=== PATIENT | male | born 1940 | race Caucasian/White ===

== ENCOUNTER → 2016-05-25 | Outpatient (CLI) | payer MEDICARE, OTHER ==
[~2016-05-25] VITALS: Ht 175.3 cm; Wt 117.9 kg
[~2016-05-25] MED LIST: /ASCO250TA PO; /FENT50PA; /FENT75PA; ALFUZOSIN OR; ALIG4CAP PO; ALLO15TA PO; ALLO300T OR; AMBI10TA OR; AMILORIDE OR; AMITRIPTYLINE PO; ANTI25TA OR; ANTI25TA PO; ASPI32ECTA PO; ATIV1TAB2 OR; AVOD0.5C PO; BUMETANIDE OR; CALC1CAP31 PO; CALC1TAB30 PO; CALCCHW12 OR; COLC0.6T OR; DOCU10ELUD PO; ECOT325T5 OR; FINA5TAB2 PO; FLOM5CAP PO; GLUC1CAP10 PO; GLUCTAB6 OR; LEFL1TAB4 PO; LEVO150T OR; LEVO150T7 PO; LEVO175T2 PO; LIDOCAINE 2% INJ 100 MG/5 ML SDV (FOR ANES.) As Ordered ONE; LORA2TA PO; LORAPOW30 PO; MULT1TAB10 PO; MULTIVITAMIN PO; NS 1,000 ML IV SCH; OXYC10TA56 OR; OXYC1TAB23 PO; OXYCODONE PO; POTA20TA PO; POTA20TA2 OR; PREG50CA OR; PROPOFOL 200 MG/20 ML VIAL As Ordered ONE; PROS5TAB OR; ROCA0.25 OR; SERT-141 PO; SPIR25TA2 PO; SYNT150T PO; SYNTHROID PO; THERGRAN OR; TOPI25TA2 OR; TORS20TA2 PO; UROX10TA10 PO; VYTO10TA5 OR; ZOLO100T OR; ZOLPIDEM PO; [UNRECOGNIZED DRUG - OTHER]; [UNRECOGNIZED DRUG - OTHER] PO; [UNRECOGNIZED DRUG - OTHER] PO; [UNRECOGNIZED DRUG - OTHER] PO
--- NOTE | 2016-05-25 09:40 | ROOR ---
Patient Name: Maikel Vadlez Procedure Date: 05/25/2016 9:19 AM Date of : 1940 Age: 75 Room: [facility] Gender: Male Note Status: Finalized Procedure: Colonoscopy to Cecum Indications: Follow-up of diverticulitis Providers: Wilian Jackson MD Referring MD: RAIN RODRIGEZ MD Requesting Provider: Medicines: Monitored Anesthesia Care Complications: No immediate complications. Procedure: Pre-Anesthesia Assessment: - The heart rate, respiratory rate, oxygen saturations, blood pressure, adequacy of pulmonary ventilation, and response to care were monitored throughout the procedure. The Colonoscope was introduced through the anus and advanced to the cecum, identified by appendiceal orifice and ileocecal valve. The colonoscopy was performed without difficulty. The patient tolerated the procedure well. The quality of the bowel preparation was good. Findings: The perianal and digital rectal examinations were normal. Non-bleeding internal hemorrhoids were found during retroflexion. The hemorrhoids were small and Grade I (internal hemorrhoids that do not prolapse). Multiple small and large-mouthed diverticula were found in the recto-sigmoid colon, sigmoid colon and descending colon. The exam was otherwise without abnormality on direct and retroflexion views. Impression: - Non-bleeding internal hemorrhoids. - Diverticulosis in the recto-sigmoid colon, in the sigmoid colon and in the descending colon. - The examination was otherwise normal on direct and retroflexion views. - No specimens collected. - The exam was otherwise normal to the cecum. Recommendation: - Patient has a contact number available for emergencies. The signs and symptoms of potential delayed complications were discussed with the patient. Return to normal activities tomorrow. Written discharge instructions were provided to the patient. - High fiber diet. - Discharge patient to home. - Continue present medications. - Repeat colonoscopy for symptoms only.. - Return to referring physician. - The findings and recommendations were discussed with the patient's family. Wilian Jackson MD Wilian Jackson MD 05/25/2016 9:40:16 AM This report has been signed electronically. Number of Addenda: 0 Note Initiated On: 05/25/2016 9:19 AM Estimated Blood Loss: Estimated blood loss: none.
[2016-05-25 10:14] VITALS: BP 151/82
== END ==
LOC: M OPP 08:27
PROVIDERS: ATTEND Internal Medicine Gastroenterology
DX: Z12.11 Encounter for screening for malignant neoplasm of colon (principal); K57.32 Diverticulitis of large intestine without perforation or abscess without bleeding; K64.0 First degree hemorrhoids; I10 Essential (primary) hypertension; N40.0 Benign prostatic hyperplasia without lower urinary tract symptoms; I51.9 Heart disease, unspecified; N28.9 Disorder of kidney and ureter, unspecified; E07.9 Disorder of thyroid, unspecified; F32.9 Major depressive disorder, single episode, unspecified; E78.5 Hyperlipidemia, unspecified; G47.30 Sleep apnea, unspecified; F41.9 Anxiety disorder, unspecified; R42 Dizziness and giddiness; G89.29 Other chronic pain; R52 Pain, unspecified; Z87.891 Personal history of nicotine dependence; Z79.82 Long term (current) use of aspirin; Z79.899 Other long term (current) drug therapy

== ENCOUNTER → 2016-06-24 | Outpatient (REF) | payer MEDICARE, OTHER ==
[~2016-06-24] MED LIST changes: -LIDOCAINE 2% INJ 100 MG/5 ML SDV (FOR ANES.) As Ordered ONE; -NS 1,000 ML IV SCH; -PROPOFOL 200 MG/20 ML VIAL As Ordered ONE; -SERT-141 PO; +SERT50TA PO
== END ==
LOC: M SMT 12:42
PROVIDERS: ATTEND Urology
DX: N40.1 Benign prostatic hyperplasia with lower urinary tract symptoms (principal)
CPT/HCPCS: 36415; 51798; 81001; G0463

== ENCOUNTER 2016-09-07 13:44 | Emergency (ER) | payer MEDICARE, OTHER ==
[~2016-09-07] VITALS: Ht 175.3 cm; Wt 127.0 kg
[2016-09-07] MEDS ORDERED: AMBI5TAB PO (14:47)
[2016-09-07 14:53] LABS: BASO % 0.4 % (0.0-1.0); EOS # 0.2 K/mm3 (0.0-0.50); EOS % 1.9 % (0.0-3.0); LARGE UNSTAINED CELL # 0.1 K/mm3 (0.0-0.4); LARGE UNSTAINED CELL % 0.8 % (0.0-4.0); LYMPH # 1.1 K/mm3 (1.5-4.5); LYMPH % 9.3 % (24.0-44.0); MEAN CORPUSCULAR HEMOGLOBIN 32.4 pg (27.0-33.0); MEAN CORPUSCULAR HGB CONC 35.1 g/dl (32.0-36.5); MEAN CORPUSCULAR VOLUME 92.2 fl (80.0-96.0); MONO # 0.8 K/mm3 (0.0-0.8); MONO % 7.4 % (0.0-5.0); NEUTROPHILS # 8.9 K/mm3 (1.8-7.7); NEUTROPHILS % 80.1 % (36.0-66.0); PLATELET COUNT, AUTOMATED 205 k/mm3 (150-450); RED CELL DISTRIBUTION WIDTH 12.9 % (11.5-14.5); WHITE BLOOD COUNT 11.1 K/mm3 (4.0-10.0)
[2016-09-07 15:22] LABS: ALBUMIN 3.3 GM/DL (3.2-5.2); ALBUMIN/GLOBULIN RATIO 1.22 (1.00-1.93); ALKALINE PHOSPHATASE 56 U/L (45-117); ALT/SGPT 31 U/L (12-78); ANION GAP 7 MEQ/L (8-16); AST/SGOT 18 U/L (15-37); BILIRUBIN,DIRECT 0.2 MG/DL (0.0-0.2); BILIRUBIN,TOTAL 0.6 MG/DL (0.2-1.0); BLOOD UREA NITROGEN 16 MG/DL (7-18); CALCIUM LEVEL 8.3 MG/DL (8.8-10.2); CARBON DIOXIDE LEVEL 27 MEQ/L (21-32); CHLORIDE LEVEL 107 MEQ/L (98-107); GLOMERULAR FILTRATION RATE > 60.0 (>42); GLUCOSE, FASTING 116 MG/DL (83-110); POTASSIUM SERUM 3.7 MEQ/L (3.5-5.1); SODIUM LEVEL 141 MEQ/L (136-145)
[2016-09-07] MEDS ORDERED: ISOVUE-370 76% 100ML VIAL (Q9967) As Ordered ONE (16:29)
--- NOTE | 2016-09-07 16:55 | REP ---
Clinical: Acute chest pain. Technique: Axial contrast enhanced images from the thoracic inlet to the upper abdomen using 100 ml Isovue 370 intravenous contrast material with coronal and sagittal re-formations. Findings: Satisfactory enhancement of the pulmonary vasculature is achieved and no filling defects are identified to suggest pulmonary embolus. Lung mckinney demonstrate diffuse chronic interstitial changes and scattered scarring with bibasilar and lingular atelectasis. No pleural effusion/reaction or pneumothorax. Cardiomegaly is noted along with atherosclerotic changes to the thoracic aorta and coronary arteries. No pericardial effusion. No evidence for aortic aneurysm or dissection. No significant mediastinal, axillary, or hilar adenopathy. Surrounding musculoskeletal structures demonstrate age-related degenerative changes. Impression: No evidence for pulmonary embolus. Lingular and bilateral lower lobe atelectasis. Signed by Cristhian Pardo MD 09/07/2016 04:47 P
[2016-09-07] MEDS: NITROGLYCERIN 0.4 MG SUBL TABLET SL PRN ×2 (17:26→17:35)
[2016-09-07 17:35] VITALS: BP 145/75
[2016-09-07] MEDS ORDERED: ACETAMINOPHEN TAB 650MG DOSE (2X325MG) PO ONE (17:45)
[2016-09-07 23:30] VITALS: BP 139/80
--- NOTE | 2016-09-08 06:15 | ECGEPIP ---
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
--- NOTE | 2016-09-08 06:33 | ECGEPIP ---
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
== END 2016-09-07 23:32 | disposition home or self-care (01) ==
LOC: M ED 16:56
DX: R07.9 Chest pain, unspecified (principal); J98.11 Atelectasis; R06.02 Shortness of breath; I12.9 Hypertensive chronic kidney disease with stage 1 through stage 4 chronic kidney disease, or unspecified chronic kidney disease; N18.9 Chronic kidney disease, unspecified; M19.90 Unspecified osteoarthritis, unspecified site; M51.9 Unspecified thoracic, thoracolumbar and lumbosacral intervertebral disc disorder; Z87.891 Personal history of nicotine dependence; Z79.899 Other long term (current) drug therapy; Z79.82 Long term (current) use of aspirin
CPT/HCPCS: 36415; 71275; 80048; 80076; 82550; 82553; 83690; 84443; 84484; 85025; 93005; 93041; 94760; 99285; Q9967

== ENCOUNTER → 2016-10-08 | Outpatient (CLI) | payer MEDICARE, OTHER ==
[~2016-10-08] MED LIST changes: +AMBI5TAB PO
--- NOTE | 2016-10-16 00:12 | ECWPNPC ---
PATIENT NAME: ANG REESE : 1940 GENDER: MALE VISIT DATE: 10/08/2016 DISCHARGE DATE: 10/08/16 1018 VISIT LOCKED DATE TIME: PHYSICIAN: ELLYN VU RESOURCE: ELLYN VU REASON FOR APPOINTMENT 1. BACK PAIN HISTORY OF PRESENT ILLNESS NEW PATIENT CONSULT: WHEN DID YOUR PAIN FIRST START? . BRIEFLY DESCRIBE HOW YOUR PAIN STARTED? . HOW DOES YOUR PAIN CHANGE WITH TIME? . DOES YOUR PAIN AWAKEN YOU FROM SLEEP? . HOW MANY HOURS OF SLEEP DO YOU NORMALLY GET? . ANY DIAGNOSTIC TESTING? . FACILITY WHERE TESTS WERE DONE? ____. PAIN TREATMENT TREATMENT YES CANCER HAVE YOU EVER HAD ANY TYPE OF CANCER?NO NO. 76 YEAR OLD MALE PATIENT WITH HISTORY OF CHRONIC LOW BACK. PATIENT DESCRIBES THE PAIN SHARP, STABBING, AND SHOOTING WITH A PAIN SCORE OF 3-7/10. 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 SINCE THEN THE PATIENT HAS HAD INJECTIONS THAT DID AID IN PAIN RELIEF. HOWEVER, IN 2013 THE PATIENT HAD A BACK SURGERY THAT AIDED IN PAIN RELIEF SIGNIFICANTLY UNTIL RECENTLY WHEN THE PAIN STARTED TO COME BACK. PATIENT IS CURRENTLY USING PERCOCET NEEDED PROVIDED BY THE ORTHOPEDIC GROUP. MR. REESE STATES THAT ANY TYPE OF ACTIVITY INCREASES THE PAIN IN HIS LOWER BACK. PATIENT DENIES UNEXPLAINABLE WEIGHT LOSS, FEVER, CHILLS, NEW CHANGES ON HER URINARY OR BOWEL CONTROL. PAIN SCREENING: PATIENT HAS A COMPLAINT OF ACUTE OR CHRONIC PAIN :YES FALL RISK SCREENING: SCREENING :ONE FALL WITHOUT INJURY IN THE PAST YEAR MARR INVENTORY: QUESTIONNAIRE ASSESSEDTBD SCORE VALUE CALCULATED TBD CURRENT MEDICATIONS TAKING ALLOPURINOL 100 MG TABLET 1 TABLET ORALLY BID TAKING ASPIRIN 325 MG TABLET 1 TABLET ORALLY ONCE A DAY TAKING CALCITRIOL 0.25 MCG CAPSULE 1 CAPSULE ORALLY ONCE A DAY TAKING GLUCOSAMINE CHONDROITIN COMPLX 600-250 MG CAPSULE 1 TAB(S) ORALLY BID TAKING LEVOTHYROXINE SODIUM 150 MCG TABLET 1 TABLET ON AN EMPTY STOMACH IN THE MORNING ORALLY ONCE A DAY TAKING MULTIVITAMINS TABLET DIRECTED ORALLY TAKING POTASSIUM CHLORIDE 20 MEQ CAPSULE EXTENDED RELEASE 2 CAPSULE ORALLY BID TAKING ZOLPIDEM 10 MG TABLET 1 TAB(S) ORAL PRN TAKING TORSEMIDE 20 MG TABLET 1 TAB(S) ORALLY BID TAKING SERTRALINE HCL 100 MG TABLET 1 TABLET ORALLY ONCE A DAY TAKING SPIRONOLACTONE 25 MG TABLET 1 TABLET ORALLY BID TAKING LABETALOL HCL 100 MG TABLET 1 TAB ORALLY BID TAKING PERCOCET 7.5-325 MG TABLET 1 TABLET NEEDED ORALLY EVERY 6 HRS TAKING ALIGN 4 MG CAPSULE ORALLY TAKING FINASTERIDE 5 MG TABLET 1 TABLET ORALLY ONCE A DAY TAKING FLOMAX 0.4 MG CAPSULE 2 CAPSULES ORALLY ONCE A DAY TAKING CALCIUM 600+D3 600-400 MG-UNIT TABLET 1 TABLET WITH A MEAL ORALLY ONCE A DAY TAKING LEFLUNOMIDE 10 MG TABLET 1 TABLET ORALLY ONCE A DAY NOT-TAKING COLCHICINE 0.6 MG TABLET 1 TABLET ORALLY PRN - ONCE A DAY NOT-TAKING BACTRIM DS 800-160 MG TABLET 1 TABLET ORALLY TWICE A DAY NOT-TAKING AMITRIPTYLINE HCL 75 MG TABLET 1 TABLET AT BEDTIME ORALLY ONCE A DAY DISCONTINUED CALCIUM + D 600-200 MG-UNIT TABLET 1 TABLET WITH FOOD ORALLY ONCE A DAY DISCONTINUED LORAZEPAM 1 MG TABLET 1 TABLET ORALLY BID PRN DISCONTINUED MECLIZINE HCL 25 MG TABLET 1 TABLET NEEDED ORALLY ONCE A DAY DISCONTINUED FLUTAMIDE 125 MG CAPSULE ORALLY MEDICATION LIST REVIEWED AND RECONCILED WITH THE PATIENT PAST MEDICAL HISTORY BPH URINARY RETENTION GOUT HTN EDEMA DDD/DJD; SEVERE SPINAL STENOSIS HYPOTHYROIDISM DEPRESSION/ANXIETY HYPERCHOLESTEROLEMIA HYPOKALEMIA SLEEP APNEA VERTIGO INSOMNIA CHRONIC KIDNEY DISEASE OSTEOARTHRITIS VARICOSE VEINS OSTEOARTHRITIS ALLERGIES SURGICAL TAPE: REMOVES TOP LAYER OF SKIN: SIDE EFFECTS SURGICAL HISTORY ORIF LEFT LEG/ANKLE FRACTURE; PLATES/SCREWS IN PLACE 1992 BILATERAL - 2 TRIGGER FINGER RELEASE/CARPAL CHARO RELEASE/BONE REMOVAL THUMB (LEFT) 2004 TONSILLECTOMY APPENDECTOMY L3-L5 LAMINECTOMY 11/2012 COLONSCOPY 05/2016 FAMILY HISTORY FATHER: , CHF MOTHER: , HEART ATTACK, DIABETES SIBLINGS: ALIVE 3 BROTHER(S) - HEALTHY. 1 SON(S) , 4 DAUGHTER(S) - HEALTHY. 2 BROTHERS WITH BPH, NO OTHER KNOWN FAMILY HISTORY OF ANY UROLOGICALLY RELATED DISEASES/CANCERS. SOCIAL HISTORY GENERAL: TOBACCO USE ARE YOU A:NONSMOKER ALCOHOL SCREENING POINTS1 INTERPRETATIONNEGATIVE RECREATIONAL DRUG USE DRUG USE?NO CAFFEINE CAFFEINE USE?YES HOW OFTEN AND HOW MUCH? 2-3 CUPS OF TEA PER DAY AND OCCASIONAL COFFEE OCCUPATION: RETIRED. DIET: REGULAR. EXERCISE: NONE. MARITAL STATUS: . OTHERS AT HOME: SPOUSE, CHILD, CHILDREN. PETS: NONE. YAZIDI [id number] MANDAEN LANGUAGE LANGUAGES SPOKEN:FRENCH EDUCATION LEVEL OF EDUCATION:NOT FINISHED COLLEGE LEARNING BARRIERS / SPECIAL NEEDS BARRIERS TO LEARNING?NO HEARING IMPAIRED?NO VISION IMPAIRED?YES :CORRECTIVE LENSES COGNITIVELY IMPAIRED?NO READINESS TO LEARN?YES LEARNING PREFERENCES?NO EMOTIONAL BARRIERS?NO MEDICATION ABUSE NO PAIN CLINIC PFS, CLERGY, PUBLIC HEALTH REFERRALS CLERGY REFERRAL NEEDED?NO WAS THE PROVIDER NOTIFIED OF ANY PERTINENT INFO?NO PFS REFERRAL NEEDED?NO PUBLIC HEALTH REFERRAL NEEDED?NO PATIENT: ____. ADVANCE DIRECTIVES HEALTH CARE PROXY?NO WOULD YOU LIKE MORE INFORMATION?YES DO YOU HAVE A DNR?NO WOULD YOU LIKE MORE INFORMATION?NO LIVING WILL?NO WOULD YOU LIKE MORE INFORMATION?NO POWER OF TREAD CUTTER?NO TRAVEL OUTSIDE US: NO . HOSPITALIZATION/MAJOR DIAGNOSTIC PROCEDURE DIVERTICULITIS SURGERY RELATED DIVERTICULITIS 12/2015 REVIEW OF SYSTEMS REVIEWED BY: PROVIDER: ELLYN VU MD . CONSTITUTIONAL: ANY CHANGE IN YOUR MEDICAL CONDITION? NO . CHILLS NO . FEVER NO . INFECTION: DO YOU HAVE NEW INFECTIONS? NO . DO YOU HAVE HISTORY OF MRSA? NO . MUSCULOSKELETAL: ANY NEW PATTERNS OF PAIN OR NUMBNESS? NO . SYTEMIC LUPUS NO . GASTROENTEROLOGY: ANY NEW CHANGE IN BOWEL CONTROL? NO . BARRETTS ESOPHAGUS NO . CIRRHOSIS NO . HEPATITIS NO . LIVER FAILURE NO . ACID REFLUX NO . UNEXPLAINED WEIGHT LOSS NO . GENITOURINARY: ANY NEW CHANGE IN BLADDER CONTROL? NO . IS THERE A CHANCE YOU COULD BE ? NO . HEMATOLOGY/LYMPH: DO YOU TAKE ANY BLOOD THINNERS? (FOR EXAMPLE- COUMADIN, PLAVIX, AGGRENOX, PLATEL, PRADAXA, OR XARELTO) NO . WHEN WAS YOUR LAST DOSE? DATE: TIME: . LOW PLATELET COUNT NO . SICKLE CELL DISEASE NO . VON WILLIEBRANDS NO . FACTOR V LEIDEN NO . THALLASEMIA NO . ANEMIA NO . EASY BRUISING YES, ON ASPIRIN . NEUROLOGY: HAVE YOU FALLEN IN THE PAST 6 MONTHS? YES . ANY NEW EXTREMITY NUMBNESS OR WEAKNESS? NO . HEAD INJURY NO . DEMENTIA NO . CEREBRAL PALSY NO . MULTIPLE SCLEROSIS NO . DIZZINESS NO . HEADACHE NO . STROKES NO . VERTIGO YES, WHILE GETTING UP FROM A SITTING POSITION, WITH MOVEMENT OF HEAD . CARDIOLOGY: DO YOU HAVE A PACEMAKER OR DEFIBRILLATOR? NO . ANGINA NO . HEART ATTACK NO . HEART SURGERY NO . CONGESTIVE HEART FAILURE/FLUID OVERLOAD NO . CHEST PAIN NO . HIGH BLOOD PRESSURE ON MEDICATION(S) . IRREGULAR HEART BEAT NO . RESPIRATORY: HAVE YOU BEEN SICK IN THE PAST WEEK? NO . FEVER NO . FLU LIKE SYMPTOMS? NO . CPAP NO . BYPAP YES . ASTHMA NO . EMPHYSEMA NO . CHRONIC LUNG DISEASES NO . SHORTNESS OF BREATH ON EXERTION YES . DO YOU USE ANY TYPE OF TOBACCO (SMOKE, SMOKELESS, CHEW)? NO . COUGH NO . SNORING YES . INTEGUMENTARY: DO YOU HAVE ANY RASHES OR OPEN SORES? NO . ALLERGIC/IMMUNO: ARE YOU ALLERGIC TO SHELLFISH OR IV DYE? NO . ANY NEW ALLERGIES? NO . PSYCHIATRIC: DO YOU HAVE THOUGHTS OF HURTING YOURSELF OR SOMEONE ELSE? NO . ARE YOU ABUSED, NEGLECTED, OR IN AN UNSAFE ENVIRONMENT? NO . ENDOCRINOLOGY: ARE YOU DIABETIC? NO . THYROID DISORDER YES, HYPOTHYROID . OTHER: DO YOU NEED ANY PRESCRIPTIONS? NO . IF YES, PLEASE LIST: ____ . ANY NEW PROBLEMS WITH YOUR MEDICATIONS? NO . WHEN DID YOU LAST EAT? ____ . WHEN DID YOU LAST DRINK? ____ . WHAT DID YOU LAST DRINK? ____ . NAME OF PERSON DRIVING YOU HOME? ____ . DO YOU HAVE ANY OTHER QUESTIONS OR CONCERNS NO . VITAL SIGNS WT 286.6 LBS, HT 5'9", BMI 42.32 INDEX, BP 147/79 MM HG, HR 71 /MIN, RR 18 /MIN, TEMP 97.6 F, OXYGEN SAT % 94%, NA INITIALS SC 08:58, REVIEWED BY: FREDA. EXAMINATION : PATIENT IS ALERT O X 3 AND COOPERATIVE. TENDERNESS IN THE LOWER BACK AND PARASPINAL MUSLCE GROUP. RIGHT LEG IS WEAKER THEN THE LEFT ESPECIALLY AT EXTENSION. MRI DONE ON 08/31/16 SHOWS HYPERTROPHY, MULTIPLE BULGING DISCS, AND DEGENERATIVE CHANGES. 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 REESE PAIN MANAGEMENT CASE. AT THIS TIME THE PATIENT WILL CONTINUE TO GET THE MEDICATION FROM THE ORTHOPEDIC GROUP. WE DISCUSSED SEVERAL INJECTIONS THAT MAY AID THE PATIENT IN PAIN RELIEF. AT THIS TIME THE PATIENT STATES THAT HIS LEGS ARE BOTHERING HIM MORE THEN THE BACK. I WOULD LIKE TO MOVE FORWARD WITH A LUMBAR EPIDURAL AND BOOK AFTER APPROVAL. WE DISCUSSED THE RISKS, BENEFITS, AND ALTNERATIVES OF THE INJECTION AND THE PATIENT WOULD LIKE TO PROCEED. IN THE FUTURE THE PATIENT IS A GOOD CANDIDATE FOR LUMBAR FACET BLOCKS DUE TO THE BACK PAIN. INSTRUCTIONS WERE GIVEN, QUESTIONS WERE ANSWERED, PATIENT REPORTS UNDERSTANDING AND AGREES WITH THE PLAN. I, CAROLA HUYNH, DOCUMENTED THE ABOVE INFORMATION ACTING A SCRIBE FOR DR. VU. I HAVE REVIEWED THE ABOVE DOCUMENT, WRITTEN BY CAROLA CAMPBELL AND I VERIFY THAT IT IS ACCURATE. DEAR DR. BAJWA:THANK YOU FOR YOUR KIND REFERRAL OF MR. REESE. YOU WANT TO DISCUSS HER CASE WITH ME PLEASE CALL ME AT THE PAIN CENTER AT [phone]. SINCERELY,ELLYN VU, [facility]. PREVENTIVE MEDICINE LUMBAR EPIDURAL INSTRUCTIONS GIVEN AND REVIEWED. PROCEDURE CODES FA211 ESTABILISHED PATIENT [facility] FACILITY CHARGE G8427 DOC MEDS VERIFIED W/PT OR RE G8730 PAIN ASSESS POS TOOL F/U PLAN DOC DISPOSITION & COMMUNICATION FOLLOW UP LESSteve AFTER APPROVAL ELECTRONICALLY SIGNED BY ELLYN VU MD ON 10/15/2016 AT 10:50 AM EDT DISCLAIMER : THIS IS A VISIT SUMMARY EXTRACTED FROM THE [employer] CHART. IT IS NOT A COPY OF THE [employer] PROGRESS NOTE. MTDD
== END | disposition home or self-care (01) ==
LOC: M PAIN 08:40
PROVIDERS: ATTEND Anesthesiology
DX: G89.29 Other chronic pain (principal); M96.1 Postlaminectomy syndrome, not elsewhere classified; M47.816 Spondylosis without myelopathy or radiculopathy, lumbar region; M47.817 Spondylosis without myelopathy or radiculopathy, lumbosacral region; M51.16 Intervertebral disc disorders with radiculopathy, lumbar region; M51.17 Intervertebral disc disorders with radiculopathy, lumbosacral region; M10.9 Gout, unspecified; I12.9 Hypertensive chronic kidney disease with stage 1 through stage 4 chronic kidney disease, or unspecified chronic kidney disease; R60.0 Localized edema; E03.9 Hypothyroidism, unspecified; F41.9 Anxiety disorder, unspecified; F33.9 Major depressive disorder, recurrent, unspecified; E78.00 Pure hypercholesterolemia, unspecified; E87.6 Hypokalemia; G47.30 Sleep apnea, unspecified; N18.9 Chronic kidney disease, unspecified; M19.90 Unspecified osteoarthritis, unspecified site; Z79.899 Other long term (current) drug therapy; Z79.82 Long term (current) use of aspirin; L23.1 Allergic contact dermatitis due to adhesives

== ENCOUNTER → 2016-10-23 | Outpatient (CLI) | payer MEDICARE, OTHER ==
[~2016-10-23] MED LIST changes: +ASPI325T24 PO; -ASPI32ECTA PO; +ISOVUE-M 300 61% 15ML VIAL (Q9967) As Ordered ONE; +LIDOCAINE 1% SDV INJ 30 ML VIAL As Ordered ONE; +diazePAM 5 MG TAB As Ordered ONE; +methylPREDNISolone SUSP 40 MG/ML (DEPO-medrol) VIAL (J1030) As Ordered ONE; +oxyCODONE 5MG TAB As Ordered ONE
--- NOTE | 2016-10-23 15:06 | REP ---
PARTIAL LUMBAR SPINE SERIES: SINGLE VIEW HISTORY: Lumbar epidural steroid injection for pain. 37 seconds of fluoroscopy time is reported. FINDINGS: A single fluoroscopically-obtained last image hold spot view of the lumbar spine documents needle position associated with injection procedure. Signed by Hector Kaplan MD 10/23/2016 05:13 P
--- NOTE | 2016-11-01 23:51 | ECWPNPC ---
PATIENT NAME: ANG REESE : 1940 GENDER: MALE VISIT DATE: 10/23/2016 DISCHARGE DATE: 10/23/16 1252 VISIT LOCKED DATE TIME: PHYSICIAN: ELLYN VU RESOURCE: ELLYN VU REASON FOR APPOINTMENT 1. LESI HISTORY OF PRESENT ILLNESS HISTORY OF PRESENT ILLNESS: PAIN THE PATIENT DESCRIBES THE PAIN... FALL RISK SCREENING: SCREENING :NO FALLS IN THE PAST YEAR CURRENT MEDICATIONS TAKING ALLOPURINOL 100 MG TABLET 1 TABLET ORALLY BID, NOTES: 10/23/16799 TAKING ASPIRIN 325 MG TABLET 1 TABLET ORALLY ONCE A DAY, NOTES: 10/22/161999 TAKING CALCITRIOL 0.25 MCG CAPSULE 1 CAPSULE ORALLY ONCE A DAY, NOTES: 10/23/16799 TAKING GLUCOSAMINE CHONDROITIN COMPLX 600-250 MG CAPSULE 1 TAB(S) ORALLY BID, NOTES: 10/22/16799 TAKING LEVOTHYROXINE SODIUM 150 MCG TABLET 1 TABLET ON AN EMPTY STOMACH IN THE MORNING ORALLY ONCE A DAY, NOTES: 10/22/161999 TAKING MULTIVITAMINS TABLET DIRECTED ORALLY , NOTES: 10/23/16799 TAKING POTASSIUM CHLORIDE 20 MEQ CAPSULE EXTENDED RELEASE 2 CAPSULE ORALLY BID, NOTES: 10/23/16799 TAKING ZOLPIDEM 10 MG TABLET 1 TAB(S) ORAL PRN, NOTES: 10/22/161999 TAKING TORSEMIDE 20 MG TABLET 1 TAB(S) ORALLY BID, NOTES: 10/22/161699 TAKING SERTRALINE HCL 100 MG TABLET 1 TABLET ORALLY ONCE A DAY, NOTES: 10/23/16799 TAKING SPIRONOLACTONE 25 MG TABLET 1 TABLET ORALLY BID, NOTES: 10/22/16799 TAKING LABETALOL HCL 100 MG TABLET 1 TAB ORALLY BID, NOTES: 10/23/16799 TAKING PERCOCET 7.5-325 MG TABLET 1 TABLET NEEDED ORALLY EVERY 6 HRS, NOTES: 10/22/162199 TAKING ALIGN 4 MG CAPSULE ORALLY , NOTES: 10/23/16799 TAKING FINASTERIDE 5 MG TABLET 1 TABLET ORALLY ONCE A DAY, NOTES: 10/22/162199 TAKING FLOMAX 0.4 MG CAPSULE 2 CAPSULES ORALLY ONCE A DAY, NOTES: 10/22/161699 TAKING CALCIUM 600+D3 600-400 MG-UNIT TABLET 1 TABLET WITH A MEAL ORALLY ONCE A DAY, NOTES: 6/29/17 1700 TAKING LEFLUNOMIDE 10 MG TABLET 1 TABLET ORALLY ONCE A DAY, NOTES: 10/23/16 0800 NOT-TAKING COLCHICINE 0.6 MG TABLET 1 TABLET ORALLY PRN - ONCE A DAY NOT-TAKING BACTRIM DS 800-160 MG TABLET 1 TABLET ORALLY TWICE A DAY NOT-TAKING AMITRIPTYLINE HCL 75 MG TABLET 1 TABLET AT BEDTIME ORALLY ONCE A DAY MEDICATION LIST REVIEWED AND RECONCILED WITH THE PATIENT PAST MEDICAL HISTORY BPH URINARY RETENTION GOUT HTN EDEMA DDD/DJD; SEVERE SPINAL STENOSIS HYPOTHYROIDISM DEPRESSION/ANXIETY HYPERCHOLESTEROLEMIA HYPOKALEMIA SLEEP APNEA VERTIGO INSOMNIA CHRONIC KIDNEY DISEASE OSTEOARTHRITIS VARICOSE VEINS OSTEOARTHRITIS ALLERGIES SURGICAL TAPE: REMOVES TOP LAYER OF SKIN: SIDE EFFECTS REVIEW OF SYSTEMS REVIEWED BY: PROVIDER: . CONSTITUTIONAL: ANY CHANGE IN YOUR MEDICAL CONDITION? NO . CHILLS NO . FEVER NO . INFECTION: DO YOU HAVE NEW INFECTIONS? NO . DO YOU HAVE HISTORY OF MRSA? NO . MUSCULOSKELETAL: ANY NEW PATTERNS OF PAIN OR NUMBNESS? NO . GASTROENTEROLOGY: ANY NEW CHANGE IN BOWEL CONTROL? NO . GENITOURINARY: ANY NEW CHANGE IN BLADDER CONTROL? NO . IS THERE A CHANCE YOU COULD BE ? NO . HEMATOLOGY/LYMPH: DO YOU TAKE ANY BLOOD THINNERS? (FOR EXAMPLE- COUMADIN, PLAVIX, AGGRENOX, PLATEL, PRADAXA, OR XARELTO) NO . WHEN WAS YOUR LAST DOSE? DATE: TIME: . NEUROLOGY: HAVE YOU FALLEN IN THE PAST 6 MONTHS? NO . ANY NEW EXTREMITY NUMBNESS OR WEAKNESS? NO . CARDIOLOGY: DO YOU HAVE A PACEMAKER OR DEFIBRILLATOR? NO . RESPIRATORY: HAVE YOU BEEN SICK IN THE PAST WEEK? NO . FEVER NO . FLU LIKE SYMPTOMS? NO . COUGH NO . INTEGUMENTARY: DO YOU HAVE ANY RASHES OR OPEN SORES? NO . ALLERGIC/IMMUNO: ARE YOU ALLERGIC TO SHELLFISH OR IV DYE? NO . ANY NEW ALLERGIES? NO . PSYCHIATRIC: DO YOU HAVE THOUGHTS OF HURTING YOURSELF OR SOMEONE ELSE? NO . ARE YOU ABUSED, NEGLECTED, OR IN AN UNSAFE ENVIRONMENT? NO . ENDOCRINOLOGY: ARE YOU DIABETIC? NO . OTHER: DO YOU NEED ANY PRESCRIPTIONS? NO . IF YES, PLEASE LIST: ____ . ANY NEW PROBLEMS WITH YOUR MEDICATIONS? NO . WHEN DID YOU LAST EAT? ____10/22/16 1800 . WHEN DID YOU LAST DRINK? ____10/23/16 0800 . WHAT DID YOU LAST DRINK? ____WATER . NAME OF PERSON DRIVING YOU HOME? ____JILL . DO YOU HAVE ANY OTHER QUESTIONS OR CONCERNS NO . VITAL SIGNS WT 282.6 LBS, HT 5'9", BMI 41.73 INDEX, BP 148/90 MM HG, HR 65 /MIN, RR 16 /MIN, TEMP 97.4 F, OXYGEN SAT % 96%, SAFE IN ENV? (Y/N) YES, NA INITIALS TL 1036, REVIEWED BY: SPENCER. ASSESSMENTS INTERVERTEBRAL DISC DISORDERS WITH RADICULOPATHY, LUMBAR REGION - M51.16 (PRIMARY) PROCEDURES PRE PROCEDURE DIAGNOSIS LUMBAR DISC DISORDER WITH RADICULOPATHY POST PROCEDURE DIAGNOSIS LUMBAR DISC DISORDER WITH RADICULOPATHY PROCEDURE LUMBAR EPIDURAL STEROID INJECTION UNDER FLUOROSCOPIC GUIDANCE SURGEON DR. ELLYN VU CASKET INSPECTOR NONE ANESTHESIA LOCAL PRE PROCEDURE NOTE THE PATIENT HAS A HISTORY OF CHRONIC LOW BACK PAIN. I EVALUATE THE PATIENT AND REVIEWED THE CHART. I WENT OVER THE RISKS, ALTERNATIVES, AND BENEFITS ASSOCIATED WITH THIS PROCEDURE. THE PATIENT WOULD LIKE TO PROCEED AND GIVE CONSENT TO PERFORMED THE PROCEDURE. THE PATIENT DENIES UNEXPLAINABLE WEIGHT LOSS, FEVER, CHILLS, OR NEW CHANGES IN URINARY OR BOWEL CONTROL. DESCRIPTION OF PROCEDURE THE PATIENT WAS BROUGHT TO THE PROCEDURE ROOM AND PLACED IN THE PRONE POSITION. THE LUMBOSACRAL AREA WAS CLEANED WITH BETADINE SOLUTION AND DRAPED ASEPTICALLY. THE PROCEDURE WAS DONE UNDER STERILE CONDITIONS. I CHECKED LATERALITY AND THE LEVEL WHERE THE PROCEDURE WAS GOING TO BE PERFORMED WITH THE PATIENT AND THE SUPPORTING STAFF AT THE MOMENT OF THE TIME OUT IN THE PROCEDURE ROOM. UNDER FLUOROSCOPIC GUIDANCE, THE TARGET POINT WAS SELECTED AT THE INTERLAMINAR LEVEL OF L2-L3. LIDOCAINE WAS USED TO NUMB THE SKIN AND THE SUBCUTANEOUS TISSUE BELOW IT. EPIDURAL TUOHY NEEDLE, 17-GAUGE, WAS ADVANCED UNDER FLUOROSCOPIC GUIDANCE AND FOLLOWING PATIENT FEEDBACK UNTIL THE EPIDURAL SPACE WAS REACHED, 7 CM DEEP INTO THE SKIN BY THE LOSS OF RESISTANCE TECHNIQUE. ISOVUE M DYE 30%, 0.25 ML, WAS INJECTED SHOWING ADEQUATE SPREAD OF THE DYE. THEN, A SOLUTION OF 3 ML OF NORMAL SALINE WITH DEPO-MEDROL 60 MG WAS INJECTED SLOWLY FOLLOWING PATIENT FEEDBACK. THERE WAS NO EVIDENCE OF BLOOD, PARESTHESIA OR CEREBROSPINAL FLUID DURING THE PROCEDURE. THE PATIENT WAS SENT TO THE RECOVERY ROOM. THE PATIENT WAS MOVING THE EXTREMITIES AND DOING WELL. THERE WAS NO COMPLICATION DURING THE PROCEDURE. FLUOROSCOPY TIME WAS 33 SECONDS POST PROCEDURE NOTE THE PATIENT WILL BE SEEN IN A FOLLOW UP IN THE NEXT FEW WEEKS. INSTRUCTIONS WERE GIVEN, QUESTIONS WERE ANSWERED, AND THE PATIENT EXPRESSED UNDERSTANDING AND AGREES WITH THE PLAN. I, CAROLA HUYNH, DOCUMENTED THE ABOVE INFORMATION ACTING A SCRIBE FOR DR. VU. I, DR. VU, HAVE REVIEWED THE ABOVE DOCUMENT, SCRIBED BY CAROLA HUYNH, AND I VERIFY THAT IT IS ACCURATE DIAGNOSTIC IMAGING [facility] FLUORO GUIDE SPINE INJECTION (PAIN)[id number] PROCEDURE CODES 74136 LUMBAR/SACRAL W/ IMAGING 6045F RADXPS IN END [id number] PXD DISPOSITION & COMMUNICATION FOLLOW UP 3 WEEKS ELECTRONICALLY SIGNED BY ELLYN VU MD ON 11/01/2016 AT 07:28 PM EDT DISCLAIMER : THIS IS A VISIT SUMMARY EXTRACTED FROM THE [employer] CHART. IT IS NOT A COPY OF THE [employer] PROGRESS NOTE. MTDD
== END | disposition home or self-care (01) ==
LOC: M PAIN 10:20
PROVIDERS: ATTEND Anesthesiology
DX: G89.29 Other chronic pain (principal); M51.16 Intervertebral disc disorders with radiculopathy, lumbar region; N40.0 Benign prostatic hyperplasia without lower urinary tract symptoms; R32 Unspecified urinary incontinence; M10.9 Gout, unspecified; I12.9 Hypertensive chronic kidney disease with stage 1 through stage 4 chronic kidney disease, or unspecified chronic kidney disease; R60.0 Localized edema; E03.9 Hypothyroidism, unspecified; F33.9 Major depressive disorder, recurrent, unspecified; F41.9 Anxiety disorder, unspecified; E78.00 Pure hypercholesterolemia, unspecified; E87.6 Hypokalemia; G47.30 Sleep apnea, unspecified; N18.9 Chronic kidney disease, unspecified; M19.90 Unspecified osteoarthritis, unspecified site; Z79.899 Other long term (current) drug therapy; Z79.82 Long term (current) use of aspirin; L23.1 Allergic contact dermatitis due to adhesives
CPT/HCPCS: 62323; J1030; Q9967

== ENCOUNTER → 2016-11-12 | Outpatient (CLI) | payer MEDICARE, OTHER ==
[~2016-11-12] MED LIST changes: -ISOVUE-M 300 61% 15ML VIAL (Q9967) As Ordered ONE; -LIDOCAINE 1% SDV INJ 30 ML VIAL As Ordered ONE; -diazePAM 5 MG TAB As Ordered ONE; -methylPREDNISolone SUSP 40 MG/ML (DEPO-medrol) VIAL (J1030) As Ordered ONE; -oxyCODONE 5MG TAB As Ordered ONE
--- NOTE | 2016-11-26 01:26 | ECWPNPC ---
PATIENT NAME: ANG REESE : 1940 GENDER: MALE VISIT DATE: 11/12/2016 DISCHARGE DATE: 11/12/16 1503 VISIT LOCKED DATE TIME: PHYSICIAN: ELLYN VU RESOURCE: ELLYN VU REASON FOR APPOINTMENT 1. LOW BACK PAIN HISTORY OF PRESENT ILLNESS HISTORY OF PRESENT ILLNESS: PAIN THE PATIENT DESCRIBES THE PAIN... 76 YEAR OLD MALE PATIENT WITH HISTORY OF CHRONIC LOW BACK. PATIENT DESCRIBES THE PAIN SHARP, STABBING, AND SHOOTING WITH A PAIN SCORE OF 3/5/10. MR REESE STATES HE FIRST HURT HIS BACK IN 1981 WHILE BENDING OVER TO COMMERCIAL INSULATOR A BOLT OFF THE GROUND AND THREW HIS BACK OUT. PATIENT RECEIVED A LUMBAR EPIDURAL ON 10/23/16 AND STATES THAT HE HAS HAD RELIEF FROM THE INJECTION BUT THE PAIN IS STILL PRESENT. PATIENT IS CURRENTLY USING PERCOCET NEEDED PROVIDED BY [facility]. MR. REESE STATES THAT ANY TYPE OF ACTIVITY INCREASES THE PAIN IN HIS LOWER BACK. PATIENT DENIES UNEXPLAINABLE WEIGHT LOSS, FEVER, CHILLS, NEW CHANGES ON HER URINARY OR BOWEL CONTROL. FALL RISK SCREENING: SCREENING :NO FALLS IN THE PAST YEAR CURRENT MEDICATIONS TAKING ALLOPURINOL 100 MG TABLET 1 TABLET ORALLY BID TAKING ASPIRIN 325 MG TABLET 1 TABLET ORALLY ONCE A DAY TAKING CALCITRIOL 0.25 MCG CAPSULE 1 CAPSULE ORALLY ONCE A DAY TAKING GLUCOSAMINE CHONDROITIN COMPLX 600-250 MG CAPSULE 1 TAB(S) ORALLY BID TAKING LEVOTHYROXINE SODIUM 150 MCG TABLET 1 TABLET ON AN EMPTY STOMACH IN THE MORNING ORALLY ONCE A DAY TAKING MULTIVITAMINS TABLET DIRECTED ORALLY TAKING POTASSIUM CHLORIDE 20 MEQ CAPSULE EXTENDED RELEASE 2 CAPSULE ORALLY BID TAKING ZOLPIDEM 10 MG TABLET 1 TAB(S) ORAL PRN TAKING TORSEMIDE 20 MG TABLET 1 TAB(S) ORALLY BID TAKING SERTRALINE HCL 100 MG TABLET 1 TABLET ORALLY ONCE A DAY TAKING SPIRONOLACTONE 25 MG TABLET 1 TABLET ORALLY BID TAKING LABETALOL HCL 100 MG TABLET 1 TAB ORALLY BID TAKING PERCOCET 7.5-325 MG TABLET 1 TABLET NEEDED ORALLY EVERY 6 HRS TAKING ALIGN 4 MG CAPSULE ORALLY TAKING FINASTERIDE 5 MG TABLET 1 TABLET ORALLY ONCE A DAY TAKING FLOMAX 0.4 MG CAPSULE 2 CAPSULES ORALLY ONCE A DAY TAKING CALCIUM 600+D3 600-400 MG-UNIT TABLET 1 TABLET WITH A MEAL ORALLY ONCE A DAY TAKING LEFLUNOMIDE 10 MG TABLET 1 TABLET ORALLY ONCE A DAY NOT-TAKING COLCHICINE 0.6 MG TABLET 1 TABLET ORALLY PRN - ONCE A DAY NOT-TAKING BACTRIM DS 800-160 MG TABLET 1 TABLET ORALLY TWICE A DAY NOT-TAKING AMITRIPTYLINE HCL 75 MG TABLET 1 TABLET AT BEDTIME ORALLY ONCE A DAY PAST MEDICAL HISTORY BPH URINARY RETENTION GOUT HTN EDEMA DDD/DJD; SEVERE SPINAL STENOSIS HYPOTHYROIDISM DEPRESSION/ANXIETY HYPERCHOLESTEROLEMIA HYPOKALEMIA SLEEP APNEA VERTIGO INSOMNIA CHRONIC KIDNEY DISEASE OSTEOARTHRITIS VARICOSE VEINS OSTEOARTHRITIS ALLERGIES SURGICAL TAPE: REMOVES TOP LAYER OF SKIN: SIDE EFFECTS REVIEW OF SYSTEMS REVIEWED BY: PROVIDER: ELLYN VU MD . CONSTITUTIONAL: ANY CHANGE IN YOUR MEDICAL CONDITION? NO . CHILLS NO . FEVER NO . INFECTION: DO YOU HAVE NEW INFECTIONS? NO . DO YOU HAVE HISTORY OF MRSA? NO . MUSCULOSKELETAL: ANY NEW PATTERNS OF PAIN OR NUMBNESS? NO . GASTROENTEROLOGY: ANY NEW CHANGE IN BOWEL CONTROL? NO . GENITOURINARY: ANY NEW CHANGE IN BLADDER CONTROL? NO . IS THERE A CHANCE YOU COULD BE ? NO . HEMATOLOGY/LYMPH: DO YOU TAKE ANY BLOOD THINNERS? (FOR EXAMPLE- COUMADIN, PLAVIX, AGGRENOX, PLATEL, PRADAXA, OR XARELTO) NO . WHEN WAS YOUR LAST DOSE? DATE: TIME: . NEUROLOGY: HAVE YOU FALLEN IN THE PAST 6 MONTHS? YES . ANY NEW EXTREMITY NUMBNESS OR WEAKNESS? NO . CARDIOLOGY: DO YOU HAVE A PACEMAKER OR DEFIBRILLATOR? NO . RESPIRATORY: HAVE YOU BEEN SICK IN THE PAST WEEK? NO . FEVER NO . FLU LIKE SYMPTOMS? NO . COUGH NO . INTEGUMENTARY: DO YOU HAVE ANY RASHES OR OPEN SORES? NO . ALLERGIC/IMMUNO: ARE YOU ALLERGIC TO SHELLFISH OR IV DYE? NO . ANY NEW ALLERGIES? NO . PSYCHIATRIC: DO YOU HAVE THOUGHTS OF HURTING YOURSELF OR SOMEONE ELSE? NO . ARE YOU ABUSED, NEGLECTED, OR IN AN UNSAFE ENVIRONMENT? NO . ENDOCRINOLOGY: ARE YOU DIABETIC? NO . OTHER: DO YOU NEED ANY PRESCRIPTIONS? NO . IF YES, PLEASE LIST: ____ . ANY NEW PROBLEMS WITH YOUR MEDICATIONS? NO . WHEN DID YOU LAST EAT? ____ . WHEN DID YOU LAST DRINK? ____ . WHAT DID YOU LAST DRINK? ____ . NAME OF PERSON DRIVING YOU HOME? ____ . DO YOU HAVE ANY OTHER QUESTIONS OR CONCERNS NO . VITAL SIGNS WT 285.2 LBS, HT 5'9", BMI 42.11 INDEX, BP 137/81 MM HG, HR 69 /MIN, RR 16 /MIN, TEMP 97.6 F, OXYGEN SAT % 94%, NA INITIALS SC 14:01. EXAMINATION : PATIENT IS ALERT O X 3 AND COOPERATIVE. TENDERNESS IN THE LOWER BACK AND PARASPINAL MUSCLE GROUP. RIGHT LEG IS WEAKER THEN THE LEFT ESPECIALLY AT EXTENSION. MRI DONE ON 08/31/16 SHOWS HYPERTROPHY, MULTIPLE BULGING DISCS, AND DEGENERATIVE CHANGES. 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 REESE PAIN MANAGEMENT CASE. AT THIS TIME THE PATIENT WILL CONTINUE TO GET THE MEDICATION FROM THE [facility]. WE DISCUSSED SEVERAL INJECTIONS THAT MAY AID THE PATIENT IN PAIN RELIEF. PATIENT RECEIVED A LUMBAR EPIDURAL BUT REPORTS STILL HAVING A LOT OF PAIN IN THE LOWER BACK AREA. AT THIS TIME THE PATIENT STATES HE STILL HAS THE AXIAL PAIN IN HIS LOWER BACK. I WOULD LIKE TO MOVE FORWARD WITH A LUMBAR FACET BLOCK. WE DISCUSSED THE RISKS, BENENFITS, AND ALTNERATIVES OF THE INJECTION AND THE PATIENT WOULD LIKE TO PROCEED. INSTRUCTIONS WERE GIVEN, QUESTIONS WERE ANSWERED, PATIENT REPORTS UNDERSTANDING AND AGREES WITH THE PLAN. I, CAROLA HUYNH, DOCUMENTED THE ABOVE INFORMATION ACTING A SCRIBE FOR DR. VU. I HAVE REVIEWED THE ABOVE DOCUMENT, WRITTEN BY CAROLA CAMPBELL AND I VERIFY THAT IT IS ACCURATE. OTHERS NOTES: FACET JOINT INJECTION MATERIAL WAS PRINTED. PREVENTIVE MEDICINE DISCUSSED PREPROCEDURE CARE AND FACET JOINT INFORMATION / PT EXPRESSED UNDERSTANDING. PROCEDURE CODES FA211 ESTABILISHED PATIENT [facility] CHARGE G8427 DOC MEDS VERIFIED W/PT OR RE G8730 PAIN ASSESS POS TOOL F/U PLAN DOC DISPOSITION & COMMUNICATION FOLLOW UP LFBT AFTER APPROVAL ELECTRONICALLY SIGNED BY ELLYN VU MD ON 11/23/2016 AT 11:32 AM EDT DISCLAIMER : THIS IS A VISIT SUMMARY EXTRACTED FROM THE [employer] CHART. IT IS NOT A COPY OF THE [employer] PROGRESS NOTE. HECTOR
== END | disposition home or self-care (01) ==
LOC: M PAIN 13:40
PROVIDERS: ATTEND Anesthesiology
DX: G89.29 Other chronic pain (principal); M96.1 Postlaminectomy syndrome, not elsewhere classified; M47.816 Spondylosis without myelopathy or radiculopathy, lumbar region; M47.817 Spondylosis without myelopathy or radiculopathy, lumbosacral region; M51.16 Intervertebral disc disorders with radiculopathy, lumbar region; M51.17 Intervertebral disc disorders with radiculopathy, lumbosacral region; N40.0 Benign prostatic hyperplasia without lower urinary tract symptoms; R32 Unspecified urinary incontinence; M10.9 Gout, unspecified; I12.9 Hypertensive chronic kidney disease with stage 1 through stage 4 chronic kidney disease, or unspecified chronic kidney disease; R60.0 Localized edema; E03.9 Hypothyroidism, unspecified; F33.9 Major depressive disorder, recurrent, unspecified; F41.9 Anxiety disorder, unspecified; E78.00 Pure hypercholesterolemia, unspecified; E87.6 Hypokalemia; G47.30 Sleep apnea, unspecified; N18.9 Chronic kidney disease, unspecified; M19.90 Unspecified osteoarthritis, unspecified site; Z79.899 Other long term (current) drug therapy; Z79.82 Long term (current) use of aspirin; L23.1 Allergic contact dermatitis due to adhesives

== ENCOUNTER → 2016-11-25 | Outpatient (CLI) | payer MEDICARE, OTHER ==
[~2016-11-25] MED LIST changes: +BUPIVACAINE HCL 0.25% 30 ML VIAL As Ordered ONE; +ISOVUE-M 300 61% 15ML VIAL (Q9967) As Ordered ONE; +LIDOCAINE 1% SDV INJ 30 ML VIAL As Ordered ONE; +TRIAMCINOLONE ACETONIDE SUSP 40 MG/ML VIAL (J3301) As Ordered ONE; +diazePAM 5 MG TAB As Ordered ONE; +oxyCODONE 5MG TAB As Ordered ONE
--- NOTE | 2016-11-25 17:07 | REP ---
FACET BLOCK: The images were reviewed with Dr. Mcnair. The patient has a history of spinal stenosis and low back pain radiating down both legs. The portable C-ARM was provided in the OR for Dr. Holcomb for fluoroscopic guidance. 4 intraoperative fluoroscopic spot films were obtained using last image hold technology for needle placement verification for bilateral lumbar facet injection. The films are on the PACs system and are available for review. 39 seconds of fluoroscopic time was utilized for this procedure. Reviewed by MYA Sorenson 11/26/2016 05:44 PEdited and Signed by Nate Mcnair MD 11/26/2016 06:49 P
--- NOTE | 2016-12-08 00:13 | ECWPNPC ---
PATIENT NAME: ANG REESE : 1940 GENDER: MALE VISIT DATE: 11/25/2016 DISCHARGE DATE: 11/25/16 1337 VISIT LOCKED DATE TIME: PHYSICIAN: ELLYN VU RESOURCE: ELLYN VU REASON FOR APPOINTMENT 1. RIGHT LFBT HISTORY OF PRESENT ILLNESS HISTORY OF PRESENT ILLNESS: PAIN THE PATIENT DESCRIBES THE PAIN... FALL RISK SCREENING: SCREENING :NO FALLS IN THE PAST YEAR CURRENT MEDICATIONS TAKING ALLOPURINOL 100 MG TABLET 1 TABLET ORALLY BID, NOTES: 0830 TAKING ASPIRIN 325 MG TABLET 1 TABLET ORALLY ONCE A DAY, NOTES: 11/24/16@2300 TAKING CALCITRIOL 0.25 MCG CAPSULE 1 CAPSULE ORALLY ONCE A DAY, NOTES: 0830 TAKING GLUCOSAMINE CHONDROITIN COMPLX 600-250 MG CAPSULE 1 TAB(S) ORALLY BID, NOTES: 11/24/16@2300 TAKING LEVOTHYROXINE SODIUM 150 MCG TABLET 1 TABLET ON AN EMPTY STOMACH IN THE MORNING ORALLY ONCE A DAY, NOTES: 11/24/16@2300 TAKING MULTIVITAMINS TABLET DIRECTED ORALLY , NOTES: 0830 TAKING POTASSIUM CHLORIDE 20 MEQ CAPSULE EXTENDED RELEASE 2 CAPSULE ORALLY BID, NOTES: 30 TAKING ZOLPIDEM 10 MG TABLET 1 TAB(S) ORAL PRN, NOTES: 11/24/16@2300 TAKING TORSEMIDE 20 MG TABLET 1 TAB(S) ORALLY BID, NOTES: TAKING SERTRALINE HCL 100 MG TABLET 1 TABLET ORALLY ONCE A DAY, NOTES: 0830 TAKING SPIRONOLACTONE 25 MG TABLET 1 TABLET ORALLY BID, NOTES: 11/24/16@1800 TAKING LABETALOL HCL 100 MG TABLET 1 TAB ORALLY BID, NOTES: 0830 TAKING PERCOCET 7.5-325 MG TABLET 1 TABLET NEEDED ORALLY EVERY 6 HRS, NOTES: 11/24/16@2300 TAKING ALIGN 4 MG CAPSULE ORALLY , NOTES: 0830 TAKING FINASTERIDE 5 MG TABLET 1 TABLET ORALLY ONCE A DAY, NOTES: TAKING FLOMAX 0.4 MG CAPSULE 2 CAPSULES ORALLY ONCE A DAY, NOTES: 11/24/16@1800 TAKING CALCIUM 600+D3 600-400 MG-UNIT TABLET 1 TABLET WITH A MEAL ORALLY ONCE A DAY, NOTES: 11/24/161800 TAKING LEFLUNOMIDE 10 MG TABLET 1 TABLET ORALLY ONCE A DAY, NOTES: 0830 NOT-TAKING COLCHICINE 0.6 MG TABLET 1 TABLET ORALLY PRN - ONCE A DAY NOT-TAKING BACTRIM DS 800-160 MG TABLET 1 TABLET ORALLY TWICE A DAY NOT-TAKING AMITRIPTYLINE HCL 75 MG TABLET 1 TABLET AT BEDTIME ORALLY ONCE A DAY MEDICATION LIST REVIEWED AND RECONCILED WITH THE PATIENT PAST MEDICAL HISTORY BPH URINARY RETENTION GOUT HTN EDEMA DDD/DJD; SEVERE SPINAL STENOSIS HYPOTHYROIDISM DEPRESSION/ANXIETY HYPERCHOLESTEROLEMIA HYPOKALEMIA SLEEP APNEA VERTIGO INSOMNIA CHRONIC KIDNEY DISEASE OSTEOARTHRITIS VARICOSE VEINS OSTEOARTHRITIS ALLERGIES SURGICAL TAPE: REMOVES TOP LAYER OF SKIN: SIDE EFFECTS REVIEW OF SYSTEMS REVIEWED BY: PROVIDER: . CONSTITUTIONAL: ANY CHANGE IN YOUR MEDICAL CONDITION? NO . CHILLS NO . FEVER NO . INFECTION: DO YOU HAVE NEW INFECTIONS? NO . DO YOU HAVE HISTORY OF MRSA? NO . MUSCULOSKELETAL: ANY NEW PATTERNS OF PAIN OR NUMBNESS? NO . GASTROENTEROLOGY: ANY NEW CHANGE IN BOWEL CONTROL? NO . GENITOURINARY: ANY NEW CHANGE IN BLADDER CONTROL? NO . IS THERE A CHANCE YOU COULD BE ? NO . HEMATOLOGY/LYMPH: DO YOU TAKE ANY BLOOD THINNERS? (FOR EXAMPLE- COUMADIN, PLAVIX, AGGRENOX, PLATEL, PRADAXA, OR XARELTO) NO . WHEN WAS YOUR LAST DOSE? DATE: TIME: . NEUROLOGY: HAVE YOU FALLEN IN THE PAST 6 MONTHS? YES . ANY NEW EXTREMITY NUMBNESS OR WEAKNESS? NO . CARDIOLOGY: DO YOU HAVE A PACEMAKER OR DEFIBRILLATOR? NO . RESPIRATORY: HAVE YOU BEEN SICK IN THE PAST WEEK? NO . FEVER NO . FLU LIKE SYMPTOMS? NO . COUGH NO . INTEGUMENTARY: DO YOU HAVE ANY RASHES OR OPEN SORES? NO . ALLERGIC/IMMUNO: ARE YOU ALLERGIC TO SHELLFISH OR IV DYE? NO . ANY NEW ALLERGIES? NO . PSYCHIATRIC: DO YOU HAVE THOUGHTS OF HURTING YOURSELF OR SOMEONE ELSE? NO . ARE YOU ABUSED, NEGLECTED, OR IN AN UNSAFE ENVIRONMENT? NO . ENDOCRINOLOGY: ARE YOU DIABETIC? NO . OTHER: DO YOU NEED ANY PRESCRIPTIONS? NO . IF YES, PLEASE LIST: ____ . ANY NEW PROBLEMS WITH YOUR MEDICATIONS? NO . WHEN DID YOU LAST EAT? ____11/24/16 . WHEN DID YOU LAST DRINK? ____0830 . WHAT DID YOU LAST DRINK? ____WATER . NAME OF PERSON DRIVING YOU HOME? ____JILL . DO YOU HAVE ANY OTHER QUESTIONS OR CONCERNS NO . VITAL SIGNS WT 279 LBS, HT 5'9", BMI 41.20 INDEX, BP 128/71 MM HG, HR 62 /MIN, RR 16 /MIN, TEMP 97.8 F, OXYGEN SAT % 97%, NA INITIALS AW 1115, REVIEWED BY: VD. ASSESSMENTS SPONDYLOSIS WITHOUT MYELOPATHY OR RADICULOPATHY, LUMBAR REGION - M47.816 (PRIMARY) SPONDYLOSIS WITHOUT MYELOPATHY OR RADICULOPATHY, LUMBOSACRAL REGION - M47.817 PROCEDURES PN LUMBAR FACET BLOCK THERAPEUTIC PRE PROCEDURE DIAGNOSIS LUMBAR SPONDYLOSIS, LUMBOSACRAL SPONDYLOSIS POST PROCEDURE DIAGNOSIS LUMBAR SPONDYLOSIS, LUMBOSACRAL SPONDYLOSIS PROCEDURE BILATERAL L4-L5 AND BILATERAL L5-S1 LUMBAR FACET THERAPEUTIC BLOCK SURGEON DR. ELLYN VU SUPERVISOR PRINTING SHOP NONE ANESTHESIA LOCAL PRE PROCEDURE NOTE THE PATIENT HAS A HISTORY OF CHRONIC LOW BACK PAIN. I EVALUATE THE PATIENT AND REVIEWED THE CHART. I WENT OVER THE RISKS, ALTERNATIVES, AND BENEFITS ASSOCIATED WITH THIS PROCEDURE. THE PATIENT WOULD LIKE TO PROCEED AND GIVE CONSENT TO PERFORMED THE PROCEDURE. THE PATIENT DENIES UNEXPLAINABLE WEIGHT LOSS, FEVER, CHILLS, OR NEW CHANGES IN URINARY OR BOWEL CONTROL DESCRIPTION OF PROCEDURE THE PATIENT WAS BROUGHT TO THE PROCEDURE ROOM AND PLACED IN THE PRONE POSITION. THE LUMBOSACRAL AREA WAS CLEANED WITH CHLORAPREP SOLUTION AND DRAPED ASEPTICALLY. THE PROCEDURE WAS DONE UNDER STERILE CONDITIONS. I CHECKED LATERALITY AND THE LEVEL WHERE THE PROCEDURE WAS GOING TO BE PERFORMED WITH THE PATIENT AND THE SUPPORTING STAFF AT THE MOMENT OF THE TIME OUT IN THE PROCEDURE ROOM. UNDER FLUOROSCOPIC GUIDANCE, THE TARGET POINT WAS SELECTED AT THE RIGHT AND LEFT L4-L5 AND RIGHT AND LEFT L5-S1 FACET JOINT. TARGET POINT WAS SELECTED AFTER LATERAL ROTATION AND TILT OF THE MAGNIFIER OF THE C-ARM. LIDOCAINE 0.5% WAS USED TO NUMB THE SKIN AND THE SUBCUTANEOUS TISSUE BELOW IT. SPINAL NEEDLES, 22-GAUGE, WERE ADVANCED UNDER FLUOROSCOPIC GUIDANCE AND FOLLOWING PATIENT FEEDBACK UNTIL THE TARGETS WERE TOUCHED. THE POSITION OF THE NEEDLES WAS VERIFIED WITH AP AND LATERAL VIEWS. AFTER PROPER POSITION OF THE NEEDLES WAS ACHIEVED, ISOVUE-M DYE 30% 0.1 ML WAS INJECTED SHOWING ADEQUATE SPREAD OF THE DYE. THEN A SOLUTION OF 1.9 ML OF BUPIVACAINE 0.125% OF KENALOG 10 MG WAS INJECTED AT EACH SITE. THERE WAS NO EVIDENCE OF BLOOD, PARESTHESIA OR CEREBROSPINAL FLUID DURING THE PROCEDURE. THE PATIENT WAS SENT TO THE RECOVERY ROOM. THE PATIENT WAS MOVING THE EXTREMITIES AND DOING WELL. THERE WAS NO COMPLICATION DURING THE PROCEDURE. FLUOROSCOPY TIME WAS 39 SECONDS POST PROCEDURE NOTE THE PATIENT WILL BE SEEN IN A FOLLOW UP IN THE NEXT FEW WEEKS. INSTRUCTIONS WERE GIVEN, QUESTIONS WERE ANSWERED, AND THE PATIENT EXPRESSED UNDERSTANDING AND AGREES WITH THE PLAN. I, CAROLA HUYNH, DOCUMENTED THE ABOVE INFORMATION ACTING A SCRIBE FOR DR. VU. I HAVE REVIEWED THE ABOVE DOCUMENT, WRITTEN BY CAROLA CAMPBELL AND I VERIFY THAT IT IS ACCURATE DIAGNOSTIC IMAGING [facility] FACET BLOCK (PAIN)[id number] PROCEDURE CODES 03925 INJ PARAVERT F JNT L/S 1 LEV 90638 INJ PARAVERT F JNT L/S 2 LEV 6045F RADXPS IN END [id number] PXD DISPOSITION & COMMUNICATION FOLLOW UP 3 WEEKS ELECTRONICALLY SIGNED BY ELLYN VU MD ON 12/07/2016 AT 07:54 PM EDT DISCLAIMER : THIS IS A VISIT SUMMARY EXTRACTED FROM THE [employer] CHART. IT IS NOT A COPY OF THE [employer] PROGRESS NOTE. MTDD
== END ==
LOC: M PAIN 11:00
PROVIDERS: ATTEND Anesthesiology
DX: G89.29 Other chronic pain (principal); M47.816 Spondylosis without myelopathy or radiculopathy, lumbar region; M47.817 Spondylosis without myelopathy or radiculopathy, lumbosacral region; I12.9 Hypertensive chronic kidney disease with stage 1 through stage 4 chronic kidney disease, or unspecified chronic kidney disease; N18.9 Chronic kidney disease, unspecified; E03.9 Hypothyroidism, unspecified; F32.9 Major depressive disorder, single episode, unspecified; F41.9 Anxiety disorder, unspecified; E78.00 Pure hypercholesterolemia, unspecified; G47.30 Sleep apnea, unspecified; M19.90 Unspecified osteoarthritis, unspecified site; L23.1 Allergic contact dermatitis due to adhesives; Z79.82 Long term (current) use of aspirin; Z79.899 Other long term (current) drug therapy
CPT/HCPCS: 64493; 64494; J3301; Q9967

== ENCOUNTER → 2016-12-31 | Outpatient (REF) | payer MEDICARE, OTHER ==
[~2016-12-31] MED LIST changes: -BUPIVACAINE HCL 0.25% 30 ML VIAL As Ordered ONE; -ISOVUE-M 300 61% 15ML VIAL (Q9967) As Ordered ONE; -LIDOCAINE 1% SDV INJ 30 ML VIAL As Ordered ONE; -TRIAMCINOLONE ACETONIDE SUSP 40 MG/ML VIAL (J3301) As Ordered ONE; -diazePAM 5 MG TAB As Ordered ONE; -oxyCODONE 5MG TAB As Ordered ONE
== END ==
LOC: M SMT 17:44
PROVIDERS: ATTEND Urology
DX: N40.1 Benign prostatic hyperplasia with lower urinary tract symptoms (principal)
CPT/HCPCS: 51798; 81001; 87086; G0463

== ENCOUNTER → 2017-01-04 | Outpatient (CLI) | payer MEDICARE, OTHER ==
--- NOTE | 2017-01-20 01:33 | ECWPNPC ---
PATIENT NAME: ANG REESE : 1940 GENDER: MALE VISIT DATE: 01/04/2017 DISCHARGE DATE: 01/04/17 1439 VISIT LOCKED DATE TIME: PHYSICIAN: CINTHIA BUSH RESOURCE: CINTHIA BUSH REASON FOR APPOINTMENT 1. POST FACET HISTORY OF PRESENT ILLNESS HISTORY OF PRESENT ILLNESS: PAIN THE PATIENT DESCRIBES THE PAIN... FALL RISK SCREENING: SCREENING :NO FALLS IN THE PAST YEAR TODAY'S VISIT: NOTES: RETURNS TODAY WITH REPORT OF INCREASED RIGHT HIP PAIN. THIS HAS GOTTEN WORSE . SITTING 1-2, WALKING PAIN ESCALATES TO 5-6/10 BILATERALLY. . IS ALSO GETTING SCIATIC TWINGES. MUSCLES "SEIZE" . DENIES NUMBNESS AND TINGLING. CAN SLEEP. NO ISSUES WITH BOWELS OR BLADDER. . USES CANE FOR BALANCE. HAS BEEN TAKING PERCOCET FOR ABOUT A YEAR.. CURRENT MEDICATIONS TAKING ALLOPURINOL 100 MG TABLET 1 TABLET ORALLY BID, NOTES: 0830 TAKING ASPIRIN 325 MG TABLET 1 TABLET ORALLY ONCE A DAY, NOTES: 11/24/16@2300 TAKING CALCITRIOL 0.25 MCG CAPSULE 1 CAPSULE ORALLY ONCE A DAY, NOTES: 0830 TAKING GLUCOSAMINE CHONDROITIN COMPLX 600-250 MG CAPSULE 1 TAB(S) ORALLY BID, NOTES: 11/24/16@2300 TAKING LEVOTHYROXINE SODIUM 150 MCG TABLET 1 TABLET ON AN EMPTY STOMACH IN THE MORNING ORALLY ONCE A DAY, NOTES: 11/24/16@2300 TAKING MULTIVITAMINS TABLET DIRECTED ORALLY , NOTES: 0830 TAKING POTASSIUM CHLORIDE 20 MEQ CAPSULE EXTENDED RELEASE 2 CAPSULE ORALLY BID, NOTES: 0830 TAKING ZOLPIDEM 10 MG TABLET 1 TAB(S) ORAL PRN, NOTES: 11/24/16@2300 TAKING TORSEMIDE 20 MG TABLET 1 TAB(S) ORALLY BID, NOTES: 0 TAKING SERTRALINE HCL 100 MG TABLET 1 TABLET ORALLY ONCE A DAY, NOTES: 0830 TAKING SPIRONOLACTONE 25 MG TABLET 1 TABLET ORALLY BID, NOTES: 11/24/16@1800 TAKING LABETALOL HCL 100 MG TABLET 1 TAB ORALLY BID, NOTES: 0830 TAKING PERCOCET 7.5-325 MG TABLET 1 TABLET NEEDED ORALLY EVERY 6 HRSMDD 6 PER DAY, NOTES: 11/24/16@2300 TAKING ALIGN 4 MG CAPSULE ORALLY , NOTES: 0830 TAKING CALCIUM 600+D3 600-400 MG-UNIT TABLET 1 TABLET WITH A MEAL ORALLY ONCE A DAY, NOTES: 11/24/16@1800 TAKING LEFLUNOMIDE 10 MG TABLET 1 TABLET ORALLY ONCE A DAY, NOTES: 0830 TAKING FLOMAX 0.4 MG CAPSULE 2 CAPSULES ORALLY ONCE A DAY, NOTES: 11/24/16@1800 TAKING FINASTERIDE 5 MG TABLET 1 TABLET ORALLY ONCE A DAY, NOTES: 00 NOT-TAKING FLOMAX 0.4 MG CAPSULE 1 CAPSULE ORALLY ONCE A DAY NOT-TAKING COLCHICINE 0.6 MG TABLET 1 TABLET ORALLY PRN - ONCE A DAY NOT-TAKING BACTRIM DS 800-160 MG TABLET 1 TABLET ORALLY TWICE A DAY NOT-TAKING AMITRIPTYLINE HCL 75 MG TABLET 1 TABLET AT BEDTIME ORALLY ONCE A DAY MEDICATION LIST REVIEWED AND RECONCILED WITH THE PATIENT PAST MEDICAL HISTORY BPH URINARY RETENTION GOUT HTN EDEMA DDD/DJD; SEVERE SPINAL STENOSIS HYPOTHYROIDISM DEPRESSION/ANXIETY HYPERCHOLESTEROLEMIA HYPOKALEMIA SLEEP APNEA VERTIGO INSOMNIA CHRONIC KIDNEY DISEASE OSTEOARTHRITIS VARICOSE VEINS OSTEOARTHRITIS ALLERGIES SURGICAL TAPE: REMOVES TOP LAYER OF SKIN: SIDE EFFECTS REVIEW OF SYSTEMS REVIEWED BY: PROVIDER: CINTHIA CABRERA . CONSTITUTIONAL: ANY CHANGE IN YOUR MEDICAL CONDITION? NO . CHILLS NO . FEVER NO . INFECTION: DO YOU HAVE NEW INFECTIONS? NO . DO YOU HAVE HISTORY OF MRSA? NO . MUSCULOSKELETAL: ANY NEW PATTERNS OF PAIN OR NUMBNESS? NO . GASTROENTEROLOGY: ANY NEW CHANGE IN BOWEL CONTROL? NO . GENITOURINARY: ANY NEW CHANGE IN BLADDER CONTROL? NO . IS THERE A CHANCE YOU COULD BE ? NO . HEMATOLOGY/LYMPH: DO YOU TAKE ANY BLOOD THINNERS? (FOR EXAMPLE- COUMADIN, PLAVIX, AGGRENOX, PLATEL, PRADAXA, OR XARELTO) NO . WHEN WAS YOUR LAST DOSE? DATE: TIME: . NEUROLOGY: HAVE YOU FALLEN IN THE PAST 6 MONTHS? NO . ANY NEW EXTREMITY NUMBNESS OR WEAKNESS? NO . CARDIOLOGY: DO YOU HAVE A PACEMAKER OR DEFIBRILLATOR? NO . RESPIRATORY: HAVE YOU BEEN SICK IN THE PAST WEEK? NO . FEVER NO . FLU LIKE SYMPTOMS? NO . COUGH NO . INTEGUMENTARY: DO YOU HAVE ANY RASHES OR OPEN SORES? NO . ALLERGIC/IMMUNO: ARE YOU ALLERGIC TO SHELLFISH OR IV DYE? NO . ANY NEW ALLERGIES? NO . PSYCHIATRIC: DO YOU HAVE THOUGHTS OF HURTING YOURSELF OR SOMEONE ELSE? NO . ARE YOU ABUSED, NEGLECTED, OR IN AN UNSAFE ENVIRONMENT? NO . ENDOCRINOLOGY: ARE YOU DIABETIC? NO . OTHER: DO YOU NEED ANY PRESCRIPTIONS? NO . IF YES, PLEASE LIST: ____ . ANY NEW PROBLEMS WITH YOUR MEDICATIONS? NO . WHEN DID YOU LAST EAT? ____ . WHEN DID YOU LAST DRINK? ____ . WHAT DID YOU LAST DRINK? ____ . NAME OF PERSON DRIVING YOU HOME? ____ . DO YOU HAVE ANY OTHER QUESTIONS OR CONCERNS NO . VITAL SIGNS WT 293 LBS, HT 5'9", BMI 43.26 INDEX, BP 138/82 MM HG, HR 82 /MIN, RR 18 /MIN, TEMP 97.2 F, OXYGEN SAT % 93%, NA INITIALS SC 13:05. EXAMINATION GENERAL EXAMINATION: GENERAL APPEARANCE:OBESE. PSYCHALERT , ORIENTED X 3 , APPROPRIATE MOOD AND AFFECT , IRRITABLE AT FIRST DUE TO WAIT FOR VISIT. LUNGS:CLEAR TO AUSCULTATION BILATERALLY. HEART:HEART RATE REGULAR, NO CAROTID BRUITS. MUSCULOSKELETAL:MUSCLE STRENGTH TESTING 5/5 BILATERAL LOWER EXTREMITIES, BUT DOES HAVE SOME QUADRICEPS WEAKNESS. POINT TENDERNESS OVER RIGHT TROCANTER AND ILIOTIBIAL BAND. TENDER OVER LUMBOSACRAL AXIS. POSTURE STOOPED. CANE USED FOR BALANCE. ASSESSMENTS SPONDYLOSIS WITHOUT MYELOPATHY OR RADICULOPATHY, LUMBAR REGION - M47.816 (PRIMARY) SPONDYLOSIS WITHOUT MYELOPATHY OR RADICULOPATHY, LUMBOSACRAL REGION - M47.817 TREATMENT SPONDYLOSIS WITHOUT MYELOPATHY OR RADICULOPATHY, LUMBAR REGION START BACLOFEN TABLET, 10 MG, 1/2 TABLET WITH FOOD OR MILK, ORALLY, BID, 30 DAY(S), 30, REFILLS 1 TRANSFORAMINAL LUMB TAYLORDIETERCINTHIA M 01/04/2017 2:19:55 PM > RIGHT CINTHIA BUSH Bhaskar 01/04/2017 2:19:55 PM > RIGHT DIETER BUSHMAURO Muro 01/04/2017 2:20:46 PM > L4 AND L5 NOTES: WHAT IS LUMBAR EPIDURAL INJECTION? MATERIAL WAS PRINTED, REVIEWED AND GIVEN TO PT; BACLOFEN INFORMATION PRINTED REVIEWED AND GIVEN TO PT. EM, FALLS CARE PLAN: 1. RECOMMEND REMOVING ALL THROW RUGS. 2. RECOMMEND NIGHT LIGHTS 3. RECOMMEND WEARING RUBBER SOLED SHOES AND TO NOT GO BAREFOOT. 4.. ADVISED TO CHANGE POSITION SLOWLY FROM SUPINE TO STANDING TO AVOID DIZZINESS. 5. ADVISED TO USE ASSISTIVE DEVICE SUCH CANE OR WALKER 6. USE LIFELINE SERVICES OR KEEP PORTABLE PHONE READILY AVAILABLE, #128 - SCREENING BMI AND F/U PLAN IN : BMI ABOVE NORMAL TODAY. DISCUSSED WITH PATIENT NUTRITIONAL FOOD CHOICES TO ASSIST WITH WEIGHT LOSS. RECCOMMENDED REDUCING SALT, SUGAR, SODA INTAKE. RECOMMEND INCREASE ACTIVITY TO INCLUDE WALKING ON A REGULAR BASIS. PROCEDURE CODES FA211 ESTABILISHED PATIENT [facility] CHARGE G8783 BP SCR PRFRM RCMDD DEFIND SCR INTVL G8730 PAIN ASSESS POS TOOL F/U PLAN DOC 3016F PT SCRND UNHLTHY [place] USE 1123F ACP DISCUSS/DSCN MKR DOCD 1036F TOBACCO NON-USER 0518F FALL PLAN OF CARE DOCD G8427 DOC MEDS VERIFIED W/PT OR RE G8417 BMI >=30 CALCUATE W/FOLLOWUP 3288F FALL RISK ASSESSMENT DOCD DISPOSITION & COMMUNICATION FOLLOW UP REASON: CHECK AUTH FOR TRANSFORAMINAL RIGHT L4 AND L5 EPIDURAL ELECTRONICALLY SIGNED BY LETY GODOY ON 01/19/2017 AT 07:03 PM EDT DISCLAIMER : THIS IS A VISIT SUMMARY EXTRACTED FROM THE [employer] CHART. IT IS NOT A COPY OF THE [employer] PROGRESS NOTE. MTDD
== END ==
LOC: M PAIN 13:00
PROVIDERS: ATTEND Nurse Practitioner Family
DX: M47.816 Spondylosis without myelopathy or radiculopathy, lumbar region (principal); M47.817 Spondylosis without myelopathy or radiculopathy, lumbosacral region; N40.1 Benign prostatic hyperplasia with lower urinary tract symptoms; I12.9 Hypertensive chronic kidney disease with stage 1 through stage 4 chronic kidney disease, or unspecified chronic kidney disease; E03.9 Hypothyroidism, unspecified; N18.9 Chronic kidney disease, unspecified; Z79.82 Long term (current) use of aspirin; Z79.891 Long term (current) use of opiate analgesic; Z79.899 Other long term (current) drug therapy; Z91.09 Other allergy status, other than to drugs and biological substances

== ENCOUNTER → 2017-01-14 | Outpatient (CLI) | payer MEDICARE, OTHER ==
[~2017-01-14] MED LIST changes: +BUPIVACAINE HCL 0.25% 30 ML VIAL As Ordered ONE; +ISOVUE-M 300 61% 15ML VIAL (Q9967) As Ordered ONE; +LIDOCAINE 1% SDV INJ 30 ML VIAL As Ordered ONE; +MIDAZOLAM INJ 2 MG/2 ML VIAL (J2250) As Ordered ONE; +dexameTHASONE 10 MG/1 ML VIAL PRES.FREE (J1100) As Ordered ONE; +fentaNYL 100 MCG/2 ML INJECTION (J3010) As Ordered ONE
--- NOTE | 2017-01-14 15:57 | REP ---
Partial lumbar spine series: 77 views . History: Injection procedure for pain. 25 seconds of fluoroscopy time is reported. Findings: A sequence of 77 fluoroscopically obtained last image hold procedural spot radiographs of the lumbar spine document needle position and contrast injection associated with injection procedure. Signed by Hector Kaplan MD 01/14/2017 03:49 P
--- NOTE | 2017-01-15 00:04 | ECWPNPC ---
PATIENT NAME: ANG REESE : 1940 GENDER: MALE VISIT DATE: 01/14/2017 DISCHARGE DATE: 01/14/17 1559 VISIT LOCKED DATE TIME: PHYSICIAN: ELLYN VU RESOURCE: ELLYN VU REASON FOR APPOINTMENT 1. TRANSFORAMINAL HISTORY OF PRESENT ILLNESS HISTORY OF PRESENT ILLNESS: PAIN THE PATIENT DESCRIBES THE PAIN... FALL RISK SCREENING: SCREENING :NO FALLS IN THE PAST YEAR CURRENT MEDICATIONS TAKING ALLOPURINOL 100 MG TABLET 1 TABLET ORALLY BID, NOTES: 01-14-17799 TAKING ASPIRIN 325 MG TABLET 1 TABLET ORALLY ONCE A DAY, NOTES: 01-13-172099 TAKING CALCITRIOL 0.25 MCG CAPSULE 1 CAPSULE ORALLY ONCE A DAY, NOTES: 01-14-17799 TAKING GLUCOSAMINE CHONDROITIN COMPLX 600-250 MG CAPSULE 1 TAB(S) ORALLY BID, NOTES: 01-13-172099 TAKING LEVOTHYROXINE SODIUM 150 MCG TABLET 1 TABLET ON AN EMPTY STOMACH IN THE MORNING ORALLY ONCE A DAY, NOTES: 01-13-172099 TAKING MULTIVITAMINS TABLET DIRECTED ORALLY , NOTES: 01-14-17899 TAKING POTASSIUM CHLORIDE 20 MEQ CAPSULE EXTENDED RELEASE 2 CAPSULE ORALLY BID, NOTES: 01-14-17799 TAKING ZOLPIDEM 10 MG TABLET 1 TAB(S) ORAL PRN, NOTES: 01-13-172099 TAKING TORSEMIDE 20 MG TABLET 1 TAB(S) ORALLY BID, NOTES: 01-13-172099 TAKING SERTRALINE HCL 100 MG TABLET 1 TABLET ORALLY ONCE A DAY, NOTES: 01-14-17899 TAKING SPIRONOLACTONE 25 MG TABLET 1 TABLET ORALLY BID, NOTES: 01-14-17799 TAKING LABETALOL HCL 100 MG TABLET 1 TAB ORALLY BID, NOTES: 829`7 TAKING PERCOCET 7.5-325 MG TABLET 1 TABLET NEEDED ORALLY EVERY 6 HRSMDD 6 PER DAY, NOTES: 01-13-17 98=006 TAKING ALIGN 4 MG CAPSULE ORALLY , NOTES: 82901-14-17 TAKING CALCIUM 600+D3 600-400 MG-UNIT TABLET 1 TABLET WITH A MEAL ORALLY ONCE A DAY, NOTES: 11/24/16@1800 TAKING LEFLUNOMIDE 10 MG TABLET 1 TABLET ORALLY ONCE A DAY, NOTES: 01-14-17 0800 TAKING FLOMAX 0.4 MG CAPSULE 2 CAPSULES ORALLY ONCE A DAY, NOTES: 01-14-17 2100 TAKING FINASTERIDE 5 MG TABLET 1 TABLET ORALLY ONCE A DAY, NOTES: 01-13-17 2100 TAKING BACLOFEN 10 MG TABLET 1/2 TABLET WITH FOOD OR MILK ORALLY BID, NOTES: 01-14-17 0800 NOT-TAKING FLOMAX 0.4 MG CAPSULE 1 CAPSULE ORALLY ONCE A DAY NOT-TAKING COLCHICINE 0.6 MG TABLET 1 TABLET ORALLY PRN - ONCE A DAY NOT-TAKING BACTRIM DS 800-160 MG TABLET 1 TABLET ORALLY TWICE A DAY NOT-TAKING AMITRIPTYLINE HCL 75 MG TABLET 1 TABLET AT BEDTIME ORALLY ONCE A DAY MEDICATION LIST REVIEWED AND RECONCILED WITH THE PATIENT PAST MEDICAL HISTORY BPH URINARY RETENTION GOUT HTN EDEMA DDD/DJD; SEVERE SPINAL STENOSIS HYPOTHYROIDISM DEPRESSION/ANXIETY HYPERCHOLESTEROLEMIA HYPOKALEMIA SLEEP APNEA VERTIGO INSOMNIA CHRONIC KIDNEY DISEASE OSTEOARTHRITIS VARICOSE VEINS OSTEOARTHRITIS ALLERGIES SURGICAL TAPE: REMOVES TOP LAYER OF SKIN: SIDE EFFECTS REVIEW OF SYSTEMS REVIEWED BY: PROVIDER: . CONSTITUTIONAL: ANY CHANGE IN YOUR MEDICAL CONDITION? NO . CHILLS NO . FEVER NO . INFECTION: DO YOU HAVE NEW INFECTIONS? NO . DO YOU HAVE HISTORY OF MRSA? NO . MUSCULOSKELETAL: ANY NEW PATTERNS OF PAIN OR NUMBNESS? NO . GASTROENTEROLOGY: ANY NEW CHANGE IN BOWEL CONTROL? NO . GENITOURINARY: ANY NEW CHANGE IN BLADDER CONTROL? NO . IS THERE A CHANCE YOU COULD BE ? NO . HEMATOLOGY/LYMPH: DO YOU TAKE ANY BLOOD THINNERS? (FOR EXAMPLE- COUMADIN, PLAVIX, AGGRENOX, PLATEL, PRADAXA, OR XARELTO) NO . WHEN WAS YOUR LAST DOSE? DATE: TIME: . NEUROLOGY: HAVE YOU FALLEN IN THE PAST 6 MONTHS? NO . ANY NEW EXTREMITY NUMBNESS OR WEAKNESS? NO . CARDIOLOGY: DO YOU HAVE A PACEMAKER OR DEFIBRILLATOR? NO . RESPIRATORY: HAVE YOU BEEN SICK IN THE PAST WEEK? NO . FEVER NO . FLU LIKE SYMPTOMS? NO . COUGH NO . INTEGUMENTARY: DO YOU HAVE ANY RASHES OR OPEN SORES? NO . ALLERGIC/IMMUNO: ARE YOU ALLERGIC TO SHELLFISH OR IV DYE? NO . ANY NEW ALLERGIES? NO . PSYCHIATRIC: DO YOU HAVE THOUGHTS OF HURTING YOURSELF OR SOMEONE ELSE? NO . ARE YOU ABUSED, NEGLECTED, OR IN AN UNSAFE ENVIRONMENT? NO . ENDOCRINOLOGY: ARE YOU DIABETIC? NO . OTHER: DO YOU NEED ANY PRESCRIPTIONS? NO . IF YES, PLEASE LIST: ____ . ANY NEW PROBLEMS WITH YOUR MEDICATIONS? NO . WHEN DID YOU LAST EAT? YESTERDAY . WHEN DID YOU LAST DRINK? 1100 . WHAT DID YOU LAST DRINK? WATER . NAME OF PERSON DRIVING YOU HOME? THERESA . DO YOU HAVE ANY OTHER QUESTIONS OR CONCERNS NO . VITAL SIGNS WT 290 LBS, HT 5'9", BMI 42.82 INDEX, BP 133/76 MM HG, HR 71 /MIN, RR 18 /MIN, TEMP 97.8 F, OXYGEN SAT % 92%, NA INITIALS SC 13:30, REVIEWED BY: LS. ASSESSMENTS POSTLAMINECTOMY SYNDROME, NOT ELSEWHERE CLASSIFIED - M96.1 (PRIMARY) INTERVERTEBRAL DISC DISORDER WITH RADICULOPATHY OF LUMBAR REGION - M51.16 PROCEDURES PN LUMBAR TRANSFORAMINAL BLOCKS PRE PROCEDURE DIAGNOSIS LUMBAR POST LAMINECTOMY PAIN SYNDROME POST PROCEDURE DIAGNOSIS LUMBAR POST LAMINECTOMY PAIN SYNDROME PROCEDURE RIGHT L3 AND RIGHT L4 TRANSFORAMINAL EPIDURAL STEROID INJECTION UNDER FLUOROSCOPIC GUIDANCE SURGEON DR ELLYN VU STONE SETTER NONE ANESTHESIA LOCAL PRE PROCEDURE NOTE PATIENT WITH HISTORY OF CHRONIC LOW BACK PAIN. I EVALUATE THE PATIENT AND REVIEWED THE CHART. I WENT OVER THE RISKS, ALTERNATIVES, AND BENEFITS ASSOCIATED WITH THIS PROCEDURE. PATIENT WOULD LIKE TO MOVE FORWARD WITH IV SEDATION DUE TO DISCOMFORT, PAIN AND ANXIETY ASSOCIATED WITH THE PROCEDURE. THE PATIENT WOULD LIKE TO PROCEED AND GIVE CONSENT TO PERFORMED THE PROCEDURE. THE PATIENT DENIES UNEXPLAINABLE WEIGHT LOSS, FEVER, CHILLS, OR CHANGES IN URINARY OR BOWEL CONTROL DESCRIPTION OF PROCEDURE THE PATIENT WAS BROUGHT TO THE PROCEDURE ROOM AND PLACED IN THE PRONE POSITION. THE LUMBOSACRAL AREA WAS CLEANED WITH BETADINE SOLUTION AND DRAPED ASEPTICALLY. THE PROCEDURE WAS DONE UNDER STERILE CONDITIONS. I CHECKED LATERALITY AND THE LEVEL WHERE THE PROCEDURE WAS GOING TO BE PERFORMED WITH THE PATIENT AND THE SUPPORTING STAFF AT THE MOMENT OF THE TIME OUT IN THE PROCEDURE ROOM. UNDER FLUOROSCOPIC GUIDANCE, TARGETS WERE SELECTED AT THE RIGHT TRANSFORAMINAL OPENING OF L3 AND THE RIGHT TRANSFORAMINAL OPENING OF L4. TARGET POINT WAS SELECTED AFTER LATERAL ROTATION AND TILT OF THE MAGNIFIER OF THE C-ARM. LIDOCAINE 0.5% WAS USED TO NUMB THE SKIN AND THE SUBCUTANEOUS TISSUE BELOW IT. AN EPIMED INTRODUCER 18-GAUGE WAS ADVANCED UNTIL WE WENT CLOSE TO THE SELECTED TRANSFORAMINAL OPENINGS. AFTER PROPER POSITION OF THE NEEDLES WAS ACHIEVED, A 22-GAUGE EPIMED NEEDLE WAS PLACED INSIDE OF THE INTRODUCER AND ADVANCED TO THE TRANSFORAMINAL OPENING OF THE SELECTED SITES. WHEN PROPER POSITION OF THE NEEDLE WAS ACHIEVED, ISOVUE M DYE 30%, 0.25 ML, WAS INJECTED SHOWING ADEQUATE SPREAD OF THE DYE. THIS WAS DONE UNDER DIGITAL SUBTRACTION AND ANGIOGRAPHY. THERE WAS NO VASCULAR UPDATE. THEN, A SOLUTION OF 2 ML OF BUPIVACAINE 0.25% AND DEXAMETHASONE 10 MG WAS INJECTED AT EACH SITE. PATIENT RECEIVED VERSED 1 MG AND FENTANYL 100 MCG IV DIVIDED DOSES THERE WAS NO EVIDENCE OF BLOOD, PARESTHESIA OR CEREBROSPINAL FLUID DURING THE PROCEDURE. THE PATIENT WAS SENT TO THE RECOVERY ROOM. THE PATIENT WAS MOVING THE EXTREMITIES AND DOING WELL. THERE WAS NO COMPLICATION DURING THE PROCEDURE. FLUOROSCOPY TIME WAS 25 SECONDS. FACE TO FACE TIME WAS 11 MINUTES POST PROCEDURE NOTE THE PROCEDURE DONE WAS DISCUSSED WITH THE PATIENT. THE PATIENT WILL BE SEEN IN A FOLLOW UP IN THE NEXT FEW WEEKS. INSTRUCTIONS WERE GIVEN, QUESTIONS WERE ANSWERED, AND THE PATIENT EXPRESSED UNDERSTANDING AND AGREES WITH THE PLAN. I, CAROLA HUYNH, DOCUMENTED THE ABOVE INFORMATION ACTING A SCRIBE FOR DR. VU. I HAVE REVIEWED THE ABOVE DOCUMENT, WRITTEN BY CAROLA HUYNH SCRIBSarah Beth AND I VERIFY THAT IT IS ACCURATE DIAGNOSTIC IMAGING [facility] FLUORO GUIDE SPINE INJECTION (PAIN)[id number] PROCEDURE CODES 91945 INJ FORAMEN EPIDURAL L/S 17004 INJ FORAMEN EPIDURAL ADD-ON 6045F RADXPS IN END [id number] PXD 02415 MOD SED SAME PHYS/QHP 5/>YRS DISPOSITION & COMMUNICATION FOLLOW UP 3 WEEKS ELECTRONICALLY SIGNED BY ELLYN VU MD ON 01/14/2017 AT 05:14 PM EDT DISCLAIMER : THIS IS A VISIT SUMMARY EXTRACTED FROM THE [employer] CHART. IT IS NOT A COPY OF THE [employer] PROGRESS NOTE. MTDD
== END ==
LOC: M PAIN 13:00
PROVIDERS: ATTEND Anesthesiology
DX: G89.29 Other chronic pain (principal); M96.1 Postlaminectomy syndrome, not elsewhere classified; M51.16 Intervertebral disc disorders with radiculopathy, lumbar region; M54.5 Low back pain; N40.1 Benign prostatic hyperplasia with lower urinary tract symptoms; Z79.82 Long term (current) use of aspirin; Z79.891 Long term (current) use of opiate analgesic; Z79.899 Other long term (current) drug therapy; Z91.09 Other allergy status, other than to drugs and biological substances
CPT/HCPCS: 64483; 64484; 99152; J1100; J2250; J3010; Q9967

== ENCOUNTER → 2017-02-16 | Outpatient (REF) | payer MEDICARE, OTHER ==
[~2017-02-16] MED LIST changes: -BUPIVACAINE HCL 0.25% 30 ML VIAL As Ordered ONE; -ISOVUE-M 300 61% 15ML VIAL (Q9967) As Ordered ONE; -LIDOCAINE 1% SDV INJ 30 ML VIAL As Ordered ONE; -MIDAZOLAM INJ 2 MG/2 ML VIAL (J2250) As Ordered ONE; -dexameTHASONE 10 MG/1 ML VIAL PRES.FREE (J1100) As Ordered ONE; -fentaNYL 100 MCG/2 ML INJECTION (J3010) As Ordered ONE
[2017-02-16 14:42] LABS: FREE T4 0.9 NG/DL (0.76-1.46)
== END ==
LOC: M LAB REF 13:33
PROVIDERS: ATTEND Internal Medicine Nephrology
DX: E03.9 Hypothyroidism, unspecified (principal)

== ENCOUNTER → 2017-04-16 | Outpatient (CLI) | payer MEDICARE, OTHER | LOC: M PAIN 15:45 | DX: G89.29 Other chronic pain (principal); M47.816 Spondylosis without myelopathy or radiculopathy, lumbar region; M47.817 Spondylosis without myelopathy or radiculopathy, lumbosacral region; M51.16 Intervertebral disc disorders with radiculopathy, lumbar region; M51.17 Intervertebral disc disorders with radiculopathy, lumbosacral region; M10.9 Gout, unspecified; I12.9 Hypertensive chronic kidney disease with stage 1 through stage 4 chronic kidney disease, or unspecified chronic kidney disease; N18.9 Chronic kidney disease, unspecified; E03.9 Hypothyroidism, unspecified; F32.9 Major depressive disorder, single episode, unspecified; F41.9 Anxiety disorder, unspecified; E78.00 Pure hypercholesterolemia, unspecified; E87.6 Hypokalemia; G47.00 Insomnia, unspecified; H81.49 Vertigo of central origin, unspecified ear; M19.90 Unspecified osteoarthritis, unspecified site; L23.1 Allergic contact dermatitis due to adhesives; Z79.82 Long term (current) use of aspirin; Z79.899 Other long term (current) drug therapy | CPT/HCPCS: G0463 ==

== ENCOUNTER → 2017-05-11 | Outpatient (CLI) | payer MEDICARE, OTHER ==
[~2017-05-11] MED LIST changes: -/ASCO250TA PO; -/FENT50PA; -/FENT75PA; -ALFUZOSIN OR; -ALIG4CAP PO; -ALLO15TA PO; -ALLO300T OR; -AMBI10TA OR; -AMBI5TAB PO; -AMILORIDE OR; -AMITRIPTYLINE PO; -ANTI25TA OR; -ANTI25TA PO; -ASPI325T24 PO; -ATIV1TAB2 OR; -AVOD0.5C PO; -BUMETANIDE OR; +BUPIVACAINE HCL 0.25% 30 ML VIAL As Ordered; -CALC1CAP31 PO; -CALC1TAB30 PO; -CALCCHW12 OR; -COLC0.6T OR; -DOCU10ELUD PO; -ECOT325T5 OR; -FINA5TAB2 PO; -FLOM5CAP PO; -GLUC1CAP10 PO; -GLUCTAB6 OR; +ISOVUE-M 300 61% 15ML VIAL (Q9967) As Ordered; -LEFL1TAB4 PO; -LEVO150T OR; -LEVO150T7 PO; -LEVO175T2 PO; +LIDOCAINE 1% SDV INJ 30 ML VIAL As Ordered; -LORA2TA PO; -LORAPOW30 PO; -MULT1TAB10 PO; -MULTIVITAMIN PO; -OXYC10TA56 OR; -OXYC1TAB23 PO; -OXYCODONE PO; -POTA20TA PO; -POTA20TA2 OR; -PREG50CA OR; -PROS5TAB OR; -ROCA0.25 OR; -SERT50TA PO; -SPIR25TA2 PO; -SYNT150T PO; -SYNTHROID PO; -THERGRAN OR; -TOPI25TA2 OR; -TORS20TA2 PO; +TRIAMCINOLONE ACETONIDE SUSP 40 MG/ML VIAL (J3301) As Ordered; -UROX10TA10 PO; -VYTO10TA5 OR; -ZOLO100T OR; -ZOLPIDEM PO; -[UNRECOGNIZED DRUG - OTHER]; -[UNRECOGNIZED DRUG - OTHER] PO; -[UNRECOGNIZED DRUG - OTHER] PO; -[UNRECOGNIZED DRUG - OTHER] PO; +diazePAM 5 MG TAB As Ordered; +oxyCODONE 5MG TAB As Ordered
== END ==
LOC: M PAIN 10:30
DX: G89.29 Other chronic pain (principal); M46.1 Sacroiliitis, not elsewhere classified; M53.88 Other specified dorsopathies, sacral and sacrococcygeal region; M10.9 Gout, unspecified; I12.9 Hypertensive chronic kidney disease with stage 1 through stage 4 chronic kidney disease, or unspecified chronic kidney disease; N18.9 Chronic kidney disease, unspecified; E03.9 Hypothyroidism, unspecified; F32.9 Major depressive disorder, single episode, unspecified; F41.9 Anxiety disorder, unspecified; E78.00 Pure hypercholesterolemia, unspecified; E87.6 Hypokalemia; G47.30 Sleep apnea, unspecified; H81.49 Vertigo of central origin, unspecified ear; M19.90 Unspecified osteoarthritis, unspecified site; Z91.048 Other nonmedicinal substance allergy status; Z79.82 Long term (current) use of aspirin; Z79.899 Other long term (current) drug therapy
CPT/HCPCS: J3301

== ENCOUNTER → 2017-06-11 | Outpatient (REF) | payer MEDICARE, OTHER ==
[2017-06-11 14:07] LABS: APPEARANCE, URINE CLEAR (CLEAR); BACTERIA, URINE AUTO NEGATIVE (NEGATIVE); BILIRUBIN, URINE AUTO NEGATIVE (NEGATIVE); BLOOD, URINE BLOOD NEGATIVE (NEGATIVE); COLOR, URINE YELLOW (YELLOW); GLUCOSE, URINE (UA) AUTO NEGATIVE (NEGATIVE); KETONE, URINE AUTO NEGATIVE (NEGATIVE); LEUKOCYTE ESTERASE, URINE AUTO NEGATIVE (NEGATIVE); MUCUS, URINE SMALL (NEGATIVE); NITRITE, URINE AUTO NEGATIVE (NEGATIVE); PROTEIN, URINE AUTO NEGATIVE (NEGATIVE); RBC, URINE AUTO 0 /HPF (0-3); SQUAMOUS EPITHELIAL CELL UR AU 0 /HPF (0-6); UROBILINOGEN, URINE AUTO 0.2 mg/dL (0.0-2.0); WBC, URINE AUTO 0 /HPF (0-3)
== END ==
LOC: M SMT 13:33
DX: N50.819 Testicular pain, unspecified (principal)
CPT/HCPCS: 81001

== ENCOUNTER → 2017-06-16 | Outpatient (CLI) | payer MEDICARE, OTHER | LOC: M SMT 13:46 | DX: N50.3 Cyst of epididymis (principal) | CPT/HCPCS: 76870 ==

== ENCOUNTER → 2017-06-16 | Outpatient (CLI) | payer MEDICARE, OTHER | LOC: M PAIN 10:00 | DX: M46.1 Sacroiliitis, not elsewhere classified (principal); N40.0 Benign prostatic hyperplasia without lower urinary tract symptoms; I10 Essential (primary) hypertension; E03.9 Hypothyroidism, unspecified; E78.00 Pure hypercholesterolemia, unspecified; Z79.82 Long term (current) use of aspirin; Z79.891 Long term (current) use of opiate analgesic; Z79.899 Other long term (current) drug therapy; Z91.048 Other nonmedicinal substance allergy status | CPT/HCPCS: G0463 ==

== ENCOUNTER → 2017-06-30 | Outpatient (CLI) | payer MEDICARE, OTHER | LOC: M PAIN 14:45 | DX: M46.1 Sacroiliitis, not elsewhere classified (principal); I10 Essential (primary) hypertension; E03.9 Hypothyroidism, unspecified; N40.0 Benign prostatic hyperplasia without lower urinary tract symptoms; E78.00 Pure hypercholesterolemia, unspecified; Z79.82 Long term (current) use of aspirin; Z79.899 Other long term (current) drug therapy; Z79.891 Long term (current) use of opiate analgesic; Z91.048 Other nonmedicinal substance allergy status | CPT/HCPCS: G0463 ==

== ENCOUNTER → 2017-07-01 | Outpatient (CLI) | payer MEDICARE, OTHER ==
[2017-07-01 14:01] LABS: APPEARANCE, URINE CLEAR (CLEAR); BACTERIA, URINE AUTO NEGATIVE (NEGATIVE); BILIRUBIN, URINE AUTO NEGATIVE (NEGATIVE); BLOOD, URINE BLOOD NEGATIVE (NEGATIVE); COLOR, URINE YELLOW (YELLOW); GLUCOSE, URINE (UA) AUTO NEGATIVE (NEGATIVE); KETONE, URINE AUTO NEGATIVE (NEGATIVE); LEUKOCYTE ESTERASE, URINE AUTO NEGATIVE (NEGATIVE); NITRITE, URINE AUTO NEGATIVE (NEGATIVE); PROTEIN, URINE AUTO NEGATIVE (NEGATIVE); RBC, URINE AUTO 0 /HPF (0-3); SPECIFIC GRAVITY URINE AUTO 1.014 (1.002-1.035); SQUAMOUS EPITHELIAL CELL UR AU 0 /HPF (0-6); UROBILINOGEN, URINE AUTO 0.2 mg/dL (0.0-2.0); WBC, URINE AUTO 0 /HPF (0-3)
[2017-07-01 14:08] LABS: HEMATOCRIT 41.6 % (42.0-52.0); HEMOGLOBIN 14.2 g/dl (14.0-18.0); MEAN CORPUSCULAR HEMOGLOBIN 31.1 pg (27.0-33.0); MEAN CORPUSCULAR HGB CONC 34.1 g/dl (32.0-36.5); PLATELET COUNT, AUTOMATED 244 10^3/uL (150-450); RED BLOOD COUNT 4.57 10^6/uL (4.30-6.10); RED CELL DISTRIBUTION WIDTH 12.6 % (11.5-14.5); WHITE BLOOD COUNT 9.3 10^3/uL (4.0-10.0)
[2017-07-01 14:41] LABS: ANION GAP 10 MEQ/L (8-16); BLOOD UREA NITROGEN 30 MG/DL (7-18); CALCIUM LEVEL 8.8 MG/DL (8.8-10.2); CARBON DIOXIDE LEVEL 27 MEQ/L (21-32); CHLORIDE LEVEL 105 MEQ/L (98-107); CREATININE FOR GFR 1.75 MG/DL (0.70-1.30); GLOMERULAR FILTRATION RATE 40.5 (>42); GLUCOSE, FASTING 129 MG/DL (70-100); POTASSIUM SERUM 3.8 MEQ/L (3.5-5.1); SODIUM LEVEL 142 MEQ/L (136-145)
[2017-07-02 14:11] LABS: PSA TOTAL 0.1 ng/mL (0.0-4.0)
== END ==
LOC: M SMT 11:11
DX: R31.0 Gross hematuria (principal)
CPT/HCPCS: 80048

== ENCOUNTER → 2017-07-05 | Outpatient (CLI) | payer MEDICARE, OTHER ==
[~2017-07-05] MED LIST changes: -oxyCODONE 5MG TAB As Ordered
== END ==
LOC: M PAIN 08:45
DX: G89.29 Other chronic pain (principal); M46.1 Sacroiliitis, not elsewhere classified; N40.0 Benign prostatic hyperplasia without lower urinary tract symptoms; I10 Essential (primary) hypertension; E03.9 Hypothyroidism, unspecified; E78.00 Pure hypercholesterolemia, unspecified; Z79.82 Long term (current) use of aspirin; Z79.899 Other long term (current) drug therapy; Z79.891 Long term (current) use of opiate analgesic; Z91.048 Other nonmedicinal substance allergy status
CPT/HCPCS: J3301

== ENCOUNTER → 2017-07-13 | Outpatient (CLI) | payer MEDICARE, OTHER | LOC: M RAD 10:32 | DX: R31.0 Gross hematuria (principal) | CPT/HCPCS: 74176 ==

== ENCOUNTER → 2017-07-19 | Outpatient (CLI) | payer MEDICARE, OTHER | LOC: M PAIN 11:15 | DX: M46.1 Sacroiliitis, not elsewhere classified (principal); M25.551 Pain in right hip; I12.9 Hypertensive chronic kidney disease with stage 1 through stage 4 chronic kidney disease, or unspecified chronic kidney disease; N18.9 Chronic kidney disease, unspecified; E03.9 Hypothyroidism, unspecified; F32.9 Major depressive disorder, single episode, unspecified; F41.9 Anxiety disorder, unspecified; E78.00 Pure hypercholesterolemia, unspecified; E87.6 Hypokalemia; G47.30 Sleep apnea, unspecified; G47.00 Insomnia, unspecified; M19.90 Unspecified osteoarthritis, unspecified site; Z79.82 Long term (current) use of aspirin; Z79.899 Other long term (current) drug therapy; Z91.09 Other allergy status, other than to drugs and biological substances; Z87.39 Personal history of other diseases of the musculoskeletal system and connective tissue; Z86.69 Personal history of other diseases of the nervous system and sense organs | CPT/HCPCS: G0463 ==

== ENCOUNTER → 2017-08-02 | Outpatient (REF) | payer MEDICARE, OTHER | LOC: M SMT 12:59 | DX: R31.0 Gross hematuria (principal) | CPT/HCPCS: 88108 ==

== ENCOUNTER → 2017-09-21 | Outpatient (CLI) | payer MEDICARE, OTHER | LOC: M PAIN 11:45 | DX: M46.1 Sacroiliitis, not elsewhere classified (principal); N40.1 Benign prostatic hyperplasia with lower urinary tract symptoms; R33.9 Retention of urine, unspecified; M10.9 Gout, unspecified; I10 Essential (primary) hypertension; R60.0 Localized edema; E03.9 Hypothyroidism, unspecified; F32.9 Major depressive disorder, single episode, unspecified; F41.9 Anxiety disorder, unspecified; E78.00 Pure hypercholesterolemia, unspecified; E87.6 Hypokalemia; G47.30 Sleep apnea, unspecified; R42 Dizziness and giddiness; I83.90 Asymptomatic varicose veins of unspecified lower extremity; G47.00 Insomnia, unspecified; M19.90 Unspecified osteoarthritis, unspecified site; Z79.82 Long term (current) use of aspirin; Z79.899 Other long term (current) drug therapy; Z91.048 Other nonmedicinal substance allergy status | CPT/HCPCS: G0463 ==

== ENCOUNTER → 2017-09-29 | Outpatient (CLI) | payer MEDICARE, OTHER ==
[~2017-09-29] MED LIST changes: -diazePAM 5 MG TAB As Ordered
== END ==
LOC: M PAIN 09:45
DX: G89.29 Other chronic pain (principal); M46.1 Sacroiliitis, not elsewhere classified; M53.88 Other specified dorsopathies, sacral and sacrococcygeal region; I12.9 Hypertensive chronic kidney disease with stage 1 through stage 4 chronic kidney disease, or unspecified chronic kidney disease; N18.9 Chronic kidney disease, unspecified; E03.9 Hypothyroidism, unspecified; F32.9 Major depressive disorder, single episode, unspecified; F41.9 Anxiety disorder, unspecified; E78.00 Pure hypercholesterolemia, unspecified; G47.30 Sleep apnea, unspecified; G47.00 Insomnia, unspecified; M19.90 Unspecified osteoarthritis, unspecified site; Z79.82 Long term (current) use of aspirin; Z79.899 Other long term (current) drug therapy; Z91.09 Other allergy status, other than to drugs and biological substances; Z86.69 Personal history of other diseases of the nervous system and sense organs; Z87.39 Personal history of other diseases of the musculoskeletal system and connective tissue
CPT/HCPCS: J3301

== ENCOUNTER → 2017-10-14 | Outpatient (CLI) | payer MEDICARE, OTHER | LOC: M PAIN 11:30 | DX: M43.17 Spondylolisthesis, lumbosacral region (principal); E03.9 Hypothyroidism, unspecified; I12.9 Hypertensive chronic kidney disease with stage 1 through stage 4 chronic kidney disease, or unspecified chronic kidney disease; N18.9 Chronic kidney disease, unspecified; M19.90 Unspecified osteoarthritis, unspecified site; F32.9 Major depressive disorder, single episode, unspecified; F41.9 Anxiety disorder, unspecified; E78.00 Pure hypercholesterolemia, unspecified; G47.30 Sleep apnea, unspecified; G47.00 Insomnia, unspecified; Z79.82 Long term (current) use of aspirin; Z79.899 Other long term (current) drug therapy; Z91.09 Other allergy status, other than to drugs and biological substances; Z87.39 Personal history of other diseases of the musculoskeletal system and connective tissue; Z86.69 Personal history of other diseases of the nervous system and sense organs | CPT/HCPCS: G0463 ==

== ENCOUNTER → 2017-11-01 | Outpatient (REF) | payer MEDICARE, OTHER ==
[2017-11-01 13:25] LABS: APPEARANCE, URINE CLEAR (CLEAR); BACTERIA, URINE AUTO NEGATIVE (NEGATIVE); BILIRUBIN, URINE AUTO NEGATIVE (NEGATIVE); BLOOD, URINE BLOOD NEGATIVE (NEGATIVE); COLOR, URINE YELLOW (YELLOW); GLUCOSE, URINE (UA) AUTO NEGATIVE (NEGATIVE); KETONE, URINE AUTO NEGATIVE (NEGATIVE); LEUKOCYTE ESTERASE, URINE AUTO NEGATIVE (NEGATIVE); NITRITE, URINE AUTO NEGATIVE (NEGATIVE); PROTEIN, URINE AUTO NEGATIVE (NEGATIVE); RBC, URINE AUTO 0 /HPF (0-3); SPECIFIC GRAVITY URINE AUTO 1.013 (1.002-1.035); SQUAMOUS EPITHELIAL CELL UR AU 0 /HPF (0-6); UROBILINOGEN, URINE AUTO 0.2 mg/dL (0.0-2.0); WBC, URINE AUTO 0 /HPF (0-3)
== END ==
LOC: M SMT 13:08
DX: N40.1 Benign prostatic hyperplasia with lower urinary tract symptoms (principal)
CPT/HCPCS: 81001

== ENCOUNTER → 2017-11-02 | Outpatient (CLI) | payer MEDICARE, OTHER ==
[~2017-11-02] MED LIST changes: -TRIAMCINOLONE ACETONIDE SUSP 40 MG/ML VIAL (J3301) As Ordered
== END ==
LOC: M PAIN 08:30
DX: G89.29 Other chronic pain (principal); M47.816 Spondylosis without myelopathy or radiculopathy, lumbar region; M47.817 Spondylosis without myelopathy or radiculopathy, lumbosacral region; E03.9 Hypothyroidism, unspecified; F32.9 Major depressive disorder, single episode, unspecified; F41.9 Anxiety disorder, unspecified; E78.00 Pure hypercholesterolemia, unspecified; G47.30 Sleep apnea, unspecified; G47.00 Insomnia, unspecified; N18.9 Chronic kidney disease, unspecified; M19.90 Unspecified osteoarthritis, unspecified site; Z79.82 Long term (current) use of aspirin; Z79.899 Other long term (current) drug therapy; Z91.09 Other allergy status, other than to drugs and biological substances; Z86.79 Personal history of other diseases of the circulatory system; Z86.69 Personal history of other diseases of the nervous system and sense organs; Z87.39 Personal history of other diseases of the musculoskeletal system and connective tissue
CPT/HCPCS: Q9967

== ENCOUNTER → 2017-11-05 | Outpatient (CLI) | payer MEDICARE, OTHER | LOC: M RAD 12:56 | DX: N40.1 Benign prostatic hyperplasia with lower urinary tract symptoms (principal) | CPT/HCPCS: 76857 ==

== ENCOUNTER → 2017-11-12 | Outpatient (CLI) | payer MEDICARE, OTHER | LOC: M PAIN 09:45 | DX: M43.17 Spondylolisthesis, lumbosacral region (principal); I12.9 Hypertensive chronic kidney disease with stage 1 through stage 4 chronic kidney disease, or unspecified chronic kidney disease; E03.9 Hypothyroidism, unspecified; F32.9 Major depressive disorder, single episode, unspecified; F41.9 Anxiety disorder, unspecified; E78.00 Pure hypercholesterolemia, unspecified; N18.9 Chronic kidney disease, unspecified; G47.30 Sleep apnea, unspecified; G47.00 Insomnia, unspecified; M19.90 Unspecified osteoarthritis, unspecified site; Z79.82 Long term (current) use of aspirin; Z79.899 Other long term (current) drug therapy; Z91.09 Other allergy status, other than to drugs and biological substances; Z86.69 Personal history of other diseases of the nervous system and sense organs; Z86.39 Personal history of other endocrine, nutritional and metabolic disease; Z87.39 Personal history of other diseases of the musculoskeletal system and connective tissue | CPT/HCPCS: G0463 ==

== ENCOUNTER → 2017-11-29 | Outpatient (CLI) | payer MEDICARE, OTHER | LOC: M PAIN 11:15 | DX: M47.817 Spondylosis without myelopathy or radiculopathy, lumbosacral region (principal); N40.1 Benign prostatic hyperplasia with lower urinary tract symptoms; R33.9 Retention of urine, unspecified; M10.9 Gout, unspecified; I12.9 Hypertensive chronic kidney disease with stage 1 through stage 4 chronic kidney disease, or unspecified chronic kidney disease; R60.0 Localized edema; M48.00 Spinal stenosis, site unspecified; E03.9 Hypothyroidism, unspecified; F41.9 Anxiety disorder, unspecified; F32.9 Major depressive disorder, single episode, unspecified; E78.00 Pure hypercholesterolemia, unspecified; E87.6 Hypokalemia; G47.30 Sleep apnea, unspecified; R42 Dizziness and giddiness; N18.9 Chronic kidney disease, unspecified; M19.90 Unspecified osteoarthritis, unspecified site; I83.90 Asymptomatic varicose veins of unspecified lower extremity; Z79.82 Long term (current) use of aspirin; Z79.899 Other long term (current) drug therapy; Z91.048 Other nonmedicinal substance allergy status | CPT/HCPCS: Q9967 ==

== ENCOUNTER → 2018-01-17 | Outpatient (CLI) | payer MEDICARE, OTHER | LOC: M LRY 15:33 | DX: M17.12 Unilateral primary osteoarthritis, left knee (principal); R60.0 Localized edema; M25.562 Pain in left knee | CPT/HCPCS: 73564; G0463 ==

== ENCOUNTER → 2018-01-18 | Outpatient (CLI) | payer MEDICARE, OTHER ==
[~2018-01-18] MED LIST changes: -ISOVUE-M 300 61% 15ML VIAL (Q9967) As Ordered; +TRIAMCINOLONE ACETONIDE SUSP 40 MG/ML VIAL (J3301) As Ordered
== END ==
LOC: M PAIN 13:00
DX: M47.817 Spondylosis without myelopathy or radiculopathy, lumbosacral region (principal); N40.1 Benign prostatic hyperplasia with lower urinary tract symptoms; R33.9 Retention of urine, unspecified; M10.9 Gout, unspecified; I12.9 Hypertensive chronic kidney disease with stage 1 through stage 4 chronic kidney disease, or unspecified chronic kidney disease; E03.9 Hypothyroidism, unspecified; F32.9 Major depressive disorder, single episode, unspecified; F41.9 Anxiety disorder, unspecified; E78.00 Pure hypercholesterolemia, unspecified; E87.6 Hypokalemia; G47.00 Insomnia, unspecified; N18.9 Chronic kidney disease, unspecified; R42 Dizziness and giddiness; I83.90 Asymptomatic varicose veins of unspecified lower extremity; Z79.82 Long term (current) use of aspirin; Z79.891 Long term (current) use of opiate analgesic; Z79.899 Other long term (current) drug therapy; Z91.048 Other nonmedicinal substance allergy status
CPT/HCPCS: J3301

== ENCOUNTER → 2018-02-01 | Outpatient (CLI) | payer MEDICARE, OTHER | LOC: M PAIN 13:15 | DX: M43.17 Spondylolisthesis, lumbosacral region (principal); I10 Essential (primary) hypertension; N40.1 Benign prostatic hyperplasia with lower urinary tract symptoms; E78.00 Pure hypercholesterolemia, unspecified; E03.9 Hypothyroidism, unspecified; Z79.82 Long term (current) use of aspirin; Z79.899 Other long term (current) drug therapy; Z79.891 Long term (current) use of opiate analgesic; Z91.048 Other nonmedicinal substance allergy status | CPT/HCPCS: G0463 ==

== ENCOUNTER → 2018-02-10 | Outpatient (CLI) | payer MEDICARE, OTHER ==
[~2018-02-10] MED LIST changes: +ISOVUE-M 300 61% 15ML VIAL (Q9967) As Ordered; -TRIAMCINOLONE ACETONIDE SUSP 40 MG/ML VIAL (J3301) As Ordered
== END ==
LOC: M PAIN 11:30
DX: G89.29 Other chronic pain (principal); M47.816 Spondylosis without myelopathy or radiculopathy, lumbar region; M47.817 Spondylosis without myelopathy or radiculopathy, lumbosacral region; I12.9 Hypertensive chronic kidney disease with stage 1 through stage 4 chronic kidney disease, or unspecified chronic kidney disease; N18.9 Chronic kidney disease, unspecified; E03.9 Hypothyroidism, unspecified; F32.9 Major depressive disorder, single episode, unspecified; F41.9 Anxiety disorder, unspecified; E78.00 Pure hypercholesterolemia, unspecified; E78.6 Lipoprotein deficiency; G47.30 Sleep apnea, unspecified; G47.00 Insomnia, unspecified; M17.12 Unilateral primary osteoarthritis, left knee; E66.01 Morbid (severe) obesity due to excess calories; Z68.42 Body mass index [BMI] 45.0-49.9, adult; Z79.82 Long term (current) use of aspirin; Z79.899 Other long term (current) drug therapy; Z91.09 Other allergy status, other than to drugs and biological substances; Z86.69 Personal history of other diseases of the nervous system and sense organs; Z87.39 Personal history of other diseases of the musculoskeletal system and connective tissue
CPT/HCPCS: Q9967

== ENCOUNTER → 2018-02-22 | Outpatient (CLI) | payer MEDICARE, OTHER | LOC: M PAIN 14:00 | DX: M43.17 Spondylolisthesis, lumbosacral region (principal); I12.9 Hypertensive chronic kidney disease with stage 1 through stage 4 chronic kidney disease, or unspecified chronic kidney disease; E03.9 Hypothyroidism, unspecified; F32.9 Major depressive disorder, single episode, unspecified; F41.9 Anxiety disorder, unspecified; E78.00 Pure hypercholesterolemia, unspecified; G47.30 Sleep apnea, unspecified; N18.9 Chronic kidney disease, unspecified; M17.12 Unilateral primary osteoarthritis, left knee; Z91.09 Other allergy status, other than to drugs and biological substances; E66.01 Morbid (severe) obesity due to excess calories; Z68.42 Body mass index [BMI] 45.0-49.9, adult; Z79.82 Long term (current) use of aspirin; Z79.899 Other long term (current) drug therapy; Z86.69 Personal history of other diseases of the nervous system and sense organs; Z87.39 Personal history of other diseases of the musculoskeletal system and connective tissue | CPT/HCPCS: G0463 ==

== ENCOUNTER → 2018-03-10 | Outpatient (CLI) | payer MEDICARE, OTHER ==
[~2018-03-10] MED LIST changes: -ISOVUE-M 300 61% 15ML VIAL (Q9967) As Ordered; +TRIAMCINOLONE ACETONIDE SUSP 40 MG/ML VIAL (J3301) As Ordered
== END ==
LOC: M PAIN 13:00
DX: G89.29 Other chronic pain (principal); M47.816 Spondylosis without myelopathy or radiculopathy, lumbar region; I12.9 Hypertensive chronic kidney disease with stage 1 through stage 4 chronic kidney disease, or unspecified chronic kidney disease; N18.9 Chronic kidney disease, unspecified; E03.9 Hypothyroidism, unspecified; F32.9 Major depressive disorder, single episode, unspecified; F41.9 Anxiety disorder, unspecified; E78.5 Hyperlipidemia, unspecified; G47.30 Sleep apnea, unspecified; M17.12 Unilateral primary osteoarthritis, left knee; G47.00 Insomnia, unspecified; E66.01 Morbid (severe) obesity due to excess calories; Z68.41 Body mass index [BMI] 40.0-44.9, adult; Z79.82 Long term (current) use of aspirin; Z79.891 Long term (current) use of opiate analgesic; Z79.899 Other long term (current) drug therapy; Z91.09 Other allergy status, other than to drugs and biological substances; Z86.69 Personal history of other diseases of the nervous system and sense organs; Z87.39 Personal history of other diseases of the musculoskeletal system and connective tissue
CPT/HCPCS: J3301

== ENCOUNTER → 2018-04-05 | Outpatient (CLI) | payer MEDICARE, OTHER ==
[~2018-04-05] MED LIST changes: +/ASCO250TA PO; +/FENT50PA; +/FENT75PA; +ALFUZOSIN OR; +ALIG4CAP PO; +ALLO15TA PO; +ALLO300T OR; +AMBI10TA OR; +AMBI5TAB PO; +AMILORIDE OR; +AMITRIPTYLINE PO; +ANTI25TA OR; +ANTI25TA PO; +ASPI325T25 PO; +ATIV1TAB2 OR; +AVOD0.5C PO; +BUMETANIDE OR; -BUPIVACAINE HCL 0.25% 30 ML VIAL As Ordered; +CALC1CAP31 PO; +CALC1TAB30 PO; +CALCCHW12 OR; +COLC0.6T OR; +DOCU10ELUD PO; +ECOT325T5 OR; +FINA5TAB2 PO; +FLOM0.4C39 PO; +GLUC1CAP10 PO; +GLUCTAB6 OR; +KLOR20TA42 PO; +LEFL1TAB4 PO; +LEVO150T OR; +LEVO150T7 PO; +LEVO175T2 PO; -LIDOCAINE 1% SDV INJ 30 ML VIAL As Ordered; +LORA2TA PO; +LORAPOW30 PO; +MULT1TAB10 PO; +MULTIVITAMIN PO; +OXYC10TA56 OR; +OXYC1TAB23 PO; +OXYCODONE PO; +POTA20TA2 OR; +PREG50CA OR; +PROS5TAB OR; +ROCA0.25 OR; +SERT50TA PO; +SPIR-10 PO; +SYNT150T PO; +SYNTHROID PO; +THERGRAN OR; +TOPI25TA2 OR; +TORS20TA2 PO; -TRIAMCINOLONE ACETONIDE SUSP 40 MG/ML VIAL (J3301) As Ordered; +UROX10TA10 PO; +VYTO10TA5 OR; +ZOLO100T OR; +ZOLPIDEM PO; +[UNRECOGNIZED DRUG - OTHER]; +[UNRECOGNIZED DRUG - OTHER] PO; +[UNRECOGNIZED DRUG - OTHER] PO; +[UNRECOGNIZED DRUG - OTHER] PO
--- NOTE | 2018-04-28 01:11 | ECWPNPC ---
PATIENT NAME: ANG MCDERMOTT : 1940 GENDER: MALE VISIT DATE: 04/05/2018 DISCHARGE DATE: 04/05/18 1128 VISIT LOCKED DATE TIME: PHYSICIAN: SHARON LOWRY RESOURCE: SHARON LOWRY REASON FOR APPOINTMENT 1. POST PROC HISTORY OF PRESENT ILLNESS DEPRESSION SCREENING: PHQ-2 IN LAST TWO WEEKS HAVE YOU BEEN BOTHERED BY LITTLE INTEREST OR PLEASURE IN DOING THINGSNO FEELING DOWN, DEPRESSED, OR HOPELESSNO HISTORY OF PRESENT ILLNESS: HERE FOR POST PROCEDURE F/U.HAD LEFT L4/5-L5/S1 RF ON 03-10-18.REPORTING SIGNIFICANT REDUCTION IN PAIN THAT CONTINUES TODAY.RATING PAIN VAS 2/10.REPORTING RIGHT LEG PARATHESIAS. PAIN THE PATIENT DESCRIBES THE PAIN... FALL RISK SCREENING: SCREENING :NO FALLS IN THE PAST YEAR CURRENT MEDICATIONS TAKING ALLOPURINOL 100 MG TABLET 1 TABLET ORALLY BID TAKING ASPIRIN 325 MG TABLET 1 TABLET ORALLY ONCE A DAY TAKING CALCITRIOL 0.25 MCG CAPSULE 1 CAPSULE ORALLY ONCE A DAY TAKING LEFLUNOMIDE 10 MG TABLET 1 TABLET ORALLY ONCE A DAY TAKING GLUCOSAMINE CHONDROITIN COMPLX 600-250 MG CAPSULE 1 TAB(S) ORALLY BID TAKING LEVOTHYROXINE SODIUM 150 MCG TABLET 1 TABLET ON AN EMPTY STOMACH IN THE MORNING ORALLY ONCE A DAY TAKING MULTIVITAMINS TABLET DIRECTED ORALLY DAILY TAKING POTASSIUM CHLORIDE 20 MEQ TABLET EXTENDED RELEASE 2 TABLETS WITH FOOD ORALLY TWICE A DAY TAKING ZOLPIDEM 10 MG TABLET 1 TAB(S) ORAL AT BEDTIME NEEDED TAKING TORSEMIDE 20 MG TABLET 1 TAB(S) ORALLY 2 IN THE MORNING/ 1 TAB IN AFTERNOON TAKING SERTRALINE HCL 100 MG TABLET 1 TABLET ORALLY ONCE A DAY TAKING SPIRONOLACTONE 25 MG TABLET 1 TABLET ORALLY BID TAKING LABETALOL HCL 100 MG TABLET 1 TAB ORALLY BID TAKING CALCIUM 600+D3 600-400 MG-UNIT TABLET 1 TABLET WITH A MEAL ORALLY ONCE A DAY TAKING ALIGN 4 MG CAPSULE ORALLY DAILY TAKING FLOMAX 0.4 MG CAPSULE 2 CAPSULES ORALLY ONCE A DAY TAKING FINASTERIDE 5 MG TABLET 1 TABLET ORALLY ONCE A DAY TAKING VOLTAREN 1 % GEL APPLY TO LEFT KNEE TRANSDERMAL BID TAKING TYLENOL 325 MG TABLET 2 TABLET NEEDED ORALLY EVERY 6 HRS TAKING TRAMADOL HCL 50 MG TABLET 1-2 TAB ORALLY Q4-6H PRN PAIN MDD6 TAKING SOMA 350 MG TABLET 1 TABLET NEEDED ORALLY BEFORE BEDTIME NOT-TAKING TYLENOL EXTRA STRENGTH 500 MG TABLET 1 TABLET NEEDED ORALLY EVERY 6 HRS PRN, NOTES: NEW DOSE MEDICATION LIST REVIEWED AND RECONCILED WITH THE PATIENT PAST MEDICAL HISTORY BPH URINARY RETENTION GOUT HTN EDEMA DDD/DJD; SEVERE SPINAL STENOSIS HYPOTHYROIDISM DEPRESSION/ANXIETY HYPERCHOLESTEROLEMIA HYPOKALEMIA SLEEP APNEA VERTIGO INSOMNIA CHRONIC KIDNEY DISEASE OSTEOARTHRITIS VARICOSE VEINS OSTEOARTHRITIS BROKEN LITTLE FINGER ON LEFT HAND ARTHRITIS LEFT KNEE ALLERGIES SURGICAL TAPE: REMOVES TOP LAYER OF SKIN: SIDE EFFECTS SURGICAL HISTORY ORIF LEFT LEG/ANKLE FRACTURE; PLATES/SCREWS IN PLACE 1992 BILATERAL - 2 TRIGGER FINGER RELEASE/CARPAL CHARO RELEASE/BONE REMOVAL THUMB (LEFT) 2004 TONSILLECTOMY APPENDECTOMY L3-L5 LAMINECTOMY 11/2012 COLONSCOPY 05/2016 CYSTOSCOPY 08/02/2017 SOCIAL HISTORY GENERAL: TOBACCO USE ARE YOU A:NONSMOKER ALCOHOL SCREENING DID YOU HAVE A DRINK CONTAINING ALCOHOL IN THE PAST YEAR?YES HOW OFTEN DID YOU HAVE A DRINK CONTAINING ALCOHOL IN THE PAST YEAR?MONTHLY OR LESS (1 POINT) HOW MANY DRINKS DID YOU HAVE ON A TYPICAL DAY WHEN YOU WERE DRINKING IN THE PAST YEAR?1 OR 2 (0 POINTS) HOW OFTEN DID YOU HAVE SIX OR MORE DRINKS ON ONE OCCASION IN THE PAST YEAR?NEVER (0 POINTS) POINTS1 INTERPRETATIONNEGATIVE RECREATIONAL DRUG USE DRUG USE?NO CAFFEINE CAFFEINE USE?YES HOW OFTEN AND HOW MUCH? 2-3 CUPS OF TEA PER DAY AND OCCASIONAL COFFEE SY[employer] [id number] TENRIISM LANGUAGE LANGUAGES SPOKEN:SPANISH EDUCATION LEVEL OF EDUCATION:NOT FINISHED COLLEGE LEARNING BARRIERS / SPECIAL NEEDS BARRIERS TO LEARNING?NO HEARING IMPAIRED?NO VISION IMPAIRED?YES :CORRECTIVE LENSES COGNITIVELY IMPAIRED?NO READINESS TO LEARN?YES LEARNING PREFERENCES?NO LEARNING CAPABILITIES PRESENT?YES EMOTIONAL BARRIERS?NO SPECIAL DEVICES?YES :CANE WHIZZER HAND NEEDED?NO DOMESTIC VIOLENCE DO YOU FEEL SAFE IN YOUR ENVIRONMENT?YES OCCUPATION: RETIRED. DIET: REGULAR. EXERCISE: NONE. MARITAL STATUS: . OTHERS AT HOME: SPOUSE, CHILD, CHILDREN. PAIN CLINIC PFS, CLERGY, PUBLIC HEALTH REFERRALS PFS REFERRAL NEEDED?NO CLERGY REFERRAL NEEDED?NO PUBLIC HEALTH REFERRAL NEEDED?NO WAS THE PROVIDER NOTIFIED OF ANY PERTINENT INFO? N/A HAS THE PATIENT BEEN EDUCATED REGARDING HIS/HER PLAN OF CARE?YES HAS THE PATIENT BEEN EDUCATED REGARDING PAIN, THE RISK FOR PAIN, THE IMPORTANCE OF EFFECTIVE PAIN MANAGEMENT, AND THE PAIN ASSESSMENT PROCESS?YES ADVANCE DIRECTIVE ADVANCE DIRECTIVE DISCUSSED WITH PATIENT:YES HCP - CHARLENE REESE () REVIEWED WITH PATIENT 02/01/18 1328 JS02/10/18 1225 REVIEWED WITH PT. LAURA WITH PATIENT 03/10/18 1354 JS. HOSPITALIZATION/MAJOR DIAGNOSTIC PROCEDURE DIVERTICULITIS SURGERY RELATED DIVERTICULITIS 12/2015 REVIEW OF SYSTEMS REVIEWED BY: PROVIDER: SHARON CABRERA . CONSTITUTIONAL: ANY CHANGE IN YOUR MEDICAL CONDITION? NO . CHILLS NO . FEVER NO . INFECTION: DO YOU HAVE NEW INFECTIONS? NO . DO YOU HAVE HISTORY OF MRSA? NO . MUSCULOSKELETAL: ANY NEW PATTERNS OF PAIN OR NUMBNESS? NO . GASTROENTEROLOGY: ANY NEW CHANGE IN BOWEL CONTROL? NO . GENITOURINARY: ANY NEW CHANGE IN BLADDER CONTROL? NO . IS THERE A CHANCE YOU COULD BE ? NO . HEMATOLOGY/LYMPH: DO YOU TAKE ANY BLOOD THINNERS? (FOR EXAMPLE- COUMADIN, PLAVIX, AGGRENOX, PLATEL, PRADAXA, OR XARELTO) NO . WHEN WAS YOUR LAST DOSE? DATE: TIME: . NEUROLOGY: HAVE YOU FALLEN IN THE PAST 6 MONTHS? NO . ANY NEW EXTREMITY NUMBNESS OR WEAKNESS? NO . CARDIOLOGY: DO YOU HAVE A PACEMAKER OR DEFIBRILLATOR? NO . RESPIRATORY: HAVE YOU BEEN SICK IN THE PAST WEEK? NO . FEVER NO . FLU LIKE SYMPTOMS? NO . COUGH NO . INTEGUMENTARY: DO YOU HAVE ANY RASHES OR OPEN SORES? NO . ALLERGIC/IMMUNO: ARE YOU ALLERGIC TO SHELLFISH OR IV DYE? NO . ANY NEW ALLERGIES? NO . PSYCHIATRIC: DO YOU HAVE THOUGHTS OF HURTING YOURSELF OR SOMEONE ELSE? NO . ARE YOU ABUSED, NEGLECTED, OR IN AN UNSAFE ENVIRONMENT? NO . ENDOCRINOLOGY: ARE YOU DIABETIC? NO . OTHER: DO YOU NEED ANY PRESCRIPTIONS? YES, SOMA . IF YES, PLEASE LIST: ____ . ANY NEW PROBLEMS WITH YOUR MEDICATIONS? NO . WHEN DID YOU LAST EAT? ____ . WHEN DID YOU LAST DRINK? ____ . WHAT DID YOU LAST DRINK? ____ . NAME OF PERSON DRIVING YOU HOME? ____ . DO YOU HAVE ANY OTHER QUESTIONS OR CONCERNS NO . VITAL SIGNS WT 312.4 LBS, HT 5'9", BMI 46.13 INDEX, BP 157/83 MM HG, HR 92 /MIN, RR 18 /MIN, TEMP 97.9 F, OXYGEN SAT % 93%, NA INITIALS AW 1051, REVIEWED BY: EM. EXAMINATION GENERAL EXAMINATION: GENERAL APPEARANCE:AWAKE,ALERT ,PLEAASANT . PSYCHAFFECT NORMAL . LUNGS:LUNG CARLSON ARE CLEAR TO AUSCULTATION BILATERALLY. GOOD MOVEMENT OF AIR . HEART:S1, S2 IN A REGULAR RATE AND RHYTHM. NO SIGNIFICANT MURMURS, RUBS OR GALLOPS NOTED . 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 EM. PROCEDURE CODES FA211 ESTABILISHED PATIENT [facility] CHARGE DISPOSITION & COMMUNICATION FOLLOW UP 2 MONTHS ELECTRONICALLY SIGNED BY RICK VARELA ON 04/27/2018 AT 03:48 PM EST DISCLAIMER : THIS IS A VISIT SUMMARY EXTRACTED FROM THE [employer] CHART. IT IS NOT A COPY OF THE [employer] PROGRESS NOTE. HECTOR
== END ==
LOC: M PAIN 10:45
PROVIDERS: ATTEND Nurse Practitioner Family
DX: M43.17 Spondylolisthesis, lumbosacral region (principal); N40.1 Benign prostatic hyperplasia with lower urinary tract symptoms; R33.9 Retention of urine, unspecified; M10.9 Gout, unspecified; I12.9 Hypertensive chronic kidney disease with stage 1 through stage 4 chronic kidney disease, or unspecified chronic kidney disease; E03.9 Hypothyroidism, unspecified; F32.9 Major depressive disorder, single episode, unspecified; F41.9 Anxiety disorder, unspecified; E78.00 Pure hypercholesterolemia, unspecified; E87.6 Hypokalemia; G47.30 Sleep apnea, unspecified; R42 Dizziness and giddiness; G47.00 Insomnia, unspecified; N18.9 Chronic kidney disease, unspecified; M17.12 Unilateral primary osteoarthritis, left knee; Z79.82 Long term (current) use of aspirin; Z79.899 Other long term (current) drug therapy; Z91.048 Other nonmedicinal substance allergy status

== ENCOUNTER → 2018-06-14 | Outpatient (CLI) | payer MEDICARE, OTHER ==
--- NOTE | 2018-06-25 23:13 | ECWPNPC ---
PATIENT NAME: ANG MCDERMOTT : 1940 GENDER: MALE VISIT DATE: 06/14/2018 DISCHARGE DATE: 06/14/18 1202 VISIT LOCKED DATE TIME: PHYSICIAN: SHARON LOWRY RESOURCE: SHARON LOWRY REASON FOR APPOINTMENT 1. BACK HISTORY OF PRESENT ILLNESS HISTORY OF PRESENT ILLNESS: HERE FOR F/U OF CHRONIC LOW BACK PAIN.CONTINUES TO DO WELL POST RF IN FEBRUARY.USING TRAMADOL PRN FOR SEVERE PAIN EPISODES THAT CONTINUES TODAY.RATING PAIN VAS 2/10.TAKING SOMA AT NIGHT AND THIS IS HELPING WITH SLEEP .FINDING GABAPENTIN IS HELPING WITH RIGHT LEG NERVE SYMPTOMS. PAIN THE PATIENT DESCRIBES THE PAIN... FALL RISK SCREENING: SCREENING : NO FALLS IN THE PAST YEAR. CURRENT MEDICATIONS TAKING ALLOPURINOL 100 MG TABLET 1 TABLET ORALLY BID TAKING ASPIRIN 325 MG TABLET 1 TABLET ORALLY ONCE A DAY TAKING CALCITRIOL 0.25 MCG CAPSULE 1 CAPSULE ORALLY ONCE A DAY TAKING LEFLUNOMIDE 10 MG TABLET 1 TABLET ORALLY ONCE A DAY TAKING GLUCOSAMINE CHONDROITIN COMPLX 600-250 MG CAPSULE 1 TAB(S) ORALLY BID TAKING LEVOTHYROXINE SODIUM 150 MCG TABLET 1 TABLET ON AN EMPTY STOMACH IN THE MORNING ORALLY ONCE A DAY TAKING MULTIVITAMINS TABLET DIRECTED ORALLY DAILY TAKING POTASSIUM CHLORIDE 20 MEQ TABLET EXTENDED RELEASE 2 TABLETS WITH FOOD ORALLY TWICE A DAY TAKING ZOLPIDEM 10 MG TABLET 1 TAB(S) ORAL AT BEDTIME NEEDED TAKING TORSEMIDE 20 MG TABLET 1 TAB(S) ORALLY 2 IN THE MORNING/ 1 TAB IN AFTERNOON TAKING SERTRALINE HCL 100 MG TABLET 1 TABLET ORALLY ONCE A DAY TAKING SPIRONOLACTONE 25 MG TABLET 1 TABLET ORALLY BID TAKING LABETALOL HCL 100 MG TABLET 1 TAB ORALLY BID TAKING CALCIUM 600+D3 600-400 MG-UNIT TABLET 1 TABLET WITH A MEAL ORALLY ONCE A DAY TAKING ALIGN 4 MG CAPSULE ORALLY DAILY TAKING FLOMAX 0.4 MG CAPSULE 2 CAPSULES ORALLY ONCE A DAY TAKING FINASTERIDE 5 MG TABLET 1 TABLET ORALLY ONCE A DAY TAKING TYLENOL 325 MG TABLET 2 TABLET NEEDED ORALLY EVERY 6 HRS TAKING TRAMADOL HCL 50 MG TABLET 1-2 TAB ORALLY Q4-6H PRN PAIN MDD6 TAKING GABAPENTIN 100 MG CAPSULE 1 CAPSULE ORALLY BID TAKING SOMA 350 MG TABLET 1 TABLET NEEDED ORALLY Q12H BID NOT-TAKING VOLTAREN 1 % GEL APPLY TO LEFT KNEE TRANSDERMAL BID NOT-TAKING TYLENOL EXTRA STRENGTH 500 MG TABLET 1 TABLET NEEDED ORALLY EVERY 6 HRS PRN, NOTES: NEW DOSE MEDICATION LIST REVIEWED AND RECONCILED WITH THE PATIENT PAST MEDICAL HISTORY BPH URINARY RETENTION GOUT HTN EDEMA DDD/DJD; SEVERE SPINAL STENOSIS HYPOTHYROIDISM DEPRESSION/ANXIETY HYPERCHOLESTEROLEMIA HYPOKALEMIA SLEEP APNEA VERTIGO INSOMNIA CHRONIC KIDNEY DISEASE OSTEOARTHRITIS VARICOSE VEINS OSTEOARTHRITIS BROKEN LITTLE FINGER ON LEFT HAND ARTHRITIS LEFT KNEE ALLERGIES SURGICAL TAPE: REMOVES TOP LAYER OF SKIN: SIDE EFFECTS SURGICAL HISTORY ORIF LEFT LEG/ANKLE FRACTURE; PLATES/SCREWS IN PLACE 1992 BILATERAL - 2 TRIGGER FINGER RELEASE/CARPAL CHARO RELEASE/BONE REMOVAL THUMB (LEFT) 2004 TONSILLECTOMY APPENDECTOMY L3-L5 LAMINECTOMY 11/2012 COLONSCOPY 05/2016 CYSTOSCOPY 08/02/2017 FAMILY HISTORY FATHER: , CHF MOTHER: , HEART ATTACK, DIABETES SIBLINGS: ALIVE 1 SON(S) , 4 DAUGHTER(S) . 1 DAUGHTER-BREAST CA1 DAUGHTER-POLY CYSTIC BREAST. SOCIAL HISTORY GENERAL: TOBACCO USE ARE YOU A:NONSMOKER ALCOHOL SCREENING DID YOU HAVE A DRINK CONTAINING ALCOHOL IN THE PAST YEAR?YES HOW OFTEN DID YOU HAVE A DRINK CONTAINING ALCOHOL IN THE PAST YEAR?MONTHLY OR LESS (1 POINT) HOW MANY DRINKS DID YOU HAVE ON A TYPICAL DAY WHEN YOU WERE DRINKING IN THE PAST YEAR?1 OR 2 (0 POINTS) HOW OFTEN DID YOU HAVE SIX OR MORE DRINKS ON ONE OCCASION IN THE PAST YEAR?NEVER (0 POINTS) POINTS1 INTERPRETATIONNEGATIVE RECREATIONAL DRUG USE DRUG USE?NO CAFFEINE CAFFEINE USE?YES HOW OFTEN AND HOW MUCH? 2-3 CUPS OF TEA PER DAY AND OCCASIONAL COFFEE AMISH [id number] ZOROASTRIANISM LANGUAGE LANGUAGES SPOKEN:[place] EDUCATION LEVEL OF EDUCATION:NOT FINISHED COLLEGE LEARNING BARRIERS / SPECIAL NEEDS BARRIERS TO LEARNING?NO HEARING IMPAIRED?NO VISION IMPAIRED?YES :CORRECTIVE LENSES COGNITIVELY IMPAIRED?NO READINESS TO LEARN?YES LEARNING PREFERENCES?NO LEARNING CAPABILITIES PRESENT?YES EMOTIONAL BARRIERS?NO SPECIAL DEVICES?YES :CANE GREENS PICKER NEEDED?NO DOMESTIC VIOLENCE DO YOU FEEL SAFE IN YOUR ENVIRONMENT?YES OCCUPATION: RETIRED. DIET: REGULAR. EXERCISE: NONE. MARITAL STATUS: . OTHERS AT HOME: SPOUSE, CHILD, CHILDREN. PAIN CLINIC PFS, CLERGY, PUBLIC HEALTH REFERRALS PFS REFERRAL NEEDED?NO CLERGY REFERRAL NEEDED?NO PUBLIC HEALTH REFERRAL NEEDED?NO WAS THE PROVIDER NOTIFIED OF ANY PERTINENT INFO? N/A HAS THE PATIENT BEEN EDUCATED REGARDING HIS/HER PLAN OF CARE?YES HAS THE PATIENT BEEN EDUCATED REGARDING PAIN, THE RISK FOR PAIN, THE IMPORTANCE OF EFFECTIVE PAIN MANAGEMENT, AND THE PAIN ASSESSMENT PROCESS?YES REVIEWED WITH PATIENT 02/01/18 1328 02/10/18 1225 REVIEWED WITH PT. LAURA WITH PATIENT 03/10/18 1354 06/14/18 REVIEWED WITH PT. EVELINE. HOSPITALIZATION/MAJOR DIAGNOSTIC PROCEDURE DIVERTICULITIS X2 SURGERY RELATED DIVERTICULITIS 12/2015 REVIEW OF SYSTEMS REVIEWED BY: PROVIDER: SHARON CABRERA . CONSTITUTIONAL: ANY CHANGE IN YOUR MEDICAL CONDITION? NO . CHILLS NO . FEVER NO . INFECTION: DO YOU HAVE NEW INFECTIONS? NO . DO YOU HAVE HISTORY OF MRSA? NO . MUSCULOSKELETAL: ANY NEW PATTERNS OF PAIN OR NUMBNESS? NO . GASTROENTEROLOGY: ANY NEW CHANGE IN BOWEL CONTROL? NO . GENITOURINARY: ANY NEW CHANGE IN BLADDER CONTROL? NO . IS THERE A CHANCE YOU COULD BE ? NO . HEMATOLOGY/LYMPH: DO YOU TAKE ANY BLOOD THINNERS? (FOR EXAMPLE- COUMADIN, PLAVIX, AGGRENOX, PLATEL, PRADAXA, OR XARELTO) NO . WHEN WAS YOUR LAST DOSE? DATE: TIME: . NEUROLOGY: HAVE YOU FALLEN IN THE PAST 12 MONTHS? YES, LAST SUMMER . ANY NEW EXTREMITY NUMBNESS OR WEAKNESS? NO . CARDIOLOGY: DO YOU HAVE A PACEMAKER OR DEFIBRILLATOR? NO . RESPIRATORY: HAVE YOU BEEN SICK IN THE PAST WEEK? NO . FEVER NO . FLU LIKE SYMPTOMS? NO . COUGH NO . INTEGUMENTARY: DO YOU HAVE ANY RASHES OR OPEN SORES? NO . ALLERGIC/IMMUNO: ARE YOU ALLERGIC TO IV DYE? NO . ANY NEW ALLERGIES? NO . PSYCHIATRIC: DO YOU HAVE THOUGHTS OF HURTING YOURSELF OR SOMEONE ELSE? NO . ARE YOU ABUSED, NEGLECTED, OR IN AN UNSAFE ENVIRONMENT? NO . ENDOCRINOLOGY: ARE YOU DIABETIC? NO . OTHER: DO YOU NEED ANY PRESCRIPTIONS? YES . IF YES, PLEASE LIST: CARSOPRODOL, GABAPENTIN . ANY NEW PROBLEMS WITH YOUR MEDICATIONS? NO . WHEN DID YOU LAST EAT? ____ . WHEN DID YOU LAST DRINK? ____ . WHAT DID YOU LAST DRINK? ____ . NAME OF PERSON DRIVING YOU HOME? ____ . DO YOU HAVE ANY OTHER QUESTIONS OR CONCERNS NO . VITAL SIGNS WT 316.5 LBS, HT 5'9", BMI 46.73 INDEX, BP 125/65 MM HG, HR 73 /MIN, RR 18 /MIN, TEMP 98 F, OXYGEN SAT % 93, SAFE IN ENV? (Y/N) Y, REVIEWED BY: AD. EXAMINATION GENERAL EXAMINATION: GENERAL APPEARANCE:AWAKE,ALERT ,PLEAASANT . PSYCHAFFECT NORMAL . LUNGS:LUNG CARLSON ARE CLEAR TO AUSCULTATION BILATERALLY. GOOD MOVEMENT OF AIR . HEART:S1, S2 IN A REGULAR RATE AND RHYTHM. NO SIGNIFICANT MURMURS, RUBS OR GALLOPS NOTED . 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 , RISKS AND BENEFITS OF NARCOTIC/OPIOD MEDICATIONS WERE REVIEWED WITH PATIENT - THIS INCLUDES BUT IS NOT LIMITED TO RISK OF DEPENDANCE/DEVELOPMENT OF ADDICTION, MOOD DISTURBANCE AND DEPRESSION, OSTEOPOROSIS, HORMONAL AND LABIDAL CHANGES, RESPIRATORY DEPRESSION AND . PATIENT IS ADVISED NOT TO DRIVE OR DRINK ALCOHOL WHILE ON THESE MEDICATIONS, [facility] NARCOTIC AGREEMENT WAS REVIEWED AND SIGNED TODAY BY THE PATIENT. SEE ATTACHED DOCUMENT FOR FULL DETAILS; SPECIFIC ISSUES WERE REVIEWED: 1) KEEP PAIN MEDS IN THEIR ORIGINAL BOTTLES AND ANY WEEKLY PLANNERS ARE TO BE BROUGHT TO THE PAIN CENTER AT EVERY VISIT. 2) THE PATIENT IS NOT TO INCREASE DOSING OR TIMING OF THEIR PAIN MEDICATION WITHOUT SPECIFIC DIRECTION OF THEIR PAIN CENTERPROVIDER (NOT ER OR OTHER PROVIDERS). 3) ALL PAIN MEDS ARE TO BE KEPT SECURED, IN A LOCKED BOX. 4) NO PAIN MEDS ARE TO BE SHARED WITH ANY OTHER PERSON FOR ANY REASON. 5) NO PAIN MEDS MAY BE TAKEN FROM ANY FRIENDS OR RELATIVES FOR ANY REASON 6) NO MEDS OR SUBSTANCES WHICH ARE NOT LEGAL ARE TO BE USED- NO MARIJUANA, NO COCAINE, AMPHETAMINES, HEROIN, OR OTHERS ARE EVER TO BE USED. 7)URINE TESTING IS DONE TO ACCOUNT FOR MEDS AND SUBSTANCES BEING TAKEN AND WILL BE DONE RANDOMLY. PROCEDURE CODES FA211 ESTABILISHED PATIENT [facility] CHARGE DISPOSITION & COMMUNICATION FOLLOW UP 3 MONTHS ELECTRONICALLY SIGNED BY RICK VARELA ON 06/25/2018 AT 09:31 AM EST DISCLAIMER : THIS IS A VISIT SUMMARY EXTRACTED FROM THE [employer] CHART. IT IS NOT A COPY OF THE [employer] PROGRESS NOTE. HECTOR
== END ==
LOC: M PAIN 10:45
PROVIDERS: ATTEND Nurse Practitioner Family
DX: M43.17 Spondylolisthesis, lumbosacral region (principal); N40.1 Benign prostatic hyperplasia with lower urinary tract symptoms; R33.9 Retention of urine, unspecified; M10.9 Gout, unspecified; I12.9 Hypertensive chronic kidney disease with stage 1 through stage 4 chronic kidney disease, or unspecified chronic kidney disease; E03.9 Hypothyroidism, unspecified; F32.9 Major depressive disorder, single episode, unspecified; F41.9 Anxiety disorder, unspecified; E78.00 Pure hypercholesterolemia, unspecified; E87.6 Hypokalemia; G47.30 Sleep apnea, unspecified; R42 Dizziness and giddiness; G47.00 Insomnia, unspecified; N18.9 Chronic kidney disease, unspecified; I83.90 Asymptomatic varicose veins of unspecified lower extremity; M17.12 Unilateral primary osteoarthritis, left knee; Z79.82 Long term (current) use of aspirin; Z79.891 Long term (current) use of opiate analgesic; Z79.899 Other long term (current) drug therapy; Z91.048 Other nonmedicinal substance allergy status

== ENCOUNTER → 2018-09-16 | Outpatient (CLI) | payer MEDICARE, OTHER ==
[~2018-09-16] MED LIST changes: -/FENT50PA; -/FENT75PA; -ALLO15TA PO; +ALLO300T2 PO; +ASPI-255 PO; -ASPI325T25 PO; -DOCU10ELUD PO; +DOCU5LIQ PO; +FENT1DIS15; +FENT1DIS16; +SERT-141 PO; -SERT50TA PO
--- NOTE | 2018-09-16 15:51 | REP ---
MRI CERVICAL SPINE WITHOUT CONTRAST: HISTORY: Neck pain. A disc bulge with associated osteophyte formation is present at the C3-4 level. There is moderate effacement of the thecal sac without spinal cord compression. Bilateral uncinate process and right facet hypertrophy are present. These findings produce moderate and mild narrowing of the right and left C3 neural foramina respectively. A disc bulge with associated osteophyte formation is present at the C4-5 level. There is moderate effacement of the thecal sac without spinal cord compression. Bilateral uncinate process and left facet hypertrophy are present. These findings produce moderate narrowing of the C4 neural foramina. A disc bulge with associated osteophyte formation is present at the C5-6 level. There is moderate effacement of the thecal sac without spinal cord compression. Bilateral uncinate process hypertrophy is present. This produces mild and moderate narrowing of the right and left C5 neural foramina respectively. A disc bulge with associated osteophyte formation is present at the C6-7 level. There is moderate effacement of the thecal sac without spinal cord compression. Bilateral uncinate process hypertrophy is present. This produces moderate and mild narrowing of the right and left C6 neural foramina respectively. A disc bulge is present at the C7-T1 level. There is minimal effacement of the thecal sac without spinal cord compression. The C7 neural foramina are patent. There is no other disc bulge or herniation. The remaining neural foramina are patent. The spinal cord is normal in signal intensity. The C4-5 through C7-T1 intervertebral discs are decreased in height consistent with disc degeneration. Normal signal intensity is present in the cervical vertebral bodies. IMPRESSION: There is cervical spondylosis at the C3-4 through C7-T1 levels without spinal cord compression. Electronically Signed by Maikel Luciano MD 09/16/2018 03:55 P
== END ==
LOC: M PLARAD 14:10
PROVIDERS: ATTEND Physician Assistant
DX: M43.12 Spondylolisthesis, cervical region (principal); M50.21 Other cervical disc displacement, high cervical region; M50.221 Other cervical disc displacement at C4-C5 level; M50.222 Other cervical disc displacement at C5-C6 level; M50.223 Other cervical disc displacement at C6-C7 level; M50.23 Other cervical disc displacement, cervicothoracic region; M47.812 Spondylosis without myelopathy or radiculopathy, cervical region

== ENCOUNTER → 2018-09-20 | Outpatient (CLI) | payer MEDICARE, OTHER | LOC: M PAIN 10:15 | PROVIDERS: ATTEND Nurse Practitioner Family | DX: M43.17 Spondylolisthesis, lumbosacral region (principal); G89.29 Other chronic pain; I10 Essential (primary) hypertension; E03.9 Hypothyroidism, unspecified; Z86.59 Personal history of other mental and behavioral disorders; E78.00 Pure hypercholesterolemia, unspecified; G47.30 Sleep apnea, unspecified; Z86.69 Personal history of other diseases of the nervous system and sense organs; M19.90 Unspecified osteoarthritis, unspecified site; Z91.09 Other allergy status, other than to drugs and biological substances; E66.01 Morbid (severe) obesity due to excess calories; Z68.42 Body mass index [BMI] 45.0-49.9, adult; Z79.82 Long term (current) use of aspirin; Z79.899 Other long term (current) drug therapy ==

== ENCOUNTER → 2018-11-03 | Outpatient (CLI) | payer MEDICARE, OTHER ==
[~2018-11-03] MED LIST changes: +BUPIVACAINE HCL 0.25% 30 ML VIAL As Ordered ONE; +ISOVUE-M 200 41% 20ML VIAL (Q9966) As Ordered ONE; +LIDOCAINE 1% SDV INJ 30 ML VIAL As Ordered ONE; +TRIAMCINOLONE ACETONIDE SUSP 40 MG/ML VIAL (J3301) As Ordered ONE
--- NOTE | 2018-11-03 10:53 | REP ---
Partial lumbar spine series: Two views . History: Injection procedure for pain. 32 seconds of fluoroscopy time is reported. Findings: A sequence of two fluoroscopically obtained last image hold procedural spot radiographs of the lumbar spine document needle position and contrast injection associated with injection procedure. Electronically Signed by Hector Kaplan MD 11/03/2018 10:44 A
--- NOTE | 2018-11-10 00:28 | ECWPNPC ---
PATIENT NAME: ANG MCDERMOTT : 1940 GENDER: MALE VISIT DATE: 11/03/2018 DISCHARGE DATE: 11/03/18 1100 VISIT LOCKED DATE TIME: PHYSICIAN: ELLYN VU MD RESOURCE: ELLYN VU MD REASON FOR APPOINTMENT 1. BILAT. L4/5-L5/S1 THERAPEUTIC LUMBAR BLOCK HISTORY OF PRESENT ILLNESS HISTORY OF PRESENT ILLNESS: PAIN THE PATIENT DESCRIBES THE PAIN... FALL RISK SCREENING: SCREENING :NO FALLS REPORTED IN THE LAST YEAR CURRENT MEDICATIONS TAKING ALLOPURINOL 300 MG TABLET 1 TABLET ORALLY ONCE DAILY, NOTES: 11/03/18799 TAKING ASPIRIN 325 MG TABLET 1 TABLET ORALLY ONCE A DAY, NOTES: 11/02/182299 TAKING CALCITRIOL 0.25 MCG CAPSULE 1 CAPSULE ORALLY ONCE A DAY, NOTES: 11/03/18799 TAKING GLUCOSAMINE CHONDROITIN COMPLX 600-250 MG CAPSULE 1 TAB(S) ORALLY BID, NOTES: 11/02/182299 TAKING LEVOTHYROXINE SODIUM 150 MCG TABLET 1 TABLET ON AN EMPTY STOMACH IN THE MORNING ORALLY ONCE A DAY, NOTES: 11/02/182299 TAKING MULTIVITAMINS TABLET DIRECTED ORALLY DAILY, NOTES: 11/03/18799 TAKING POTASSIUM CHLORIDE 20 MEQ TABLET EXTENDED RELEASE 2 TABLETS WITH FOOD ORALLY TWICE A DAY, NOTES: 11/03/18799 TAKING ZOLPIDEM 10 MG TABLET 1 TAB(S) ORAL AT BEDTIME NEEDED, NOTES: 11/02/182299 TAKING TORSEMIDE 20 MG TABLET 1 TAB(S) ORALLY 2 IN THE MORNING/ 1 TAB IN AFTERNOON, NOTES: 11/02/181699 TAKING SERTRALINE HCL 100 MG TABLET 1 TABLET ORALLY ONCE A DAY, NOTES: 11/03/18799 TAKING SPIRONOLACTONE 25 MG TABLET 1 TABLET ORALLY BID, NOTES: 11/03/18799 TAKING LABETALOL HCL 100 MG TABLET 1 TAB ORALLY BID, NOTES: 11/03/18799 TAKING CALCIUM 600+D3 600-400 MG-UNIT TABLET 1 TABLET WITH A MEAL ORALLY ONCE A DAY, NOTES: 11/02/181699 TAKING ALIGN 4 MG CAPSULE ORALLY DAILY, NOTES: 11/03/18799 TAKING GABAPENTIN 100 MG CAPSULE 1 CAPSULE ORALLY BID, NOTES: 11/03/18799 TAKING SOMA 350 MG TABLET 1 TABLET NEEDED ORALLY Q12H BID MDD2, NOTES: 11/03/18 0800 TAKING FINASTERIDE 5 MG TABLET 1 TABLET ORALLY ONCE A DAY, NOTES: 11/02/18 2300 TAKING FLOMAX 0.4 MG CAPSULE 2 CAPSULES ORALLY ONCE A DAY, NOTES: 11/02/18 1700 TAKING TYLENOL ARTHRITIS PAIN 650 MG TABLET EXTENDED RELEASE 1 TAB ORALLY EVERY 8 HRS, NOTES: 11/02/18 2300 TAKING OXYBUTYNIN CHLORIDE ER 10 MG TABLET EXTENDED RELEASE 24 HOUR 1 TABLET ORALLY ONCE A DAY, NOTES: 11/03/18 0800 TAKING NUCYNTA 75 MG TABLET 1 TABLET ORALLY FOR PAIN EVERY 6 HRS NEEDED MDD4, NOTES: 11/02/18 2300 NOT-TAKING LEFLUNOMIDE 10 MG TABLET 1 TABLET ORALLY ONCE A DAY NOT-TAKING TRAMADOL HCL 50 MG TABLET 1-2 TAB ORALLY Q4-6H PRN PAIN MDD6 NOT-TAKING VOLTAREN 1 % GEL APPLY TO LEFT KNEE TRANSDERMAL BID NOT-TAKING TYLENOL EXTRA STRENGTH 500 MG TABLET 1 TABLET NEEDED ORALLY EVERY 6 HRS PRN, NOTES: NEW DOSE MEDICATION LIST REVIEWED AND RECONCILED WITH THE PATIENT PAST MEDICAL HISTORY BPH URINARY RETENTION GOUT HTN EDEMA DDD/DJD; SEVERE SPINAL STENOSIS HYPOTHYROIDISM DEPRESSION/ANXIETY HYPERCHOLESTEROLEMIA HYPOKALEMIA SLEEP APNEA VERTIGO INSOMNIA CHRONIC KIDNEY DISEASE OSTEOARTHRITIS VARICOSE VEINS OSTEOARTHRITIS BROKEN LITTLE FINGER ON LEFT HAND ARTHRITIS LEFT KNEE ALLERGIES SURGICAL TAPE: REMOVES TOP LAYER OF SKIN - SIDE EFFECTS SURGICAL HISTORY ORIF LEFT LEG/ANKLE FRACTURE; PLATES/SCREWS IN PLACE 1992 BILATERAL - 2 TRIGGER FINGER RELEASE/CARPAL CHARO RELEASE/BONE REMOVAL THUMB (LEFT) 2004 TONSILLECTOMY APPENDECTOMY L3-L5 LAMINECTOMY 11/2012 COLONSCOPY 05/2016 CYSTOSCOPY 08/02/2017 RADIO FREQUENCY NERVE CUT IN BACK FEB 2018 FAMILY HISTORY FATHER: , CHF MOTHER: , HEART ATTACK, DIABETES SIBLINGS: ALIVE DAUGHTER(S): DIAGNOSED WITH CANCER 1 SON(S) , 4 DAUGHTER(S) . 1 DAUGHTER-BREAST CA1 DAUGHTER-POLY CYSTIC BREAST. SOCIAL HISTORY GENERAL: TOBACCO USE ARE YOU A:NONSMOKER OTHERS AT HOME: SPOUSE, CHILD, CHILDREN. EDUCATION LEVEL OF EDUCATION:NOT FINISHED COLLEGE DIET: REGULAR. LANGUAGE LANGUAGES SPOKEN:KITTITIAN DOMESTIC VIOLENCE DO YOU FEEL SAFE IN YOUR ENVIRONMENT?YES RECREATIONAL DRUG USE DRUG USE?NO EXERCISE: NONE. LEARNING BARRIERS / SPECIAL NEEDS BARRIERS TO LEARNING?NO HEARING IMPAIRED?NO VISION IMPAIRED?YES :CORRECTIVE LENSES COGNITIVELY IMPAIRED?NO READINESS TO LEARN?YES LEARNING PREFERENCES?NO LEARNING CAPABILITIES PRESENT?YES EMOTIONAL BARRIERS?NO SPECIAL DEVICES?YES :CANE WAX BALL MOLDER NEEDED?NO PAIN CLINIC PFS, CLERGY, PUBLIC HEALTH REFERRALS PFS REFERRAL NEEDED?NO CLERGY REFERRAL NEEDED?NO PUBLIC HEALTH REFERRAL NEEDED?NO WAS THE PROVIDER NOTIFIED OF ANY PERTINENT INFO? N/A HAS THE PATIENT BEEN EDUCATED REGARDING HIS/HER PLAN OF CARE?YES HAS THE PATIENT BEEN EDUCATED REGARDING PAIN, THE RISK FOR PAIN, THE IMPORTANCE OF EFFECTIVE PAIN MANAGEMENT, AND THE PAIN ASSESSMENT PROCESS?YES LATEX QUESTIONNAIRE LATEX ALLERGY : HAVE YOU EVER DEVELOPED ANY TYPE OF REACTION AFTER HANDLING LATEX PRODUCTS SUCH RUBBER GLOVES, CONDOMS, DIAPHRAGMS, BALLOONS, SOCKS, OR UNDERWEAR?NO PT DOES HAVE ALLERGY TO SURGICAL TAPE LATEX ALLERGY : HAVE YOU EVER DEVELOPED ANY TYPE OF REACTION DURING OR AFTER DENTAL APPOINTMENT, VAGINAL/RECTAL EXAMINATION, SURGICAL PROCEDURE, OR ANY OTHER EXPOSURE?NO LATEX RISK : HAVE YOU EVER HAD ANY DIFFICULTY BREATHING OR HIVES AFTER EATING OR HANDLING ANY FRUITS, OR VEGETABLES; SUCH KIWI, BANANAS, STONE FRUITS, OR CHESTNUTSNO LATEX RISK : DO YOU HAVE A PREVIOUS PERSONAL HISTORY OF MORE THAN NINE SURGERIES, SPINA BIFIDA, OR REPEATED CATHERTIZATIONS? NO LATEX RISK : ARE YOU FREQUENTLY EXPOSED TO LATEX PRODUCTS IN YOUR OCCUPATION?NO DATE ASKED : 09/20/2018 CAFFEINE CAFFEINE USE?YES HOW OFTEN AND HOW MUCH? 2-3 CUPS OF TEA PER DAY AND OCCASIONAL COFFEE ADVANCE DIRECTIVE ADVANCE DIRECTIVE DISCUSSED WITH PATIENT:YES HCP - CHARLENE REESE () [facility] [id number] RASTAFARIAN MARITAL STATUS: . ALCOHOL SCREENING DID YOU HAVE A DRINK CONTAINING ALCOHOL IN THE PAST YEAR?YES HOW OFTEN DID YOU HAVE A DRINK CONTAINING ALCOHOL IN THE PAST YEAR?MONTHLY OR LESS (1 POINT) HOW MANY DRINKS DID YOU HAVE ON A TYPICAL DAY WHEN YOU WERE DRINKING IN THE PAST YEAR?1 OR 2 (0 POINTS) HOW OFTEN DID YOU HAVE SIX OR MORE DRINKS ON ONE OCCASION IN THE PAST YEAR?NEVER (0 POINTS) POINTS1 INTERPRETATIONNEGATIVE OCCUPATION: RETIRED. REVIEWED WITH PATIENT 02/01/18 1328 JS02/10/18 1225 REVIEWED WITH PT. ADREVIEWED WITH PATIENT 03/10/18 1354 JS06/14/18 REVIEWED WITH PT. 09/20/18 REVIEWED WITH PT 1039 BV11/03/18 REVIEWED WITH PT LAS. HOSPITALIZATION/MAJOR DIAGNOSTIC PROCEDURE DIVERTICULITIS X2 SURGERY RELATED DIVERTICULITIS 12/2015 REVIEW OF SYSTEMS REVIEWED BY: PROVIDER: . CONSTITUTIONAL: ANY CHANGE IN YOUR MEDICAL CONDITION? NO . CHILLS NO . FEVER NO . INFECTION: DO YOU HAVE NEW INFECTIONS? NO . DO YOU HAVE HISTORY OF MRSA? NO . MUSCULOSKELETAL: ANY NEW PATTERNS OF PAIN OR NUMBNESS? NO . GASTROENTEROLOGY: ANY NEW CHANGE IN BOWEL CONTROL? NO . GENITOURINARY: ANY NEW CHANGE IN BLADDER CONTROL? NO . IS THERE A CHANCE YOU COULD BE ? NO . HEMATOLOGY/LYMPH: DO YOU TAKE ANY BLOOD THINNERS? (FOR EXAMPLE- COUMADIN, PLAVIX, AGGRENOX, PLATEL, PRADAXA, OR XARELTO) NO . WHEN WAS YOUR LAST DOSE? DATE: TIME: . NEUROLOGY: HAVE YOU FALLEN IN THE PAST 12 MONTHS? NO . ANY NEW EXTREMITY NUMBNESS OR WEAKNESS? NO . CARDIOLOGY: DO YOU HAVE A PACEMAKER OR DEFIBRILLATOR? NO . RESPIRATORY: HAVE YOU BEEN SICK IN THE PAST WEEK? NO . FEVER NO . FLU LIKE SYMPTOMS? NO . COUGH NO . INTEGUMENTARY: DO YOU HAVE ANY RASHES OR OPEN SORES? NO . ALLERGIC/IMMUNO: ARE YOU ALLERGIC TO IV DYE? NO . ANY NEW ALLERGIES? NO . PSYCHIATRIC: DO YOU HAVE THOUGHTS OF HURTING YOURSELF OR SOMEONE ELSE? NO . ARE YOU ABUSED, NEGLECTED, OR IN AN UNSAFE ENVIRONMENT? NO . ENDOCRINOLOGY: ARE YOU DIABETIC? NO . OTHER: DO YOU NEED ANY PRESCRIPTIONS? NO . IF YES, PLEASE LIST: ____ . ANY NEW PROBLEMS WITH YOUR MEDICATIONS? NO . WHEN DID YOU LAST EAT? ____11/02/18 2300 . WHEN DID YOU LAST DRINK? ____11/03/18 0800 . WHAT DID YOU LAST DRINK? ____WATER WITH MEDICATIONS . NAME OF PERSON DRIVING YOU HOME? ____ . DO YOU HAVE ANY OTHER QUESTIONS OR CONCERNS NO . VITAL SIGNS WT 305.8 LBS, HT 5'9", BMI 45.15 INDEX, BP 119/67 MM HG, HR 71 /MIN, RR 18 /MIN, TEMP 97.0 F, OXYGEN SAT % 96%, SAFE IN ENV? (Y/N) YES, NA INITIALS AW 0909, REVIEWED BY: SPENCER. ASSESSMENTS SPONDYLOSIS OF LUMBAR REGION WITHOUT MYELOPATHY OR RADICULOPATHY - M47.816 (PRIMARY) SPONDYLOSIS OF LUMBOSACRAL REGION WITHOUT MYELOPATHY OR RADICULOPATHY - M47.817 PROCEDURES PN LUMBAR FACET BLOCK THERAPEUTIC PRE PROCEDURE DIAGNOSIS LUMBAR SPONDYLOSIS, LUMBOSACRAL SPONDYLOSIS POST PROCEDURE DIAGNOSIS LUMBAR SPONDYLOSIS, LUMBOSACRAL SPONDYLOSIS PROCEDURE BILATERAL L4-L5 AND BILATERAL L5-S1 LUMBAR FACET THERAPEUTIC BLOCK SURGEON DR. 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 I EVALUATE THE PATIENT AND REVIEWED THE CHART. I WENT OVER THE RISKS, ALTERNATIVES, AND BENEFITS ASSOCIATED WITH THIS PROCEDURE. THE PATIENT WOULD LIKE TO PROCEED AND GIVE CONSENT TO PERFORMED THE PROCEDURE. THE PATIENT DENIES UNEXPLAINABLE WEIGHT LOSS, FEVER, CHILLS, OR NEW CHANGES IN URINARY OR BOWEL CONTROL DESCRIPTION OF PROCEDURE THE PATIENT WAS BROUGHT TO THE PROCEDURE ROOM AND PLACED IN THE PRONE POSITION. THE LUMBOSACRAL AREA WAS CLEANED WITH CHLORAPREP SOLUTION AND DRAPED ASEPTICALLY. THE PROCEDURE WAS DONE UNDER STERILE CONDITIONS. I CHECKED LATERALITY AND THE LEVEL WHERE THE PROCEDURE WAS GOING TO BE PERFORMED WITH THE PATIENT AND THE SUPPORTING STAFF AT THE MOMENT OF THE TIME OUT IN THE PROCEDURE ROOM. UNDER FLUOROSCOPIC GUIDANCE, THE TARGET POINT WAS SELECTED AT THE RIGHT AND LEFT L4-L5 AND RIGHT AND LEFT L5-S1 FACET JOINT. TARGET POINT WAS SELECTED AFTER LATERAL ROTATION AND TILT OF THE MAGNIFIER OF THE C-ARM. LIDOCAINE 0.5% WAS USED TO NUMB THE SKIN AND THE SUBCUTANEOUS TISSUE BELOW IT. SPINAL NEEDLES, 22-GAUGE, WERE ADVANCED UNDER FLUOROSCOPIC GUIDANCE AND FOLLOWING PATIENT FEEDBACK UNTIL THE TARGETS WERE TOUCHED. THE POSITION OF THE NEEDLES WAS VERIFIED WITH AP AND LATERAL VIEWS. AFTER PROPER POSITION OF THE NEEDLES WAS ACHIEVED, ISOVUE-M DYE WAS INJECTED SHOWING ADEQUATE SPREAD OF THE DYE. THEN A SOLUTION OF 1.9 ML OF BUPIVACAINE 0.125% OF KENALOG 10 MG WAS INJECTED AT EACH SITE. THERE WAS NO EVIDENCE OF BLOOD, PARESTHESIA OR CEREBROSPINAL FLUID DURING THE PROCEDURE. THE PATIENT WAS SENT TO THE RECOVERY ROOM. THE PATIENT WAS MOVING THE EXTREMITIES AND DOING WELL. THERE WAS NO COMPLICATION DURING THE PROCEDURE. FLUOROSCOPY TIME WAS 32 SECONDS POST PROCEDURE NOTE THE PATIENT WILL BE SEEN IN A FOLLOW UP IN THE NEXT FEW WEEKS. INSTRUCTIONS WERE GIVEN, QUESTIONS WERE ANSWERED, AND THE PATIENT EXPRESSED UNDERSTANDING AND AGREES WITH THE PLAN. I, QI BEEBE, DOCUMENTED THE ABOVE INFORMATION ACTING A SCRIBE FOR DR. VU. I HAVE REVIEWED THE ABOVE DOCUMENT, WRITTEN BY QI CAMPBELL AND I VERIFY THAT IT IS ACCURATE. DIAGNOSTIC IMAGING [facility] FACET BLOCK (PAIN)[id number] PROCEDURE CODES 6045F RADXPS IN END [id number] PXD 11113 INJ PARAVERT F JNT L/S 1 LEV, MODIFIERS: 50 60584 INJ PARAVERT F JNT L/S 2 LEV, MODIFIERS: 50 DISPOSITION & COMMUNICATION FOLLOW UP 3 WEEKS ELECTRONICALLY SIGNED BY ELLYN VU MD, MD ON 11/09/2018 AT 10:12 AM EDT DISCLAIMER : THIS IS A VISIT SUMMARY EXTRACTED FROM THE [employer] CHART. IT IS NOT A COPY OF THE [employer] PROGRESS NOTE. MTDD
== END ==
LOC: M PAIN 09:00
PROVIDERS: ATTEND Anesthesiology
DX: M47.816 Spondylosis without myelopathy or radiculopathy, lumbar region (principal); M47.817 Spondylosis without myelopathy or radiculopathy, lumbosacral region; N40.1 Benign prostatic hyperplasia with lower urinary tract symptoms; R33.9 Retention of urine, unspecified; M10.9 Gout, unspecified; I12.9 Hypertensive chronic kidney disease with stage 1 through stage 4 chronic kidney disease, or unspecified chronic kidney disease; E03.9 Hypothyroidism, unspecified; F41.9 Anxiety disorder, unspecified; F32.9 Major depressive disorder, single episode, unspecified; E78.00 Pure hypercholesterolemia, unspecified; E87.6 Hypokalemia; G47.30 Sleep apnea, unspecified; R42 Dizziness and giddiness; G47.00 Insomnia, unspecified; N18.9 Chronic kidney disease, unspecified; M17.12 Unilateral primary osteoarthritis, left knee; Z79.82 Long term (current) use of aspirin; Z79.899 Other long term (current) drug therapy; Z91.048 Other nonmedicinal substance allergy status
CPT/HCPCS: 64493; 64494; J3301; Q9966

== ENCOUNTER → 2018-11-24 | Outpatient (CLI) | payer MEDICARE, OTHER ==
[~2018-11-24] MED LIST changes: -BUPIVACAINE HCL 0.25% 30 ML VIAL As Ordered ONE; -ISOVUE-M 200 41% 20ML VIAL (Q9966) As Ordered ONE; -LIDOCAINE 1% SDV INJ 30 ML VIAL As Ordered ONE; -TRIAMCINOLONE ACETONIDE SUSP 40 MG/ML VIAL (J3301) As Ordered ONE
--- NOTE | 2018-11-25 00:28 | ECWPNPC ---
PATIENT NAME: NAG MCDERMOTT : 1940 GENDER: MALE VISIT DATE: 11/24/2018 DISCHARGE DATE: 11/24/18 1051 VISIT LOCKED DATE TIME: PHYSICIAN: SHARON LOWRY RESOURCE: SHARON LOWRY REASON FOR APPOINTMENT 1. POST PROC HISTORY OF PRESENT ILLNESS HISTORY OF PRESENT ILLNESS: HERE FOR POST PROCEDURE F/U .HAD BILAT.LUMBAR THERAPEUTIC BLOCK ON 11/03/18.RATING PAIN VAS 2/10.PAIN ESCALATES UP TO 8/10 WITH WALKING OR PROLONGED STANDING.REPORTING ONLY NEED TO TAKE 1 NUCYNTA SINCE INJECTION. PAIN THE PATIENT DESCRIBES THE PAIN... FALL RISK SCREENING: SCREENING :NO FALLS REPORTED IN THE LAST YEAR CURRENT MEDICATIONS TAKING ALLOPURINOL 300 MG TABLET 1 TABLET ORALLY ONCE DAILY TAKING ASPIRIN 325 MG TABLET 1 TABLET ORALLY ONCE A DAY TAKING CALCITRIOL 0.25 MCG CAPSULE 1 CAPSULE ORALLY ONCE A DAY TAKING GLUCOSAMINE CHONDROITIN COMPLX 600-250 MG CAPSULE 1 TAB(S) ORALLY BID TAKING LEVOTHYROXINE SODIUM 150 MCG TABLET 1 TABLET ON AN EMPTY STOMACH IN THE MORNING ORALLY ONCE A DAY TAKING MULTIVITAMINS TABLET DIRECTED ORALLY DAILY TAKING POTASSIUM CHLORIDE 20 MEQ TABLET EXTENDED RELEASE 2 TABLETS WITH FOOD ORALLY TWICE A DAY TAKING ZOLPIDEM 10 MG TABLET 1 TAB(S) ORAL AT BEDTIME NEEDED TAKING TORSEMIDE 20 MG TABLET 1 TAB(S) ORALLY 2 IN THE MORNING/ 1 TAB IN AFTERNOON TAKING SERTRALINE HCL 100 MG TABLET 1 TABLET ORALLY ONCE A DAY TAKING SPIRONOLACTONE 25 MG TABLET 1 TABLET ORALLY BID TAKING LABETALOL HCL 100 MG TABLET 1 TAB ORALLY BID TAKING CALCIUM 600+D3 600-400 MG-UNIT TABLET 1 TABLET WITH A MEAL ORALLY ONCE A DAY TAKING ALIGN 4 MG CAPSULE ORALLY DAILY TAKING GABAPENTIN 100 MG CAPSULE 1 CAPSULE ORALLY BID TAKING SOMA 350 MG TABLET 1 TABLET NEEDED ORALLY Q12H BID MDD2 TAKING FINASTERIDE 5 MG TABLET 1 TABLET ORALLY ONCE A DAY TAKING FLOMAX 0.4 MG CAPSULE 2 CAPSULES ORALLY ONCE A DAY TAKING TYLENOL ARTHRITIS PAIN 650 MG TABLET EXTENDED RELEASE 1 TAB ORALLY EVERY 8 HRS TAKING OXYBUTYNIN CHLORIDE ER 10 MG TABLET EXTENDED RELEASE 24 HOUR 1 TABLET ORALLY ONCE A DAY TAKING NUCYNTA 75 MG TABLET 1 TABLET ORALLY FOR PAIN EVERY 6 HRS NEEDED MDD4 TAKING OTEZLA 30 MG TABLET 1 TABLET ORALLY DAILY NOT-TAKING LEFLUNOMIDE 10 MG TABLET 1 TABLET ORALLY ONCE A DAY NOT-TAKING TRAMADOL HCL 50 MG TABLET 1-2 TAB ORALLY Q4-6H PRN PAIN MDD6 NOT-TAKING VOLTAREN 1 % GEL APPLY TO LEFT KNEE TRANSDERMAL BID NOT-TAKING TYLENOL EXTRA STRENGTH 500 MG TABLET 1 TABLET NEEDED ORALLY EVERY 6 HRS PRN, NOTES: NEW DOSE MEDICATION LIST REVIEWED AND RECONCILED WITH THE PATIENT PAST MEDICAL HISTORY BPH URINARY RETENTION GOUT HTN EDEMA DDD/DJD; SEVERE SPINAL STENOSIS HYPOTHYROIDISM DEPRESSION/ANXIETY HYPERCHOLESTEROLEMIA HYPOKALEMIA SLEEP APNEA VERTIGO INSOMNIA CHRONIC KIDNEY DISEASE OSTEOARTHRITIS VARICOSE VEINS OSTEOARTHRITIS BROKEN LITTLE FINGER ON LEFT HAND ARTHRITIS LEFT KNEE ALLERGIES SURGICAL TAPE: REMOVES TOP LAYER OF SKIN - SIDE EFFECTS SURGICAL HISTORY ORIF LEFT LEG/ANKLE FRACTURE; PLATES/SCREWS IN PLACE 1992 BILATERAL - 2 TRIGGER FINGER RELEASE/CARPAL CHARO RELEASE/BONE REMOVAL THUMB (LEFT) 2004 TONSILLECTOMY APPENDECTOMY L3-L5 LAMINECTOMY 11/2012 COLONSCOPY 05/2016 CYSTOSCOPY 08/02/2017 RADIO FREQUENCY NERVE CUT IN BACK FEB 2018 FAMILY HISTORY FATHER: , CHF MOTHER: , HEART ATTACK, DIABETES SIBLINGS: ALIVE DAUGHTER(S): DIAGNOSED WITH CANCER 1 SON(S) , 4 DAUGHTER(S) . 1 DAUGHTER-BREAST CA1 DAUGHTER-POLY CYSTIC BREAST. SOCIAL HISTORY GENERAL: TOBACCO USE ARE YOU A:NONSMOKER OTHERS AT HOME: SPOUSE, CHILD, CHILDREN. EDUCATION LEVEL OF EDUCATION:NOT FINISHED COLLEGE DIET: REGULAR. LANGUAGE LANGUAGES SPOKEN:PERSIAN DOMESTIC VIOLENCE DO YOU FEEL SAFE IN YOUR ENVIRONMENT?YES RECREATIONAL DRUG USE DRUG USE?NO EXERCISE: NONE. 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 N/A HAS THE PATIENT BEEN EDUCATED REGARDING HIS/HER PLAN OF CARE?YES HAS THE PATIENT BEEN EDUCATED REGARDING PAIN, THE RISK FOR PAIN, THE IMPORTANCE OF EFFECTIVE PAIN MANAGEMENT, AND THE PAIN ASSESSMENT PROCESS?YES LATEX QUESTIONNAIRE LATEX ALLERGY : HAVE YOU EVER DEVELOPED ANY TYPE OF REACTION AFTER HANDLING LATEX PRODUCTS SUCH RUBBER GLOVES, CONDOMS, DIAPHRAGMS, BALLOONS, SOCKS, OR UNDERWEAR?NO PT DOES HAVE ALLERGY TO SURGICAL TAPE LATEX ALLERGY : HAVE YOU EVER DEVELOPED ANY TYPE OF REACTION DURING OR AFTER DENTAL APPOINTMENT, VAGINAL/RECTAL EXAMINATION, SURGICAL PROCEDURE, OR ANY OTHER EXPOSURE?NO LATEX RISK : HAVE YOU EVER HAD ANY DIFFICULTY BREATHING OR HIVES AFTER EATING OR HANDLING ANY FRUITS, OR VEGETABLES; SUCH KIWI, BANANAS, STONE FRUITS, OR CHESTNUTSNO LATEX RISK : DO YOU HAVE A PREVIOUS PERSONAL HISTORY OF MORE THAN NINE SURGERIES, SPINA BIFIDA, OR REPEATED CATHERIZATIONS? NO LATEX RISK : ARE YOU FREQUENTLY EXPOSED TO LATEX PRODUCTS IN YOUR OCCUPATION?NO DATE ASKED : 09/20/2018 CAFFEINE CAFFEINE USE?YES HOW OFTEN AND HOW MUCH? 2-3 CUPS OF TEA PER DAY AND OCCASIONAL COFFEE ADVANCE DIRECTIVE ADVANCE DIRECTIVE DISCUSSED WITH PATIENT:YES HCP - CHARLENE REESE () DRUZE [id number] LATTER-DAY MARITAL STATUS: . ALCOHOL SCREENING DID YOU HAVE A DRINK CONTAINING ALCOHOL IN THE PAST YEAR?YES HOW OFTEN DID YOU HAVE A DRINK CONTAINING ALCOHOL IN THE PAST YEAR?MONTHLY OR LESS (1 POINT) HOW MANY DRINKS DID YOU HAVE ON A TYPICAL DAY WHEN YOU WERE DRINKING IN THE PAST YEAR?1 OR 2 (0 POINTS) HOW OFTEN DID YOU HAVE SIX OR MORE DRINKS ON ONE OCCASION IN THE PAST YEAR?NEVER (0 POINTS) POINTS1 INTERPRETATIONNEGATIVE OCCUPATION: RETIRED. REVIEWED WITH PATIENT 02/01/18 1328 02/10/18 1225 REVIEWED WITH PT. ADREVIEWED WITH PATIENT 03/10/18 1354 06/14/18 REVIEWED WITH PT. 09/20/18 REVIEWED WITH PT 1039 BVREVIEWED WITH PATIENT 11/24/18 1028 11/03/18 REVIEWED WITH PT LAS. HOSPITALIZATION/MAJOR DIAGNOSTIC PROCEDURE DIVERTICULITIS X2 SURGERY RELATED DIVERTICULITIS 12/2015 REVIEW OF SYSTEMS REVIEWED BY: PROVIDER: SHARON CABRERA . CONSTITUTIONAL: ANY CHANGE IN YOUR MEDICAL CONDITION? NO . CHILLS NO . FEVER NO . INFECTION: DO YOU HAVE NEW INFECTIONS? NO . DO YOU HAVE HISTORY OF MRSA? NO . MUSCULOSKELETAL: ANY NEW PATTERNS OF PAIN OR NUMBNESS? NO . GASTROENTEROLOGY: ANY NEW CHANGE IN BOWEL CONTROL? NO . GENITOURINARY: ANY NEW CHANGE IN BLADDER CONTROL? NO . IS THERE A CHANCE YOU COULD BE ? NO . HEMATOLOGY/LYMPH: DO YOU TAKE ANY BLOOD THINNERS? (FOR EXAMPLE- COUMADIN, PLAVIX, AGGRENOX, PLATEL, PRADAXA, OR XARELTO) NO . WHEN WAS YOUR LAST DOSE? DATE: TIME: . NEUROLOGY: HAVE YOU FALLEN IN THE PAST 12 MONTHS? YES, STATES FALL LAST WEEK, TRIPPED. BRUISED RIGHT UPPER LEG, BACK HURTS A LITTLE MORE SINCE. ALSO STATES HE HAS FELT QUITE DIZZY SINCE FALLING. STATES HE HAS NOT SEEN HIS PCP SINCE AND DID NOT GO TO THE ER . ANY NEW EXTREMITY NUMBNESS OR WEAKNESS? NO . CARDIOLOGY: DO YOU HAVE A PACEMAKER OR DEFIBRILLATOR? NO . RESPIRATORY: HAVE YOU BEEN SICK IN THE PAST WEEK? NO . FEVER NO . FLU LIKE SYMPTOMS? NO . COUGH NO . INTEGUMENTARY: DO YOU HAVE ANY RASHES OR OPEN SORES? NO . ALLERGIC/IMMUNO: ARE YOU ALLERGIC TO IV DYE? NO . ANY NEW ALLERGIES? NO . PSYCHIATRIC: DO YOU HAVE THOUGHTS OF HURTING YOURSELF OR SOMEONE ELSE? NO . ARE YOU ABUSED, NEGLECTED, OR IN AN UNSAFE ENVIRONMENT? NO . ENDOCRINOLOGY: ARE YOU DIABETIC? NO . OTHER: DO YOU NEED ANY PRESCRIPTIONS? NO . IF YES, PLEASE LIST: ____ . ANY NEW PROBLEMS WITH YOUR MEDICATIONS? NO . WHEN DID YOU LAST EAT? ____ . WHEN DID YOU LAST DRINK? ____ . WHAT DID YOU LAST DRINK? ____ . NAME OF PERSON DRIVING YOU HOME? ____ . DO YOU HAVE ANY OTHER QUESTIONS OR CONCERNS NO . VITAL SIGNS WT 306.4 LBS, HT 5'9", BMI 45.24 INDEX, BP 116/62 MM HG, HR 74 /MIN, RR 18 /MIN, TEMP 96.7 F, OXYGEN SAT % 93%, SAFE IN ENV? (Y/N) YES, NA INITIALS SC 10:24, REVIEWED BY: JAREK. EXAMINATION GENERAL EXAMINATION: GENERALAWAKE,ALERT ,PLEAASANT . PSYCHAFFECT NORMAL . LUNGS:LUNG CARLSON ARE CLEAR TO AUSCULTATION BILATERALLY. GOOD MOVEMENT OF AIR . HEART:S1, S2 IN A REGULAR RATE AND RHYTHM. NO SIGNIFICANT MURMURS, RUBS OR GALLOPS NOTED . 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 BRINGS IN MEDICATIONS WHICH IS APPROPRIATE FOR WHAT WAS DISPENSED. RECENT URINE TOXICOLOGY REVIEWED. NO UNAUTHORIZED MEDICATIONS. NO ILLICIT SUBSTANCES AND PRESCRIBED MEDICATIONS WERE PRESENT. , RISKS AND BENEFITS OF NARCOTIC/OPIOD MEDICATIONS WERE REVIEWED WITH PATIENT - THIS INCLUDES BUT IS NOT LIMITED TO RISK OF DEPENDANCE/DEVELOPMENT OF ADDICTION, MOOD DISTURBANCE AND DEPRESSION, OSTEOPOROSIS, HORMONAL AND LABIDAL CHANGES, RESPIRATORY DEPRESSION AND . PATIENT IS ADVISED NOT TO DRIVE OR DRINK ALCOHOL WHILE ON THESE MEDICATIONS. PROCEDURE CODES FA211 ESTABILISHED PATIENT [facility] CHARGE DISPOSITION & COMMUNICATION FOLLOW UP 10 WKS ELECTRONICALLY SIGNED BY RICK VARELA ON 11/24/2018 AT 10:58 AM EDT DISCLAIMER : THIS IS A VISIT SUMMARY EXTRACTED FROM THE [employer] CHART. IT IS NOT A COPY OF THE [employer] PROGRESS NOTE. HECTOR
== END ==
LOC: M PAIN 10:15
PROVIDERS: ATTEND Nurse Practitioner Family
DX: M43.17 Spondylolisthesis, lumbosacral region (principal); N40.1 Benign prostatic hyperplasia with lower urinary tract symptoms; R33.9 Retention of urine, unspecified; M10.9 Gout, unspecified; I12.9 Hypertensive chronic kidney disease with stage 1 through stage 4 chronic kidney disease, or unspecified chronic kidney disease; E03.9 Hypothyroidism, unspecified; F32.9 Major depressive disorder, single episode, unspecified; F41.9 Anxiety disorder, unspecified; E78.00 Pure hypercholesterolemia, unspecified; E87.6 Hypokalemia; G47.30 Sleep apnea, unspecified; R42 Dizziness and giddiness; G47.00 Insomnia, unspecified; N18.9 Chronic kidney disease, unspecified; I83.90 Asymptomatic varicose veins of unspecified lower extremity; M17.12 Unilateral primary osteoarthritis, left knee; Z87.81 Personal history of (healed) traumatic fracture; Z90.49 Acquired absence of other specified parts of digestive tract; Z79.899 Other long term (current) drug therapy; Z91.048 Other nonmedicinal substance allergy status

== ENCOUNTER → 2018-12-28 | Outpatient (CLI) | payer MEDICARE, OTHER ==
--- NOTE | 2019-01-16 23:57 | ECWPNPC ---
PATIENT NAME: ANG MCDERMOTT : 1940 GENDER: MALE VISIT DATE: 12/28/2018 DISCHARGE DATE: 12/28/18 1412 VISIT LOCKED DATE TIME: PHYSICIAN: SHARON LOWRY RESOURCE: SHARON LOWRY REASON FOR APPOINTMENT 1. 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 PAIN THE PATIENT DESCRIBES THE PAIN... FALL RISK SCREENING: SCREENING :NO FALLS REPORTED IN THE LAST YEAR CURRENT MEDICATIONS TAKING ALLOPURINOL 300 MG TABLET 1 TABLET ORALLY ONCE DAILY TAKING ASPIRIN 325 MG TABLET 1 TABLET ORALLY ONCE A DAY TAKING CALCITRIOL 0.25 MCG CAPSULE 1 CAPSULE ORALLY ONCE A DAY TAKING GLUCOSAMINE CHONDROITIN COMPLX 600-250 MG CAPSULE 1 TAB(S) ORALLY BID TAKING LEVOTHYROXINE SODIUM 150 MCG TABLET 1 TABLET ON AN EMPTY STOMACH IN THE MORNING ORALLY ONCE A DAY TAKING MULTIVITAMINS TABLET DIRECTED ORALLY DAILY TAKING POTASSIUM CHLORIDE 20 MEQ TABLET EXTENDED RELEASE 2 TABLETS WITH FOOD ORALLY TWICE A DAY TAKING ZOLPIDEM 10 MG TABLET 1 TAB(S) ORAL AT BEDTIME NEEDED TAKING TORSEMIDE 20 MG TABLET 1 TAB(S) ORALLY 2 IN THE MORNING/ 1 TAB IN AFTERNOON TAKING SERTRALINE HCL 100 MG TABLET 1 TABLET ORALLY ONCE A DAY TAKING SPIRONOLACTONE 25 MG TABLET 1 TABLET ORALLY BID TAKING LABETALOL HCL 100 MG TABLET 1 TAB ORALLY BID TAKING CALCIUM 600+D3 600-400 MG-UNIT TABLET 1 TABLET WITH A MEAL ORALLY ONCE A DAY TAKING ALIGN 4 MG CAPSULE ORALLY DAILY TAKING FINASTERIDE 5 MG TABLET 1 TABLET ORALLY ONCE A DAY TAKING FLOMAX 0.4 MG CAPSULE 2 CAPSULES ORALLY ONCE A DAY TAKING TYLENOL ARTHRITIS PAIN 650 MG TABLET EXTENDED RELEASE 1 TAB ORALLY EVERY 8 HRS TAKING OXYBUTYNIN CHLORIDE ER 10 MG TABLET EXTENDED RELEASE 24 HOUR 1 TABLET ORALLY ONCE A DAY TAKING OTEZLA 30 MG TABLET 1 TABLET ORALLY DAILY TAKING NUCYNTA 75 MG TABLET 1 TABLET ORALLY FOR PAIN EVERY 6 HRS NEEDED MDD4 TAKING SOMA 350 MG TABLET 1 TABLET NEEDED ORALLY Q12H BID MDD2 TAKING GABAPENTIN 100 MG CAPSULE 1 CAPSULE ORALLY BID NOT-TAKING LEFLUNOMIDE 10 MG TABLET 1 TABLET ORALLY ONCE A DAY NOT-TAKING TRAMADOL HCL 50 MG TABLET 1-2 TAB ORALLY Q4-6H PRN PAIN MDD6 NOT-TAKING VOLTAREN 1 % GEL APPLY TO LEFT KNEE TRANSDERMAL BID NOT-TAKING TYLENOL EXTRA STRENGTH 500 MG TABLET 1 TABLET NEEDED ORALLY EVERY 6 HRS PRN, NOTES: NEW DOSE DISCONTINUED AMOXICILLIN 500 MG CAPSULE 1 CAPSULE ORALLY TWICE A DAY MEDICATION LIST REVIEWED AND RECONCILED WITH THE PATIENT PAST MEDICAL HISTORY BPH URINARY RETENTION GOUT HTN EDEMA DDD/DJD; SEVERE SPINAL STENOSIS HYPOTHYROIDISM DEPRESSION/ANXIETY HYPERCHOLESTEROLEMIA HYPOKALEMIA SLEEP APNEA VERTIGO INSOMNIA CHRONIC KIDNEY DISEASE OSTEOARTHRITIS VARICOSE VEINS OSTEOARTHRITIS BROKEN LITTLE FINGER ON LEFT HAND ARTHRITIS LEFT KNEE TOOTH ISSUES ALLERGIES SURGICAL TAPE: REMOVES TOP LAYER OF SKIN - SIDE EFFECTS SURGICAL HISTORY ORIF LEFT LEG/ANKLE FRACTURE; PLATES/SCREWS IN PLACE 1992 BILATERAL - 2 TRIGGER FINGER RELEASE/CARPAL CHARO RELEASE/BONE REMOVAL THUMB (LEFT) 2004 TONSILLECTOMY APPENDECTOMY L3-L5 LAMINECTOMY 11/2012 COLONSCOPY 05/2016 CYSTOSCOPY 08/02/2017 RADIO FREQUENCY NERVE CUT IN BACK FEB 2018 FAMILY HISTORY FATHER: , CHF MOTHER: , HEART ATTACK, DIABETES SIBLINGS: ALIVE DAUGHTER(S): DIAGNOSED WITH OTHER MALIGNANT NEOPLASM OF UNSPECIFIED SITE 1 SON(S) , 4 DAUGHTER(S) . 1 DAUGHTER-BREAST CA1 DAUGHTER-POLY CYSTIC BREAST. SOCIAL HISTORY GENERAL: TOBACCO USE ARE YOU A:NONSMOKER OTHERS AT HOME: SPOUSE, CHILD, CHILDREN. EDUCATION LEVEL OF EDUCATION:NOT FINISHED COLLEGE DIET: REGULAR. LANGUAGE LANGUAGES SPOKEN:DIVEHI DOMESTIC VIOLENCE DO YOU FEEL SAFE IN YOUR ENVIRONMENT?YES RECREATIONAL DRUG USE DRUG USE?NO EXERCISE: NONE. LEARNING BARRIERS / SPECIAL NEEDS BARRIERS TO LEARNING?NO HEARING IMPAIRED?NO VISION IMPAIRED?YES COGNITIVELY IMPAIRED?NO :CORRECTIVE LENSES READINESS TO LEARN?YES LEARNING PREFERENCES?NO LEARNING CAPABILITIES PRESENT?YES EMOTIONAL BARRIERS?NO SPECIAL DEVICES?YES :CANE MOLD STAMPER NEEDED?NO PAIN CLINIC PFS, CLERGY, PUBLIC HEALTH REFERRALS PFS REFERRAL NEEDED?NO CLERGY REFERRAL NEEDED?NO PUBLIC HEALTH REFERRAL NEEDED?NO WAS THE PROVIDER NOTIFIED OF ANY PERTINENT INFO? N/A HAS THE PATIENT BEEN EDUCATED REGARDING HIS/HER PLAN OF CARE?YES HAS THE PATIENT BEEN EDUCATED REGARDING PAIN, THE RISK FOR PAIN, THE IMPORTANCE OF EFFECTIVE PAIN MANAGEMENT, AND THE PAIN ASSESSMENT PROCESS?YES LATEX QUESTIONNAIRE LATEX ALLERGY : HAVE YOU EVER DEVELOPED ANY TYPE OF REACTION AFTER HANDLING LATEX PRODUCTS SUCH RUBBER GLOVES, CONDOMS, DIAPHRAGMS, BALLOONS, SOCKS, OR UNDERWEAR?NO PT DOES HAVE ALLERGY TO SURGICAL TAPE LATEX ALLERGY : HAVE YOU EVER DEVELOPED ANY TYPE OF REACTION DURING OR AFTER DENTAL APPOINTMENT, VAGINAL/RECTAL EXAMINATION, SURGICAL PROCEDURE, OR ANY OTHER EXPOSURE?NO DATE ASKED : 09/20/2018 LATEX RISK : HAVE YOU EVER HAD ANY DIFFICULTY BREATHING OR HIVES AFTER EATING OR HANDLING ANY FRUITS, OR VEGETABLES; SUCH KIWI, BANANAS, STONE FRUITS, OR CHESTNUTSNO LATEX RISK : DO YOU HAVE A PREVIOUS PERSONAL HISTORY OF MORE THAN NINE SURGERIES, SPINA BIFIDA, OR REPEATED CATHERIZATIONS? NO LATEX RISK : ARE YOU FREQUENTLY EXPOSED TO LATEX PRODUCTS IN YOUR OCCUPATION?NO CAFFEINE CAFFEINE USE?YES HOW OFTEN AND HOW MUCH? 2-3 CUPS OF TEA PER DAY AND OCCASIONAL COFFEE ADVANCE DIRECTIVE ADVANCE DIRECTIVE DISCUSSED WITH PATIENT:YES HCP - CHARLENE REESE () GNOSTICIST [id number] SABIANIST MARITAL STATUS: . ALCOHOL SCREENING DID YOU HAVE A DRINK CONTAINING ALCOHOL IN THE PAST YEAR?YES HOW OFTEN DID YOU HAVE SIX OR MORE DRINKS ON ONE OCCASION IN THE PAST YEAR?NEVER (0 POINTS) HOW MANY DRINKS DID YOU HAVE ON A TYPICAL DAY WHEN YOU WERE DRINKING IN THE PAST YEAR?1 OR 2 (0 POINTS) HOW OFTEN DID YOU HAVE A DRINK CONTAINING ALCOHOL IN THE PAST YEAR?MONTHLY OR LESS (1 POINT) POINTS1 INTERPRETATIONNEGATIVE OCCUPATION: RETIRED. REVIEWED WITH PATIENT 02/01/18 1328 JS02/10/18 1225 REVIEWED WITH PT. ADREVIEWED WITH PATIENT 03/10/18 1354 JS06/14/18 REVIEWED WITH PT. 09/20/18 REVIEWED WITH PT 1039 BVREVIEWED WITH PATIENT 11/24/18 1028 JSREVIEWED WITH PT 12/28/18 1315 BV11/03/18 REVIEWED WITH PT LAS. HOSPITALIZATION/MAJOR DIAGNOSTIC PROCEDURE DIVERTICULITIS X2 SURGERY RELATED DIVERTICULITIS 12/2015 REVIEW OF SYSTEMS REVIEWED BY: PROVIDER: SHARON CABRERA . CONSTITUTIONAL: ANY CHANGE IN YOUR MEDICAL CONDITION? NO . CHILLS NO . FEVER NO . INFECTION: DO YOU HAVE NEW INFECTIONS? NO . DO YOU HAVE HISTORY OF MRSA? NO . MUSCULOSKELETAL: ANY NEW PATTERNS OF PAIN OR NUMBNESS? YES, PT HAS HAD INCREASING INTENSITY OF PAIN OVER THE PAST 1-2 MONTHS . GASTROENTEROLOGY: ANY NEW CHANGE IN BOWEL CONTROL? NO . GENITOURINARY: ANY NEW CHANGE IN BLADDER CONTROL? NO . IS THERE A CHANCE YOU COULD BE ? NO . HEMATOLOGY/LYMPH: DO YOU TAKE ANY BLOOD THINNERS? (FOR EXAMPLE- COUMADIN, PLAVIX, AGGRENOX, PLATEL, PRADAXA, OR XARELTO) NO . WHEN WAS YOUR LAST DOSE? DATE: TIME: . NEUROLOGY: HAVE YOU FALLEN IN THE PAST 12 MONTHS? YES, PT HAS HAD A FEW NEAR FALLS IN THE PAST FEW MONTHS DUE TO WEAKNESS IN LEGS. DENIES ANY INJURIES OR ED VISIT. . ANY NEW EXTREMITY NUMBNESS OR WEAKNESS? NO . CARDIOLOGY: DO YOU HAVE A PACEMAKER OR DEFIBRILLATOR? NO . RESPIRATORY: HAVE YOU BEEN SICK IN THE PAST WEEK? NO . FEVER NO . FLU LIKE SYMPTOMS? NO . COUGH NO . INTEGUMENTARY: DO YOU HAVE ANY RASHES OR OPEN SORES? NO . ALLERGIC/IMMUNO: ARE YOU ALLERGIC TO IV DYE? NO . ANY NEW ALLERGIES? NO . PSYCHIATRIC: DO YOU HAVE THOUGHTS OF HURTING YOURSELF OR SOMEONE ELSE? NO . ARE YOU ABUSED, NEGLECTED, OR IN AN UNSAFE ENVIRONMENT? NO . ENDOCRINOLOGY: ARE YOU DIABETIC? NO . OTHER: DO YOU NEED ANY PRESCRIPTIONS? NO . IF YES, PLEASE LIST: ____ . ANY NEW PROBLEMS WITH YOUR MEDICATIONS? NO . WHEN DID YOU LAST EAT? ____ . WHEN DID YOU LAST DRINK? ____ . WHAT DID YOU LAST DRINK? ____ . NAME OF PERSON DRIVING YOU HOME? ____ . DO YOU HAVE ANY OTHER QUESTIONS OR CONCERNS NO . VITAL SIGNS WT 306.6 LBS, HT 5'9", BMI 45.27 INDEX, BP 118/60 MM HG, HR 74 /MIN, RR 18 /MIN, TEMP 97.8 F, OXYGEN SAT % 95%, SAFE IN ENV? (Y/N) YES, REVIEWED BY: BV. EXAMINATION GENERAL EXAMINATION: GENERALAWAKE,ALERT ,PLEAASANT . PSYCHAFFECT NORMAL . LUNGS:LUNG CARLSON ARE CLEAR TO AUSCULTATION BILATERALLY. GOOD MOVEMENT OF AIR . HEART:S1, S2 IN A REGULAR RATE AND RHYTHM. NO SIGNIFICANT MURMURS, RUBS OR GALLOPS NOTED . 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 BRINGS IN MEDICATIONS WHICH IS APPROPRIATE FOR WHAT WAS DISPENSED. RECENT URINE TOXICOLOGY REVIEWED. NO UNAUTHORIZED MEDICATIONS. NO ILLICIT SUBSTANCES AND PRESCRIBED MEDICATIONS WERE PRESENT. , RISKS AND BENEFITS OF NARCOTIC/OPIOD MEDICATIONS WERE REVIEWED WITH PATIENT - THIS INCLUDES BUT IS NOT LIMITED TO RISK OF DEPENDANCE/DEVELOPMENT OF ADDICTION, MOOD DISTURBANCE AND DEPRESSION, OSTEOPOROSIS, HORMONAL AND LABIDAL CHANGES, RESPIRATORY DEPRESSION AND . PATIENT IS ADVISED NOT TO DRIVE OR DRINK ALCOHOL WHILE ON THESE MEDICATIONS. PROCEDURE CODES FA211 ESTABILISHED PATIENT [facility] CHARGE DISPOSITION & COMMUNICATION FOLLOW UP 6 WEEKS (REASON: MED MGMNT) ELECTRONICALLY SIGNED BY RICK VARELA ON 01/16/2019 AT 01:20 PM EDT DISCLAIMER : THIS IS A VISIT SUMMARY EXTRACTED FROM THE [employer] CHART. IT IS NOT A COPY OF THE [employer] PROGRESS NOTE. HECTOR
== END ==
LOC: M PAIN 13:00
PROVIDERS: ATTEND Nurse Practitioner Family
DX: M48.062 Spinal stenosis, lumbar region with neurogenic claudication (principal); M43.17 Spondylolisthesis, lumbosacral region; G89.29 Other chronic pain; I10 Essential (primary) hypertension; E03.9 Hypothyroidism, unspecified; Z86.59 Personal history of other mental and behavioral disorders; E78.00 Pure hypercholesterolemia, unspecified; G47.30 Sleep apnea, unspecified; G47.00 Insomnia, unspecified; M19.90 Unspecified osteoarthritis, unspecified site; Z91.09 Other allergy status, other than to drugs and biological substances; E66.01 Morbid (severe) obesity due to excess calories; Z68.42 Body mass index [BMI] 45.0-49.9, adult; Z79.82 Long term (current) use of aspirin; Z79.899 Other long term (current) drug therapy

== ENCOUNTER → 2019-02-03 | Outpatient (CLI) | payer MEDICARE, OTHER ==
--- NOTE | 2019-02-21 02:04 | ECWPNPC ---
PATIENT NAME: ANG MCDERMOTT : 1940 GENDER: MALE VISIT DATE: 02/03/2019 DISCHARGE DATE: 02/03/19 1232 VISIT LOCKED DATE TIME: PHYSICIAN: SHARON LOWRY RESOURCE: SHARON LOWRY REASON FOR APPOINTMENT 1. NBP-NECK HISTORY OF PRESENT ILLNESS HISTORY OF PRESENT ILLNESS: BEING SEEN TODAY PER REFERRAL OF JOELLE WHALEY ,[facility] FOR EVALUATION OF CHRONIC NECK PAIN.THIS BEGAN 2 YEARS AGO WITHOUT PRECIPITATING EVENT.CHIEF AREA OF PAIN IS LEFT NECK.DESCRIBES PAIN SHARP AND STABBING.HEADACHES HAVE GOTTEN WORSE PAST 6 MONTHS AND ASSOCIATED WITH NECK PAIN.ATTENDED PT THIS PAST SUMMER WITH SOME IMPROVEMENT DAY OF PT BUT NO LONG LASTING IMPROVEMENT.HAD OCCIPITAL NERVE BLOCKS BY DR FRANCO A FEW MONTHS AGO WITHOUT IMPROVEMENT.RATING PAIN VAS 2-8/10. PAIN THE PATIENT DESCRIBES THE PAIN... FALL RISK SCREENING: SCREENING :NO FALLS REPORTED IN THE LAST YEAR CURRENT MEDICATIONS TAKING ALLOPURINOL 300 MG TABLET 1 TABLET ORALLY ONCE DAILY TAKING ASPIRIN 325 MG TABLET 1 TABLET ORALLY ONCE A DAY TAKING CALCITRIOL 0.25 MCG CAPSULE 1 CAPSULE ORALLY ONCE A DAY TAKING GLUCOSAMINE CHONDROITIN COMPLX 600-250 MG CAPSULE 1 TAB(S) ORALLY BID TAKING LEVOTHYROXINE SODIUM 150 MCG TABLET 1 TABLET ON AN EMPTY STOMACH IN THE MORNING ORALLY ONCE A DAY TAKING MULTIVITAMINS TABLET DIRECTED ORALLY DAILY TAKING POTASSIUM CHLORIDE 20 MEQ TABLET EXTENDED RELEASE 2 TABLETS WITH FOOD ORALLY TWICE A DAY TAKING ZOLPIDEM 10 MG TABLET 1 TAB(S) ORAL AT BEDTIME NEEDED TAKING TORSEMIDE 20 MG TABLET 1 TAB(S) ORALLY 2 IN THE MORNING/ 1 TAB IN AFTERNOON TAKING SERTRALINE HCL 100 MG TABLET 1 TABLET ORALLY ONCE A DAY TAKING SPIRONOLACTONE 25 MG TABLET 1 TABLET ORALLY BID TAKING LABETALOL HCL 100 MG TABLET 1 TAB IN AM, HALF TAB IN AFTERNOON ORALLY BID TAKING CALCIUM 600+D3 600-400 MG-UNIT TABLET 1 TABLET WITH A MEAL ORALLY ONCE A DAY TAKING ALIGN 4 MG CAPSULE ORALLY DAILY TAKING FLOMAX 0.4 MG CAPSULE 2 CAPSULES ORALLY ONCE A DAY TAKING TYLENOL ARTHRITIS PAIN 650 MG TABLET EXTENDED RELEASE 1 TAB ORALLY EVERY 8 HRS TAKING NUCYNTA 75 MG TABLET 1 TABLET ORALLY FOR PAIN EVERY 6 HRS NEEDED MDD4 TAKING SOMA 350 MG TABLET 1 TABLET NEEDED ORALLY Q12H BID MDD2 TAKING GABAPENTIN 100 MG CAPSULE 1 CAPSULE ORALLY BID TAKING OXYBUTYNIN CHLORIDE ER 10 MG TABLET EXTENDED RELEASE 24 HOUR 1 TABLET ORALLY ONCE A DAY TAKING FINASTERIDE 5 MG TABLET 1 TABLET ORALLY ONCE A DAY TAKING NUCYNTA ER 150 MG TABLET EXTENDED RELEASE 12 HOUR 1 TABLET ORALLY EVERY 12 HRS BID MDD2 NOT-TAKING OTEZLA 30 MG TABLET 1 TABLET ORALLY DAILY NOT-TAKING LEFLUNOMIDE 10 MG TABLET 1 TABLET ORALLY ONCE A DAY NOT-TAKING TRAMADOL HCL 50 MG TABLET 1-2 TAB ORALLY Q4-6H PRN PAIN MDD6 NOT-TAKING VOLTAREN 1 % GEL APPLY TO LEFT KNEE TRANSDERMAL BID NOT-TAKING TYLENOL EXTRA STRENGTH 500 MG TABLET 1 TABLET NEEDED ORALLY EVERY 6 HRS PRN, NOTES: NEW DOSE MEDICATION LIST REVIEWED AND RECONCILED WITH THE PATIENT PAST MEDICAL HISTORY BPH URINARY RETENTION GOUT HTN EDEMA DDD/DJD; SEVERE SPINAL STENOSIS HYPOTHYROIDISM DEPRESSION/ANXIETY HYPERCHOLESTEROLEMIA HYPOKALEMIA SLEEP APNEA VERTIGO INSOMNIA CHRONIC KIDNEY DISEASE OSTEOARTHRITIS VARICOSE VEINS OSTEOARTHRITIS BROKEN LITTLE FINGER ON LEFT HAND ARTHRITIS LEFT KNEE TOOTH ISSUES ALLERGIES SURGICAL TAPE: REMOVES TOP LAYER OF SKIN - SIDE EFFECTS SURGICAL HISTORY ORIF LEFT LEG/ANKLE FRACTURE; PLATES/SCREWS IN PLACE 1992 BILATERAL - 2 TRIGGER FINGER RELEASE/CARPAL CHARO RELEASE/BONE REMOVAL THUMB (LEFT) 2004 TONSILLECTOMY APPENDECTOMY L3-L5 LAMINECTOMY 11/2012 COLONSCOPY 05/2016 CYSTOSCOPY 08/02/2017 RADIO FREQUENCY NERVE CUT IN BACK FEB 2018 FAMILY HISTORY FATHER: , CHF MOTHER: , HEART ATTACK, DIABETES SIBLINGS: ALIVE DAUGHTER(S): DIAGNOSED WITH OTHER MALIGNANT NEOPLASM OF UNSPECIFIED SITE 1 SON(S) , 4 DAUGHTER(S) . 1 DAUGHTER-BREAST CA1 DAUGHTER-POLY CYSTIC BREAST. SOCIAL HISTORY GENERAL: TOBACCO USE ARE YOU A:NONSMOKER OTHERS AT HOME: SPOUSE, CHILD, CHILDREN. EDUCATION LEVEL OF EDUCATION:NOT FINISHED COLLEGE DIET: REGULAR. LANGUAGE LANGUAGES SPOKEN:POLISH DOMESTIC VIOLENCE DO YOU FEEL SAFE IN YOUR ENVIRONMENT?YES RECREATIONAL DRUG USE DRUG USE?NO EXERCISE: NONE. LEARNING BARRIERS / SPECIAL NEEDS BARRIERS TO LEARNING?NO HEARING IMPAIRED?NO VISION IMPAIRED?YES COGNITIVELY IMPAIRED?NO :CORRECTIVE LENSES READINESS TO LEARN?YES LEARNING PREFERENCES?NO LEARNING CAPABILITIES PRESENT?YES EMOTIONAL BARRIERS?NO SPECIAL DEVICES?YES :CANE TOOLS AND PARTS ATTENDANT NEEDED?NO PAIN CLINIC PFS, CLERGY, PUBLIC HEALTH REFERRALS PFS REFERRAL NEEDED?NO CLERGY REFERRAL NEEDED?NO PUBLIC HEALTH REFERRAL NEEDED?NO WAS THE PROVIDER NOTIFIED OF ANY PERTINENT INFO? N/A HAS THE PATIENT BEEN EDUCATED REGARDING HIS/HER PLAN OF CARE?YES HAS THE PATIENT BEEN EDUCATED REGARDING PAIN, THE RISK FOR PAIN, THE IMPORTANCE OF EFFECTIVE PAIN MANAGEMENT, AND THE PAIN ASSESSMENT PROCESS?YES LATEX QUESTIONNAIRE LATEX ALLERGY : HAVE YOU EVER DEVELOPED ANY TYPE OF REACTION AFTER HANDLING LATEX PRODUCTS SUCH RUBBER GLOVES, CONDOMS, DIAPHRAGMS, BALLOONS, SOCKS, OR UNDERWEAR?NO PT DOES HAVE ALLERGY TO SURGICAL TAPE LATEX ALLERGY : HAVE YOU EVER DEVELOPED ANY TYPE OF REACTION DURING OR AFTER DENTAL APPOINTMENT, VAGINAL/RECTAL EXAMINATION, SURGICAL PROCEDURE, OR ANY OTHER EXPOSURE?NO DATE ASKED : 09/20/2018 LATEX RISK : HAVE YOU EVER HAD ANY DIFFICULTY BREATHING OR HIVES AFTER EATING OR HANDLING ANY FRUITS, OR VEGETABLES; SUCH KIWI, BANANAS, STONE FRUITS, OR CHESTNUTSNO LATEX RISK : DO YOU HAVE A PREVIOUS PERSONAL HISTORY OF MORE THAN NINE SURGERIES, SPINA BIFIDA, OR REPEATED CATHERIZATIONS? NO LATEX RISK : ARE YOU FREQUENTLY EXPOSED TO LATEX PRODUCTS IN YOUR OCCUPATION?NO CAFFEINE CAFFEINE USE?YES HOW OFTEN AND HOW MUCH? 2-3 CUPS OF TEA PER DAY AND OCCASIONAL COFFEE ADVANCE DIRECTIVE ADVANCE DIRECTIVE DISCUSSED WITH PATIENT:YES HCP - CHARLENE REESE () [id number] [facility] STATUS: . ALCOHOL SCREENING DID YOU HAVE A DRINK CONTAINING ALCOHOL IN THE PAST YEAR?YES HOW OFTEN DID YOU HAVE SIX OR MORE DRINKS ON ONE OCCASION IN THE PAST YEAR?NEVER (0 POINTS) HOW MANY DRINKS DID YOU HAVE ON A TYPICAL DAY WHEN YOU WERE DRINKING IN THE PAST YEAR?1 OR 2 (0 POINTS) HOW OFTEN DID YOU HAVE A DRINK CONTAINING ALCOHOL IN THE PAST YEAR?MONTHLY OR LESS (1 POINT) POINTS1 INTERPRETATIONNEGATIVE OCCUPATION: RETIRED. REVIEWED WITH PATIENT 02/01/18 1328 JS02/10/18 1225 REVIEWED WITH PT. ADREVIEWED WITH PATIENT 03/10/18 1354 JS06/14/18 REVIEWED WITH PT. 09/20/18 REVIEWED WITH PT 1039 BVREVIEWED WITH PATIENT 02/03/2019 LASREVIEWED WITH PATIENT 11/24/18 1028 JSREVIEWED WITH PT 12/28/18 1315 BV11/03/18 REVIEWED WITH PT LAS. HOSPITALIZATION/MAJOR DIAGNOSTIC PROCEDURE DIVERTICULITIS X2 SURGERY RELATED DIVERTICULITIS 12/2015 REVIEW OF SYSTEMS REVIEWED BY: PROVIDER: SHARON LOWRY PHARMACY MESSENGER . CONSTITUTIONAL: ANY CHANGE IN YOUR MEDICAL CONDITION? NO . CHILLS NO . FEVER NO . INFECTION: DO YOU HAVE NEW INFECTIONS? NO . DO YOU HAVE HISTORY OF MRSA? NO . MUSCULOSKELETAL: ANY NEW PATTERNS OF PAIN OR NUMBNESS? NO . GASTROENTEROLOGY: ANY NEW CHANGE IN BOWEL CONTROL? NO . GENITOURINARY: ANY NEW CHANGE IN BLADDER CONTROL? NO . IS THERE A CHANCE YOU COULD BE ? NO . HEMATOLOGY/LYMPH: DO YOU TAKE ANY BLOOD THINNERS? (FOR EXAMPLE- COUMADIN, PLAVIX, AGGRENOX, PLATEL, PRADAXA, OR XARELTO) NO . WHEN WAS YOUR LAST DOSE? DATE: TIME: . NEUROLOGY: HAVE YOU FALLEN IN THE PAST 12 MONTHS? NO . ANY NEW EXTREMITY NUMBNESS OR WEAKNESS? NO . CARDIOLOGY: DO YOU HAVE A PACEMAKER OR DEFIBRILLATOR? NO . RESPIRATORY: HAVE YOU BEEN SICK IN THE PAST WEEK? NO . FEVER NO . FLU LIKE SYMPTOMS? NO . COUGH NO . INTEGUMENTARY: DO YOU HAVE ANY RASHES OR OPEN SORES? NO . ALLERGIC/IMMUNO: ARE YOU ALLERGIC TO IV DYE? NO . ANY NEW ALLERGIES? NO . PSYCHIATRIC: DO YOU HAVE THOUGHTS OF HURTING YOURSELF OR SOMEONE ELSE? NO . ARE YOU ABUSED, NEGLECTED, OR IN AN UNSAFE ENVIRONMENT? NO . ENDOCRINOLOGY: ARE YOU DIABETIC? NO . OTHER: DO YOU NEED ANY PRESCRIPTIONS? NO . IF YES, PLEASE LIST: ____ . ANY NEW PROBLEMS WITH YOUR MEDICATIONS? NO . WHEN DID YOU LAST EAT? ____ . WHEN DID YOU LAST DRINK? ____ . WHAT DID YOU LAST DRINK? ____ . NAME OF PERSON DRIVING YOU HOME? ____ . DO YOU HAVE ANY OTHER QUESTIONS OR CONCERNS NO . VITAL SIGNS WT 308.2 LBS, HT 5'9", BMI 45.51 INDEX, BP 126/66 MM HG, HR 71 /MIN, RR 18 /MIN, TEMP 96.6 F, OXYGEN SAT % 94%, SAFE IN ENV? (Y/N) YES, NA INITIALS AW 1140, REVIEWED BY: SPENCER. EXAMINATION GENERAL EXAMINATION: GENERAL AWAKE,ALERT ,PLEAASANT . PSYCH AFFECT NORMAL . LUNGS: LUNG CARLSON ARE CLEAR TO AUSCULTATION BILATERALLY. GOOD MOVEMENT OF AIR . HEART: S1, S2 IN A REGULAR RATE AND RHYTHM. NO SIGNIFICANT MURMURS, RUBS OR GALLOPS NOTED . CERVICAL TRIGGER POINTS: CERVICAL AND TRAPEZIUS BILAT..PAIN IS AGGREVATED WITH ROJM NECK. DIAGNOSTIC TESTS REVIEWED MRI C SPINE-2019. ASSESSMENTS CERVICAL SPONDYLOSIS - M47.812 (PRIMARY) TREATMENT CERVICAL SPONDYLOSIS NOTES: TPI BILAT NECK/TRAPEZIUS. PREVENTIVE MEDICINE PAIN CLINIC TEACHING: PROCEDURE TEACHING PROCEDURE REVIEWED, PRE PROCEDURE INSTRUCTIONS REVIEWED, PATIENT VERBALIZES UNDERSTANDING. 02/03/2019 LAS. PROCEDURE CODES FA211 ESTABILISHED PATIENT [facility] FACILITY CHARGE DISPOSITION & COMMUNICATION FOLLOW UP POST (REASON: TPI BILAT NECK/TRAPEZIUS) ELECTRONICALLY SIGNED BY RICK VARELA ON 02/20/2019 AT 04:00 PM EDT DISCLAIMER : THIS IS A VISIT SUMMARY EXTRACTED FROM THE [employer] CHART. IT IS NOT A COPY OF THE [employer] PROGRESS NOTE. HECTOR
== END ==
LOC: M PAIN 11:15
PROVIDERS: ATTEND Nurse Practitioner Family
DX: M47.812 Spondylosis without myelopathy or radiculopathy, cervical region (principal); G89.29 Other chronic pain; I10 Essential (primary) hypertension; E03.9 Hypothyroidism, unspecified; Z86.59 Personal history of other mental and behavioral disorders; E78.00 Pure hypercholesterolemia, unspecified; G47.30 Sleep apnea, unspecified; G47.00 Insomnia, unspecified; Z91.09 Other allergy status, other than to drugs and biological substances; E66.01 Morbid (severe) obesity due to excess calories; Z68.42 Body mass index [BMI] 45.0-49.9, adult; Z79.82 Long term (current) use of aspirin; Z79.891 Long term (current) use of opiate analgesic; Z79.899 Other long term (current) drug therapy

== ENCOUNTER → 2019-02-13 | Outpatient (CLI) | payer MEDICARE, OTHER ==
--- NOTE | 2019-02-23 02:48 | ECWPNPC ---
PATIENT NAME: ANG MCDERMOTT : 1940 GENDER: MALE VISIT DATE: 02/13/2019 DISCHARGE DATE: 02/13/19 1537 VISIT LOCKED DATE TIME: PHYSICIAN: SHARON LOWRY RESOURCE: SHARON LOWRY REASON FOR APPOINTMENT 1. BACK HISTORY OF PRESENT ILLNESS HISTORY OF PRESENT ILLNESS: HERE FOR F/U OF CHRONIC RIGHT LOW BACK PAIN.DOING BETTER WITH NUCYNTA ER.HAVING A SIGNIFICANT INCREASE IN RIGHT LUMBAR PARASPINAL REGION PAIN OVER THE PAST 5 DAYS .DENIES PRECIPITATING EVENT.PAIN IN THIS REGION IS AGGREVATED WITH WALKING.RATING PAIN VAS 2-8/10 VAS. PAIN THE PATIENT DESCRIBES THE PAIN... THE PATIENT DESCRIBES THE PAIN... FALL RISK SCREENING: SCREENING :NO FALLS REPORTED IN THE LAST YEAR CURRENT MEDICATIONS TAKING ALLOPURINOL 300 MG TABLET 1 TABLET ORALLY ONCE DAILY TAKING ASPIRIN 325 MG TABLET 1 TABLET ORALLY ONCE A DAY TAKING CALCITRIOL 0.25 MCG CAPSULE 1 CAPSULE ORALLY ONCE A DAY TAKING GLUCOSAMINE CHONDROITIN COMPLX 600-250 MG CAPSULE 1 TAB(S) ORALLY BID TAKING LEVOTHYROXINE SODIUM 150 MCG TABLET 1 TABLET ON AN EMPTY STOMACH IN THE MORNING ORALLY ONCE A DAY TAKING MULTIVITAMINS TABLET DIRECTED ORALLY DAILY TAKING POTASSIUM CHLORIDE 20 MEQ TABLET EXTENDED RELEASE 2 TABLETS WITH FOOD ORALLY TWICE A DAY TAKING ZOLPIDEM 10 MG TABLET 1 TAB(S) ORAL AT BEDTIME NEEDED TAKING TORSEMIDE 20 MG TABLET 1 TAB(S) ORALLY 2 IN THE MORNING/ 1 TAB IN AFTERNOON TAKING SERTRALINE HCL 100 MG TABLET 1 TABLET ORALLY ONCE A DAY TAKING SPIRONOLACTONE 25 MG TABLET 1 TABLET ORALLY BID TAKING LABETALOL HCL 100 MG TABLET 1 TAB IN AM, HALF TAB IN AFTERNOON ORALLY BID TAKING CALCIUM 600+D3 600-400 MG-UNIT TABLET 1 TABLET WITH A MEAL ORALLY ONCE A DAY TAKING ALIGN 4 MG CAPSULE ORALLY DAILY TAKING TYLENOL ARTHRITIS PAIN 650 MG TABLET EXTENDED RELEASE 2 TABS ORALLY EVERY 8 HRS TAKING NUCYNTA 75 MG TABLET 1 TABLET ORALLY FOR PAIN EVERY 6 HOURS NEEDED MDD 2 TAKING SOMA 350 MG TABLET 1 TABLET NEEDED ORALLY Q12H BID MDD2 TAKING GABAPENTIN 100 MG CAPSULE 1 CAPSULE ORALLY BID TAKING OXYBUTYNIN CHLORIDE ER 10 MG TABLET EXTENDED RELEASE 24 HOUR 1 TABLET ORALLY ONCE A DAY TAKING FINASTERIDE 5 MG TABLET 1 TABLET ORALLY ONCE A DAY TAKING NUCYNTA ER 150 MG TABLET EXTENDED RELEASE 12 HOUR 1 TABLET ORALLY EVERY 12 HRS BID MDD2 TAKING FLOMAX 0.4 MG CAPSULE 2 CAPSULES ORALLY ONCE A DAY NOT-TAKING OTEZLA 30 MG TABLET 1 TABLET ORALLY DAILY NOT-TAKING LEFLUNOMIDE 10 MG TABLET 1 TABLET ORALLY ONCE A DAY NOT-TAKING TRAMADOL HCL 50 MG TABLET 1-2 TAB ORALLY Q4-6H PRN PAIN MDD6 NOT-TAKING VOLTAREN 1 % GEL APPLY TO LEFT KNEE TRANSDERMAL BID NOT-TAKING TYLENOL EXTRA STRENGTH 500 MG TABLET 1 TABLET NEEDED ORALLY EVERY 6 HRS PRN, NOTES: NEW DOSE MEDICATION LIST REVIEWED AND RECONCILED WITH THE PATIENT PAST MEDICAL HISTORY BPH URINARY RETENTION GOUT HTN EDEMA DDD/DJD; SEVERE SPINAL STENOSIS HYPOTHYROIDISM DEPRESSION/ANXIETY HYPERCHOLESTEROLEMIA HYPOKALEMIA SLEEP APNEA VERTIGO INSOMNIA CHRONIC KIDNEY DISEASE OSTEOARTHRITIS VARICOSE VEINS OSTEOARTHRITIS BROKEN LITTLE FINGER ON LEFT HAND ARTHRITIS LEFT KNEE TOOTH ISSUES ALLERGIES SURGICAL TAPE: REMOVES TOP LAYER OF SKIN - SIDE EFFECTS SURGICAL HISTORY ORIF LEFT LEG/ANKLE FRACTURE; PLATES/SCREWS IN PLACE 1992 BILATERAL - 2 TRIGGER FINGER RELEASE/CARPAL CHARO RELEASE/BONE REMOVAL THUMB (LEFT) 2004 TONSILLECTOMY APPENDECTOMY L3-L5 LAMINECTOMY 11/2012 COLONSCOPY 05/2016 CYSTOSCOPY 08/02/2017 RADIO FREQUENCY NERVE CUT IN BACK FEB 2018 FAMILY HISTORY FATHER: , CHF MOTHER: , HEART ATTACK, DIABETES SIBLINGS: ALIVE DAUGHTER(S): DIAGNOSED WITH OTHER MALIGNANT NEOPLASM OF UNSPECIFIED SITE 1 SON(S) , 4 DAUGHTER(S) . 1 DAUGHTER-BREAST CA1 DAUGHTER-POLY CYSTIC BREAST. SOCIAL HISTORY GENERAL: TOBACCO USE ARE YOU A:NONSMOKER OTHERS AT HOME: SPOUSE, CHILD, CHILDREN. EDUCATION LEVEL OF EDUCATION:NOT FINISHED COLLEGE DIET: REGULAR. LANGUAGE LANGUAGES SPOKEN:MARSHALLESE DOMESTIC VIOLENCE DO YOU FEEL SAFE IN YOUR ENVIRONMENT?YES RECREATIONAL DRUG USE DRUG USE?NO EXERCISE: NONE. LEARNING BARRIERS / SPECIAL NEEDS BARRIERS TO LEARNING?NO HEARING IMPAIRED?NO VISION IMPAIRED?YES COGNITIVELY IMPAIRED?NO :CORRECTIVE LENSES READINESS TO LEARN?YES LEARNING PREFERENCES?NO LEARNING CAPABILITIES PRESENT?YES EMOTIONAL BARRIERS?NO SPECIAL DEVICES?YES :CANE PRIMARY CARE NURSE NEEDED?NO PAIN CLINIC PFS, CLERGY, PUBLIC HEALTH REFERRALS PFS REFERRAL NEEDED?NO CLERGY REFERRAL NEEDED?NO PUBLIC HEALTH REFERRAL NEEDED?NO WAS THE PROVIDER NOTIFIED OF ANY PERTINENT INFO? N/A HAS THE PATIENT BEEN EDUCATED REGARDING HIS/HER PLAN OF CARE?YES HAS THE PATIENT BEEN EDUCATED REGARDING PAIN, THE RISK FOR PAIN, THE IMPORTANCE OF EFFECTIVE PAIN MANAGEMENT, AND THE PAIN ASSESSMENT PROCESS?YES LATEX QUESTIONNAIRE LATEX ALLERGY : HAVE YOU EVER DEVELOPED ANY TYPE OF REACTION AFTER HANDLING LATEX PRODUCTS SUCH RUBBER GLOVES, CONDOMS, DIAPHRAGMS, BALLOONS, SOCKS, OR UNDERWEAR?NO PT DOES HAVE ALLERGY TO SURGICAL TAPE LATEX ALLERGY : HAVE YOU EVER DEVELOPED ANY TYPE OF REACTION DURING OR AFTER DENTAL APPOINTMENT, VAGINAL/RECTAL EXAMINATION, SURGICAL PROCEDURE, OR ANY OTHER EXPOSURE?NO DATE ASKED : 09/20/2018 LATEX RISK : HAVE YOU EVER HAD ANY DIFFICULTY BREATHING OR HIVES AFTER EATING OR HANDLING ANY FRUITS, OR VEGETABLES; SUCH KIWI, BANANAS, STONE FRUITS, OR CHESTNUTSNO LATEX RISK : DO YOU HAVE A PREVIOUS PERSONAL HISTORY OF MORE THAN NINE SURGERIES, SPINA BIFIDA, OR REPEATED CATHERIZATIONS? NO LATEX RISK : ARE YOU FREQUENTLY EXPOSED TO LATEX PRODUCTS IN YOUR OCCUPATION?NO CAFFEINE CAFFEINE USE?YES HOW OFTEN AND HOW MUCH? 2-3 CUPS OF TEA PER DAY AND OCCASIONAL COFFEE ADVANCE DIRECTIVE ADVANCE DIRECTIVE DISCUSSED WITH PATIENT:YES HCP - CHARLENE ZHOUHARMONY () RESTORATIONIST [id number] RELIGION MARITAL STATUS: . ALCOHOL SCREENING DID YOU HAVE A DRINK CONTAINING ALCOHOL IN THE PAST YEAR?YES HOW OFTEN DID YOU HAVE SIX OR MORE DRINKS ON ONE OCCASION IN THE PAST YEAR?NEVER (0 POINTS) HOW MANY DRINKS DID YOU HAVE ON A TYPICAL DAY WHEN YOU WERE DRINKING IN THE PAST YEAR?1 OR 2 (0 POINTS) HOW OFTEN DID YOU HAVE A DRINK CONTAINING ALCOHOL IN THE PAST YEAR?MONTHLY OR LESS (1 POINT) POINTS1 INTERPRETATIONNEGATIVE OCCUPATION: RETIRED. REVIEWED WITH PATIENT 02/01/18 1328 JS02/10/18 1225 REVIEWED WITH PT. ADREVIEWED WITH PATIENT 03/10/18 1354 JS06/14/18 REVIEWED WITH PT. 09/20/18 REVIEWED WITH PT 1039 BVREVIEWED WITH PATIENT 02/03/2019 LASREVIEWED WITH PATIENT 11/24/18 1028 JSREVIEWED WITH PT 12/28/18 1315 BV11/03/18 REVIEWED WITH PT LASREVIEWED WITH PATIENT 02/13/19 1433 NLJ. HOSPITALIZATION/MAJOR DIAGNOSTIC PROCEDURE DIVERTICULITIS X2 SURGERY RELATED DIVERTICULITIS 12/2015 REVIEW OF SYSTEMS REVIEWED BY: PROVIDER: SHARON CABRERA . CONSTITUTIONAL: ANY CHANGE IN YOUR MEDICAL CONDITION? NO . CHILLS NO . FEVER NO . INFECTION: DO YOU HAVE NEW INFECTIONS? NO . DO YOU HAVE HISTORY OF MRSA? YES . MUSCULOSKELETAL: ANY NEW PATTERNS OF PAIN OR NUMBNESS? YES- STATES LOW BACK PAIN HAS INCREASED, STATES THAT STANDING, WALKING AND STANDING UP AND SITTING REALLY INCREASES THE PAIN . GASTROENTEROLOGY: ANY NEW CHANGE IN BOWEL CONTROL? NO . GENITOURINARY: ANY NEW CHANGE IN BLADDER CONTROL? NO . IS THERE A CHANCE YOU COULD BE ? NO . HEMATOLOGY/LYMPH: DO YOU TAKE ANY BLOOD THINNERS? (FOR EXAMPLE- COUMADIN, PLAVIX, AGGRENOX, PLATEL, PRADAXA, OR XARELTO) NO . WHEN WAS YOUR LAST DOSE? DATE: TIME: . NEUROLOGY: HAVE YOU FALLEN IN THE PAST 12 MONTHS? , NO- NO FALLLS SINCE LAST VISIT . ANY NEW EXTREMITY NUMBNESS OR WEAKNESS? NO . CARDIOLOGY: DO YOU HAVE A PACEMAKER OR DEFIBRILLATOR? NO . RESPIRATORY: HAVE YOU BEEN SICK IN THE PAST WEEK? NO . FEVER NO . FLU LIKE SYMPTOMS? NO . COUGH NO . INTEGUMENTARY: DO YOU HAVE ANY RASHES OR OPEN SORES? NO . ALLERGIC/IMMUNO: ARE YOU ALLERGIC TO IV DYE? NO . ANY NEW ALLERGIES? NO . PSYCHIATRIC: DO YOU HAVE THOUGHTS OF HURTING YOURSELF OR SOMEONE ELSE? NO . ARE YOU ABUSED, NEGLECTED, OR IN AN UNSAFE ENVIRONMENT? NO . ENDOCRINOLOGY: ARE YOU DIABETIC? NO . OTHER: DO YOU NEED ANY PRESCRIPTIONS? NO . IF YES, PLEASE LIST: ____ . ANY NEW PROBLEMS WITH YOUR MEDICATIONS? NO . WHEN DID YOU LAST EAT? ____ . WHEN DID YOU LAST DRINK? ____ . WHAT DID YOU LAST DRINK? ____ . NAME OF PERSON DRIVING YOU HOME? ____ . DO YOU HAVE ANY OTHER QUESTIONS OR CONCERNS YES- WOULD LIKE TO SCHEDULE A PROCEDURE FOR HIS BACK PAIN . VITAL SIGNS WT 310 LBS, HT 5'9", BMI 45.77 INDEX, BP 128/73 MM HG, HR 71 /MIN, RR 18 /MIN, TEMP 96.8 F, OXYGEN SAT % 95%, SAFE IN ENV? (Y/N) YES, NA INITIALS CO 14:33, REVIEWED BY: ADAN. EXAMINATION GENERAL EXAMINATION: GENERAL AWAKE,ALERT ,PLEAASANT . PSYCH AFFECT NORMAL . LUNGS: LUNG CARLSON ARE CLEAR TO AUSCULTATION BILATERALLY. GOOD MOVEMENT OF AIR . HEART: S1, S2 IN A REGULAR RATE AND RHYTHM. NO SIGNIFICANT MURMURS, RUBS OR GALLOPS NOTED . MUSCULOSKELETAL: MUSCLE STRENGTH TESTING 4/5 BILATERAL LOWER EXTREMITIES. LUMBAR SACRAL SPINE TRIGGER POINTS:, ELICITED WITH PALPATION OVER RIGHT LUMBAR PARAVERTEBRAL MUSCLES AND ROM IN THIS AREA AGGREVATES PAIN.. ASSESSMENTS MYALGIA, OTHER SITE - M79.18 (PRIMARY) TREATMENT MYALGIA, OTHER SITE CONTINUE NUCYNTA TABLET, 75 MG, 1 TABLET, ORALLY FOR PAIN, EVERY 6 HOURS NEEDED MDD 2 CONTINUE SOMA TABLET, 350 MG, 1 TABLET NEEDED, ORALLY, Q12H BID MDD2 CONTINUE NUCYNTA ER TABLET EXTENDED RELEASE 12 HOUR, 150 MG, 1 TABLET, ORALLY, EVERY 12 HRS BID MDD2 NOTES: TPI RIGHT LUMBAR PARAVERTEBRAL, ISTOP REGISTRY REVIEWED AND DEMONSTRATES COMPLLIANCE. (REF # ) BRINGS IN MEDICATIONS WHICH IS APPROPRIATE FOR WHAT WAS DISPENSED. RECENT URINE TOXICOLOGY REVIEWED. NO UNAUTHORIZED MEDICATIONS. NO ILLICIT SUBSTANCES AND PRESCRIBED MEDICATIONS WERE PRESENT. URINE TOX TODAY, RISKS OF NARCOTIC/OPIOD MEDICATIONS INCLUDES BUT IS NOT LIMITED TO RISK OF DEPENDANCE/DEVELOPMENT OF ADDICTION, MOOD DISTURBANCE AND DEPRESSION, OSTEOPOROSIS, HORMONAL AND LABIDAL CHANGES, RESPIRATORY DEPRESSION AND . PATIENT IS ADVISED NOT TO DRIVE OR DRINK ALCOHOL WHILE ON THESE MEDICATIONS. OTHERS NOTES: TRIGGER POINT INJECTION MATERIAL WAS PRINTED AND REVIEWED WITH PATIENT AND 02/13/19 1538 [facility]. PROCEDURE CODES FA211 ESTABILISHED PATIENT THE [facility] F[facility]ILITY CHARGE DISPOSITION & COMMUNICATION FOLLOW UP POST (REASON: TPI RIGHT LUMBAR PARAVERTEBRAL) ELECTRONICALLY SIGNED BY RICK VARELA ON 02/22/2019 AT 03:30 PM EDT DISCLAIMER : THIS IS A VISIT SUMMARY EXTRACTED FROM THE [employer] CHART. IT IS NOT A COPY OF THE [employer] PROGRESS NOTE. MTDD
== END ==
LOC: M PAIN 14:30
PROVIDERS: ATTEND Nurse Practitioner Family
DX: M79.18 Myalgia, other site (principal); I10 Essential (primary) hypertension; E03.9 Hypothyroidism, unspecified; Z86.59 Personal history of other mental and behavioral disorders; E78.00 Pure hypercholesterolemia, unspecified; G47.30 Sleep apnea, unspecified; G47.00 Insomnia, unspecified; Z91.09 Other allergy status, other than to drugs and biological substances; E66.01 Morbid (severe) obesity due to excess calories; Z68.42 Body mass index [BMI] 45.0-49.9, adult; Z79.82 Long term (current) use of aspirin; Z79.891 Long term (current) use of opiate analgesic; Z79.899 Other long term (current) drug therapy

== ENCOUNTER → 2019-02-27 | Outpatient (CLI) | payer MEDICARE, OTHER ==
[~2019-02-27] MED LIST changes: +BUPIVACAINE HCL 0.25% 10 ML VIAL As Ordered ONE; +BUPIVACAINE HCL 0.25% 30 ML VIAL As Ordered ONE; +TRIAMCINOLONE ACETONIDE SUSP 40 MG/ML VIAL (J3301) As Ordered ONE
--- NOTE | 2019-03-14 04:28 | ECWPNPC ---
PATIENT NAME: ANG MCDERMOTT : 1940 GENDER: MALE VISIT DATE: 02/27/2019 DISCHARGE DATE: 02/27/19 1416 VISIT LOCKED DATE TIME: PHYSICIAN: ELLYN VU MD RESOURCE: ELLYN VU MD REASON FOR APPOINTMENT 1. TPI RIGHT LUMBAR PARAVERTEBRAL HISTORY OF PRESENT ILLNESS HISTORY OF PRESENT ILLNESS: PAIN THE PATIENT DESCRIBES THE PAIN... FALL RISK SCREENING: SCREENING :NO FALLS REPORTED IN THE LAST YEAR CURRENT MEDICATIONS TAKING ALLOPURINOL 300 MG TABLET 1 TABLET ORALLY ONCE DAILY, NOTES: 02/27/19929 TAKING ASPIRIN 325 MG TABLET 1 TABLET ORALLY ONCE A DAY, NOTES: 02/26/19 TAKING CALCITRIOL 0.25 MCG CAPSULE 1 CAPSULE ORALLY ONCE A DAY, NOTES: 02/27/19929 TAKING GLUCOSAMINE CHONDROITIN COMPLX 600-250 MG CAPSULE 1 TAB(S) ORALLY BID, NOTES: 02/26/19 TAKING LEVOTHYROXINE SODIUM 150 MCG TABLET 1 TABLET ON AN EMPTY STOMACH IN THE MORNING ORALLY ONCE A DAY, NOTES: 02/27/19929 TAKING MULTIVITAMINS TABLET DIRECTED ORALLY DAILY, NOTES: 02/27/19929 TAKING POTASSIUM CHLORIDE 20 MEQ TABLET EXTENDED RELEASE 2 TABLETS WITH FOOD ORALLY TWICE A DAY, NOTES: 02/27/19929 TAKING ZOLPIDEM 10 MG TABLET 1 TAB(S) ORAL AT BEDTIME NEEDED, NOTES: 02/26/19 TAKING TORSEMIDE 20 MG TABLET 1 TAB(S) ORALLY 2 IN THE MORNING/ 1 TAB IN AFTERNOON, NOTES: 02/27/19929 TAKING SERTRALINE HCL 100 MG TABLET 1 TABLET ORALLY ONCE A DAY, NOTES: 02/27/19929 TAKING SPIRONOLACTONE 25 MG TABLET 1 TABLET ORALLY BID, NOTES: 02/27/19929 TAKING LABETALOL HCL 100 MG TABLET 1 TAB IN AM, HALF TAB IN AFTERNOON ORALLY BID, NOTES: 02/27/19929 TAKING CALCIUM 600+D3 600-400 MG-UNIT TABLET 1 TABLET WITH A MEAL ORALLY ONCE A DAY, NOTES: 02/26/19 TAKING ALIGN 4 MG CAPSULE ORALLY DAILY, NOTES: 02/27/19929 TAKING TYLENOL ARTHRITIS PAIN 650 MG TABLET EXTENDED RELEASE 2 TABS ORALLY EVERY 8 HRS, NOTES: NONE IN 3-4 DAYS TAKING GABAPENTIN 100 MG CAPSULE 1 CAPSULE ORALLY BID, NOTES: 02/27/19929 TAKING OXYBUTYNIN CHLORIDE ER 10 MG TABLET EXTENDED RELEASE 24 HOUR 1 TABLET ORALLY ONCE A DAY, NOTES: 02/27/19929 TAKING FINASTERIDE 5 MG TABLET 1 TABLET ORALLY ONCE A DAY, NOTES: 02/26/19 TAKING FLOMAX 0.4 MG CAPSULE 2 CAPSULES ORALLY ONCE A DAY, NOTES: 02/26/19 TAKING SOMA 350 MG TABLET 1 TABLET NEEDED ORALLY Q12H BID MDD2, NOTES: 02/27/19929 TAKING NUCYNTA 75 MG TABLET 1 TABLET ORALLY FOR PAIN EVERY 6 HOURS NEEDED MDD 2, NOTES: 02/27/19929 TAKING NUCYNTA ER 150 MG TABLET EXTENDED RELEASE 12 HOUR 1 TABLET ORALLY EVERY 12 HRS BID MDD2, NOTES: 02/26/19 NOT-TAKING OTEZLA 30 MG TABLET 1 TABLET ORALLY DAILY NOT-TAKING LEFLUNOMIDE 10 MG TABLET 1 TABLET ORALLY ONCE A DAY NOT-TAKING TRAMADOL HCL 50 MG TABLET 1-2 TAB ORALLY Q4-6H PRN PAIN MDD6 NOT-TAKING VOLTAREN 1 % GEL APPLY TO LEFT KNEE TRANSDERMAL BID NOT-TAKING TYLENOL EXTRA STRENGTH 500 MG TABLET 1 TABLET NEEDED ORALLY EVERY 6 HRS PRN, NOTES: NEW DOSE MEDICATION LIST REVIEWED AND RECONCILED WITH THE PATIENT PAST MEDICAL HISTORY BPH URINARY RETENTION GOUT HTN EDEMA DDD/DJD; SEVERE SPINAL STENOSIS HYPOTHYROIDISM DEPRESSION/ANXIETY HYPERCHOLESTEROLEMIA HYPOKALEMIA SLEEP APNEA VERTIGO INSOMNIA CHRONIC KIDNEY DISEASE OSTEOARTHRITIS VARICOSE VEINS OSTEOARTHRITIS BROKEN LITTLE FINGER ON LEFT HAND ARTHRITIS LEFT KNEE TOOTH ISSUES ALLERGIES SURGICAL TAPE: REMOVES TOP LAYER OF SKIN - SIDE EFFECTS SURGICAL HISTORY ORIF LEFT LEG/ANKLE FRACTURE; PLATES/SCREWS IN PLACE 1992 BILATERAL - 2 TRIGGER FINGER RELEASE/CARPAL CHARO RELEASE/BONE REMOVAL THUMB (LEFT) 2004 TONSILLECTOMY APPENDECTOMY L3-L5 LAMINECTOMY 11/2012 COLONSCOPY 05/2016 CYSTOSCOPY 08/02/2017 RADIO FREQUENCY NERVE CUT IN BACK FEB 2018 FAMILY HISTORY FATHER: , CHF MOTHER: , HEART ATTACK, DIABETES SIBLINGS: ALIVE DAUGHTER(S): DIAGNOSED WITH OTHER MALIGNANT NEOPLASM OF UNSPECIFIED SITE 1 SON(S) , 4 DAUGHTER(S) . 1 DAUGHTER-BREAST CA1 DAUGHTER-POLY CYSTIC BREAST. SOCIAL HISTORY GENERAL: TOBACCO USE ARE YOU A:NONSMOKER OTHERS AT HOME: SPOUSE, CHILD, CHILDREN. EDUCATION LEVEL OF EDUCATION:NOT FINISHED COLLEGE DIET: REGULAR. LANGUAGE LANGUAGES SPOKEN:OCCITAN DOMESTIC VIOLENCE DO YOU FEEL SAFE IN YOUR ENVIRONMENT?YES RECREATIONAL DRUG USE DRUG USE?NO EXERCISE: NONE. LEARNING BARRIERS / SPECIAL NEEDS BARRIERS TO LEARNING?NO HEARING IMPAIRED?NO VISION IMPAIRED?YES COGNITIVELY IMPAIRED?NO :CORRECTIVE LENSES READINESS TO LEARN?YES LEARNING PREFERENCES?NO LEARNING CAPABILITIES PRESENT?YES EMOTIONAL BARRIERS?NO SPECIAL DEVICES?YES :CANE RELIGIOUS EDUCATION TEACHER NEEDED?NO PAIN CLINIC PFS, CLERGY, PUBLIC HEALTH REFERRALS PFS REFERRAL NEEDED?NO CLERGY REFERRAL NEEDED?NO PUBLIC HEALTH REFERRAL NEEDED?NO WAS THE PROVIDER NOTIFIED OF ANY PERTINENT INFO? N/A HAS THE PATIENT BEEN EDUCATED REGARDING HIS/HER PLAN OF CARE?YES HAS THE PATIENT BEEN EDUCATED REGARDING PAIN, THE RISK FOR PAIN, THE IMPORTANCE OF EFFECTIVE PAIN MANAGEMENT, AND THE PAIN ASSESSMENT PROCESS?YES LATEX QUESTIONNAIRE LATEX ALLERGY : HAVE YOU EVER DEVELOPED ANY TYPE OF REACTION AFTER HANDLING LATEX PRODUCTS SUCH RUBBER GLOVES, CONDOMS, DIAPHRAGMS, BALLOONS, SOCKS, OR UNDERWEAR?NO PT DOES HAVE ALLERGY TO SURGICAL TAPE LATEX ALLERGY : HAVE YOU EVER DEVELOPED ANY TYPE OF REACTION DURING OR AFTER DENTAL APPOINTMENT, VAGINAL/RECTAL EXAMINATION, SURGICAL PROCEDURE, OR ANY OTHER EXPOSURE?NO DATE ASKED : 09/20/2018 LATEX RISK : HAVE YOU EVER HAD ANY DIFFICULTY BREATHING OR HIVES AFTER EATING OR HANDLING ANY FRUITS, OR VEGETABLES; SUCH KIWI, BANANAS, STONE FRUITS, OR CHESTNUTSNO LATEX RISK : DO YOU HAVE A PREVIOUS PERSONAL HISTORY OF MORE THAN NINE SURGERIES, SPINA BIFIDA, OR REPEATED CATHERIZATIONS? NO LATEX RISK : ARE YOU FREQUENTLY EXPOSED TO LATEX PRODUCTS IN YOUR OCCUPATION?NO CAFFEINE CAFFEINE USE?YES HOW OFTEN AND HOW MUCH? 2-3 CUPS OF TEA PER DAY AND OCCASIONAL COFFEE ADVANCE DIRECTIVE ADVANCE DIRECTIVE DISCUSSED WITH PATIENT:YES HCP - CHARLENE REESE () ANABAPTISM [id number] MANDAEN MARITAL STATUS: . ALCOHOL SCREENING DID YOU HAVE A DRINK CONTAINING ALCOHOL IN THE PAST YEAR?YES HOW OFTEN DID YOU HAVE SIX OR MORE DRINKS ON ONE OCCASION IN THE PAST YEAR?NEVER (0 POINTS) HOW MANY DRINKS DID YOU HAVE ON A TYPICAL DAY WHEN YOU WERE DRINKING IN THE PAST YEAR?1 OR 2 (0 POINTS) HOW OFTEN DID YOU HAVE A DRINK CONTAINING ALCOHOL IN THE PAST YEAR?MONTHLY OR LESS (1 POINT) POINTS1 INTERPRETATIONNEGATIVE OCCUPATION: RETIRED. REVIEWED WITH PATIENT 02/01/18 1328 JS02/10/18 1225 REVIEWED WITH PT. ADREVIEWED WITH PATIENT 03/10/18 1354 JS06/14/18 REVIEWED WITH PT. 09/20/18 REVIEWED WITH PT 1039 BVREVIEWED WITH PATIENT 02/03/2019 LASREVIEWED WITH PATIENT 11/24/18 1028 JSREVIEWED WITH PT 12/28/18 1315 BV11/03/18 REVIEWED WITH PT LASREVIEWED WITH PATIENT 02/13/19 1433 NLJREVIEWED WITH PATIENT 02/27/19 1315 BV. HOSPITALIZATION/MAJOR DIAGNOSTIC PROCEDURE DIVERTICULITIS X2 SURGERY RELATED DIVERTICULITIS 12/2015 REVIEW OF SYSTEMS REVIEWED BY: PROVIDER: . CONSTITUTIONAL: ANY CHANGE IN YOUR MEDICAL CONDITION? NO . CHILLS NO . FEVER NO . INFECTION: DO YOU HAVE NEW INFECTIONS? NO . DO YOU HAVE HISTORY OF MRSA? NO . MUSCULOSKELETAL: ANY NEW PATTERNS OF PAIN OR NUMBNESS? NO . GASTROENTEROLOGY: ANY NEW CHANGE IN BOWEL CONTROL? NO . GENITOURINARY: ANY NEW CHANGE IN BLADDER CONTROL? NO . IS THERE A CHANCE YOU COULD BE ? NO . HEMATOLOGY/LYMPH: DO YOU TAKE ANY BLOOD THINNERS? (FOR EXAMPLE- COUMADIN, PLAVIX, AGGRENOX, PLATEL, PRADAXA, OR XARELTO) NO . WHEN WAS YOUR LAST DOSE? DATE: TIME: . NEUROLOGY: HAVE YOU FALLEN IN THE PAST 12 MONTHS? YES . ANY NEW EXTREMITY NUMBNESS OR WEAKNESS? NO . CARDIOLOGY: DO YOU HAVE A PACEMAKER OR DEFIBRILLATOR? NO . RESPIRATORY: HAVE YOU BEEN SICK IN THE PAST WEEK? NO . FEVER NO . FLU LIKE SYMPTOMS? NO . COUGH NO . INTEGUMENTARY: DO YOU HAVE ANY RASHES OR OPEN SORES? NO . ALLERGIC/IMMUNO: ARE YOU ALLERGIC TO IV DYE? NO . ANY NEW ALLERGIES? NO . PSYCHIATRIC: DO YOU HAVE THOUGHTS OF HURTING YOURSELF OR SOMEONE ELSE? NO . ARE YOU ABUSED, NEGLECTED, OR IN AN UNSAFE ENVIRONMENT? NO . ENDOCRINOLOGY: ARE YOU DIABETIC? NO . OTHER: DO YOU NEED ANY PRESCRIPTIONS? NO . IF YES, PLEASE LIST: ____ . ANY NEW PROBLEMS WITH YOUR MEDICATIONS? NO . WHEN DID YOU LAST EAT? YES 02/26/19 1930 . WHEN DID YOU LAST DRINK? 02/27/19 0830 . WHAT DID YOU LAST DRINK? WATER . NAME OF PERSON DRIVING YOU HOME? THERESA . DO YOU HAVE ANY OTHER QUESTIONS OR CONCERNS NO . VITAL SIGNS WT 303.0 LBS, HT 5'9", BMI 44.74 INDEX, BP 111/64 MM HG, HR 75 /MIN, RR 18 /MIN, TEMP 97.2 F, OXYGEN SAT % 93%, NA INITIALS AW 1317, REVIEWED BY: BV. ASSESSMENTS MYALGIA, OTHER SITE - M79.18 (PRIMARY) PROCEDURES PN TRIGGER POINT INJECTION WITH STEROIDS PRE PROCEDURE DIAGNOSIS 1. MYALGIA 2. PAIN AT RIGHT LUMBAR AREA. POST PROCEDURE DIAGNOSIS 1. MYALGIA 2. PAIN AT RIGHT LUMBAR AREA. PROCEDURE TRIGGER POINT INJECTION AT RIGHT LUMBAR AREA. SURGEON DR. ELLYN VU OPTION TRADER NONE ANESTHESIA LOCAL PRE PROCEDURE NOTE THE PATIENT HAS A HISTORY OF CHRONIC PAIN AT THE RIGHT LUMBAR AREA. I EVALUATED THE PATIENT AND REVIEWED THE CHART. THERE IS EVIDENCE OF BANDS OF TISSUE WITH RESTRICTION OF MOVEMENT AND PRESENCE OF TRIGGER POINT AT THE AFFECTED AREA. I WENT OVER THE RISKS, ALTERNATIVES, AND BENEFITS ASSOCIATED WITH THIS PROCEDURE. THE PATIENT WOULD LIKE TO PROCEED AND GIVES CONSENT TO PERFORM THE PROCEDURE. THE PATIENT DENIES UNEXPLAINABLE WEIGHT LOSS, FEVER, CHILLS, OR NEW CHANGES IN URINARY OR BOWEL CONTROL DESCRIPTION OF PROCEDURE THE PATIENT WAS BROUGHT TO THE PROCEDURE ROOM AND PLACED IN THE SITTING POSITION. THE AREA WAS CLEANED WITH ALCOHOL. THE PROCEDURE WAS DONE USING ASEPTIC STERILE TECHNIQUE. I CHECKED LATERALITY AND THE LEVEL WHERE THE PROCEDURE WAS GOING TO BE PERFORMED WITH THE PATIENT AND THE SUPPORTING STAFF AT THE MOMENT OF THE TIME OUT IN THE PROCEDURE ROOM. USING A 25-GAUGE NEEDLE, TRIGGER POINTS WERE INJECTED AT THE RIGHT LUMBAR AREA WITH A TOTAL OF 40 ML OF BUPIVACAINE 0.25% AND KENALOG 40 MG. THERE WAS NO EVIDENCE OF BLOOD, PARESTHESIA OR CEREBROSPINAL FLUID DURING THE PROCEDURE. THE PATIENT WAS SENT TO THE RECOVERY ROOM. THE PATIENT WAS MOVING THE EXTREMITIES AND DOING WELL. THERE WAS NO COMPLICATION DURING THE PROCEDURE POST PROCEDURE NOTE THE PATIENT WILL BE SEEN IN A FOLLOW UP IN THE NEXT FEW WEEKS. INSTRUCTIONS WERE GIVEN, QUESTIONS WERE ANSWERED, AND THE PATIENT EXPRESSED UNDERSTANDING AND AGREES WITH THE PLAN. I, KALEN AGUILAR, DOCUMENTED THE ABOVE INFORMATION ACTING A SCRIBE FOR DR. VU. I HAVE REVIEWED THE ABOVE DOCUMENT, WRITTEN BY KALEN CAMPBELL AND I VERIFY THAT IT IS ACCURATE. PROCEDURE CODES 92479 INJ TRIGGER POINT / MUSC DISPOSITION & COMMUNICATION FOLLOW UP 3 WEEKS ELECTRONICALLY SIGNED BY ELLYN VU MD, MD ON 03/13/2019 AT 05:31 PM EST DISCLAIMER : THIS IS A VISIT SUMMARY EXTRACTED FROM THE [employer] CHART. IT IS NOT A COPY OF THE [employer] PROGRESS NOTE. HECTOR
== END ==
LOC: M PAIN 13:00
PROVIDERS: ATTEND Anesthesiology
DX: M79.18 Myalgia, other site (principal); I10 Essential (primary) hypertension; E03.9 Hypothyroidism, unspecified; Z86.59 Personal history of other mental and behavioral disorders; E78.00 Pure hypercholesterolemia, unspecified; G47.30 Sleep apnea, unspecified; G47.00 Insomnia, unspecified; Z91.09 Other allergy status, other than to drugs and biological substances; E66.01 Morbid (severe) obesity due to excess calories; Z68.41 Body mass index [BMI] 40.0-44.9, adult; Z79.82 Long term (current) use of aspirin; Z79.891 Long term (current) use of opiate analgesic; Z79.899 Other long term (current) drug therapy
CPT/HCPCS: 20552; J3301

== ENCOUNTER → 2019-03-17 | Outpatient (CLI) | payer MEDICARE, OTHER ==
--- NOTE | 2019-04-05 04:01 | ECWPNPC ---
PATIENT NAME: ANG MCDERMOTT : 1940 GENDER: MALE VISIT DATE: 03/17/2019 DISCHARGE DATE: 03/17/19952 VISIT LOCKED DATE TIME: PHYSICIAN: ELLYN VU MD RESOURCE: ELLYN VU MD REASON FOR APPOINTMENT 1. TPI BILAT NECK HISTORY OF PRESENT ILLNESS HISTORY OF PRESENT ILLNESS: PAIN THE PATIENT DESCRIBES THE PAIN... FALL RISK SCREENING: SCREENING :NO FALLS REPORTED IN THE LAST YEAR CURRENT MEDICATIONS TAKING ALLOPURINOL 300 MG TABLET 1 TABLET ORALLY ONCE DAILY, NOTES: 03/16/19999 TAKING ASPIRIN 325 MG TABLET 1 TABLET ORALLY ONCE A DAY, NOTES: 03/16/192229 TAKING CALCITRIOL 0.25 MCG CAPSULE 1 CAPSULE ORALLY ONCE A DAY, NOTES: 03/16/19999 TAKING GLUCOSAMINE CHONDROITIN COMPLX 600-250 MG CAPSULE 1 TAB(S) ORALLY BID, NOTES: 03/16/192329 TAKING LEVOTHYROXINE SODIUM 150 MCG TABLET 1 TABLET ON AN EMPTY STOMACH IN THE MORNING ORALLY ONCE A DAY, NOTES: 03/16/19999 TAKING MULTIVITAMINS TABLET DIRECTED ORALLY DAILY, NOTES: 03/16/19999 TAKING POTASSIUM CHLORIDE 20 MEQ TABLET EXTENDED RELEASE 2 TABLETS WITH FOOD ORALLY TWICE A DAY, NOTES: 03/16/192329 TAKING ZOLPIDEM 10 MG TABLET 1 TAB(S) ORAL AT BEDTIME NEEDED, NOTES: 03/16/192329 TAKING TORSEMIDE 20 MG TABLET 1 TAB(S) ORALLY 2 IN THE MORNING/ 1 TAB IN AFTERNOON, NOTES: 03/16/191729 TAKING SERTRALINE HCL 100 MG TABLET 1 TABLET ORALLY ONCE A DAY, NOTES: 03/16/19999 TAKING SPIRONOLACTONE 25 MG TABLET 1 TABLET ORALLY BID, NOTES: 03/16/192129 TAKING LABETALOL HCL 100 MG TABLET 1 TAB IN AM, HALF TAB IN AFTERNOON ORALLY BID, NOTES: 03/16/192329 TAKING CALCIUM 600+D3 600-400 MG-UNIT TABLET 1 TABLET WITH A MEAL ORALLY ONCE A DAY, NOTES: 03/16/191729 TAKING ALIGN 4 MG CAPSULE ORALLY DAILY, NOTES: 03/16/19 1000 TAKING TYLENOL ARTHRITIS PAIN 650 MG TABLET EXTENDED RELEASE 2 TABS ORALLY EVERY 8 HRS, NOTES: 03/16/191729 TAKING GABAPENTIN 100 MG CAPSULE 1 CAPSULE ORALLY BID, NOTES: 11/21/19 2330 TAKING OXYBUTYNIN CHLORIDE ER 10 MG TABLET EXTENDED RELEASE 24 HOUR 1 TABLET ORALLY ONCE A DAY, NOTES: 03/16/19 1000 TAKING FINASTERIDE 5 MG TABLET 1 TABLET ORALLY ONCE A DAY, NOTES: 03/16/19 233 TAKING FLOMAX 0.4 MG CAPSULE 2 CAPSULES ORALLY ONCE A DAY, NOTES: 03/16/19 1730 TAKING SOMA 350 MG TABLET 1 TABLET NEEDED ORALLY Q12H BID MDD2, NOTES: 03/16/19 2330 TAKING NUCYNTA 75 MG TABLET 1 TABLET ORALLY FOR PAIN EVERY 6 HOURS NEEDED MDD 2, NOTES: 03/16/19 1200 TAKING NUCYNTA ER 150 MG TABLET EXTENDED RELEASE 12 HOUR 1 TABLET ORALLY EVERY 12 HRS BID MDD2, NOTES: NONE IN SEVERAL DAYS NOT-TAKING OTEZLA 30 MG TABLET 1 TABLET ORALLY DAILY NOT-TAKING LEFLUNOMIDE 10 MG TABLET 1 TABLET ORALLY ONCE A DAY NOT-TAKING TRAMADOL HCL 50 MG TABLET 1-2 TAB ORALLY Q4-6H PRN PAIN MDD6 NOT-TAKING VOLTAREN 1 % GEL APPLY TO LEFT KNEE TRANSDERMAL BID NOT-TAKING TYLENOL EXTRA STRENGTH 500 MG TABLET 1 TABLET NEEDED ORALLY EVERY 6 HRS PRN, NOTES: NEW DOSE MEDICATION LIST REVIEWED AND RECONCILED WITH THE PATIENT PAST MEDICAL HISTORY BPH URINARY RETENTION GOUT HTN EDEMA DDD/DJD; SEVERE SPINAL STENOSIS HYPOTHYROIDISM DEPRESSION/ANXIETY HYPERCHOLESTEROLEMIA HYPOKALEMIA SLEEP APNEA VERTIGO INSOMNIA CHRONIC KIDNEY DISEASE OSTEOARTHRITIS VARICOSE VEINS OSTEOARTHRITIS BROKEN LITTLE FINGER ON LEFT HAND ARTHRITIS LEFT KNEE TOOTH ISSUES ALLERGIES SURGICAL TAPE: REMOVES TOP LAYER OF SKIN - SIDE EFFECTS SURGICAL HISTORY ORIF LEFT LEG/ANKLE FRACTURE; PLATES/SCREWS IN PLACE 1992 BILATERAL - 2 TRIGGER FINGER RELEASE/CARPAL CHARO RELEASE/BONE REMOVAL THUMB (LEFT) 2004 TONSILLECTOMY APPENDECTOMY L3-L5 LAMINECTOMY 11/2012 COLONSCOPY 05/2016 CYSTOSCOPY 08/02/2017 RADIO FREQUENCY NERVE CUT IN BACK FEB 2018 FAMILY HISTORY FATHER: , CHF MOTHER: , HEART ATTACK, DIABETES SIBLINGS: ALIVE DAUGHTER(S): DIAGNOSED WITH OTHER MALIGNANT NEOPLASM OF UNSPECIFIED SITE 1 SON(S) , 4 DAUGHTER(S) . 1 DAUGHTER-BREAST CA1 DAUGHTER-POLY CYSTIC BREAST. SOCIAL HISTORY GENERAL: TOBACCO USE ARE YOU A:NONSMOKER OTHERS AT HOME: SPOUSE, CHILD, CHILDREN. EDUCATION LEVEL OF EDUCATION:NOT FINISHED COLLEGE DIET: REGULAR. LANGUAGE LANGUAGES SPOKEN:FAROESE DOMESTIC VIOLENCE DO YOU FEEL SAFE IN YOUR ENVIRONMENT?YES RECREATIONAL DRUG USE DRUG USE?NO EXERCISE: NONE. 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 N/A HAS THE PATIENT BEEN EDUCATED REGARDING HIS/HER PLAN OF CARE?YES HAS THE PATIENT BEEN EDUCATED REGARDING PAIN, THE RISK FOR PAIN, THE IMPORTANCE OF EFFECTIVE PAIN MANAGEMENT, AND THE PAIN ASSESSMENT PROCESS?YES LATEX QUESTIONNAIRE LATEX ALLERGY : HAVE YOU EVER DEVELOPED ANY TYPE OF REACTION AFTER HANDLING LATEX PRODUCTS SUCH RUBBER GLOVES, CONDOMS, DIAPHRAGMS, BALLOONS, SOCKS, OR UNDERWEAR?NO PT DOES HAVE ALLERGY TO SURGICAL TAPE LATEX ALLERGY : HAVE YOU EVER DEVELOPED ANY TYPE OF REACTION DURING OR AFTER DENTAL APPOINTMENT, VAGINAL/RECTAL EXAMINATION, SURGICAL PROCEDURE, OR ANY OTHER EXPOSURE?NO DATE ASKED : 09/20/2018 LATEX RISK : HAVE YOU EVER HAD ANY DIFFICULTY BREATHING OR HIVES AFTER EATING OR HANDLING ANY FRUITS, OR VEGETABLES; SUCH KIWI, BANANAS, STONE FRUITS, OR CHESTNUTSNO LATEX RISK : DO YOU HAVE A PREVIOUS PERSONAL HISTORY OF MORE THAN NINE SURGERIES, SPINA BIFIDA, OR REPEATED CATHERIZATIONS? NO LATEX RISK : ARE YOU FREQUENTLY EXPOSED TO LATEX PRODUCTS IN YOUR OCCUPATION?NO CAFFEINE CAFFEINE USE?YES HOW OFTEN AND HOW MUCH? 2-3 CUPS OF TEA PER DAY AND OCCASIONAL COFFEE ADVANCE DIRECTIVE ADVANCE DIRECTIVE DISCUSSED WITH PATIENT:YES HCP - CHARLENE REESE () ANGL[place] [id number] VOODOO MARITAL STATUS: . ALCOHOL SCREENING DID YOU HAVE A DRINK CONTAINING ALCOHOL IN THE PAST YEAR?YES HOW OFTEN DID YOU HAVE SIX OR MORE DRINKS ON ONE OCCASION IN THE PAST YEAR?NEVER (0 POINTS) HOW MANY DRINKS DID YOU HAVE ON A TYPICAL DAY WHEN YOU WERE DRINKING IN THE PAST YEAR?1 OR 2 (0 POINTS) HOW OFTEN DID YOU HAVE A DRINK CONTAINING ALCOHOL IN THE PAST YEAR?MONTHLY OR LESS (1 POINT) POINTS1 INTERPRETATIONNEGATIVE OCCUPATION: RETIRED. REVIEWED WITH PATIENT 02/01/18 1328 JS02/10/18 1225 REVIEWED WITH PT. ADREVIEWED WITH PATIENT 03/10/18 1354 JS06/14/18 REVIEWED WITH PT. 09/20/18 REVIEWED WITH PT 1039 BVREVIEWED WITH PATIENT 02/03/2019 LASREVIEWED WITH PATIENT 11/24/18 1028 JSREVIEWED WITH PT 12/28/18 1315 BV11/03/18 REVIEWED WITH PT LASREVIEWED WITH PATIENT 02/13/19 1433 NLJREVIEWED WITH PATIENT 02/27/19 1315 BVREVIEWED WITH PATIENT 03/17/19 0855 NLJ. HOSPITALIZATION/MAJOR DIAGNOSTIC PROCEDURE DIVERTICULITIS X2 SURGERY RELATED DIVERTICULITIS 12/2015 REVIEW OF SYSTEMS REVIEWED BY: PROVIDER: . CONSTITUTIONAL: ANY CHANGE IN YOUR MEDICAL CONDITION? NO . CHILLS NO . FEVER NO . INFECTION: DO YOU HAVE NEW INFECTIONS? NO . DO YOU HAVE HISTORY OF MRSA? NO . MUSCULOSKELETAL: ANY NEW PATTERNS OF PAIN OR NUMBNESS? NO . GASTROENTEROLOGY: ANY NEW CHANGE IN BOWEL CONTROL? NO . GENITOURINARY: ANY NEW CHANGE IN BLADDER CONTROL? NO . IS THERE A CHANCE YOU COULD BE ? NO . HEMATOLOGY/LYMPH: DO YOU TAKE ANY BLOOD THINNERS? (FOR EXAMPLE- COUMADIN, PLAVIX, AGGRENOX, PLATEL, PRADAXA, OR XARELTO) NO . WHEN WAS YOUR LAST DOSE? DATE: TIME: . NEUROLOGY: HAVE YOU FALLEN IN THE PAST 12 MONTHS? NO . ANY NEW EXTREMITY NUMBNESS OR WEAKNESS? NO . CARDIOLOGY: DO YOU HAVE A PACEMAKER OR DEFIBRILLATOR? NO . RESPIRATORY: HAVE YOU BEEN SICK IN THE PAST WEEK? NO . FEVER NO . FLU LIKE SYMPTOMS? NO . COUGH NO . INTEGUMENTARY: DO YOU HAVE ANY RASHES OR OPEN SORES? NO . ALLERGIC/IMMUNO: ARE YOU ALLERGIC TO IV DYE? NO . ANY NEW ALLERGIES? NO . PSYCHIATRIC: DO YOU HAVE THOUGHTS OF HURTING YOURSELF OR SOMEONE ELSE? NO . ARE YOU ABUSED, NEGLECTED, OR IN AN UNSAFE ENVIRONMENT? NO . ENDOCRINOLOGY: ARE YOU DIABETIC? NO . OTHER: DO YOU NEED ANY PRESCRIPTIONS? NO . IF YES, PLEASE LIST: ____ . ANY NEW PROBLEMS WITH YOUR MEDICATIONS? NO . WHEN DID YOU LAST EAT? 03/16/190 . WHEN DID YOU LAST DRINK? 03/16/192329 . WHAT DID YOU LAST DRINK? WATER . NAME OF PERSON DRIVING YOU HOME? JILLIANE- . DO YOU HAVE ANY OTHER QUESTIONS OR CONCERNS NO . VITAL SIGNS WT 301.6 LBS, HT 5'9", BMI 44.53 INDEX, BP 130/61 MM HG, HR 80 /MIN, RR 18 /MIN, TEMP 97.8 F, OXYGEN SAT % 94%, SAFE IN ENV? (Y/N) YES, REVIEWED BY: NLJ. ASSESSMENTS MYALGIA, OTHER SITE - M79.18 (PRIMARY) PROCEDURES PN TRIGGER POINT INJECTION NO STEROIDS DATE OF PROCEDURE : PRE PROCEDURE DIAGNOSIS 1. MYALGIA 2. PAIN AT BILATERAL NECK AREA. POST PROCEDURE DIAGNOSIS 1. MYALGIA 2. PAIN AT BILATERAL NECK AREA. PROCEDURE TRIGGER POINT INJECTION AT RIGHT AND LEFT NECK AREA. SURGEON DR. ELLYN VU STATISTICIAN APPLIED NONE ANESTHESIA LOCAL PRE PROCEDURE NOTE 78 YEAR-OLD PATIENT WITH HISTORY OF CHRONIC PAIN AT BILATERAL NECK AREA. I EVALUATED THE PATIENT AND REVIEWED THE CHART. THERE IS EVIDENCE OF BANDS OF TISSUE WITH RESTRICTION OF MOVEMENT AND PRESENCE OF TRIGGER POINT AT THE AFFECTED AREA. I WENT OVER THE RISKS, ALTERNATIVES, AND BENEFITS ASSOCIATED WITH THIS PROCEDURE. THE PATIENT WOULD LIKE TO PROCEED AND GAVE CONSENT TO PERFORM THE PROCEDURE. THE PATIENT DENIES UNEXPLAINABLE WEIGHT LOSS, FEVER, CHILLS, OR NEW CHANGES IN URINARY OR BOWEL CONTROL. DESCRIPTION OF PROCEDURE THE PATIENT WAS BROUGHT TO THE PROCEDURE ROOM AND PLACED IN THE SITTING POSITION. THE AREA WAS CLEANED WITH ALCOHOL. THE PROCEDURE WAS DONE USING ASEPTIC STERILE TECHNIQUES. I CHECKED LATERALITY AND THE LEVEL WHERE THE PROCEDURE WAS GOING TO BE PERFORMED WITH THE PATIENT AND THE SUPPORTING STAFF AT THE MOMENT OF THE TIME OUT IN THE PROCEDURE ROOM. USING A 25-GAUGE NEEDLE, TRIGGER POINTS WERE INJECTED AT THE RIGHT AND LEFT NECK AREA WITH A TOTAL OF 40 ML OF BUPIVACAINE 0.25%. AGREED WITH THE PATIENT THE PROCEDURE WAS DONE WITHOUT STEROIDS. THERE WAS NO EVIDENCE OF BLOOD, PARESTHESIA OR CEREBROSPINAL FLUID DURING THE PROCEDURE. THE PATIENT WAS SENT TO THE RECOVERY ROOM. THE PATIENT WAS MOVING THE EXTREMITIES AND DOING WELL. THERE WAS NO COMPLICATION DURING THE PROCEDURE. POST PROCEDURE NOTE THE PATIENT WILL BE SEEN IN A FOLLOW UP IN THE NEXT FEW WEEKS. I AM LOOKING FOR LONG LASTING PAIN RELIEF WITH THIS INJECTION FOR THE PATIENT. INSTRUCTIONS WERE GIVEN, QUESTIONS WERE ANSWERED, AND THE PATIENT EXPRESSED UNDERSTANDING AND AGREED WITH THE PLAN. I, KALEN AGUILAR, DOCUMENTED THE ABOVE INFORMATION ACTING A SCRIBE FOR DR. VU. I HAVE REVIEWED THE ABOVE DOCUMENT, WRITTEN BY KALEN CAMPBELL AND I VERIFY THAT IT IS ACCURATE. PROCEDURE CODES 47877 INJ TRIGGER POINT / MUSCL DISPOSITION & COMMUNICATION FOLLOW UP 3 WEEKS ELECTRONICALLY SIGNED BY ELLYN VU MD, MD ON 04/04/2019 AT 04:52 PM EST DISCLAIMER : THIS IS A VISIT SUMMARY EXTRACTED FROM THE [employer] CHART. IT IS NOT A COPY OF THE [employer] PROGRESS NOTE. LANIED
== END ==
LOC: M PAIN 08:45
PROVIDERS: ATTEND Anesthesiology
DX: M79.18 Myalgia, other site (principal); I10 Essential (primary) hypertension; E03.9 Hypothyroidism, unspecified; Z86.59 Personal history of other mental and behavioral disorders; E78.00 Pure hypercholesterolemia, unspecified; G47.30 Sleep apnea, unspecified; G47.00 Insomnia, unspecified; Z91.09 Other allergy status, other than to drugs and biological substances; E66.01 Morbid (severe) obesity due to excess calories; Z68.41 Body mass index [BMI] 40.0-44.9, adult; Z79.82 Long term (current) use of aspirin; Z79.891 Long term (current) use of opiate analgesic; Z79.899 Other long term (current) drug therapy
CPT/HCPCS: 20552; J3301

== ENCOUNTER → 2019-05-29 | Outpatient (CLI) | payer MEDICARE, OTHER ==
[~2019-05-29] MED LIST changes: -BUPIVACAINE HCL 0.25% 10 ML VIAL As Ordered ONE; -BUPIVACAINE HCL 0.25% 30 ML VIAL As Ordered ONE; -TRIAMCINOLONE ACETONIDE SUSP 40 MG/ML VIAL (J3301) As Ordered ONE
--- NOTE | 2019-06-02 04:13 | ECWPNPC ---
PATIENT NAME: ANG MCDERMOTT : 1940 GENDER: MALE VISIT DATE: 05/29/2019 DISCHARGE DATE: 05/29/19 1439 VISIT LOCKED DATE TIME: PHYSICIAN: SHARON LOWRY RESOURCE: SHARON LOWRY REASON FOR APPOINTMENT 1. 2 MONTHS HISTORY OF PRESENT ILLNESS HISTORY OF PRESENT ILLNESS: HERE FOR FOLLOW-UP OF CHRONIC LOW BACK AND NECK PAIN. RATING PAIN LEVEL A 2-8/10 VAS. WORST AREA OF PAIN IS LOW BACK. PAIN IS AGGRAVATED BY PROLONGED STANDING. DESCRIBES PAIN ACHING AND SHARP. REVIEWED MRI AND DISCUSSED TREATMENT OPTIONS. OVER THE PAST 2 WEEKS. PATIENT HAS HAD TO USE MORE OF HIS PAIN MEDICATION THAT HE USUALLY DOES DUE TO PERSISTENT PAIN. PAIN THE PATIENT DESCRIBES THE PAIN... FALL RISK SCREENING: SCREENING :NO FALLS REPORTED IN THE LAST YEAR CURRENT MEDICATIONS TAKING ALLOPURINOL 300 MG TABLET 1 TABLET ORALLY ONCE DAILY TAKING ASPIRIN 325 MG TABLET 1 TABLET ORALLY ONCE A DAY TAKING CALCITRIOL 0.25 MCG CAPSULE 1 CAPSULE ORALLY ONCE A DAY TAKING GLUCOSAMINE CHONDROITIN COMPLX 600-250 MG CAPSULE 1 TAB(S) ORALLY BID, NOTES: 750-600 MG TAKING LEVOTHYROXINE SODIUM 50 MCG TABLET 1 TABLET ON AN EMPTY STOMACH IN THE MORNING ORALLY ONCE A DAY TAKING MULTIVITAMINS TABLET DIRECTED ORALLY DAILY TAKING POTASSIUM CHLORIDE 20 MEQ TABLET EXTENDED RELEASE 2 TABLETS WITH FOOD ORALLY TWICE A DAY TAKING ZOLPIDEM 10 MG TABLET 1 TAB(S) ORAL AT BEDTIME NEEDED TAKING TORSEMIDE 20 MG TABLET 1 TAB(S) ORALLY 2 IN THE MORNING/ 1 TAB IN AFTERNOON TAKING SERTRALINE HCL 100 MG TABLET 1 TABLET ORALLY ONCE A DAY TAKING SPIRONOLACTONE 25 MG TABLET 1 TABLET ORALLY BID TAKING LABETALOL HCL 100 MG TABLET 1 TAB IN AM, HALF TAB IN AFTERNOON ORALLY BID TAKING CALCIUM 600+D3 600-400 MG-UNIT TABLET 1 TABLET WITH A MEAL ORALLY ONCE A DAY TAKING ALIGN 4 MG CAPSULE ORALLY DAILY TAKING TYLENOL ARTHRITIS PAIN 650 MG TABLET EXTENDED RELEASE 2 TABS ORALLY EVERY 8 HRS TAKING GABAPENTIN 100 MG CAPSULE 1 CAPSULE ORALLY BID TAKING OXYBUTYNIN CHLORIDE ER 10 MG TABLET EXTENDED RELEASE 24 HOUR 1 TABLET ORALLY ONCE A DAY TAKING FINASTERIDE 5 MG TABLET 1 TABLET ORALLY ONCE A DAY TAKING SOMA 350 MG TABLET 1 TABLET NEEDED ORALLY Q12H BID MDD2 TAKING NUCYNTA 75 MG TABLET 1 TABLET ORALLY FOR PAIN EVERY 6 HOURS NEEDED MDD 2 TAKING FLOMAX 0.4 MG CAPSULE 2 CAPSULES ORALLY ONCE A DAY TAKING NUCYNTA ER 150 MG TABLET EXTENDED RELEASE 12 HOUR 1 TABLET ORALLY EVERY 12 HRS BID MDD2 NOT-TAKING OTEZLA 30 MG TABLET 1 TABLET ORALLY DAILY NOT-TAKING LEFLUNOMIDE 10 MG TABLET 1 TABLET ORALLY ONCE A DAY NOT-TAKING TRAMADOL HCL 50 MG TABLET 1-2 TAB ORALLY Q4-6H PRN PAIN MDD6 NOT-TAKING VOLTAREN 1 % GEL APPLY TO LEFT KNEE TRANSDERMAL BID NOT-TAKING TYLENOL EXTRA STRENGTH 500 MG TABLET 1 TABLET NEEDED ORALLY EVERY 6 HRS PRN, NOTES: NEW DOSE MEDICATION LIST REVIEWED AND RECONCILED WITH THE PATIENT PAST MEDICAL HISTORY BPH URINARY RETENTION GOUT HTN EDEMA DDD/DJD; SEVERE SPINAL STENOSIS HYPOTHYROIDISM DEPRESSION/ANXIETY HYPERCHOLESTEROLEMIA HYPOKALEMIA SLEEP APNEA VERTIGO INSOMNIA CHRONIC KIDNEY DISEASE OSTEOARTHRITIS VARICOSE VEINS OSTEOARTHRITIS BROKEN LITTLE FINGER ON LEFT HAND ARTHRITIS LEFT KNEE TOOTH ISSUES ALLERGIES SURGICAL TAPE: REMOVES TOP LAYER OF SKIN - SIDE EFFECTS SURGICAL HISTORY ORIF LEFT LEG/ANKLE FRACTURE; PLATES/SCREWS IN PLACE 1992 BILATERAL - 2 TRIGGER FINGER RELEASE/CARPAL CHARO RELEASE/BONE REMOVAL THUMB (LEFT) 2004 TONSILLECTOMY APPENDECTOMY L3-L5 LAMINECTOMY 11/2012 COLONSCOPY 05/2016 CYSTOSCOPY 08/02/2017 RADIO FREQUENCY NERVE CUT IN BACK FEB 2018 RIGHT TRAPEZIECTOMY 06/29/2019 FAMILY HISTORY FATHER: , CHF MOTHER: , HEART ATTACK, DIABETES SIBLINGS: ALIVE DAUGHTER(S): DIAGNOSED WITH OTHER MALIGNANT NEOPLASM OF UNSPECIFIED SITE 1 SON(S) , 4 DAUGHTER(S) . 1 DAUGHTER-BREAST CA1 DAUGHTER-POLY CYSTIC BREAST. SOCIAL HISTORY GENERAL: TOBACCO USE ARE YOU A:NONSMOKER OTHERS AT HOME: SPOUSE, CHILD, CHILDREN. EDUCATION LEVEL OF EDUCATION:NOT FINISHED COLLEGE DIET: REGULAR. LANGUAGE LANGUAGES SPOKEN:CYMRO DOMESTIC VIOLENCE DO YOU FEEL SAFE IN YOUR ENVIRONMENT?YES RECREATIONAL DRUG USE DRUG USE?NO EXERCISE: NONE. 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 N/A HAS THE PATIENT BEEN EDUCATED REGARDING HIS/HER PLAN OF CARE?YES HAS THE PATIENT BEEN EDUCATED REGARDING PAIN, THE RISK FOR PAIN, THE IMPORTANCE OF EFFECTIVE PAIN MANAGEMENT, AND THE PAIN ASSESSMENT PROCESS?YES LATEX QUESTIONNAIRE LATEX ALLERGY : HAVE YOU EVER DEVELOPED ANY TYPE OF REACTION AFTER HANDLING LATEX PRODUCTS SUCH RUBBER GLOVES, CONDOMS, DIAPHRAGMS, BALLOONS, SOCKS, OR UNDERWEAR?NO PT DOES HAVE ALLERGY TO SURGICAL TAPE LATEX ALLERGY : HAVE YOU EVER DEVELOPED ANY TYPE OF REACTION DURING OR AFTER DENTAL APPOINTMENT, VAGINAL/RECTAL EXAMINATION, SURGICAL PROCEDURE, OR ANY OTHER EXPOSURE?NO LATEX RISK : HAVE YOU EVER HAD ANY DIFFICULTY BREATHING OR HIVES AFTER EATING OR HANDLING ANY FRUITS, OR VEGETABLES; SUCH KIWI, BANANAS, STONE FRUITS, OR CHESTNUTSNO LATEX RISK : DO YOU HAVE A PREVIOUS PERSONAL HISTORY OF MORE THAN NINE SURGERIES, SPINA BIFIDA, OR REPEATED CATHERIZATIONS? NO LATEX RISK : ARE YOU FREQUENTLY EXPOSED TO LATEX PRODUCTS IN YOUR OCCUPATION?NO DATE ASKED : 09/20/2018 CAFFEINE CAFFEINE USE?YES HOW OFTEN AND HOW MUCH? 2-3 CUPS OF TEA PER DAY AND OCCASIONAL COFFEE ADVANCE DIRECTIVE ADVANCE DIRECTIVE DISCUSSED WITH PATIENT:YES HCP - CHARLENE ZHOUHARMONY () JUDAISM [id number] ORTHODOX MARITAL STATUS: . ALCOHOL SCREENING DID YOU HAVE A DRINK CONTAINING ALCOHOL IN THE PAST YEAR?YES HOW OFTEN DID YOU HAVE SIX OR MORE DRINKS ON ONE OCCASION IN THE PAST YEAR?NEVER (0 POINTS) HOW MANY DRINKS DID YOU HAVE ON A TYPICAL DAY WHEN YOU WERE DRINKING IN THE PAST YEAR?1 OR 2 (0 POINTS) HOW OFTEN DID YOU HAVE A DRINK CONTAINING ALCOHOL IN THE PAST YEAR?MONTHLY OR LESS (1 POINT) POINTS1 INTERPRETATIONNEGATIVE OCCUPATION: RETIRED. REVIEWED WITH PATIENT 02/01/18 1328 JS02/10/18 1225 REVIEWED WITH PT. ADREVIEWED WITH PATIENT 03/10/18 1354 JS06/14/18 REVIEWED WITH PT. 09/20/18 REVIEWED WITH PT 1039 BVREVIEWED WITH PATIENT 02/03/2019 LASREVIEWED WITH PATIENT 11/24/18 1028 JSREVIEWED WITH PT 12/28/18 1315 BV11/03/18 REVIEWED WITH PT LASREVIEWED WITH PATIENT 02/13/19 1433 NLJREVIEWED WITH PATIENT 02/27/19 1315 BVREVIEWED WITH PATIENT 03/17/19 0855 NLJREVIEWED WITH PATIENT 03/27/19 1329 NLJREVIEWED WITH PATIENT 05/29/2019 1353 JS. HOSPITALIZATION/MAJOR DIAGNOSTIC PROCEDURE DIVERTICULITIS X2 SURGERY RELATED DIVERTICULITIS 12/2015 REVIEW OF SYSTEMS REVIEWED BY: PROVIDER: SHARON CABRERA . CONSTITUTIONAL: ANY CHANGE IN YOUR MEDICAL CONDITION? YES, OSTEOARTHRITIS IN RIGHT WRIST - SCHEDULED FOR ATRAPEZIECTOMY AT THE BEGINNING OF JUNE . CHILLS NO . FEVER NO . INFECTION: DO YOU HAVE NEW INFECTIONS? NO . DO YOU HAVE HISTORY OF MRSA? NO . MUSCULOSKELETAL: ANY NEW PATTERNS OF PAIN OR NUMBNESS? NO . GASTROENTEROLOGY: ANY NEW CHANGE IN BOWEL CONTROL? NO . GENITOURINARY: ANY NEW CHANGE IN BLADDER CONTROL? NO . IS THERE A CHANCE YOU COULD BE ? NO . HEMATOLOGY/LYMPH: DO YOU TAKE ANY BLOOD THINNERS? (FOR EXAMPLE- COUMADIN, PLAVIX, AGGRENOX, PLATEL, PRADAXA, OR XARELTO) NO . WHEN WAS YOUR LAST DOSE? DATE: TIME: . NEUROLOGY: HAVE YOU FALLEN IN THE PAST 12 MONTHS? YES, STATES FALL DUE TO DIZZINESS, NO INJURIES, NO ED VISIT . ANY NEW EXTREMITY NUMBNESS OR WEAKNESS? YES, STATES RIGHT ARM/HAND WEAKNESS . CARDIOLOGY: DO YOU HAVE A PACEMAKER OR DEFIBRILLATOR? NO . RESPIRATORY: HAVE YOU BEEN SICK IN THE PAST WEEK? NO . FEVER NO . FLU LIKE SYMPTOMS? NO . COUGH NO . INTEGUMENTARY: DO YOU HAVE ANY RASHES OR OPEN SORES? NO . ALLERGIC/IMMUNO: ARE YOU ALLERGIC TO IV DYE? NO . ANY NEW ALLERGIES? NO . PSYCHIATRIC: DO YOU HAVE THOUGHTS OF HURTING YOURSELF OR SOMEONE ELSE? NO . ARE YOU ABUSED, NEGLECTED, OR IN AN UNSAFE ENVIRONMENT? NO . ENDOCRINOLOGY: ARE YOU DIABETIC? NO . OTHER: DO YOU NEED ANY PRESCRIPTIONS? YES . IF YES, PLEASE LIST: ____CARISOPRODOL - PAPER SCRIPT . ANY NEW PROBLEMS WITH YOUR MEDICATIONS? NO . WHEN DID YOU LAST EAT? ____ . WHEN DID YOU LAST DRINK? ____ . WHAT DID YOU LAST DRINK? ____ . NAME OF PERSON DRIVING YOU HOME? ____ . DO YOU HAVE ANY OTHER QUESTIONS OR CONCERNS NO . VITAL SIGNS WT 309.2 LBS, HT 5'9", BMI 45.66 INDEX, BP 126/65 MM HG, HR 72 /MIN, RR 18 /MIN, TEMP 97.7 F, OXYGEN SAT % 94%, SAFE IN ENV? (Y/N) YES, REVIEWED BY: JAREK. EXAMINATION GENERAL EXAMINATION: GENERALNO ACUTE DISTRESS, WELL NOURISHED AND HYDRATED. PSYCHAPPROPRIATE MOOD AND AFFECT . LUNGS: LUNG SOUNDS ARE CLEAR . HEART: HEART RATE REGULAR . MUSCULOSKELETAL:*, MUSCLE STRENGTH TESTING 5/5 BILATERAL LOWER EXTREMITIES., ,PALPATION: POSITIVE FOR PAIN OVER L/S SPINE. POSITIVE FOR PAIN OVER L/S PARSPINALS.SPECIFIC POINT TENDERNESS OVER BILAT L4/5-L5/S1 LUMBR FACETS WITH FACET LOADING . DIAGNOSTIC TESTS REVIEWED 08/31/2016-MRI L/S SPINE. DIAGNOSTIC:MRI L/S SPINE . ASSESSMENTS SPONDYLOSIS OF LUMBOSACRAL REGION WITHOUT MYELOPATHY OR RADICULOPATHY - M47.817 (PRIMARY) TREATMENT SPONDYLOSIS OF LUMBOSACRAL REGION WITHOUT MYELOPATHY OR RADICULOPATHY CONTINUE SOMA TABLET, 350 MG, 1 TABLET NEEDED, ORALLY, Q12H BID MDD2 CONTINUE NUCYNTA TABLET, 75 MG, 1 TABLET, ORALLY FOR PAIN, EVERY 6 HOURS NEEDED MDD 2 CONTINUE NUCYNTA ER TABLET EXTENDED RELEASE 12 HOUR, 150 MG, 1 TABLET, ORALLY, EVERY 12 HRS BID MDD2 NOTES: BILAT L4/5-L5/S1 LFBDX, ISTOP REGISTRY REVIEWED AND DEMONSTRATES COMPLLIANCE. BRINGS IN MEDICATIONS WHICH IS APPROPRIATE FOR WHAT WAS DISPENSED. RECENT URINE TOXICOLOGY REVIEWED. NO UNAUTHORIZED MEDICATIONS. NO ILLICIT SUBSTANCES AND PRESCRIBED MEDICATIONS WERE PRESENT. PREVENTIVE MEDICINE PAIN CLINIC TEACHING: PROCEDURE TEACHING REVIEWED INFORMATION ON DIAGNOSTIC LUMBAR FACET BLOCK PROCEDURE WITH PATIENT. ALSO REVIEWED PRE-PROCEDURE INSTRUCTIONS. PATIENT VERBALIZED AN UNDERSTANDING. ANTHONY ZAYAS 05/29/2019 2:50:10 PM > . PROCEDURE CODES FA211 ESTABILISHED PATIENT [facility] FACILITY CHARGE DISPOSITION & COMMUNICATION FOLLOW UP POST (REASON: BILAT L4/5-L5/S1 LFBDX) ELECTRONICALLY SIGNED BY RICK VARELA ON 06/01/2019 AT 01:28 PM EST DISCLAIMER : THIS IS A VISIT SUMMARY EXTRACTED FROM THE [employer] CHART. IT IS NOT A COPY OF THE [employer] PROGRESS NOTE. HECTOR
== END ==
LOC: M PAIN 13:30
PROVIDERS: ATTEND Nurse Practitioner Family
DX: M47.817 Spondylosis without myelopathy or radiculopathy, lumbosacral region (principal); G89.29 Other chronic pain; I10 Essential (primary) hypertension; E03.9 Hypothyroidism, unspecified; Z86.59 Personal history of other mental and behavioral disorders; E78.00 Pure hypercholesterolemia, unspecified; G47.30 Sleep apnea, unspecified; G47.00 Insomnia, unspecified; Z91.09 Other allergy status, other than to drugs and biological substances; E66.01 Morbid (severe) obesity due to excess calories; Z68.42 Body mass index [BMI] 45.0-49.9, adult; Z79.82 Long term (current) use of aspirin; Z79.891 Long term (current) use of opiate analgesic; Z79.899 Other long term (current) drug therapy

== ENCOUNTER → 2019-06-27 | Outpatient (REF) | payer MEDICARE, OTHER ==
[2019-06-27 18:33] LABS: FREE T4 1.04 NG/DL (0.76-1.46); THYROID STIMULATING HORMONE 6.96 uIU/ML (0.358-3.740)
== END ==
LOC: M LAB REF 17:05
PROVIDERS: ATTEND Internal Medicine Nephrology
DX: E03.9 Hypothyroidism, unspecified (principal)

== ENCOUNTER → 2019-07-12 | Outpatient (CLI) | payer MEDICARE, OTHER ==
[~2019-07-12] MED LIST changes: +ALLO10TA PO; +BUPIVACAINE HCL 0.25% 30 ML VIAL As Ordered ONE; +ISOVUE-M 300 61% 15ML VIAL (Q9967) As Ordered ONE; +LIDOCAINE 1% SDV INJ 30 ML VIAL As Ordered ONE; +MULTCAP PO
--- NOTE | 2019-07-12 12:21 | REP ---
Partial lumbar spine series: Two views . History: Injection procedure for pain. 35 seconds of fluoroscopy time is reported. Findings: A sequence of two fluoroscopically obtained last image hold procedural spot radiographs of the lumbar spine document needle position and contrast injection associated with injection procedure. Electronically Signed by Hector Kaplan MD 07/12/2019 12:12 P
--- NOTE | 2019-07-21 03:56 | ECWPNPC ---
PATIENT NAME: ANG MCDERMOTT : 1940 GENDER: MALE VISIT DATE: 07/12/2019 DISCHARGE DATE: 07/12/19 1229 VISIT LOCKED DATE TIME: PHYSICIAN: ELLYN VU MD RESOURCE: ELLYN VU MD REASON FOR APPOINTMENT 1. RT LDFB #2 HISTORY OF PRESENT ILLNESS HISTORY OF PRESENT ILLNESS: PAIN THE PATIENT DESCRIBES THE PAIN... FALL RISK SCREENING: SCREENING :NO FALLS REPORTED IN THE LAST YEAR CURRENT MEDICATIONS TAKING ALLOPURINOL 300 MG TABLET 1 TABLET ORALLY ONCE DAILY, NOTES: 07/11/19 TAKING ASPIRIN 325 MG TABLET 1 TABLET ORALLY ONCE A DAY, NOTES: LAST WEEK TAKING CALCITRIOL 0.25 MCG CAPSULE 1 CAPSULE ORALLY ONCE A DAY, NOTES: 07/11/19 TAKING GLUCOSAMINE CHONDROITIN COMPLX 600-250 MG CAPSULE 1 TAB(S) ORALLY BID, NOTES: 07/11/19 TAKING LEVOTHYROXINE SODIUM 50 MCG TABLET 1 TABLET ON AN EMPTY STOMACH IN THE MORNING ORALLY ONCE A DAY, NOTES: 07/11/19 TAKING MULTIVITAMINS TABLET DIRECTED ORALLY DAILY, NOTES: 07/11/19 TAKING POTASSIUM CHLORIDE 20 MEQ TABLET EXTENDED RELEASE 2 TABLETS WITH FOOD ORALLY TWICE A DAY, NOTES: 07/11/19 TAKING ZOLPIDEM 10 MG TABLET 1 TAB(S) ORAL AT BEDTIME NEEDED, NOTES: 07/11/19 TAKING TORSEMIDE 20 MG TABLET 1 TAB(S) ORALLY 2 IN THE MORNING/ 1 TAB IN AFTERNOON, NOTES: 07/11/19 TAKING SERTRALINE HCL 100 MG TABLET 1 TABLET ORALLY ONCE A DAY, NOTES: 07/11/19 TAKING SPIRONOLACTONE 25 MG TABLET 1 TABLET ORALLY BID, NOTES: 07/11/19 TAKING LABETALOL HCL 100 MG TABLET 1 TAB IN AM, HALF TAB IN AFTERNOON ORALLY BID, NOTES: 07/11/19 TAKING CALCIUM 600+D3 600-400 MG-UNIT TABLET 1 TABLET WITH A MEAL ORALLY ONCE A DAY, NOTES: 07/11/19 TAKING ALIGN 4 MG CAPSULE ORALLY DAILY, NOTES: 07/11/19 TAKING TYLENOL ARTHRITIS PAIN 650 MG TABLET EXTENDED RELEASE 2 TABS ORALLY EVERY 8 HRS, NOTES: 07/11/19 TAKING GABAPENTIN 100 MG CAPSULE 1 CAPSULE ORALLY BID, NOTES: 07/11/19 TAKING OXYBUTYNIN CHLORIDE ER 10 MG TABLET EXTENDED RELEASE 24 HOUR 1 TABLET ORALLY ONCE A DAY, NOTES: 07/11/19 TAKING FINASTERIDE 5 MG TABLET 1 TABLET ORALLY ONCE A DAY, NOTES: 07/11/19 TAKING FLOMAX 0.4 MG CAPSULE 2 CAPSULES ORALLY ONCE A DAY, NOTES: 07/11/19 TAKING NUCYNTA 75 MG TABLET 1 TABLET ORALLY FOR PAIN EVERY 6 HOURS NEEDED MDD 2, NOTES: 07/11/19 TAKING NUCYNTA ER 150 MG TABLET EXTENDED RELEASE 12 HOUR 1 TABLET ORALLY EVERY 12 HRS BID MDD2, NOTES: 07/11/19 TAKING SOMA 350 MG TABLET 1 TABLET NEEDED ORALLY Q12H BID MDD2, NOTES: 07/11/19 TAKING SULFASALAZINE 500 MG TABLET DELAYED RELEASE 1 TABLET ORALLY ONCE A DAY, NOTES: LAST WEEK NOT-TAKING OTEZLA 30 MG TABLET 1 TABLET ORALLY DAILY NOT-TAKING LEFLUNOMIDE 10 MG TABLET 1 TABLET ORALLY ONCE A DAY NOT-TAKING TRAMADOL HCL 50 MG TABLET 1-2 TAB ORALLY Q4-6H PRN PAIN MDD6 NOT-TAKING VOLTAREN 1 % GEL APPLY TO LEFT KNEE TRANSDERMAL BID NOT-TAKING TYLENOL EXTRA STRENGTH 500 MG TABLET 1 TABLET NEEDED ORALLY EVERY 6 HRS PRN, NOTES: NEW DOSE MEDICATION LIST REVIEWED AND RECONCILED WITH THE PATIENT PAST MEDICAL HISTORY BPH URINARY RETENTION GOUT HTN EDEMA DDD/DJD; SEVERE SPINAL STENOSIS HYPOTHYROIDISM DEPRESSION/ANXIETY HYPERCHOLESTEROLEMIA HYPOKALEMIA SLEEP APNEA VERTIGO INSOMNIA CHRONIC KIDNEY DISEASE OSTEOARTHRITIS VARICOSE VEINS OSTEOARTHRITIS BROKEN LITTLE FINGER ON LEFT HAND ARTHRITIS LEFT KNEE TOOTH ISSUES ALLERGIES SURGICAL TAPE: REMOVES TOP LAYER OF SKIN - SIDE EFFECTS SURGICAL HISTORY ORIF LEFT LEG/ANKLE FRACTURE; PLATES/SCREWS IN PLACE 1992 BILATERAL - 2 TRIGGER FINGER RELEASE/CARPAL CHARO RELEASE/BONE REMOVAL THUMB (LEFT) 2004 TONSILLECTOMY APPENDECTOMY L3-L5 LAMINECTOMY 11/2012 COLONSCOPY 05/2016 CYSTOSCOPY 08/02/2017 RADIO FREQUENCY NERVE CUT IN BACK FEB 2018 RIGHT TRAPEZIECTOMY 06/29/2019 FAMILY HISTORY FATHER: , CHF MOTHER: , HEART ATTACK, DIABETES SIBLINGS: ALIVE DAUGHTER(S): DIAGNOSED WITH OTHER MALIGNANT NEOPLASM OF UNSPECIFIED SITE 1 SON(S) , 4 DAUGHTER(S) . 1 DAUGHTER-BREAST CA1 DAUGHTER-POLY CYSTIC BREAST. SOCIAL HISTORY GENERAL: TOBACCO USE ARE YOU A:NONSMOKER OTHERS AT HOME: SPOUSE, CHILD, CHILDREN. EDUCATION LEVEL OF EDUCATION:NOT FINISHED COLLEGE DIET: REGULAR. LANGUAGE LANGUAGES SPOKEN:SYRIAC DOMESTIC VIOLENCE DO YOU FEEL SAFE IN YOUR ENVIRONMENT?YES RECREATIONAL DRUG USE DRUG USE?NO EXERCISE: NONE. 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 N/A HAS THE PATIENT BEEN EDUCATED REGARDING HIS/HER PLAN OF CARE?YES HAS THE PATIENT BEEN EDUCATED REGARDING PAIN, THE RISK FOR PAIN, THE IMPORTANCE OF EFFECTIVE PAIN MANAGEMENT, AND THE PAIN ASSESSMENT PROCESS?YES LATEX QUESTIONNAIRE LATEX ALLERGY : HAVE YOU EVER DEVELOPED ANY TYPE OF REACTION AFTER HANDLING LATEX PRODUCTS SUCH RUBBER GLOVES, CONDOMS, DIAPHRAGMS, BALLOONS, SOCKS, OR UNDERWEAR?NO PT DOES HAVE ALLERGY TO SURGICAL TAPE LATEX ALLERGY : HAVE YOU EVER DEVELOPED ANY TYPE OF REACTION DURING OR AFTER DENTAL APPOINTMENT, VAGINAL/RECTAL EXAMINATION, SURGICAL PROCEDURE, OR ANY OTHER EXPOSURE?NO DATE ASKED : 09/20/2018 LATEX RISK : HAVE YOU EVER HAD ANY DIFFICULTY BREATHING OR HIVES AFTER EATING OR HANDLING ANY FRUITS, OR VEGETABLES; SUCH KIWI, BANANAS, STONE FRUITS, OR CHESTNUTSNO LATEX RISK : DO YOU HAVE A PREVIOUS PERSONAL HISTORY OF MORE THAN NINE SURGERIES, SPINA BIFIDA, OR REPEATED CATHERIZATIONS? NO LATEX RISK : ARE YOU FREQUENTLY EXPOSED TO LATEX PRODUCTS IN YOUR OCCUPATION?NO CAFFEINE CAFFEINE USE?YES HOW OFTEN AND HOW MUCH? 2-3 CUPS OF TEA PER DAY AND OCCASIONAL COFFEE ADVANCE DIRECTIVE ADVANCE DIRECTIVE DISCUSSED WITH PATIENT:YES HCP - CHARLENE REESE () QUAKER [id number] PENTECOSTALISM MARITAL STATUS: . ALCOHOL SCREENING DID YOU HAVE A DRINK CONTAINING ALCOHOL IN THE PAST YEAR?YES HOW OFTEN DID YOU HAVE SIX OR MORE DRINKS ON ONE OCCASION IN THE PAST YEAR?NEVER (0 POINTS) HOW MANY DRINKS DID YOU HAVE ON A TYPICAL DAY WHEN YOU WERE DRINKING IN THE PAST YEAR?1 OR 2 (0 POINTS) HOW OFTEN DID YOU HAVE A DRINK CONTAINING ALCOHOL IN THE PAST YEAR?MONTHLY OR LESS (1 POINT) POINTS1 INTERPRETATIONNEGATIVE OCCUPATION: RETIRED. REVIEWED WITH PATIENT 02/01/18 1328 JS02/10/18 1225 REVIEWED WITH PT. ADREVIEWED WITH PATIENT 11/15/18 1354 JS06/14/18 REVIEWED WITH PT. 09/20/18 REVIEWED WITH PT 1039 BVREVIEWED WITH PATIENT 02/03/2019 LASREVIEWED WITH PATIENT 11/24/18 1028 JSREVIEWED WITH PT 12/28/18 1315 BV11/03/18 REVIEWED WITH PT LASREVIEWED WITH PATIENT 02/13/19 1433 NLJREVIEWED WITH PATIENT 02/27/19 1315 BVREVIEWED WITH PATIENT 03/17/19 0855 NLJREVIEWED WITH PATIENT 03/27/19 1329 NLJREVIEWED WITH PATIENT 05/29/2019 1353 JS. HOSPITALIZATION/MAJOR DIAGNOSTIC PROCEDURE DIVERTICULITIS X2 SURGERY RELATED DIVERTICULITIS 12/2015 REVIEW OF SYSTEMS REVIEWED BY: PROVIDER: . CONSTITUTIONAL: ANY CHANGE IN YOUR MEDICAL CONDITION? NO . CHILLS NO . FEVER NO . INFECTION: DO YOU HAVE NEW INFECTIONS? NO . DO YOU HAVE HISTORY OF MRSA? NO . MUSCULOSKELETAL: ANY NEW PATTERNS OF PAIN OR NUMBNESS? NO . GASTROENTEROLOGY: ANY NEW CHANGE IN BOWEL CONTROL? NO . GENITOURINARY: ANY NEW CHANGE IN BLADDER CONTROL? NO . IS THERE A CHANCE YOU COULD BE ? NO . HEMATOLOGY/LYMPH: DO YOU TAKE ANY BLOOD THINNERS? (FOR EXAMPLE- COUMADIN, PLAVIX, AGGRENOX, PLATEL, PRADAXA, OR XARELTO) NO . WHEN WAS YOUR LAST DOSE? DATE: TIME: . NEUROLOGY: HAVE YOU FALLEN IN THE PAST 12 MONTHS? NO . ANY NEW EXTREMITY NUMBNESS OR WEAKNESS? NO . CARDIOLOGY: DO YOU HAVE A PACEMAKER OR DEFIBRILLATOR? NO . RESPIRATORY: HAVE YOU BEEN SICK IN THE PAST WEEK? NO . FEVER NO . FLU LIKE SYMPTOMS? NO . COUGH NO . INTEGUMENTARY: DO YOU HAVE ANY RASHES OR OPEN SORES? NO . ALLERGIC/IMMUNO: ARE YOU ALLERGIC TO IV DYE? NO . ANY NEW ALLERGIES? NO . PSYCHIATRIC: DO YOU HAVE THOUGHTS OF HURTING YOURSELF OR SOMEONE ELSE? NO . ARE YOU ABUSED, NEGLECTED, OR IN AN UNSAFE ENVIRONMENT? NO . ENDOCRINOLOGY: ARE YOU DIABETIC? NO . OTHER: DO YOU NEED ANY PRESCRIPTIONS? NO . IF YES, PLEASE LIST: ____ . ANY NEW PROBLEMS WITH YOUR MEDICATIONS? NO . WHEN DID YOU LAST EAT? 07/11/19 1900 . WHEN DID YOU LAST DRINK? 07/11/19 2300 . WHAT DID YOU LAST DRINK? WATER . NAME OF PERSON DRIVING YOU HOME? THERESA . DO YOU HAVE ANY OTHER QUESTIONS OR CONCERNS NO . VITAL SIGNS WT 308 LBS, HT 5'9", BMI 45.48 INDEX, BP 145/73 MM HG, HR 87 /MIN, RR 20 /MIN, TEMP 97.8 F, OXYGEN SAT % 95%, SAFE IN ENV? (Y/N) Y, NA INITIALS MS 1057, REVIEWED BY: EM. ASSESSMENTS SPONDYLOSIS OF LUMBOSACRAL REGION WITHOUT MYELOPATHY OR RADICULOPATHY - M47.817 (PRIMARY) TREATMENT SPONDYLOSIS OF LUMBOSACRAL REGION WITHOUT MYELOPATHY OR RADICULOPATHY SMC FACET BLOCK (PAIN)[id number] PROCEDURES PN LUMBAR FACET BLOCK DIAGNOSTIC PRE PROCEDURE DIAGNOSIS LUMBOSACRAL SPONDYLOSIS POST PROCEDURE DIAGNOSIS LUMBOSACRAL SPONDYLOSIS PROCEDURE RIGHT L5-S1 FACET BLOCK DIAGNOSTIC NUMBER [address] ELLYN VU RN FLOAT NONE ANESTHESIA LOCAL PRE PROCEDURE NOTE THE PATIENT WITH HISTORY OF CHRONIC LOW BACK PAIN. I EVALUATED THE PATIENT AND REVIEWED THE CHART. I WENT OVER THE RISKS, ALTERNATIVES, AND BENEFITS ASSOCIATED WITH THIS PROCEDURE. THE PATIENT WOULD LIKE TO PROCEED AND GAVE CONSENT TO PERFORM THE PROCEDURE. AGREED WITH THE PATIENT WE ARE DOING THIS PROCEDURE TO DETERMINE IF THE PATIENT IS A CANDIDATE FOR A RADIOFREQUENCY ABLATION OF THE FACETS JOINTS. THE PATIENT DENIES UNEXPLAINABLE WEIGHT LOSS, FEVER, CHILLS, OR NEW CHANGES IN URINARY OR BOWEL CONTROL DESCRIPTION OF PROCEDURE THE PATIENT WAS BROUGHT TO THE PROCEDURE ROOM AND PLACED IN THE PRONE POSITION. THE LUMBOSACRAL AREA WAS CLEANED WITH CHLORAPREP SOLUTION AND DRAPED ASEPTICALLY. THE PROCEDURE WAS DONE UNDER STERILE CONDITIONS. I CHECKED LATERALITY AND THE LEVEL WHERE THE PROCEDURE WAS GOING TO BE PERFORMED WITH THE PATIENT AND THE SUPPORTING STAFF AT THE MOMENT OF THE TIME OUT IN THE PROCEDURE ROOM. UNDER FLUOROSCOPIC GUIDANCE, TARGETS WERE SELECTED AT THE INTERSECTION OF THE RIGHT TRANSVERSE PROCESS OF L4, L5 AND ALA OF S1 WITH ITS RESPECTIVE SUPERIOR ARTICULAR PROCESS. LIDOCAINE WAS USED TO NUMB THE SKIN AND THE SUBCUTANEOUS TISSUE BELOW IT. SPINAL NEEDLE, 22-GAUGE WAS ADVANCED UNDER FLUOROSCOPIC GUIDANCE AND FOLLOWING PATIENT FEEDBACK UNTIL THE TARGETS WERE REACHED. POSITION OF THE NEEDLES WAS VERIFIED WITH AP AND LATERAL VIEWS. AFTER PROPER POSITION OF THE NEEDLES WAS ACHIEVED, ISOVUE-M DYE 30% 0.1 ML WAS INJECTED AT EACH SITE SHOWING ADEQUATE SPREAD OF THE DYE. THEN A SOLUTION OF 0.4 ML OF BUPIVACAINE 0.25% WAS INJECTED AT EACH SITE. THERE WAS NO EVIDENCE OF BLOOD, PARESTHESIA OR CEREBROSPINAL FLUID DURING THE PROCEDURE. THE PATIENT WAS SENT TO THE RECOVERY ROOM. THE PATIENT WAS MOVING THE EXTREMITIES AND DOING WELL. THERE WAS NO COMPLICATION DURING THE PROCEDURE. FLUOROSCOPY TIME WAS 35 SECONDS POST PROCEDURE NOTE THE PATIENT WILL DOCUMENT HIS PAIN LEVEL AND RESPONSE TO THIS PROCEDURE EVERY 30 MINUTES. THE PATIENT WILL BE SEEN IN A FOLLOW UP IN THE NEXT FEW WEEKS. FURTHER DETERMINATION FOR HIS CASE WILL BE DONE AT THE NEXT VISIT. INSTRUCTIONS WERE GIVEN, QUESTIONS WERE ANSWERED, AND THE PATIENT EXPRESSED UNDERSTANDING AND AGREED WITH THE PLAN. I, KALEN AGUILAR, DOCUMENTED THE ABOVE INFORMATION ACTING A SCRIBE FOR DR. VU. I HAVE REVIEWED THE ABOVE DOCUMENT, WRITTEN BY KALEN AGUILAR SCRIBSarah Beth AND I VERIFY THAT IT IS ACCURATE. PROCEDURE CODES [id number] INJ PARAVERT F JNT L/S 1 LEV, MODIFIERS: RT 6045F RADXPS IN END [id number] PXD DISPOSITION & COMMUNICATION FOLLOW UP 3 WEEKS ELECTRONICALLY SIGNED BY ELLYN VU MD, MD ON 07/20/2019 AT 12:39 PM EDT DISCLAIMER : THIS IS A VISIT SUMMARY EXTRACTED FROM THE [employer] CHART. IT IS NOT A COPY OF THE [employer] PROGRESS NOTE. MTDD
== END ==
LOC: M PAIN 10:45
PROVIDERS: ATTEND Anesthesiology
DX: M47.817 Spondylosis without myelopathy or radiculopathy, lumbosacral region (principal)
CPT/HCPCS: 64493; Q9967

== ENCOUNTER → 2019-07-26 | Outpatient (CLI) | payer MEDICARE, OTHER ==
[~2019-07-26] MED LIST changes: -BUPIVACAINE HCL 0.25% 30 ML VIAL As Ordered ONE; -ISOVUE-M 300 61% 15ML VIAL (Q9967) As Ordered ONE; -LIDOCAINE 1% SDV INJ 30 ML VIAL As Ordered ONE
--- NOTE | 2019-07-27 03:29 | ECWPNPC ---
PATIENT NAME: ANG MCDERMOTT : 1940 GENDER: MALE VISIT DATE: 07/26/2019 DISCHARGE DATE: 07/26/19 1336 VISIT LOCKED DATE TIME: PHYSICIAN: SHARON LOWRY RESOURCE: SHARON LOWRY REASON FOR APPOINTMENT 1. POST BILAT HISTORY OF PRESENT ILLNESS HISTORY OF PRESENT ILLNESS: PHONE CALL TO PATIENT. HE IS AGREEABLE TO DO TELEPHONE VISIT. HAD RIGHT L5-S1 LUMBAR FACET BLOCK DIAGNOSTIC #2 ON 07/12/2019. REPORTING MARKED REDUCTION IN PAIN A LOT OF WHICH CONTINUES TODAY. RATING PAIN LEVEL A 1/10 VAS. DISCUSSED MEDICATION AND TREATMENT OPTIONS. PAIN THE PATIENT DESCRIBES THE PAIN... FALL RISK SCREENING: SCREENING :NO FALLS REPORTED IN THE LAST YEAR CURRENT MEDICATIONS TAKING ALLOPURINOL 300 MG TABLET 1 TABLET ORALLY ONCE DAILY TAKING ASPIRIN 325 MG TABLET 1 TABLET ORALLY ONCE A DAY TAKING CALCITRIOL 0.25 MCG CAPSULE 1 CAPSULE ORALLY ONCE A DAY TAKING GLUCOSAMINE CHONDROITIN COMPLX 600-250 MG CAPSULE 1 TAB(S) ORALLY BID TAKING LEVOTHYROXINE SODIUM 50 MCG TABLET 1 TABLET ON AN EMPTY STOMACH IN THE MORNING ORALLY ONCE A DAY TAKING MULTIVITAMINS TABLET DIRECTED ORALLY DAILY TAKING POTASSIUM CHLORIDE 20 MEQ TABLET EXTENDED RELEASE 2 TABLETS WITH FOOD ORALLY TWICE A DAY TAKING ZOLPIDEM 10 MG TABLET 1 TAB(S) ORAL AT BEDTIME NEEDED TAKING TORSEMIDE 20 MG TABLET 1 TAB(S) ORALLY 2 IN THE MORNING/ 1 TAB IN AFTERNOON TAKING SERTRALINE HCL 100 MG TABLET 1 TABLET ORALLY ONCE A DAY TAKING SPIRONOLACTONE 25 MG TABLET 1 TABLET ORALLY BID TAKING LABETALOL HCL 100 MG TABLET 1 TAB IN AM, HALF TAB IN AFTERNOON ORALLY BID TAKING CALCIUM 600+D3 600-400 MG-UNIT TABLET 1 TABLET WITH A MEAL ORALLY ONCE A DAY TAKING ALIGN 4 MG CAPSULE ORALLY DAILY TAKING TYLENOL ARTHRITIS PAIN 650 MG TABLET EXTENDED RELEASE 2 TABS ORALLY EVERY 8 HRS TAKING GABAPENTIN 100 MG CAPSULE 1 CAPSULE ORALLY BID TAKING FINASTERIDE 5 MG TABLET 1 TABLET ORALLY ONCE A DAY TAKING FLOMAX 0.4 MG CAPSULE 2 CAPSULES ORALLY ONCE A DAY TAKING NUCYNTA ER 150 MG TABLET EXTENDED RELEASE 12 HOUR 1 TABLET ORALLY EVERY 12 HRS BID MDD2 TAKING SOMA 350 MG TABLET 1 TABLET NEEDED ORALLY Q12H BID MDD2 TAKING SULFASALAZINE 500 MG TABLET DELAYED RELEASE 1 TABLET ORALLY ONCE A DAY TAKING NUCYNTA 75 MG TABLET 1 TABLET ORALLY FOR PAIN EVERY 6 HOURS NEEDED MDD 2 NOT-TAKING OXYBUTYNIN CHLORIDE ER 10 MG TABLET EXTENDED RELEASE 24 HOUR 1 TABLET ORALLY ONCE A DAY NOT-TAKING OTEZLA 30 MG TABLET 1 TABLET ORALLY DAILY NOT-TAKING LEFLUNOMIDE 10 MG TABLET 1 TABLET ORALLY ONCE A DAY NOT-TAKING TRAMADOL HCL 50 MG TABLET 1-2 TAB ORALLY Q4-6H PRN PAIN MDD6 NOT-TAKING VOLTAREN 1 % GEL APPLY TO LEFT KNEE TRANSDERMAL BID NOT-TAKING TYLENOL EXTRA STRENGTH 500 MG TABLET 1 TABLET NEEDED ORALLY EVERY 6 HRS PRN, NOTES: NEW DOSE MEDICATION LIST REVIEWED AND RECONCILED WITH THE PATIENT PAST MEDICAL HISTORY BPH URINARY RETENTION GOUT HTN EDEMA DDD/DJD; SEVERE SPINAL STENOSIS HYPOTHYROIDISM DEPRESSION/ANXIETY HYPERCHOLESTEROLEMIA HYPOKALEMIA SLEEP APNEA VERTIGO INSOMNIA CHRONIC KIDNEY DISEASE OSTEOARTHRITIS VARICOSE VEINS OSTEOARTHRITIS BROKEN LITTLE FINGER ON LEFT HAND ARTHRITIS LEFT KNEE TOOTH ISSUES ALLERGIES SURGICAL TAPE: REMOVES TOP LAYER OF SKIN - SIDE EFFECTS SURGICAL HISTORY ORIF LEFT LEG/ANKLE FRACTURE; PLATES/SCREWS IN PLACE 1992 BILATERAL - 2 TRIGGER FINGER RELEASE/CARPAL CHARO RELEASE/BONE REMOVAL THUMB (LEFT) 2004 TONSILLECTOMY APPENDECTOMY L3-L5 LAMINECTOMY 11/2012 COLONSCOPY 05/2016 CYSTOSCOPY 08/02/2017 RADIO FREQUENCY NERVE CUT IN BACK FEB 2018 RIGHT TRAPEZIECTOMY 06/29/2019 FAMILY HISTORY FATHER: , CHF MOTHER: , HEART ATTACK, DIABETES SIBLINGS: ALIVE DAUGHTER(S): DIAGNOSED WITH OTHER MALIGNANT NEOPLASM OF UNSPECIFIED SITE 1 SON(S) , 4 DAUGHTER(S) . 1 DAUGHTER-BREAST CA1 DAUGHTER-POLY CYSTIC BREAST. SOCIAL HISTORY GENERAL: TOBACCO USE ARE YOU A:NONSMOKER OTHERS AT HOME: SPOUSE, CHILD, CHILDREN. EDUCATION LEVEL OF EDUCATION:NOT FINISHED COLLEGE DIET: REGULAR. LANGUAGE LANGUAGES SPOKEN:YAKUT DOMESTIC VIOLENCE DO YOU FEEL SAFE IN YOUR ENVIRONMENT?YES NEW PATIENT PAIN DIARY TODAY'S VISITNOTES 07/26/2019 PATIENT DESCRIBES PAIN :ACHING DULL ACHE FROM 0-10, WHAT LEVEL IS YOUR PAIN TODAY?1 RECREATIONAL DRUG USE DRUG USE?NO EXERCISE: NONE. 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 N/A HAS THE PATIENT BEEN EDUCATED REGARDING HIS/HER PLAN OF CARE?YES HAS THE PATIENT BEEN EDUCATED REGARDING PAIN, THE RISK FOR PAIN, THE IMPORTANCE OF EFFECTIVE PAIN MANAGEMENT, AND THE PAIN ASSESSMENT PROCESS?YES LATEX QUESTIONNAIRE LATEX ALLERGY : HAVE YOU EVER DEVELOPED ANY TYPE OF REACTION AFTER HANDLING LATEX PRODUCTS SUCH RUBBER GLOVES, CONDOMS, DIAPHRAGMS, BALLOONS, SOCKS, OR UNDERWEAR?NO PT DOES HAVE ALLERGY TO SURGICAL TAPE LATEX ALLERGY : HAVE YOU EVER DEVELOPED ANY TYPE OF REACTION DURING OR AFTER DENTAL APPOINTMENT, VAGINAL/RECTAL EXAMINATION, SURGICAL PROCEDURE, OR ANY OTHER EXPOSURE?NO LATEX RISK : HAVE YOU EVER HAD ANY DIFFICULTY BREATHING OR HIVES AFTER EATING OR HANDLING ANY FRUITS, OR VEGETABLES; SUCH KIWI, BANANAS, STONE FRUITS, OR CHESTNUTSNO LATEX RISK : DO YOU HAVE A PREVIOUS PERSONAL HISTORY OF MORE THAN NINE SURGERIES, SPINA BIFIDA, OR REPEATED CATHERIZATIONS? NO LATEX RISK : ARE YOU FREQUENTLY EXPOSED TO LATEX PRODUCTS IN YOUR OCCUPATION?NO DATE ASKED : 09/20/2018 CAFFEINE CAFFEINE USE?YES HOW OFTEN AND HOW MUCH? 2-3 CUPS OF TEA PER DAY AND OCCASIONAL COFFEE ADVANCE DIRECTIVE ADVANCE DIRECTIVE DISCUSSED WITH PATIENT:YES HCP - CHARLENE REESE () QUAKER [id number] CONFUCIANISM MARITAL STATUS: . ALCOHOL SCREENING DID YOU HAVE A DRINK CONTAINING ALCOHOL IN THE PAST YEAR?YES HOW OFTEN DID YOU HAVE SIX OR MORE DRINKS ON ONE OCCASION IN THE PAST YEAR?NEVER (0 POINTS) HOW MANY DRINKS DID YOU HAVE ON A TYPICAL DAY WHEN YOU WERE DRINKING IN THE PAST YEAR?1 OR 2 (0 POINTS) HOW OFTEN DID YOU HAVE A DRINK CONTAINING ALCOHOL IN THE PAST YEAR?MONTHLY OR LESS (1 POINT) POINTS1 INTERPRETATIONNEGATIVE OCCUPATION: RETIRED. HOSPITALIZATION/MAJOR DIAGNOSTIC PROCEDURE DIVERTICULITIS X2 SURGERY RELATED DIVERTICULITIS 12/2015 REVIEW OF SYSTEMS REVIEWED BY: PROVIDER: SHARON CABRERA . CONSTITUTIONAL: ANY CHANGE IN YOUR MEDICAL CONDITION? NO . CHILLS NO . FEVER NO . INFECTION: DO YOU HAVE NEW INFECTIONS? NO . DO YOU HAVE HISTORY OF MRSA? NO . MUSCULOSKELETAL: ANY NEW PATTERNS OF PAIN OR NUMBNESS? NO . GASTROENTEROLOGY: ANY NEW CHANGE IN BOWEL CONTROL? NO . GENITOURINARY: ANY NEW CHANGE IN BLADDER CONTROL? NO . IS THERE A CHANCE YOU COULD BE ? NO . HEMATOLOGY/LYMPH: DO YOU TAKE ANY BLOOD THINNERS? (FOR EXAMPLE- COUMADIN, PLAVIX, AGGRENOX, PLATEL, PRADAXA, OR XARELTO) NO . WHEN WAS YOUR LAST DOSE? DATE: TIME: . NEUROLOGY: HAVE YOU FALLEN IN THE PAST 12 MONTHS? NO . ANY NEW EXTREMITY NUMBNESS OR WEAKNESS? NO . CARDIOLOGY: DO YOU HAVE A PACEMAKER OR DEFIBRILLATOR? NO . RESPIRATORY: HAVE YOU BEEN SICK IN THE PAST WEEK? NO . FEVER NO . FLU LIKE SYMPTOMS? NO . COUGH NO . INTEGUMENTARY: DO YOU HAVE ANY RASHES OR OPEN SORES? NO . ALLERGIC/IMMUNO: ARE YOU ALLERGIC TO IV DYE? NO . ANY NEW ALLERGIES? NO . PSYCHIATRIC: DO YOU HAVE THOUGHTS OF HURTING YOURSELF OR SOMEONE ELSE? NO . ARE YOU ABUSED, NEGLECTED, OR IN AN UNSAFE ENVIRONMENT? NO . ENDOCRINOLOGY: ARE YOU DIABETIC? NO . OTHER: DO YOU NEED ANY PRESCRIPTIONS? NO . IF YES, PLEASE LIST: ____ . ANY NEW PROBLEMS WITH YOUR MEDICATIONS? NO . WHEN DID YOU LAST EAT? ____ . WHEN DID YOU LAST DRINK? ____ . WHAT DID YOU LAST DRINK? ____ . NAME OF PERSON DRIVING YOU HOME? ____ . DO YOU HAVE ANY OTHER QUESTIONS OR CONCERNS NO . ASSESSMENTS SPONDYLOSIS OF LUMBOSACRAL REGION WITHOUT MYELOPATHY OR RADICULOPATHY - M47.817 (PRIMARY) TREATMENT SPONDYLOSIS OF LUMBOSACRAL REGION WITHOUT MYELOPATHY OR RADICULOPATHY REFILL GABAPENTIN CAPSULE, 100 MG, 1 CAPSULE, ORALLY, BID, 30 DAY(S), 60, REFILLS 5 REFILL NUCYNTA ER TABLET EXTENDED RELEASE 12 HOUR, 150 MG, 1 TABLET, ORALLY, EVERY 12 HRS BID MDD2, 30 DAYS, 60, REFILLS 0 CONTINUE SOMA TABLET, 350 MG, 1 TABLET NEEDED, ORALLY, Q12H BID MDD2 CONTINUE NUCYNTA TABLET, 75 MG, 1 TABLET, ORALLY FOR PAIN, EVERY 6 HOURS NEEDED MDD 2 NOTES: CONTINUE HOME EXERCISE AND STRETCHING. THIS TELEPHONE VISIT IS BEING BILLED ON TIME SPENT ON THE PHONE. I SPENT APPROXIMATELY 11 MINUTES IN, PHONE CONSULT WITH PATIENT. DISPOSITION & COMMUNICATION FOLLOW UP 2 MONTHS (REASON: LBP) ELECTRONICALLY SIGNED BY RICK VARELA ON 07/26/2019 AT 03:31 PM EDT DISCLAIMER : THIS IS A VISIT SUMMARY EXTRACTED FROM THE [email or web address] CHART. IT IS NOT A COPY OF THE [email or web address] PROGRESS NOTE. HECTOR
== END ==
LOC: M PAIN 10:45
PROVIDERS: ATTEND Nurse Practitioner Family
DX: M47.817 Spondylosis without myelopathy or radiculopathy, lumbosacral region (principal); N40.1 Benign prostatic hyperplasia with lower urinary tract symptoms; R33.9 Retention of urine, unspecified; M10.9 Gout, unspecified; I12.9 Hypertensive chronic kidney disease with stage 1 through stage 4 chronic kidney disease, or unspecified chronic kidney disease; E03.9 Hypothyroidism, unspecified; F32.9 Major depressive disorder, single episode, unspecified; F41.9 Anxiety disorder, unspecified; E78.00 Pure hypercholesterolemia, unspecified; E87.6 Hypokalemia; G47.30 Sleep apnea, unspecified; R42 Dizziness and giddiness; N18.9 Chronic kidney disease, unspecified; M19.90 Unspecified osteoarthritis, unspecified site; Z79.82 Long term (current) use of aspirin; Z79.899 Other long term (current) drug therapy; Z91.048 Other nonmedicinal substance allergy status

== ENCOUNTER → 2019-09-25 | Outpatient (CLI) | payer MEDICARE, OTHER ==
--- NOTE | 2019-09-27 03:14 | ECWPNPC ---
PATIENT NAME: ANG MCDERMOTT : 1940 GENDER: MALE VISIT DATE: 09/25/2019 DISCHARGE DATE: 09/25/19 1125 VISIT LOCKED DATE TIME: PHYSICIAN: SHARON LOWRY RESOURCE: SHARON LOWRY REASON FOR APPOINTMENT 1. BACK; [phone] HISTORY OF PRESENT ILLNESS GENERAL: PATIENT IS AGREEABLE TO TELEPHONE VISIT TODAY. PAIN ACROSS LOW BACK HAS INCREASED LATELY. HAD DIAGNOSTIC NUMBER TO RIGHT LUMBAR L5-S1 DIAGNOSTIC BLOCK SEVERAL WEEKS AGO AND DID WELL FOR OVER 48 HOURS AND THEN PAIN HAS GRADUALLY RETURNED TO BASELINE. DISCUSSED RADIOFREQUENCY PROCEDURE. PATIENT WOULD LIKE TO PROCEED. -. FALL RISK SCREENING: SCREENING :TWO OR MORE FALLS WITHOUT INJURY IN THE PAST YEAR PAIN SCREENING: PATIENT HAS A COMPLAINT OF ACUTE OR CHRONIC PAIN :YES LOCATION OF PAIN:LOW BACK INTENSITY OF PAIN (SCALE OF 1 TO 10):3 AVERAGE 2-9 DEMENDING ON MOVEMENT WHAT DOES YOUR PAIN FEEL LIKE:CONTINOUS, OTHER VARIES IN INTENSITY, IT IS 2-3 IF JUST SITTING BUT GOES UP TO 9 WITH MOVEMENT LEGS GO NUMB AT TIMES DURATION:CONTINOUS PAIN IS INCREASED BY: ACTIVITY PAIN IS DECREASED BY: REST PLAN/GOALS/TREATMENT/INTERVENTION/FOLLOW UP:SEE PLAN NURSING NOTE: -. PAIN CENTER INTAKE QUESTIONS: DO YOU HAVE A HISTORY OF MRSA? :NO DO YOU TAKE A BLOOD THINNERS? :NO DO YOU HAVE ANY BLEEDING DISORDERS? :NO ANY NEW NUMBNESS OR WEAKNESS IN YOUR LEGS OR ARMS? :NO ANY PACEMAKER,DEFIBRILLATOR, OR DORSAL COLUMN STIMULATOR? :NO DO YOU HAVE ANY RASHES OR OPEN SORES? :NO ARE YOU ALLERGIC TO IV DYE? :NO ARE YOU DIABETIC? :NO ANY NEW PROBLEMS WITH YOUR MEDICATIONS? :NO HAVE YOU RECEIVED A VACCINE IN THE PAST 30 DAYS? :NO DO YOU PLAN TO RECEIVE A VACCINE IN THE NEXT 21 DAYS? :NO DO YOU NEED ANY PRESCRIPTION? :NO DO YOU TAKE ANY IMMUNOSUPPRESSIVE MEDICATIONS? :NO CURRENT MEDICATIONS TAKING ALLOPURINOL 300 MG TABLET 1 TABLET ORALLY ONCE DAILY TAKING ASPIRIN 325 MG TABLET 1 TABLET ORALLY ONCE A DAY TAKING CALCITRIOL 0.25 MCG CAPSULE 1 CAPSULE ORALLY ONCE A DAY TAKING GLUCOSAMINE CHONDROITIN COMPLX 600-250 MG CAPSULE 1 TAB(S) ORALLY BID TAKING LEVOTHYROXINE SODIUM 50 MCG TABLET 1 TABLET ON AN EMPTY STOMACH IN THE MORNING ORALLY ONCE A DAY TAKING MULTIVITAMINS TABLET DIRECTED ORALLY DAILY TAKING POTASSIUM CHLORIDE 20 MEQ TABLET EXTENDED RELEASE 2 TABLETS WITH FOOD ORALLY TWICE A DAY TAKING ZOLPIDEM 10 MG TABLET 1 TAB(S) ORAL AT BEDTIME NEEDED TAKING TORSEMIDE 20 MG TABLET 1 TAB(S) ORALLY 2 IN THE MORNING/ 1 TAB IN AFTERNOON TAKING SERTRALINE HCL 100 MG TABLET 1 TABLET ORALLY ONCE A DAY TAKING SPIRONOLACTONE 25 MG TABLET 1 TABLET ORALLY BID TAKING LABETALOL HCL 100 MG TABLET 1 TAB IN AM, HALF TAB IN AFTERNOON ORALLY BID TAKING CALCIUM 600+D3 600-400 MG-UNIT TABLET 1 TABLET WITH A MEAL ORALLY ONCE A DAY TAKING ALIGN 4 MG CAPSULE ORALLY DAILY TAKING TYLENOL ARTHRITIS PAIN 650 MG TABLET EXTENDED RELEASE 2 TABS ORALLY EVERY 8 HRS TAKING FINASTERIDE 5 MG TABLET 1 TABLET ORALLY ONCE A DAY TAKING SULFASALAZINE 500 MG TABLET DELAYED RELEASE 1 TABLET ORALLY ONCE A DAY TAKING GABAPENTIN 100 MG CAPSULE 1 CAPSULE ORALLY BID TAKING NUCYNTA ER 150 MG TABLET EXTENDED RELEASE 12 HOUR 1 TABLET ORALLY EVERY 12 HRS BID MDD2 TAKING SOMA 350 MG TABLET 1 TABLET NEEDED ORALLY Q12H BID MDD2 TAKING FLOMAX 0.4 MG CAPSULE 2 CAPSULES ORALLY ONCE A DAY TAKING NUCYNTA 75 MG TABLET 1 TABLET ORALLY FOR PAIN EVERY 6 HOURS NEEDED MDD 2 NOT-TAKING OXYBUTYNIN CHLORIDE ER 10 MG TABLET EXTENDED RELEASE 24 HOUR 1 TABLET ORALLY ONCE A DAY NOT-TAKING OTEZLA 30 MG TABLET 1 TABLET ORALLY DAILY NOT-TAKING LEFLUNOMIDE 10 MG TABLET 1 TABLET ORALLY ONCE A DAY NOT-TAKING TRAMADOL HCL 50 MG TABLET 1-2 TAB ORALLY Q4-6H PRN PAIN MDD6 NOT-TAKING VOLTAREN 1 % GEL APPLY TO LEFT KNEE TRANSDERMAL BID NOT-TAKING TYLENOL EXTRA STRENGTH 500 MG TABLET 1 TABLET NEEDED ORALLY EVERY 6 HRS PRN, NOTES: NEW DOSE MEDICATION LIST REVIEWED AND RECONCILED WITH THE PATIENT PAST MEDICAL HISTORY BPH URINARY RETENTION GOUT HTN EDEMA DDD/DJD; SEVERE SPINAL STENOSIS HYPOTHYROIDISM DEPRESSION/ANXIETY HYPERCHOLESTEROLEMIA HYPOKALEMIA SLEEP APNEA VERTIGO INSOMNIA CHRONIC KIDNEY DISEASE OSTEOARTHRITIS VARICOSE VEINS OSTEOARTHRITIS BROKEN LITTLE FINGER ON LEFT HAND ARTHRITIS LEFT KNEE TOOTH ISSUES ALLERGIES SURGICAL TAPE: REMOVES TOP LAYER OF SKIN - SIDE EFFECTS SURGICAL HISTORY ORIF LEFT LEG/ANKLE FRACTURE; PLATES/SCREWS IN PLACE 1992 BILATERAL - 2 TRIGGER FINGER RELEASE/CARPAL CHARO RELEASE/BONE REMOVAL THUMB (LEFT) 2004 TONSILLECTOMY APPENDECTOMY L3-L5 LAMINECTOMY 11/2012 COLONSCOPY 05/2016 CYSTOSCOPY 08/02/2017 RADIO FREQUENCY NERVE CUT IN BACK FEB 2018 RIGHT TRAPEZIECTOMY 06/29/2019 FAMILY HISTORY FATHER: , CHF MOTHER: , HEART ATTACK, DIABETES SIBLINGS: ALIVE DAUGHTER(S): DIAGNOSED WITH OTHER MALIGNANT NEOPLASM OF UNSPECIFIED SITE 1 SON(S) , 4 DAUGHTER(S) . 1 DAUGHTER-BREAST CA1 DAUGHTER-POLY CYSTIC BREAST. SOCIAL HISTORY GENERAL: TOBACCO USE ARE YOU A:NONSMOKER LATEX QUESTIONNAIRE LATEX ALLERGY : HAVE YOU EVER DEVELOPED ANY TYPE OF REACTION AFTER HANDLING LATEX PRODUCTS SUCH RUBBER GLOVES, CONDOMS, DIAPHRAGMS, BALLOONS, SOCKS, OR UNDERWEAR?NO PT DOES HAVE ALLERGY TO SURGICAL TAPE LATEX ALLERGY : HAVE YOU EVER DEVELOPED ANY TYPE OF REACTION DURING OR AFTER DENTAL APPOINTMENT, VAGINAL/RECTAL EXAMINATION, SURGICAL PROCEDURE, OR ANY OTHER EXPOSURE?NO LATEX RISK : HAVE YOU EVER HAD ANY DIFFICULTY BREATHING OR HIVES AFTER EATING OR HANDLING ANY FRUITS, OR VEGETABLES; SUCH KIWI, BANANAS, STONE FRUITS, OR CHESTNUTSNO LATEX RISK : DO YOU HAVE A PREVIOUS PERSONAL HISTORY OF MORE THAN NINE SURGERIES, SPINA BIFIDA, OR REPEATED CATHERIZATIONS? NO LATEX RISK : ARE YOU FREQUENTLY EXPOSED TO LATEX PRODUCTS IN YOUR OCCUPATION?NO DATE ASKED : 09/25/2019 ALCOHOL SCREENING DID YOU HAVE A DRINK CONTAINING ALCOHOL IN THE PAST YEAR?YES HOW OFTEN DID YOU HAVE SIX OR MORE DRINKS ON ONE OCCASION IN THE PAST YEAR?NEVER (0 POINTS) HOW MANY DRINKS DID YOU HAVE ON A TYPICAL DAY WHEN YOU WERE DRINKING IN THE PAST YEAR?1 OR 2 (0 POINTS) HOW OFTEN DID YOU HAVE A DRINK CONTAINING ALCOHOL IN THE PAST YEAR?MONTHLY OR LESS (1 POINT) POINTS1 INTERPRETATIONNEGATIVE RECREATIONAL DRUG USE DRUG USE?NO CAFFEINE CAFFEINE USE?YES HOW OFTEN AND HOW MUCH? 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 DIET: REGULAR. EXERCISE: NONE. MARITAL STATUS: . OTHERS AT HOME: SPOUSE, CHILD, CHILDREN. NEW PATIENT PAIN DIARY TODAY'S VISIT NOTES 07/26/2019, PATIENT DESCRIBES PAIN : ACHING DULL ACHE, FROM 0-10, WHAT LEVEL IS YOUR PAIN TODAY? 1. PAIN CLINIC PFS, CLERGY, PUBLIC HEALTH REFERRALS PFS REFERRAL NEEDED?NO CLERGY REFERRAL NEEDED?NO PUBLIC HEALTH REFERRAL NEEDED?NO WAS THE PROVIDER NOTIFIED OF ANY PERTINENT INFO? N/A HAS THE PATIENT BEEN EDUCATED REGARDING HIS/HER PLAN OF CARE?YES HAS THE PATIENT BEEN EDUCATED REGARDING PAIN, THE RISK FOR PAIN, THE IMPORTANCE OF EFFECTIVE PAIN MANAGEMENT, AND THE PAIN ASSESSMENT PROCESS?YES ADVANCE DIRECTIVE ADVANCE DIRECTIVE DISCUSSED WITH PATIENT:YES HCP - CHARLENE REESE () HOSPITALIZATION/MAJOR DIAGNOSTIC PROCEDURE DIVERTICULITIS X2 SURGERY RELATED DIVERTICULITIS 12/2015 REVIEW OF SYSTEMS CONSTITUTIONAL: ANY RECENT FEVER OR ILLNESS NO . CHILLS NO . GASTROENTEROLOGY: BOWEL INCONTINENCE NO . ANY NEW CHANGE IN BOWEL CONTROL? NO . ABDOMINAL PAIN NO . CONSTIPATION NO . GENITOURINARY: ANY NEW CHANGE IN BLADDER CONTROL? NO . IS THERE A CHANCE YOU COULD BE ? NO . URINARY INCONTINENCE NO . CARDIOLOGY: CHEST PRESSURE NO . CHEST PAIN NO . RESPIRATORY: COUGH NO . SHORTNESS OF BREATH NO . ASSESSMENTS SPONDYLOSIS OF LUMBOSACRAL REGION WITHOUT MYELOPATHY OR RADICULOPATHY - M47.817 (PRIMARY) TREATMENT SPONDYLOSIS OF LUMBOSACRAL REGION WITHOUT MYELOPATHY OR RADICULOPATHY NOTES: RADIOFREQUENCY RIGHT L5-S1 TOTAL TIME SPENT DURING TELEPHONE VISIT WAS APPROXIMATELY 12 MINUTES. OTHERS NOTES: DUE TO VIRTUAL APPT. V/S NOT DONE. PREVENTIVE MEDICINE PAIN CLINIC TEACHING: PROCEDURE TEACHING I CALLED PATIENT AND REVIEWED PRE-PROCEDURE INSTRUCTIONS WITH HIM AND HE VERBALIZED UNDERSTANDING. PATIENT STATED HE WAS FAMILIAR WITH THE PROCEDURE AND DIDN'T HAVE ANY QUESTIONS REGARDING IT. INSTRUSTIONS WERE MAILED TO PATIENT. AD. DISPOSITION & COMMUNICATION FOLLOW UP POST-IN CLINIC (REASON: RADIOFREQUENCY RIGHT L5-S1) ELECTRONICALLY SIGNED BY RICK VARELA ON 09/26/2019 AT 08:43 AM EDT DISCLAIMER : THIS IS A VISIT SUMMARY EXTRACTED FROM THE [employer] CHART. IT IS NOT A COPY OF THE [employer] PROGRESS NOTE. HECTOR
== END ==
LOC: M PAIN 10:00
PROVIDERS: ATTEND Nurse Practitioner Family
DX: M47.817 Spondylosis without myelopathy or radiculopathy, lumbosacral region (principal); I10 Essential (primary) hypertension; E03.9 Hypothyroidism, unspecified; Z86.59 Personal history of other mental and behavioral disorders; G47.30 Sleep apnea, unspecified; G47.00 Insomnia, unspecified; Z91.09 Other allergy status, other than to drugs and biological substances; Z79.82 Long term (current) use of aspirin; Z79.891 Long term (current) use of opiate analgesic; Z79.899 Other long term (current) drug therapy

== ENCOUNTER → 2019-10-02 | Outpatient (CLI) | payer MEDICARE, OTHER | LOC: M LABSMTC 10:27 | PROVIDERS: ATTEND Anesthesiology | DX: Z03.818 Encounter for observation for suspected exposure to other biological agents ruled out (principal); Z11.59 Encounter for screening for other viral diseases | CPT/HCPCS: C9803; U0003 ==

== ENCOUNTER → 2019-10-05 | Outpatient (CLI) | payer MEDICARE, OTHER ==
[~2019-10-05] MED LIST changes: +BUPIVACAINE HCL 0.25% 30ML VIAL As Ordered ONE; +LIDOCAINE 1% SDV 30ML VIAL As Ordered ONE; +dexameTHASONE 10MG/1ML VIAL PRES.FREE (J1100 PER 1MG) As Ordered ONE; +oxyCODONE 5MG TAB As Ordered ONE
--- NOTE | 2019-10-05 17:37 | REP ---
C-ARM VIEWS LOWER LUMBAR SPINE: CLINICAL HISTORY: Pain. Multiple C-arm views lower lumbar spine performed during injection performed by Dr. Holcomb. Keeling are seen along the lower lumbar spine. 48 seconds fluoroscopy time utilized. Electronically Signed by Se Mobley MD 10/10/2019 06:17 P
--- NOTE | 2019-10-06 00:43 | ECWPNPC ---
PATIENT NAME: ANG MCDERMOTT : 1940 GENDER: MALE VISIT DATE: 10/05/2019 DISCHARGE DATE: 10/05/19 1319 VISIT LOCKED DATE TIME: PHYSICIAN: ELLYN VU MD RESOURCE: ELLYN VU MD REASON FOR APPOINTMENT 1. RADIOFREQUENCY RIGHT L5-S1 PAT COMPLETE AND IS COMING WITH HISTORY OF PRESENT ILLNESS GENERAL: -. FALL RISK SCREENING: SCREENING :NO FALLS REPORTED IN THE LAST YEAR PAIN SCREENING: PATIENT HAS A COMPLAINT OF ACUTE OR CHRONIC PAIN :YES LOCATION OF PAIN:MID BACK INTENSITY OF PAIN (SCALE OF 1 TO 10):8 WHAT DOES YOUR PAIN FEEL LIKE:BURNING DURATION:CONTINOUS PAIN IS INCREASED BY:PROLONGED STANDING LEVEL OF RELIEF FROM PAIN TREATMENTS IN THE PAST: PT HAS LESS PAIN WHEN SITTING NURSING NOTE: -. PAIN CENTER INTAKE QUESTIONS: DO YOU HAVE A HISTORY OF MRSA? :NO DO YOU TAKE A BLOOD THINNERS? :NO DO YOU HAVE ANY BLEEDING DISORDERS? :NO ANY NEW NUMBNESS OR WEAKNESS IN YOUR LEGS OR ARMS? :NO ANY PACEMAKER,DEFIBRILLATOR, OR DORSAL COLUMN STIMULATOR? :NO DO YOU HAVE ANY RASHES OR OPEN SORES? :NO ARE YOU ALLERGIC TO IV DYE? :NO ARE YOU DIABETIC? :NO ANY NEW PROBLEMS WITH YOUR MEDICATIONS? :NO HAVE YOU RECEIVED A VACCINE IN THE PAST 30 DAYS? :NO DO YOU PLAN TO RECEIVE A VACCINE IN THE NEXT 21 DAYS? :NO DO YOU TAKE ANY IMMUNOSUPPRESSIVE MEDICATIONS? :NO ANY HISTORY OF SEIZURES? :NO ANY HISTORY OF CARDIAC ISSUES OR EVENTS? :NO DO YOU HAVE SLEEP APNEA? :YES BIPAP. ANY RECENT HEAD INJURY? :NO DO YOU HAVE ANY NEW INFECTIONS? :NO IS THERE A CHANCE YOU COULD BE ? :NO ARE YOU BREAST FEEDING? :NO WHEN DID YOU LAST EAT? : -10/04/19 1900 WHEN DID YOU LAST DRINK? : -10/05/19899 WHAT DID YOU LAST DRINK? : -WATER NAME OF PERSON DRIVING YOU HOME? : -THERESA DO YOU HAVE ANY OTHER QUESTIONS OR CONCERNS? : -NO CURRENT MEDICATIONS TAKING ALLOPURINOL 300 MG TABLET 1 TABLET ORALLY ONCE DAILY, NOTES: 10/05/19899 TAKING ASPIRIN 325 MG TABLET 1 TABLET ORALLY ONCE A DAY, NOTES: 10/04/19 2300 TAKING CALCITRIOL 0.25 MCG CAPSULE 1 CAPSULE ORALLY ONCE A DAY, NOTES: 10/05/19899 TAKING GLUCOSAMINE CHONDROITIN COMPLX 600-250 MG CAPSULE 1 TAB(S) ORALLY BID, NOTES: 10/05/19899 TAKING LEVOTHYROXINE SODIUM 50 MCG TABLET 1 TABLET ON AN EMPTY STOMACH IN THE MORNING ORALLY ONCE A DAY, NOTES: 10/05/19899 TAKING MULTIVITAMINS TABLET DIRECTED ORALLY DAILY, NOTES: 10/05/19899 TAKING POTASSIUM CHLORIDE 20 MEQ TABLET EXTENDED RELEASE 1 TABLETS WITH FOOD ORALLY TWICE A DAY, NOTES: 10/05/19899 TAKING ZOLPIDEM 10 MG TABLET 1 TAB(S) ORAL AT BEDTIME NEEDED, NOTES: 10/04/192299 TAKING TORSEMIDE 20 MG TABLET 1 TAB(S) ORALLY 2 IN THE MORNING/ 1 TAB IN AFTERNOON, NOTES: 10/04/191799 TAKING SERTRALINE HCL 100 MG TABLET 1 TABLET ORALLY ONCE A DAY, NOTES: 10/05/19899 TAKING SPIRONOLACTONE 25 MG TABLET 1 TABLET ORALLY BID, NOTES: 10/04/191799 TAKING LABETALOL HCL 100 MG TABLET 1 TAB IN AM, HALF TAB IN AFTERNOON ORALLY BID, NOTES: 10/04/192299 TAKING CALCIUM 600+D3 600-400 MG-UNIT TABLET 1 TABLET WITH A MEAL ORALLY ONCE A DAY, NOTES: 10/04/191799 TAKING ALIGN 4 MG CAPSULE ORALLY DAILY, NOTES: 10/05/19899 TAKING TYLENOL ARTHRITIS PAIN 650 MG TABLET EXTENDED RELEASE 2 TABS ORALLY EVERY 8 HRS, NOTES: 10/04/192299 TAKING FINASTERIDE 5 MG TABLET 1 TABLET ORALLY ONCE A DAY, NOTES: 10/04/192299 TAKING SULFASALAZINE 500 MG TABLET DELAYED RELEASE 1 TABLET ORALLY ONCE A DAY, NOTES: 10/05/19899 TAKING GABAPENTIN 100 MG CAPSULE 1 CAPSULE ORALLY BID, NOTES: 10/05/19899 TAKING NUCYNTA ER 150 MG TABLET EXTENDED RELEASE 12 HOUR 1 TABLET ORALLY EVERY 12 HRS BID MDD2, NOTES: 10/03 TAKING FLOMAX 0.4 MG CAPSULE 2 CAPSULES ORALLY ONCE A DAY, NOTES: 10/04/19 1800 TAKING NUCYNTA 75 MG TABLET 1 TABLET ORALLY FOR PAIN EVERY 6 HOURS NEEDED MDD 2, NOTES: 10/04/19 1300 TAKING SOMA 350 MG TABLET 1 TABLET NEEDED ORALLY Q12H BID MDD2, NOTES: 10/04/192299 TAKING VITAMIN D3 ULTRA STRENGTH ORALLY DAILY, NOTES: 10/04/19 1800 NOT-TAKING OXYBUTYNIN CHLORIDE ER 10 MG TABLET EXTENDED RELEASE 24 HOUR 1 TABLET ORALLY ONCE A DAY NOT-TAKING OTEZLA 30 MG TABLET 1 TABLET ORALLY DAILY NOT-TAKING LEFLUNOMIDE 10 MG TABLET 1 TABLET ORALLY ONCE A DAY NOT-TAKING TRAMADOL HCL 50 MG TABLET 1-2 TAB ORALLY Q4-6H PRN PAIN MDD6 NOT-TAKING VOLTAREN 1 % GEL APPLY TO LEFT KNEE TRANSDERMAL BID NOT-TAKING TYLENOL EXTRA STRENGTH 500 MG TABLET 1 TABLET NEEDED ORALLY EVERY 6 HRS PRN, NOTES: NEW DOSE MEDICATION LIST REVIEWED AND RECONCILED WITH THE PATIENT PAST MEDICAL HISTORY BPH URINARY RETENTION GOUT HTN EDEMA DDD/DJD; SEVERE SPINAL STENOSIS HYPOTHYROIDISM DEPRESSION/ANXIETY HYPERCHOLESTEROLEMIA HYPOKALEMIA SLEEP APNEA VERTIGO INSOMNIA CHRONIC KIDNEY DISEASE OSTEOARTHRITIS VARICOSE VEINS OSTEOARTHRITIS BROKEN LITTLE FINGER ON LEFT HAND ARTHRITIS LEFT KNEE TOOTH ISSUES ALLERGIES SURGICAL TAPE: REMOVES TOP LAYER OF SKIN - SIDE EFFECTS SURGICAL HISTORY ORIF LEFT LEG/ANKLE FRACTURE; PLATES/SCREWS IN PLACE 1992 BILATERAL - 2 TRIGGER FINGER RELEASE/CARPAL CHARO RELEASE/BONE REMOVAL THUMB (LEFT) 2004 TONSILLECTOMY APPENDECTOMY L3-L5 LAMINECTOMY 11/2012 COLONSCOPY 05/2016 CYSTOSCOPY 08/02/2017 RADIO FREQUENCY FEB 2018 FAMILY HISTORY FATHER: , CHF MOTHER: , HEART ATTACK, DIABETES SIBLINGS: ALIVE DAUGHTER(S): DIAGNOSED WITH OTHER MALIGNANT NEOPLASM OF UNSPECIFIED SITE 1 SON(S) , 4 DAUGHTER(S) . 1 DAUGHTER-BREAST CA1 DAUGHTER-POLY CYSTIC BREAST. SOCIAL HISTORY GENERAL: TOBACCO USE ARE YOU A:NONSMOKER LATEX QUESTIONNAIRE LATEX ALLERGY : HAVE YOU EVER DEVELOPED ANY TYPE OF REACTION AFTER HANDLING LATEX PRODUCTS SUCH RUBBER GLOVES, CONDOMS, DIAPHRAGMS, BALLOONS, SOCKS, OR UNDERWEAR?NO PT DOES HAVE ALLERGY TO SURGICAL TAPE LATEX ALLERGY : HAVE YOU EVER DEVELOPED ANY TYPE OF REACTION DURING OR AFTER DENTAL APPOINTMENT, VAGINAL/RECTAL EXAMINATION, SURGICAL PROCEDURE, OR ANY OTHER EXPOSURE?NO DATE ASKED : 09/20/2018 LATEX RISK : HAVE YOU EVER HAD ANY DIFFICULTY BREATHING OR HIVES AFTER EATING OR HANDLING ANY FRUITS, OR VEGETABLES; SUCH KIWI, BANANAS, STONE FRUITS, OR CHESTNUTSNO LATEX RISK : DO YOU HAVE A PREVIOUS PERSONAL HISTORY OF MORE THAN NINE SURGERIES, SPINA BIFIDA, OR REPEATED CATHERIZATIONS? NO LATEX RISK : ARE YOU FREQUENTLY EXPOSED TO LATEX PRODUCTS IN YOUR OCCUPATION?NO ALCOHOL SCREENING DID YOU HAVE A DRINK CONTAINING ALCOHOL IN THE PAST YEAR?YES HOW OFTEN DID YOU HAVE SIX OR MORE DRINKS ON ONE OCCASION IN THE PAST YEAR?NEVER (0 POINTS) HOW MANY DRINKS DID YOU HAVE ON A TYPICAL DAY WHEN YOU WERE DRINKING IN THE PAST YEAR?1 OR 2 (0 POINTS) HOW OFTEN DID YOU HAVE A DRINK CONTAINING ALCOHOL IN THE PAST YEAR?MONTHLY OR LESS (1 POINT) POINTS1 INTERPRETATIONNEGATIVE RECREATIONAL DRUG USE DRUG USE?NO CAFFEINE CAFFEINE USE?YES HOW OFTEN AND HOW MUCH? 2-3 CUPS OF TEA PER DAY AND OCCASIONAL COFFEE RELIGIOUS [id number] [place] LANGUAGE LANGUAGES SPOKEN:TOGOLESE EDUCATION LEVEL OF EDUCATION:NOT FINISHED COLLEGE LEARNING BARRIERS / SPECIAL NEEDS BARRIERS TO LEARNING?NO HEARING IMPAIRED?NO VISION IMPAIRED?YES COGNITIVELY IMPAIRED?NO :CORRECTIVE LENSES READINESS TO LEARN?YES LEARNING PREFERENCES?NO LEARNING CAPABILITIES PRESENT?YES EMOTIONAL BARRIERS?NO SPECIAL DEVICES?YES :CANE PHOTOGRAPHY AND PRINTS CURATOR NEEDED?NO DOMESTIC VIOLENCE DO YOU FEEL SAFE IN YOUR ENVIRONMENT?YES OCCUPATION: RETIRED. DIET: REGULAR. EXERCISE: NONE. MARITAL STATUS: . OTHERS AT HOME: SPOUSE, CHILD, CHILDREN. NEW PATIENT PAIN DIARY TODAY'S VISITNOTES 07/26/2019 PATIENT DESCRIBES PAIN :ACHING DULL ACHE FROM 0-10, WHAT LEVEL IS YOUR PAIN TODAY?1 PAIN CLINIC PFS, CLERGY, PUBLIC HEALTH REFERRALS PFS REFERRAL NEEDED?NO CLERGY REFERRAL NEEDED?NO PUBLIC HEALTH REFERRAL NEEDED?NO WAS THE PROVIDER NOTIFIED OF ANY PERTINENT INFO? N/A HAS THE PATIENT BEEN EDUCATED REGARDING HIS/HER PLAN OF CARE?YES HAS THE PATIENT BEEN EDUCATED REGARDING PAIN, THE RISK FOR PAIN, THE IMPORTANCE OF EFFECTIVE PAIN MANAGEMENT, AND THE PAIN ASSESSMENT PROCESS?YES ADVANCE DIRECTIVE ADVANCE DIRECTIVE DISCUSSED WITH PATIENT:YES HCP - CHARLENE REESE () HOSPITALIZATION/MAJOR DIAGNOSTIC PROCEDURE DIVERTICULITIS X2 SURGERY RELATED DIVERTICULITIS 12/2015 VITAL SIGNS WT 310.6 LBS, HT 5'9", BMI 45.86 INDEX, BP 127/64 MM HG, HR 75 /MIN, RR 18 /MIN, TEMP 97.5 F, OXYGEN SAT % 95%, NA INITIALS TL 1114, REVIEWED BY: LS. EXAMINATION GENERAL EXAMINATION: THE PATIENT IS ALERT, ORIENTED TIMES THREE AND COOPERATIVE. HEART SHOWS REGULAR RHYTHM, NO MURMURS AND NO GALLOPS. LUNGS ARE CLEAR TO AUSCULTATION. ASSESSMENTS SPONDYLOSIS OF LUMBOSACRAL REGION WITHOUT MYELOPATHY OR RADICULOPATHY - M47.817 (PRIMARY) TREATMENT SPONDYLOSIS OF LUMBOSACRAL REGION WITHOUT MYELOPATHY OR RADICULOPATHY [facility] FACET BLOCK (PAIN)[id number] PROCEDURES PAIN NURSING RECORD PRE-PROCEDURE IV SITE N/A, PRE-PROCEDURE ORAL MEDICATIONS 1142 OXYCODONE 5 MG PO GIVEN BY Emilee AGUIRRE RN PROCEDURE IN ROOM 1205, PHYSICIAN IN ROOM 1220, START 1226, FINISH 1250, PHYSICIAN OUT OF ROOM 1252, OUT OF ROOM 1259, STEROID DEXAMETHASONE, O2 RA, ECG NORMAL SINUS, PATIENT SHIELDED YES, SAFETY STRAP NO, PREP CHLOROPREP STERILE TRAY PREPARED BY Patricia RED RN. PREP AND DRAPE BY Emilee AGUIRRE RN., IV INFUSED N/A, DRESSING TEGADERM LOC: 1. ALERT, ORIENTED RESP: 1. REGULAR, NO DYSPNEA COLOR: 1. PINK SKIN: 1. WARM, DRY POSITION: 1. PRONE VITALS: 1212 118/69 76-16 93% 1215 123/74 74-16 93% 1230 127/78 73-16 93% 1245 130/83 74-16 96% 1300 143/82 76-16 96% DISCHARGE: POST PAIN 07/03, DRESSING SITE DRY AND INTACT, IV N/A, GAIT STEADY, TEACHING COMPLETED, PATIENT ACKNOWLEDGES UNDERSTANDING YES, PATIENT DISCHARGED AT 1319 COOL RFPRE PROCEDURE DIAGNOSES: 1. LUMBAR SPONDYLOSIS. 2. LUMBOSACRAL SPONDYLOSIS. POST PROCEDURE DIAGNOSES: 1. LUMBAR SPONDYLOSIS. 2. LUMBOSACRAL SPONDYLOSIS. PROCEDURE: RIGHT L5-S1 LUMBAR FACET RADIOFREQUENCY. SURGEON: DR. ELLYN VU. MATH AND SCIENCE INSTRUCTOR: NONE. ANESTHESIA: LOCAL. PRE PROCEDURE REPORT: THE PATIENT HAS HISTORY OF CHRONIC LOW BACK PAIN. I EVALUATED THE PATIENT AND REVIEWED THE CHART. I WENT OVER THE RISKS, ALTERNATIVES, AND BENEFITS ASSOCIATED WITH THIS PROCEDURE. I DISCUSSED THAT THE USE OF STEROIDS MAY CONTRIBUTE TO IMMUNOSUPPRESSION OF THE PATIENT'S BODY AGAINST INFECTIONS SUCH COVID-19. THE PATIENT IS AWARE OF THE POTENTIAL COMPLICATIONS ASSOCIATED WITH THIS VIRUS INCLUDING BUT NOT LIMITED TO, . THE PATIENT WOULD LIKE TO PROCEED AND GAVE CONSENT TO PERFORM THE PROCEDURE. THE PATIENT DENIES UNEXPLAINABLE WEIGHT LOSS, FEVER, CHILLS OR NEW CHANGES IN URINARY OR BOWEL CONTROL. THE PATIENT IS COVID-19 NEGATIVE.DESCRIPTION OF PROCEDURE: THE PATIENT WAS BROUGHT TO THE PROCEDURE ROOM AND PLACED IN THE PRONE POSITION. THE LUMBOSACRAL AREA WAS CLEANED WITH CHLORAPREP SOLUTION AND DRAPED ASEPTICALLY. THE PROCEDURE WAS DONE UNDER STERILE CONDITIONS. I CHECKED LATERALITY AND THE LEVEL WHERE THE PROCEDURE WAS GOING TO BE PERFORMED WITH THE PATIENT AND THE SUPPORTING STAFF AT THE MOMENT OF THE TIME OUT IN THE PROCEDURE ROOM. UNDER FLUOROSCOPIC GUIDANCE, TARGETS WERE SELECTED AT THE INTERSECTION OF THE RIGHT TRANSVERSE PROCESS OF L5 AND ALA OF S1 WITH ITS RESPECTIVE SUPERIOR ARTICULAR PROCESS. LIDOCAINE WAS USED TO NUMB THE SKIN AND THE SUBCUTANEOUS TISSUE BELOW IT. RADIOFREQUENCY CANNULAS, 17-GAUGE, 150 MM LONG WITH 4 MM ACTIVE TIP, WERE ADVANCED UNDER FLUOROSCOPIC GUIDANCE AND FOLLOWING PATIENT FEEDBACK UNTIL THE TARGET AREA WAS REACHED. POSITION OF THE CANNULA WAS VERIFIED WITH AP AND LATERAL VIEWS. AFTER PROPER POSITION OF THE CANNULA WAS ACHIEVED, WE WORKED WITH THE RIGHT SELECTED MEDIAN BRANCHES OF L4 AND THE DORSAL RAMI OF L5 WE MEASURED THE CORRESPONDING IMPEDANCES AND MOTOR RESPONSES INDICATED IN THE RADIOFREQUENCY WORKSHEET. POSITION OF THE CANNULA WAS VERIFIED AGAIN WITH AP AND LATERAL VIEWS. LIDOCAINE 1%, 2 ML, WAS INJECTED AT EACH LEVEL. RADIOFREQUENCY WAS DONE AT EACH LEVEL USING THE [place] SYSTEM-- COOLED RF-- WITH A SETTING AT THE MACHINE OF 60 DEGREES WITH A TARGET TISSUE TEMPERATURE OF 80 TO 90 DEGREES FOR A MINIMUM OF 150 SECONDS. AFTER RADIOFREQUENCY WAS DONE, THE PATIENT RECEIVED BUPIVACAINE 0.125%,1 ML, WITH DEXAMETHASONE 2 MG AT EACH SITE. THERE WAS NO EVIDENCE OF BLOOD, PARESTHESIA OR CEREBROSPINAL FLUID DURING THE PROCEDURE. THE PATIENT WAS SENT TO THE RECOVERY ROOM. THE PATIENT WAS MOVING THE EXTREMITIES AND DOING WELL. EBL LESS THAN 5 ML. THERE WERE NO COMPLICATIONS DURING THE PROCEDURE. FLUOROSCOPY TIME WAS 49 SECONDS. POST PROCEDURE NOTE: THE PATIENT WILL BE SEEN IN A FOLLOW UP IN THE NEXT FEW WEEKS. INSTRUCTIONS WERE GIVEN, QUESTIONS WERE ANSWERED, AND THE PATIENT EXPRESSED UNDERSTANDING AND AGREES WITH THE PLAN. THE PATIENT IS AWARE TO STAY HOME FOR THE NEXT WEEK, IF POSSIBLE, DUE TO COVID-19. I, KASHMIR KUMAR, DOCUMENTED THE ABOVE INFORMATION ACTING A SCRIBE FOR DR. VU. I HAVE REVIEWED THE ABOVE DOCUMENT, WRITTEN BY KASHMIR KUMAR, ADRIAN, AND I VERIFY THAT IT IS ACCURATE. PROCEDURE CODES 10570 DESTROY LUMB/SAC FACET JNT, MODIFIERS: RT DISPOSITION & COMMUNICATION FOLLOW UP F/UP WITH DINKEY LOCOMOTIVE OPERATOR (REASON: POST COOL RF [id number]) ELECTRONICALLY SIGNED BY ELLYN VU MD, MD ON 10/05/2019 AT 05:36 PM EDT DISCLAIMER : THIS IS A VISIT SUMMARY EXTRACTED FROM THE [employer] CHART. IT IS NOT A COPY OF THE [employer] PROGRESS NOTE. HECTOR
== END ==
LOC: M PAIN 11:15
PROVIDERS: ATTEND Anesthesiology
DX: M47.817 Spondylosis without myelopathy or radiculopathy, lumbosacral region (principal)
CPT/HCPCS: 64635; J1100

== ENCOUNTER → 2019-10-10 | Outpatient (CLI) | payer MEDICARE, OTHER ==
[~2019-10-10] MED LIST changes: -BUPIVACAINE HCL 0.25% 30ML VIAL As Ordered ONE; -LIDOCAINE 1% SDV 30ML VIAL As Ordered ONE; -dexameTHASONE 10MG/1ML VIAL PRES.FREE (J1100 PER 1MG) As Ordered ONE; -oxyCODONE 5MG TAB As Ordered ONE
--- NOTE | 2019-10-19 00:09 | ECWPNPC ---
PATIENT NAME: ANG MCDERMOTT : 1940 GENDER: MALE VISIT DATE: 10/10/2019 DISCHARGE DATE: 10/10/19 1334 VISIT LOCKED DATE TIME: PHYSICIAN: SHARON LOWRY RESOURCE: SHARON LOWRY REASON FOR APPOINTMENT 1. POST COOL RF A7-C3-PVEDBV UP NEXT WEEK HISTORY OF PRESENT ILLNESS GENERAL: HERE FOR POST PROCEDURE FOLLOW-UP. HAD RIGHT L5-S1 LUMBAR RADIOFREQUENCY(USE OF COOL RF) ON 10/05/2019. REPORTS SIGNIFICANT REDUCTION IN PAIN THAT CONTINUES TODAY. CHIEF AREA OF PAIN IS LEFT LOW BACK. HAD RADIOFREQUENCY TO THIS AREA IN 2018 AND HAD GOOD RESULTS UP UNTIL THE PAST 6 MONTHS. DISCUSSED TREATMENT PLAN. -. FALL RISK SCREENING: SCREENING :NO FALLS REPORTED IN THE LAST YEAR PAIN SCREENING: PATIENT HAS A COMPLAINT OF ACUTE OR CHRONIC PAIN :YES NO COMPLAINTS OF PAIN TODAY INTENSITY OF PAIN (SCALE OF 1 TO 10):0 NURSING NOTE: -. PAIN CENTER INTAKE QUESTIONS: DO YOU HAVE A HISTORY OF MRSA? :NO DO YOU TAKE A BLOOD THINNERS? :NO DO YOU HAVE ANY BLEEDING DISORDERS? :NO ANY NEW NUMBNESS OR WEAKNESS IN YOUR LEGS OR ARMS? :NO ANY PACEMAKER,DEFIBRILLATOR, OR DORSAL COLUMN STIMULATOR? :NO DO YOU HAVE ANY RASHES OR OPEN SORES? :NO ARE YOU ALLERGIC TO IV DYE? :NO ARE YOU DIABETIC? :NO ANY NEW PROBLEMS WITH YOUR MEDICATIONS? :NO HAVE YOU RECEIVED A VACCINE IN THE PAST 30 DAYS? :NO DO YOU PLAN TO RECEIVE A VACCINE IN THE NEXT 21 DAYS? :NO DO YOU NEED ANY PRESCRIPTION? :YES NUCYNTA 150MG NUCYNTA 75MG DO YOU TAKE ANY IMMUNOSUPPRESSIVE MEDICATIONS? :NO IS THERE A CHANCE YOU COULD BE ? :NO ARE YOU BREAST FEEDING? :NO CURRENT MEDICATIONS TAKING ALLOPURINOL 300 MG TABLET 1 TABLET ORALLY ONCE DAILY TAKING ASPIRIN 325 MG TABLET 1 TABLET ORALLY ONCE A DAY TAKING CALCITRIOL 0.25 MCG CAPSULE 1 CAPSULE ORALLY ONCE A DAY TAKING GLUCOSAMINE CHONDROITIN COMPLX 600-250 MG CAPSULE 1 TAB(S) ORALLY BID TAKING LEVOTHYROXINE SODIUM 50 MCG TABLET 1 TABLET ON AN EMPTY STOMACH IN THE MORNING ORALLY ONCE A DAY TAKING MULTIVITAMINS TABLET DIRECTED ORALLY DAILY TAKING POTASSIUM CHLORIDE 20 MEQ TABLET EXTENDED RELEASE 1 TABLETS WITH FOOD ORALLY TWICE A DAY TAKING ZOLPIDEM 10 MG TABLET 1 TAB(S) ORAL AT BEDTIME NEEDED TAKING TORSEMIDE 20 MG TABLET 1 TAB(S) ORALLY 2 IN THE MORNING/ 1 TAB IN AFTERNOON TAKING SERTRALINE HCL 100 MG TABLET 1 TABLET ORALLY ONCE A DAY TAKING SPIRONOLACTONE 25 MG TABLET 1 TABLET ORALLY BID TAKING LABETALOL HCL 100 MG TABLET 1 TAB IN AM, HALF TAB IN AFTERNOON ORALLY BID TAKING CALCIUM 600+D3 600-400 MG-UNIT TABLET 1 TABLET WITH A MEAL ORALLY ONCE A DAY TAKING ALIGN 4 MG CAPSULE ORALLY DAILY TAKING TYLENOL ARTHRITIS PAIN 650 MG TABLET EXTENDED RELEASE 2 TABS ORALLY EVERY 8 HRS TAKING FINASTERIDE 5 MG TABLET 1 TABLET ORALLY ONCE A DAY TAKING SULFASALAZINE 500 MG TABLET DELAYED RELEASE 1 TABLET ORALLY ONCE A DAY TAKING GABAPENTIN 100 MG CAPSULE 1 CAPSULE ORALLY BID TAKING NUCYNTA ER 150 MG TABLET EXTENDED RELEASE 12 HOUR 1 TABLET ORALLY EVERY 12 HRS BID MDD2 TAKING FLOMAX 0.4 MG CAPSULE 2 CAPSULES ORALLY ONCE A DAY TAKING NUCYNTA 75 MG TABLET 1 TABLET ORALLY FOR PAIN EVERY 6 HOURS NEEDED MDD 2 TAKING SOMA 350 MG TABLET 1 TABLET NEEDED ORALLY Q12H BID MDD2 TAKING VITAMIN D3 ULTRA STRENGTH ORALLY DAILY NOT-TAKING OXYBUTYNIN CHLORIDE ER 10 MG TABLET EXTENDED RELEASE 24 HOUR 1 TABLET ORALLY ONCE A DAY NOT-TAKING OTEZLA 30 MG TABLET 1 TABLET ORALLY DAILY NOT-TAKING LEFLUNOMIDE 10 MG TABLET 1 TABLET ORALLY ONCE A DAY NOT-TAKING TRAMADOL HCL 50 MG TABLET 1-2 TAB ORALLY Q4-6H PRN PAIN MDD6 NOT-TAKING VOLTAREN 1 % GEL APPLY TO LEFT KNEE TRANSDERMAL BID NOT-TAKING TYLENOL EXTRA STRENGTH 500 MG TABLET 1 TABLET NEEDED ORALLY EVERY 6 HRS PRN, NOTES: NEW DOSE MEDICATION LIST REVIEWED AND RECONCILED WITH THE PATIENT PAST MEDICAL HISTORY BPH URINARY RETENTION GOUT HTN EDEMA DDD/DJD; SEVERE SPINAL STENOSIS HYPOTHYROIDISM DEPRESSION/ANXIETY HYPERCHOLESTEROLEMIA HYPOKALEMIA SLEEP APNEA VERTIGO INSOMNIA CHRONIC KIDNEY DISEASE OSTEOARTHRITIS VARICOSE VEINS OSTEOARTHRITIS BROKEN LITTLE FINGER ON LEFT HAND ARTHRITIS LEFT KNEE TOOTH ISSUES ALLERGIES SURGICAL TAPE: REMOVES TOP LAYER OF SKIN - SIDE EFFECTS SURGICAL HISTORY ORIF LEFT LEG/ANKLE FRACTURE; PLATES/SCREWS IN PLACE 1992 BILATERAL - 2 TRIGGER FINGER RELEASE/CARPAL CHARO RELEASE/BONE REMOVAL THUMB (LEFT) 2004 TONSILLECTOMY APPENDECTOMY L3-L5 LAMINECTOMY 11/2012 COLONSCOPY 05/2016 CYSTOSCOPY 08/02/2017 RADIO FREQUENCY FEB 2018 FAMILY HISTORY FATHER: , CHF MOTHER: , HEART ATTACK, DIABETES SIBLINGS: ALIVE DAUGHTER(S): DIAGNOSED WITH OTHER MALIGNANT NEOPLASM OF UNSPECIFIED SITE 1 SON(S) , 4 DAUGHTER(S) . 1 DAUGHTER-BREAST CA1 DAUGHTER-POLY CYSTIC BREAST. SOCIAL HISTORY GENERAL: TOBACCO USE ARE YOU A:NONSMOKER LATEX QUESTIONNAIRE LATEX ALLERGY : HAVE YOU EVER DEVELOPED ANY TYPE OF REACTION AFTER HANDLING LATEX PRODUCTS SUCH RUBBER GLOVES, CONDOMS, DIAPHRAGMS, BALLOONS, SOCKS, OR UNDERWEAR?NO PT DOES HAVE ALLERGY TO SURGICAL TAPE LATEX ALLERGY : HAVE YOU EVER DEVELOPED ANY TYPE OF REACTION DURING OR AFTER DENTAL APPOINTMENT, VAGINAL/RECTAL EXAMINATION, SURGICAL PROCEDURE, OR ANY OTHER EXPOSURE?NO LATEX RISK : HAVE YOU EVER HAD ANY DIFFICULTY BREATHING OR HIVES AFTER EATING OR HANDLING ANY FRUITS, OR VEGETABLES; SUCH KIWI, BANANAS, STONE FRUITS, OR CHESTNUTSNO LATEX RISK : DO YOU HAVE A PREVIOUS PERSONAL HISTORY OF MORE THAN NINE SURGERIES, SPINA BIFIDA, OR REPEATED CATHERIZATIONS? NO LATEX RISK : ARE YOU FREQUENTLY EXPOSED TO LATEX PRODUCTS IN YOUR OCCUPATION?NO DATE ASKED : 10/10/2019 ALCOHOL SCREENING DID YOU HAVE A DRINK CONTAINING ALCOHOL IN THE PAST YEAR?YES HOW OFTEN DID YOU HAVE SIX OR MORE DRINKS ON ONE OCCASION IN THE PAST YEAR?NEVER (0 POINTS) HOW MANY DRINKS DID YOU HAVE ON A TYPICAL DAY WHEN YOU WERE DRINKING IN THE PAST YEAR?1 OR 2 (0 POINTS) HOW OFTEN DID YOU HAVE A DRINK CONTAINING ALCOHOL IN THE PAST YEAR?MONTHLY OR LESS (1 POINT) POINTS1 INTERPRETATIONNEGATIVE RECREATIONAL DRUG USE DRUG USE?NO CAFFEINE CAFFEINE USE?YES HOW OFTEN AND HOW MUCH? 2-3 CUPS OF TEA PER DAY AND OCCASIONAL COFFEE MUSLIM [id number] AD[employer] LANGUAGE LANGUAGES SPOKEN:[place] EDUCATION LEVEL OF EDUCATION:NOT FINISHED COLLEGE LEARNING BARRIERS / SPECIAL NEEDS BARRIERS TO LEARNING?NO HEARING IMPAIRED?NO VISION IMPAIRED?YES COGNITIVELY IMPAIRED?NO :CORRECTIVE LENSES READINESS TO LEARN?YES LEARNING PREFERENCES?NO LEARNING CAPABILITIES PRESENT?YES EMOTIONAL BARRIERS?NO SPECIAL DEVICES?YES :CANE GRAIN OPERATOR NEEDED?NO DOMESTIC VIOLENCE DO YOU FEEL SAFE IN YOUR ENVIRONMENT?YES OCCUPATION: RETIRED. DIET: REGULAR. EXERCISE: NONE. MARITAL STATUS: . OTHERS AT HOME: SPOUSE, CHILD, CHILDREN. PAIN CLINIC PFS, CLERGY, PUBLIC HEALTH REFERRALS PFS REFERRAL NEEDED?NO CLERGY REFERRAL NEEDED?NO PUBLIC HEALTH REFERRAL NEEDED?NO WAS THE PROVIDER NOTIFIED OF ANY PERTINENT INFO? N/A HAS THE PATIENT BEEN EDUCATED REGARDING HIS/HER PLAN OF CARE?YES HAS THE PATIENT BEEN EDUCATED REGARDING PAIN, THE RISK FOR PAIN, THE IMPORTANCE OF EFFECTIVE PAIN MANAGEMENT, AND THE PAIN ASSESSMENT PROCESS?YES ADVANCE DIRECTIVE ADVANCE DIRECTIVE DISCUSSED WITH PATIENT:YES HCP - CHARLENE REESE () HOSPITALIZATION/MAJOR DIAGNOSTIC PROCEDURE DIVERTICULITIS X2 SURGERY RELATED DIVERTICULITIS 12/2015 REVIEW OF SYSTEMS CONSTITUTIONAL: ANY RECENT FEVER NO . CHILLS NO . GASTROENTEROLOGY: BOWEL INCONTINENCE NO . ANY NEW CHANGE IN BOWEL CONTROL? NO . HISTORY OF UNUSUAL ABDOMINAL PAIN OR CRAMPING NOT MENTIONED NO . CONSTIPATION NO . GENITOURINARY: ANY NEW CHANGE IN BLADDER CONTROL? NO . IS THERE A CHANCE YOU COULD BE ? NO . URINARY INCONTINENCE NO . CARDIOLOGY: NEW CHEST PRESSURE NO . HISTORY OF CHEST PAIN,IRREGULAR HEART BEAT NOT MENTIONED NO . RESPIRATORY: COUGH NO . SHORTNESS OF BREATH NO . VITAL SIGNS WT 310.6 LBS, HT 5'9", BMI 45.86 INDEX, BP 131/73 MM HG, HR 73 /MIN, RR 18 /MIN, TEMP 97.0 F, OXYGEN SAT % 97%, SAFE IN ENV? (Y/N) Y, NA INITIALS AW 1300, REVIEWED BY: THEE. EXAMINATION GENERAL EXAMINATION: GENERALNO ACUTE DISTRESS, WELL NOURISHED AND HYDRATED. PSYCHAPPROPRIATE MOOD AND AFFECT . LUNGS: LUNG SOUNDS ARE CLEAR . HEART: HEART RATE REGULAR . MUSCULOSKELETAL:*, MUSCLE STRENGTH TESTING 5/5 BILATERAL LOWER EXTREMITIES., ,PALPATION: POSITIVE FOR PAIN OVER L/S SPINE. POSITIVE FOR PAIN OVER L/S PARSPINALS.SPECIFIC POINT TENDERNESS OVER LEFT L4/5-L5/S1 LUMBR FACETS WITH FACET LOADING . DIAGNOSTIC TESTS REVIEWED 08/31/2016-MRI L/S SPINE. ASSESSMENTS SPONDYLOSIS OF LUMBOSACRAL REGION WITHOUT MYELOPATHY OR RADICULOPATHY - M47.817 (PRIMARY) TREATMENT SPONDYLOSIS OF LUMBOSACRAL REGION WITHOUT MYELOPATHY OR RADICULOPATHY NOTES: DIAGNOSTIC, L5-S1 FACET BLOCK #2 , ISTOP REGISTRY REVIEWED AND DEMONSTRATES COMPLLIANCE. BRINGS IN MEDICATIONS WHICH IS APPROPRIATE FOR WHAT WAS DISPENSED. RECENT URINE TOXICOLOGY REVIEWED. NO UNAUTHORIZED MEDICATIONS. NO ILLICIT SUBSTANCES AND PRESCRIBED MEDICATIONS WERE PRESENT. , RISKS OF NARCOTIC/OPIOD MEDICATIONS INCLUDES BUT IS NOT LIMITED TO RISK OF DEPENDANCE/DEVELOPMENT OF ADDICTION, MOOD DISTURBANCE AND DEPRESSION, OSTEOPOROSIS, HORMONAL AND LABIDAL CHANGES, RESPIRATORY DEPRESSION AND . PATIENT IS ADVISED NOT TO DRIVE OR DRINK ALCOHOL WHILE ON THESE MEDICATIONS. PREVENTIVE MEDICINE PAIN CLINIC TEACHING: THE PATIENT HAS BEEN EDUCATED REGARDING HIS/HER PLAN OF CARE :YES (PLEASE DOCUMENT ADDTIONAL DETAILS IN THE FREE TEXT NOTES SECTION) REVIEWED WRITTEN AND VERBAL INSTRUCTIONS FOR PRE-PROCEDURE TEACHING AND PLAN OF CARE WITH PATIENT AND , BOTH ACKNOWLEDGED UNDERSTANDING, DS DISPOSITION & COMMUNICATION FOLLOW UP POST (REASON: DIAGNOSTIC LEFT L5-S1 FACET BLOCK #2) ELECTRONICALLY SIGNED BY RICK VARELA ON 10/18/2019 AT 11:46 AM EDT DISCLAIMER : THIS IS A VISIT SUMMARY EXTRACTED FROM THE [employer] CHART. IT IS NOT A COPY OF THE [employer] PROGRESS NOTE. HECTOR
== END ==
LOC: M PAIN 13:00
PROVIDERS: ATTEND Nurse Practitioner Family
DX: M47.817 Spondylosis without myelopathy or radiculopathy, lumbosacral region (principal); Z79.82 Long term (current) use of aspirin; Z79.899 Other long term (current) drug therapy; Z91.048 Other nonmedicinal substance allergy status

== ENCOUNTER → 2019-10-20 | Outpatient (CLI) | payer MEDICARE, OTHER | LOC: M LABSMTC 11:04 | PROVIDERS: ATTEND Anesthesiology | DX: Z01.818 Encounter for other preprocedural examination (principal); Z11.59 Encounter for screening for other viral diseases | CPT/HCPCS: C9803; U0003 ==

== ENCOUNTER → 2019-10-23 | Outpatient (CLI) | payer MEDICARE, OTHER ==
[~2019-10-23] MED LIST changes: +BUPIVACAINE HCL 0.25% 30ML VIAL As Ordered ONE; +ISOVUE-M 300 61% 15ML VIAL As Ordered ONE; +LIDOCAINE 1% SDV 30ML VIAL As Ordered ONE
--- NOTE | 2019-10-23 12:12 | REP ---
Partial lumbar spine series: Four views . History: Injection procedure for pain. At 34 seconds of fluoroscopy time is reported. Findings: A sequence of four fluoroscopically obtained last image hold procedural spot radiographs of the lumbar spine document needle position and contrast injection associated with injection procedure. Electronically Signed by Hector Kaplan MD 10/23/2019 12:04 P
--- NOTE | 2019-11-02 01:47 | ECWPNPC ---
PATIENT NAME: ANG MCDERMOTT : 1940 GENDER: MALE VISIT DATE: 10/23/2019 DISCHARGE DATE: 10/23/19 1139 VISIT LOCKED DATE TIME: PHYSICIAN: ELLYN VU MD RESOURCE: ELLYN VU MD REASON FOR APPOINTMENT 1. LEFT DIAGNOSTIC, L4-L5, L5-S1 FACET BLOCK #2- IS HCP AND ACCOMPANIES ANG HISTORY OF PRESENT ILLNESS GENERAL: 79-YEAR-OLD MALE PATIENT WITH A HISTORY OF CHRONIC LOW BACK PAIN. THE PATIENT DESCRIBES THE PAIN ACHING AND SEVERE WITH A PAIN SCORE RANGING FROM 6-9/10 DEPENDING ON PHYSICAL ACTIVITY. THE PATIENT HAS HAD A RADIOFREQUENCY ON THE LEFT SIDE AT L4-L5 AND L5-S1 THAT HAS HELPED HIM. PATIENT DENIES UNEXPLAINABLE WEIGHT LOSS, FEVER, CHILLS, NEW CHANGES ON HIS URINARY OR BOWEL CONTROL. FALL RISK SCREENING: SCREENING :ONE FALL WITH INJURY IN THE PAST YEAR PAIN SCREENING: PATIENT HAS A COMPLAINT OF ACUTE OR CHRONIC PAIN :YES LOCATION OF PAIN:LOW BACK DOWN LEFT LEG ON OCCASSION INTENSITY OF PAIN (SCALE OF 1 TO 10):8 WHAT DOES YOUR PAIN FEEL LIKE:ACHING, INTERMITTENT, SHARP, STABBING LEFT LEG SOMETIMES NUMB DURATION:MAINLY DURING THE DAY, INTERMITTENT PAIN IS INCREASED BY:ACTIVITIES, PROLONGED STANDING WALKING PAIN IS DECREASED BY: SITTING, REST NURSING NOTE: -. PAIN CENTER INTAKE QUESTIONS: DO YOU HAVE A HISTORY OF MRSA? :NO DO YOU TAKE A BLOOD THINNERS? :NO DO YOU HAVE ANY BLEEDING DISORDERS? :NO ANY NEW NUMBNESS OR WEAKNESS IN YOUR LEGS OR ARMS? :NO ANY PACEMAKER,DEFIBRILLATOR, OR DORSAL COLUMN STIMULATOR? :NO DO YOU HAVE ANY RASHES OR OPEN SORES? :NO ARE YOU ALLERGIC TO IV DYE? :NO ARE YOU DIABETIC? :NO ANY NEW PROBLEMS WITH YOUR MEDICATIONS? :NO HAVE YOU RECEIVED A VACCINE IN THE PAST 30 DAYS? :NO DO YOU PLAN TO RECEIVE A VACCINE IN THE NEXT 21 DAYS? :NO DO YOU TAKE ANY IMMUNOSUPPRESSIVE MEDICATIONS? :YES ALLOPURINOL ANY HISTORY OF SEIZURES? :NO ANY HISTORY OF CARDIAC ISSUES OR EVENTS? :NO DO YOU HAVE SLEEP APNEA? :YES USES BYPAP ANY RECENT HEAD INJURY? :NO DO YOU HAVE ANY NEW INFECTIONS? :NO IS THERE A CHANCE YOU COULD BE ? :NO ARE YOU BREAST FEEDING? :NO WHEN DID YOU LAST EAT? : 6/28 1800 WHEN DID YOU LAST DRINK? : 10/22 744 WHAT DID YOU LAST DRINK? : WATER NAME OF PERSON DRIVING YOU HOME? : -THERESA DO YOU HAVE ANY OTHER QUESTIONS OR CONCERNS? : - CURRENT MEDICATIONS TAKING ALLOPURINOL 300 MG TABLET 1 TABLET ORALLY ONCE DAILY, NOTES: 10/21 899 TAKING ASPIRIN 325 MG TABLET 1 TABLET ORALLY ONCE A DAY, NOTES: 10/21 2299 TAKING CALCITRIOL 0.25 MCG CAPSULE 1 CAPSULE ORALLY ONCE A DAY, NOTES: 10/21 899 TAKING GLUCOSAMINE CHONDROITIN COMPLX 600-250 MG CAPSULE 1 TAB(S) ORALLY BID, NOTES: 10/21 1699 TAKING LEVOTHYROXINE SODIUM 50 MCG TABLET 1 TABLET ON AN EMPTY STOMACH IN THE MORNING ORALLY ONCE A DAY, NOTES: 10/21 899 TAKING MULTIVITAMINS TABLET DIRECTED ORALLY DAILY, NOTES: 10/21 899 TAKING POTASSIUM CHLORIDE 20 MEQ TABLET EXTENDED RELEASE 1 TABLETS WITH FOOD ORALLY TWICE A DAY, NOTES: 10/21 2299 TAKING ZOLPIDEM 10 MG TABLET 1 TAB(S) ORAL AT BEDTIME NEEDED, NOTES: 10/21 2354 TAKING TORSEMIDE 20 MG TABLET 1 TAB(S) ORALLY 2 IN THE MORNING/ 1 TAB IN AFTERNOON, NOTES: 10/21 1699 TAKING SERTRALINE HCL 100 MG TABLET 1 TABLET ORALLY ONCE A DAY, NOTES: 10/21 899 TAKING SPIRONOLACTONE 25 MG TABLET 1 TABLET ORALLY BID, NOTES: 10/21 1699 TAKING LABETALOL HCL 100 MG TABLET 1 TAB IN AM, HALF TAB IN AFTERNOON ORALLY BID, NOTES: 10/21 2299 TAKING CALCIUM 600+D3 600-400 MG-UNIT TABLET 1 TABLET WITH A MEAL ORALLY ONCE A DAY, NOTES: 10/21 1699 TAKING ALIGN 4 MG CAPSULE ORALLY DAILY, NOTES: 10/21 899 TAKING TYLENOL ARTHRITIS PAIN 650 MG TABLET EXTENDED RELEASE 2 TABS ORALLY EVERY 8 HRS, NOTES: 10/21 2299 TAKING FINASTERIDE 5 MG TABLET 1 TABLET ORALLY ONCE A DAY, NOTES: 10/21 2299 TAKING SULFASALAZINE 500 MG TABLET DELAYED RELEASE 1 TABLET ORALLY ONCE A DAY, NOTES: 10/21 1699 TAKING GABAPENTIN 100 MG CAPSULE 1 CAPSULE ORALLY BID, NOTES: 10/21 2299 TAKING NUCYNTA ER 150 MG TABLET EXTENDED RELEASE 12 HOUR 1 TABLET ORALLY EVERY 12 HRS BID MDD2, NOTES: 10/21 2299 TAKING FLOMAX 0.4 MG CAPSULE 2 CAPSULES ORALLY ONCE A DAY, NOTES: 10/21 1700 TAKING NUCYNTA 75 MG TABLET 1 TABLET ORALLY FOR PAIN EVERY 6 HOURS NEEDED MDD 2, NOTES: 10/21 1400 TAKING SOMA 350 MG TABLET 1 TABLET NEEDED ORALLY Q12H BID MDD2, NOTES: 10/21 2300 TAKING VITAMIN D3 ULTRA STRENGTH ORALLY DAILY, NOTES: 10/21 1700 NOT-TAKING OXYBUTYNIN CHLORIDE ER 10 MG TABLET EXTENDED RELEASE 24 HOUR 1 TABLET ORALLY ONCE A DAY NOT-TAKING OTEZLA 30 MG TABLET 1 TABLET ORALLY DAILY NOT-TAKING LEFLUNOMIDE 10 MG TABLET 1 TABLET ORALLY ONCE A DAY NOT-TAKING TRAMADOL HCL 50 MG TABLET 1-2 TAB ORALLY Q4-6H PRN PAIN MDD6 NOT-TAKING VOLTAREN 1 % GEL APPLY TO LEFT KNEE TRANSDERMAL BID NOT-TAKING TYLENOL EXTRA STRENGTH 500 MG TABLET 1 TABLET NEEDED ORALLY EVERY 6 HRS PRN, NOTES: NEW DOSE MEDICATION LIST REVIEWED AND RECONCILED WITH THE PATIENT PAST MEDICAL HISTORY BPH URINARY RETENTION GOUT HTN EDEMA DDD/DJD; SEVERE SPINAL STENOSIS HYPOTHYROIDISM DEPRESSION/ANXIETY HYPERCHOLESTEROLEMIA HYPOKALEMIA SLEEP APNEA VERTIGO INSOMNIA CHRONIC KIDNEY DISEASE OSTEOARTHRITIS VARICOSE VEINS OSTEOARTHRITIS BROKEN LITTLE FINGER ON LEFT HAND ARTHRITIS LEFT KNEE TOOTH ISSUES LOW BACK PAIN ALLERGIES SURGICAL TAPE: REMOVES TOP LAYER OF SKIN - SIDE EFFECTS SURGICAL HISTORY ORIF LEFT LEG/ANKLE FRACTURE; PLATES/SCREWS IN PLACE 1992 BILATERAL - 2 TRIGGER FINGER RELEASE/CARPAL CHARO RELEASE/BONE REMOVAL THUMB (LEFT) 2004 TONSILLECTOMY APPENDECTOMY L3-L5 LAMINECTOMY 11/2012 COLONSCOPY 05/2016 CYSTOSCOPY 08/02/2017 RADIO FREQUENCY FEB 2018 FAMILY HISTORY FATHER: , CHF MOTHER: , HEART ATTACK, DIABETES SIBLINGS: ALIVE DAUGHTER(S): DIAGNOSED WITH OTHER MALIGNANT NEOPLASM OF UNSPECIFIED SITE 1 SON(S) , 4 DAUGHTER(S) . 1 DAUGHTER-BREAST CA1 DAUGHTER-POLY CYSTIC BREAST. SOCIAL HISTORY GENERAL: TOBACCO USE ARE YOU A:NONSMOKER LATEX QUESTIONNAIRE LATEX ALLERGY : HAVE YOU EVER DEVELOPED ANY TYPE OF REACTION AFTER HANDLING LATEX PRODUCTS SUCH RUBBER GLOVES, CONDOMS, DIAPHRAGMS, BALLOONS, SOCKS, OR UNDERWEAR?NO PT DOES HAVE ALLERGY TO SURGICAL TAPE LATEX ALLERGY : HAVE YOU EVER DEVELOPED ANY TYPE OF REACTION DURING OR AFTER DENTAL APPOINTMENT, VAGINAL/RECTAL EXAMINATION, SURGICAL PROCEDURE, OR ANY OTHER EXPOSURE?NO LATEX RISK : HAVE YOU EVER HAD ANY DIFFICULTY BREATHING OR HIVES AFTER EATING OR HANDLING ANY FRUITS, OR VEGETABLES; SUCH KIWI, BANANAS, STONE FRUITS, OR CHESTNUTSNO LATEX RISK : DO YOU HAVE A PREVIOUS PERSONAL HISTORY OF MORE THAN NINE SURGERIES, SPINA BIFIDA, OR REPEATED CATHERIZATIONS? NO LATEX RISK : ARE YOU FREQUENTLY EXPOSED TO LATEX PRODUCTS IN YOUR OCCUPATION?NO DATE ASKED : 10/23/2019 ALCOHOL SCREENING DID YOU HAVE A DRINK CONTAINING ALCOHOL IN THE PAST YEAR?YES HOW OFTEN DID YOU HAVE SIX OR MORE DRINKS ON ONE OCCASION IN THE PAST YEAR?NEVER (0 POINTS) HOW MANY DRINKS DID YOU HAVE ON A TYPICAL DAY WHEN YOU WERE DRINKING IN THE PAST YEAR?1 OR 2 (0 POINTS) HOW OFTEN DID YOU HAVE A DRINK CONTAINING ALCOHOL IN THE PAST YEAR?MONTHLY OR LESS (1 POINT) POINTS1 INTERPRETATIONNEGATIVE RECREATIONAL DRUG USE DRUG USE?NO CAFFEINE CAFFEINE USE?YES HOW OFTEN AND HOW MUCH? 2-3 CUPS OF TEA PER DAY AND OCCASIONAL COFFEE MANDAEN [id number] SCIENTOLOGIST LANGUAGE LANGUAGES SPOKEN:[place] EDUCATION LEVEL OF EDUCATION:NOT FINISHED COLLEGE LEARNING BARRIERS / SPECIAL NEEDS BARRIERS TO LEARNING?NO HEARING IMPAIRED?NO VISION IMPAIRED?YES :CORRECTIVE LENSES COGNITIVELY IMPAIRED?NO READINESS TO LEARN?YES LEARNING PREFERENCES?NO LEARNING CAPABILITIES PRESENT?YES EMOTIONAL BARRIERS?NO SPECIAL DEVICES?YES :CANE PUPPET MAKER NEEDED?NO DOMESTIC VIOLENCE DO YOU FEEL SAFE IN YOUR ENVIRONMENT?YES OCCUPATION: RETIRED. DIET: REGULAR. EXERCISE: NONE. MARITAL STATUS: . OTHERS AT HOME: SPOUSE, CHILD, CHILDREN. PAIN CLINIC PFS, CLERGY, PUBLIC HEALTH REFERRALS PFS REFERRAL NEEDED?NO CLERGY REFERRAL NEEDED?NO PUBLIC HEALTH REFERRAL NEEDED?NO HAS THE PATIENT BEEN EDUCATED REGARDING HIS/HER PLAN OF CARE?YES HAS THE PATIENT BEEN EDUCATED REGARDING PAIN, THE RISK FOR PAIN, THE IMPORTANCE OF EFFECTIVE PAIN MANAGEMENT, AND THE PAIN ASSESSMENT PROCESS?YES ADVANCE DIRECTIVE ADVANCE DIRECTIVE DISCUSSED WITH PATIENT:YES HCP - CHARLENE REESE () [phone] HOSPITALIZATION/MAJOR DIAGNOSTIC PROCEDURE DIVERTICULITIS X2 SURGERY RELATED DIVERTICULITIS 12/2015 VITAL SIGNS WT 310.6 LBS, HT 5'9", BMI 45.86 INDEX, BP 164/82 MM HG, HR 81 /MIN, RR 18 /MIN, TEMP 97.2 F, OXYGEN SAT % 95%, SAFE IN ENV? (Y/N) Y, NA INITIALS WY 09:48, REVIEWED BY: AD. EXAMINATION GENERAL EXAMINATION: THE PATIENT IS ALERT, ORIENTED TIMES THREE AND COOPERATIVE. HEART SHOWS REGULAR RHYTHM, NO MURMURS AND NO GALLOPS. LUNGS ARE CLEAR TO AUSCULTATION. THERE IS TENDERNESS OVER THE LEFT LOWER BACK AT THE FACET JOINTS. ASSESSMENTS SPONDYLOSIS OF LUMBOSACRAL REGION WITHOUT MYELOPATHY OR RADICULOPATHY - M47.817 (PRIMARY) TREATMENT SPONDYLOSIS OF LUMBOSACRAL REGION WITHOUT MYELOPATHY OR RADICULOPATHY SMC FACET BLOCK (PAIN)[id number] CLINICAL NOTES: WE DISCUSSED SEVERAL ALTERNATIVES WITH MR. MCDERMOTT REGARDING HIS TREATMENT OPTIONS AND CARE. AFTER TALKING TO THE PATIENT AND EXAMINING HIM, WE HAVE DECIDED TO DO LUMBAR FACET BLOCK DIAGNOSTIC NUMBER 2 L4-L5 AND L5-S1 ON THE LEFT SIDE. THE PATIENT UNDERSTANDS AND IS IN AGREEMENT WITH THIS PLAN. PROCEDURES PAIN NURSING RECORD PRE-PROCEDURE IV SITE N/A, PRE-PROCEDURE ORAL MEDICATIONS NONE PROCEDURE IN ROOM 1050, PHYSICIAN IN ROOM 1057, START 1104, FINISH 1113, PHYSICIAN OUT OF ROOM 1115, OUT OF ROOM 1122, STEROID N/A, O2 RA, ECG NORMAL SINUS, PATIENT SHIELDED YES, SAFETY STRAP YES, PREP CHLOROPREP, IV INFUSED N/A, DRESSING TEGADERM DR. VU LOC: TEOFILOROSALVA 10/23/2019 10:26:11 AM > 1. ALERT, ORIENTED RESP: TEOFILO,ROSALVA 10/23/2019 10:26:17 AM > 1. REGULAR, NO DYSPNEA COLOR: TEOFILO,ROSALVA 10/23/2019 10:26:22 AM > 1. PINK SKIN: TEOFILOROSALVA 10/23/2019 10:26:29 AM > 1. WARM, DRY POSITION: TEOFILOROSALVA 10/23/2019 10:26:38 AM > 1. PRONE VITALS: TEOFILOROSALVA 10/23/2019 10:50:18 AM > 109/71,83,18,94% TEOFILOROSALVA 10/23/2019 11:05:42 AM > 159/79,78,16,93% TEOFILOROSALVA 10/23/2019 11:19:51 AM > 127/61,75,16,94% TEOFILOROSALVA 10/23/2019 11:33:37 AM > 143/90,89,18,95% DISCHARGE: POST PAIN 01/03-LEFT LOW BACK, DRESSING SITE DRY AND INTACT, IV N/A, GAIT STEADY USES CANE, TEACHING COMPLETED, PATIENT ACKNOWLEDGES UNDERSTANDING YES, PATIENT DISCHARGED AT 1138 PN LUMBAR FACET BLOCK DIAGNOSTIC PRE PROCEDURE DIAGNOSIS LUMBAR SPONDYLOSIS, LUMBOSACRAL SPONDYLOSIS POST PROCEDURE DIAGNOSIS LUMBAR SPONDYLOSIS, LUMBOSACRAL SPONDYLOSIS PROCEDURE LEFT L4-L5 AND LEFT L5-S1 FACET BLOCK DIAGNOSTIC NUMBER [address] ELLYN VU SEISMOGRAPH OBSERVER NONE ANESTHESIA LOCAL PRE PROCEDURE NOTE THE PATIENT WITH HISTORY OF CHRONIC LOW BACK PAIN. I EVALUATED THE PATIENT AND REVIEWED THE CHART. I WENT OVER THE RISKS, ALTERNATIVES, AND BENEFITS ASSOCIATED WITH THIS PROCEDURE. THE PATIENT WOULD LIKE TO PROCEED AND GAVE CONSENT TO PERFORM THE PROCEDURE. AGREED WITH THE PATIENT WE ARE DOING THIS PROCEDURE TO DETERMINE IF THE PATIENT IS A CANDIDATE FOR A RADIOFREQUENCY ABLATION OF THE FACETS JOINTS. THE PATIENT DENIES UNEXPLAINABLE WEIGHT LOSS, FEVER, CHILLS, OR NEW CHANGES IN URINARY OR BOWEL CONTROL DESCRIPTION OF PROCEDURE THE PATIENT WAS BROUGHT TO THE PROCEDURE ROOM AND PLACED IN THE PRONE POSITION. THE LUMBOSACRAL AREA WAS CLEANED WITH CHLORAPREP SOLUTION AND DRAPED ASEPTICALLY. THE PROCEDURE WAS DONE UNDER STERILE CONDITIONS. I CHECKED LATERALITY AND THE LEVEL WHERE THE PROCEDURE WAS GOING TO BE PERFORMED WITH THE PATIENT AND THE SUPPORTING STAFF AT THE MOMENT OF THE TIME OUT IN THE PROCEDURE ROOM. UNDER FLUOROSCOPIC GUIDANCE, TARGETS WERE SELECTED AT THE INTERSECTION OF THE LEFT TRANSVERSE PROCESS OF L4, L5 AND ALA OF S1 WITH ITS RESPECTIVE SUPERIOR ARTICULAR PROCESS. LIDOCAINE WAS USED TO NUMB THE SKIN AND THE SUBCUTANEOUS TISSUE BELOW IT. SPINAL NEEDLE, 22-GAUGE, WAS ADVANCED UNDER FLUOROSCOPIC GUIDANCE AND FOLLOWING PATIENT FEEDBACK UNTIL THE TARGETS WERE REACHED. POSITION OF THE NEEDLES WAS VERIFIED WITH AP AND LATERAL VIEWS. AFTER PROPER POSITION OF THE NEEDLES WAS ACHIEVED, ISOVUE-M DYE 30%, 0.1 ML, WAS INJECTED AT EACH SITE SHOWING ADEQUATE SPREAD OF THE DYE. THEN A SOLUTION OF 0.4 ML OF BUPIVACAINE 0.25% WAS INJECTED AT EACH SITE. THERE WAS NO EVIDENCE OF BLOOD, PARESTHESIA OR CEREBROSPINAL FLUID DURING THE PROCEDURE. THE PATIENT WAS SENT TO THE RECOVERY ROOM. THE PATIENT WAS MOVING THE EXTREMITIES AND DOING WELL. THERE WAS NO COMPLICATION DURING THE PROCEDURE. EBL LESS THAN 5 ML. FLUOROSCOPY TIME WAS 34 SECONDS POST PROCEDURE NOTE THE PATIENT WILL DOCUMENT HIS PAIN LEVEL AND RESPONSE TO THIS PROCEDURE EVERY HOUR. THE PATIENT WILL BE SEEN IN A FOLLOW UP IN THE NEXT FEW WEEKS. FURTHER DETERMINATION FOR HIS CASE WILL BE DONE AT THE NEXT VISIT. INSTRUCTIONS WERE GIVEN, QUESTIONS WERE ANSWERED, AND THE PATIENT EXPRESSED UNDERSTANDING AND AGREED WITH THE PLAN. I, KASHMIR KUMAR, DOCUMENTED THE ABOVE INFORMATION ACTING A SCRIBE FOR DR. VU. I HAVE REVIEWED THE ABOVE DOCUMENT, WRITTEN BY KASHMIR KUMAR, BLACK TOP SPREADER MACHINE OPERATOR, AND I VERIFY THAT IT IS ACCURATE PROCEDURE CODES 00150 INJ PARAVERT F JNT L/S 1 LEV, [place]IFI[place]: [place] 120[address] INJ PARAVERT F JNT L/S 2 LEV, MODIFIERS: LT DISPOSITION & COMMUNICATION FOLLOW UP F/UP WITH ELECTRICAL ASSISTANT (REASON: POST LFBD #2 LT L4-L5 L5-S1) ELECTRONICALLY SIGNED BY ELLYN VU MD, MD ON 11/01/2019 AT 12:58 PM EDT DISCLAIMER : THIS IS A VISIT SUMMARY EXTRACTED FROM THE [employer] CHART. IT IS NOT A COPY OF THE [employer] PROGRESS NOTE. MTDD
== END ==
LOC: M PAIN 09:45
PROVIDERS: ATTEND Anesthesiology
DX: M47.817 Spondylosis without myelopathy or radiculopathy, lumbosacral region (principal); Z79.82 Long term (current) use of aspirin; Z79.899 Other long term (current) drug therapy; Z91.048 Other nonmedicinal substance allergy status
CPT/HCPCS: 64493; 64494; Q9967

== ENCOUNTER → 2019-10-26 | Outpatient (CLI) | payer MEDICARE, OTHER ==
[~2019-10-26] MED LIST changes: -BUPIVACAINE HCL 0.25% 30ML VIAL As Ordered ONE; -ISOVUE-M 300 61% 15ML VIAL As Ordered ONE; -LIDOCAINE 1% SDV 30ML VIAL As Ordered ONE
--- NOTE | 2019-11-09 04:20 | ECWPNPC ---
PATIENT NAME: ANG MCDERMOTT : 1940 GENDER: MALE VISIT DATE: 10/26/2019 DISCHARGE DATE: 10/26/19826 VISIT LOCKED DATE TIME: PHYSICIAN: SHARON LOWRY RESOURCE: SHARON LOWRY REASON FOR APPOINTMENT 1. [phone] PAT DONE HISTORY OF PRESENT ILLNESS GENERAL: PATIENT IS AGREEABLE TO TELEMED VISIT. THIS IS A POST PROCEDURE FOLLOW-UP. HAD LEFT L5-S1 DIAGNOSTIC FACET BLOCK #2 ON 10/23/2019. HOURLY PAIN DIARY IS REVIEWED. THIS IS SHOWING GREATER THAN 80% REDUCTION IN PAIN FOR GREATER THAN 48 HOURS POST PROCEDURE. DISCUSSED RADIOFREQUENCY PROCEDURE. -. FALL RISK SCREENING: SCREENING :NO FALLS REPORTED IN THE LAST YEAR PAIN SCREENING: PATIENT HAS A COMPLAINT OF ACUTE OR CHRONIC PAIN :YES LOCATION OF PAIN: LOW BACK INTENSITY OF PAIN (SCALE OF 1 TO 10):1 WHAT DOES YOUR PAIN FEEL LIKE:ACHING DURATION:PERIODIC NURSING NOTE: -. PAIN CENTER INTAKE QUESTIONS: DO YOU HAVE A HISTORY OF MRSA? :NO DO YOU TAKE A BLOOD THINNERS? :NO DO YOU HAVE ANY BLEEDING DISORDERS? :NO ANY NEW NUMBNESS OR WEAKNESS IN YOUR LEGS OR ARMS? :NO ANY PACEMAKER,DEFIBRILLATOR, OR DORSAL COLUMN STIMULATOR? :NO DO YOU HAVE ANY RASHES OR OPEN SORES? :NO ARE YOU ALLERGIC TO IV DYE? :NO ARE YOU DIABETIC? :NO ANY NEW PROBLEMS WITH YOUR MEDICATIONS? :NO HAVE YOU RECEIVED A VACCINE IN THE PAST 30 DAYS? :NO DO YOU PLAN TO RECEIVE A VACCINE IN THE NEXT 21 DAYS? :NO DO YOU NEED ANY PRESCRIPTION? :NO DO YOU TAKE ANY IMMUNOSUPPRESSIVE MEDICATIONS? :NO IS THERE A CHANCE YOU COULD BE ? :NO ARE YOU BREAST FEEDING? :NO CURRENT MEDICATIONS TAKING ALLOPURINOL 300 MG TABLET 1 TABLET ORALLY ONCE DAILY TAKING ASPIRIN 325 MG TABLET 1 TABLET ORALLY ONCE A DAY TAKING CALCITRIOL 0.25 MCG CAPSULE 1 CAPSULE ORALLY ONCE A DAY TAKING GLUCOSAMINE CHONDROITIN COMPLX 600-250 MG CAPSULE 1 TAB(S) ORALLY BID TAKING LEVOTHYROXINE SODIUM 50 MCG TABLET 1 TABLET ON AN EMPTY STOMACH IN THE MORNING ORALLY ONCE A DAY TAKING MULTIVITAMINS TABLET DIRECTED ORALLY DAILY TAKING POTASSIUM CHLORIDE 20 MEQ TABLET EXTENDED RELEASE 1 TABLETS WITH FOOD ORALLY TWICE A DAY TAKING ZOLPIDEM 10 MG TABLET 1 TAB(S) ORAL AT BEDTIME NEEDED TAKING TORSEMIDE 20 MG TABLET 1 TAB(S) ORALLY 2 IN THE MORNING/ 1 TAB IN AFTERNOON TAKING SERTRALINE HCL 100 MG TABLET 1 TABLET ORALLY ONCE A DAY TAKING SPIRONOLACTONE 25 MG TABLET 1 TABLET ORALLY BID TAKING LABETALOL HCL 100 MG TABLET 1 TAB IN AM, HALF TAB IN AFTERNOON ORALLY BID TAKING CALCIUM 600+D3 600-400 MG-UNIT TABLET 1 TABLET WITH A MEAL ORALLY ONCE A DAY TAKING ALIGN 4 MG CAPSULE ORALLY DAILY TAKING TYLENOL ARTHRITIS PAIN 650 MG TABLET EXTENDED RELEASE 2 TABS ORALLY EVERY 8 HRS TAKING FINASTERIDE 5 MG TABLET 1 TABLET ORALLY ONCE A DAY TAKING SULFASALAZINE 500 MG TABLET DELAYED RELEASE 1 TABLET ORALLY ONCE A DAY TAKING GABAPENTIN 100 MG CAPSULE 1 CAPSULE ORALLY BID TAKING NUCYNTA ER 150 MG TABLET EXTENDED RELEASE 12 HOUR 1 TABLET ORALLY EVERY 12 HRS BID MDD2 TAKING FLOMAX 0.4 MG CAPSULE 2 CAPSULES ORALLY ONCE A DAY TAKING NUCYNTA 75 MG TABLET 1 TABLET ORALLY FOR PAIN EVERY 6 HOURS NEEDED MDD 2 TAKING SOMA 350 MG TABLET 1 TABLET NEEDED ORALLY Q12H BID MDD2 TAKING VITAMIN D3 ULTRA STRENGTH ORALLY DAILY NOT-TAKING OXYBUTYNIN CHLORIDE ER 10 MG TABLET EXTENDED RELEASE 24 HOUR 1 TABLET ORALLY ONCE A DAY NOT-TAKING OTEZLA 30 MG TABLET 1 TABLET ORALLY DAILY NOT-TAKING LEFLUNOMIDE 10 MG TABLET 1 TABLET ORALLY ONCE A DAY NOT-TAKING TRAMADOL HCL 50 MG TABLET 1-2 TAB ORALLY Q4-6H PRN PAIN MDD6 NOT-TAKING VOLTAREN 1 % GEL APPLY TO LEFT KNEE TRANSDERMAL BID NOT-TAKING TYLENOL EXTRA STRENGTH 500 MG TABLET 1 TABLET NEEDED ORALLY EVERY 6 HRS PRN, NOTES: NEW DOSE MEDICATION LIST REVIEWED AND RECONCILED WITH THE PATIENT PAST MEDICAL HISTORY BPH URINARY RETENTION GOUT HTN EDEMA DDD/DJD; SEVERE SPINAL STENOSIS HYPOTHYROIDISM DEPRESSION/ANXIETY HYPERCHOLESTEROLEMIA HYPOKALEMIA SLEEP APNEA VERTIGO INSOMNIA CHRONIC KIDNEY DISEASE OSTEOARTHRITIS VARICOSE VEINS OSTEOARTHRITIS BROKEN LITTLE FINGER ON LEFT HAND ARTHRITIS LEFT KNEE TOOTH ISSUES LOW BACK PAIN ALLERGIES SURGICAL TAPE: REMOVES TOP LAYER OF SKIN - SIDE EFFECTS SURGICAL HISTORY ORIF LEFT LEG/ANKLE FRACTURE; PLATES/SCREWS IN PLACE 1992 BILATERAL - 2 TRIGGER FINGER RELEASE/CARPAL CHARO RELEASE/BONE REMOVAL THUMB (LEFT) 2004 TONSILLECTOMY APPENDECTOMY L3-L5 LAMINECTOMY 11/2012 COLONSCOPY 05/2016 CYSTOSCOPY 08/02/2017 RADIO FREQUENCY FEB 2018 FAMILY HISTORY FATHER: , CHF MOTHER: , HEART ATTACK, DIABETES SIBLINGS: ALIVE DAUGHTER(S): DIAGNOSED WITH OTHER MALIGNANT NEOPLASM OF UNSPECIFIED SITE 1 SON(S) , 4 DAUGHTER(S) . 1 DAUGHTER-BREAST CA1 DAUGHTER-POLY CYSTIC BREAST. SOCIAL HISTORY GENERAL: TOBACCO USE ARE YOU A:NONSMOKER LATEX QUESTIONNAIRE LATEX ALLERGY : HAVE YOU EVER DEVELOPED ANY TYPE OF REACTION AFTER HANDLING LATEX PRODUCTS SUCH RUBBER GLOVES, CONDOMS, DIAPHRAGMS, BALLOONS, SOCKS, OR UNDERWEAR?NO LATEX ALLERGY : HAVE YOU EVER DEVELOPED ANY TYPE OF REACTION DURING OR AFTER DENTAL APPOINTMENT, VAGINAL/RECTAL EXAMINATION, SURGICAL PROCEDURE, OR ANY OTHER EXPOSURE?NO LATEX RISK : HAVE YOU EVER HAD ANY DIFFICULTY BREATHING OR HIVES AFTER EATING OR HANDLING ANY FRUITS, OR VEGETABLES; SUCH KIWI, BANANAS, STONE FRUITS, OR CHESTNUTSNO LATEX RISK : DO YOU HAVE A PREVIOUS PERSONAL HISTORY OF MORE THAN NINE SURGERIES, SPINA BIFIDA, OR REPEATED CATHERIZATIONS? NO LATEX RISK : ARE YOU FREQUENTLY EXPOSED TO LATEX PRODUCTS IN YOUR OCCUPATION?NO DATE ASKED : 10/25/2019 ALCOHOL SCREENING DID YOU HAVE A DRINK CONTAINING ALCOHOL IN THE PAST YEAR?YES HOW OFTEN DID YOU HAVE SIX OR MORE DRINKS ON ONE OCCASION IN THE PAST YEAR?NEVER (0 POINTS) HOW MANY DRINKS DID YOU HAVE ON A TYPICAL DAY WHEN YOU WERE DRINKING IN THE PAST YEAR?1 OR 2 (0 POINTS) HOW OFTEN DID YOU HAVE A DRINK CONTAINING ALCOHOL IN THE PAST YEAR?MONTHLY OR LESS (1 POINT) POINTS1 INTERPRETATIONNEGATIVE RECREATIONAL DRUG USE DRUG USE?NO CAFFEINE CAFFEINE USE?YES HOW OFTEN AND HOW MUCH? 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 DIET: REGULAR. EXERCISE: NONE. MARITAL STATUS: . OTHERS AT HOME: SPOUSE, CHILD, CHILDREN. PAIN CLINIC PFS, CLERGY, PUBLIC HEALTH REFERRALS PFS REFERRAL NEEDED?NO CLERGY REFERRAL NEEDED?NO PUBLIC HEALTH REFERRAL NEEDED?NO WAS THE PROVIDER NOTIFIED OF ANY PERTINENT INFO? N/A HAS THE PATIENT BEEN EDUCATED REGARDING HIS/HER PLAN OF CARE?YES HAS THE PATIENT BEEN EDUCATED REGARDING PAIN, THE RISK FOR PAIN, THE IMPORTANCE OF EFFECTIVE PAIN MANAGEMENT, AND THE PAIN ASSESSMENT PROCESS?YES ADVANCE DIRECTIVE ADVANCE DIRECTIVE DISCUSSED WITH PATIENT:YES HCP - DAVIDSHELLI GONZALESSUHASHARMONY () HOSPITALIZATION/MAJOR DIAGNOSTIC PROCEDURE DIVERTICULITIS X2 SURGERY RELATED DIVERTICULITIS 12/2015 REVIEW OF SYSTEMS CONSTITUTIONAL: ANY RECENT FEVER NO . CHILLS NO . WEIGHT CHANGE OF UNKNOWN REASONS NO . GASTROENTEROLOGY: NEW UNEXPLAINABLE CHANGES IN BOWEL CONTROL NO . CONSTIPATION NO . GENITOURINARY: ANY NEW CHANGE IN BLADDER CONTROL? NO . NEUROLOGY: NEW ONSET DIZZINESS OR NEUROLOGICAL CHANGES NOT MENTIONED NO . NEW NUMBNESS OR PAIN PATTERNS NOT MENTIONED AND PERTINENT TO TODAY'S VISIT NO . CARDIOLOGY: NEW CHEST PRESSURE NO . NEW CHEST PAIN NO . RESPIRATORY: UNEXPLAINABLE COUGH NO . NEW SHORTNESS OF BREATH NO . ASSESSMENTS SPONDYLOSIS OF LUMBOSACRAL REGION WITHOUT MYELOPATHY OR RADICULOPATHY - M47.817 (PRIMARY) TREATMENT SPONDYLOSIS OF LUMBOSACRAL REGION WITHOUT MYELOPATHY OR RADICULOPATHY NOTES: LEFT L4-5 , L5-S1 RADIOFREQUENCY. DISPOSITION & COMMUNICATION FOLLOW UP POST PROCEDURE (REASON: LEFT L4-5 , L5-S1 RADIOFREQUENCY) ELECTRONICALLY SIGNED BY RICK VARELA ON 11/08/2019 AT 09:36 AM EDT DISCLAIMER : THIS IS A VISIT SUMMARY EXTRACTED FROM THE [employer] CHART. IT IS NOT A COPY OF THE [employer] PROGRESS NOTE. HECTOR
== END ==
LOC: M TMPAIN 10:30 → M PAIN 10:30
PROVIDERS: ATTEND Nurse Practitioner Family
DX: M47.817 Spondylosis without myelopathy or radiculopathy, lumbosacral region (principal)

== ENCOUNTER → 2019-11-04 | Outpatient (CLI) | payer MEDICARE, OTHER ==
[~2019-11-04] MED LIST changes: +D-101000 PO; +GABA-1171 PO; +LABE10TAB PO; +LEVO112T2 PO; +NUCY150T PO; +NUCY75TA11 PO; +SOMA350T PO; +SPIR50TA4 PO; +SULF1TAB30 PO; +ZYLO300T6 PO; +[UNRECOGNIZED DRUG - CODE] PO
== END ==
LOC: M LABSMTC 12:13
PROVIDERS: ATTEND Anesthesiology
DX: Z11.59 Encounter for screening for other viral diseases (principal)
CPT/HCPCS: C9803; U0003

== ENCOUNTER → 2019-11-09 | Outpatient (CLI) | payer MEDICARE, OTHER ==
[~2019-11-09] MED LIST changes: +BUPIVACAINE HCL 0.25% 30ML VIAL As Ordered ONE; +ISOVUE-M 300 61% 15ML VIAL As Ordered ONE; +LIDOCAINE 1% SDV 30ML VIAL As Ordered ONE; +dexameTHASONE 10MG/1ML VIAL PRES.FREE (J1100 PER 1MG) As Ordered ONE; +oxyCODONE 5MG TAB As Ordered ONE
--- NOTE | 2019-11-09 11:31 | REP ---
C-ARM VIEWS OF THE LOWER LUMBAR SPINE: CLINICAL HISTORY: Pain. Five C-arm views of the lower lumbar spine are performed during injection by Dr. Holcomb. [place] are seen along the margins of the lower lumbar spine. 52.3 seconds of fluoroscopy time was utilized. Electronically Signed by Se Mobley MD 11/12/2019 11:37 P
--- NOTE | 2019-11-11 00:35 | ECWPNPC ---
PATIENT NAME: ANG MCDERMOTT : 1940 GENDER: MALE VISIT DATE: 11/09/2019 DISCHARGE DATE: 11/09/191101 VISIT LOCKED DATE TIME: PHYSICIAN: ELLYN VU MD RESOURCE: ELLYN VU MD REASON FOR APPOINTMENT 1. COOL LEFT L4-5 , L5-S1 RADIOFREQUENCY/PAT COMPLETED HISTORY OF PRESENT ILLNESS GENERAL: -. FALL RISK SCREENING: SCREENING :NO FALLS REPORTED IN THE LAST YEAR PAIN SCREENING: PATIENT HAS A COMPLAINT OF ACUTE OR CHRONIC PAIN :YES LOCATION OF PAIN:LOW BACK WHEN ACTIVE IT OCCASSIONALLY GOES DOWN LEFT LEG INTENSITY OF PAIN (SCALE OF 1 TO 10):2 AVERAGE 5-8 WHAT DOES YOUR PAIN FEEL LIKE:ACHING, BURNING, INTERMITTENT, SORE DURATION:MAINLY DURING THE DAY, INTERMITTENT WITH ACTIVITY PAIN IS INCREASED BY:ACTIVITIES, PROLONGED STANDING PAIN IS DECREASED BY: REST NURSING NOTE: -. PAIN CENTER INTAKE QUESTIONS: DO YOU HAVE A HISTORY OF MRSA? :NO DO YOU TAKE A BLOOD THINNERS? :NO DO YOU HAVE ANY BLEEDING DISORDERS? :NO ANY NEW NUMBNESS OR WEAKNESS IN YOUR LEGS OR ARMS? :NO ANY PACEMAKER,DEFIBRILLATOR, OR DORSAL COLUMN STIMULATOR? :NO DO YOU HAVE ANY RASHES OR OPEN SORES? :NO ARE YOU ALLERGIC TO IV DYE? :NO ARE YOU DIABETIC? :NO ANY NEW PROBLEMS WITH YOUR MEDICATIONS? :NO HAVE YOU RECEIVED A VACCINE IN THE PAST 30 DAYS? :NO DO YOU PLAN TO RECEIVE A VACCINE IN THE NEXT 21 DAYS? :NO DO YOU TAKE ANY IMMUNOSUPPRESSIVE MEDICATIONS? :YES ALLOPURINOL ANY HISTORY OF SEIZURES? :NO ANY HISTORY OF CARDIAC ISSUES OR EVENTS? :NO DO YOU HAVE SLEEP APNEA? :YES DO YOU WEAR A CPAP? BIPAP ANY RECENT HEAD INJURY? :NO DO YOU HAVE ANY NEW INFECTIONS? :NO IS THERE A CHANCE YOU COULD BE ? :NO ARE YOU BREAST FEEDING? :NO WHEN DID YOU LAST EAT? : -11/08/190 WHEN DID YOU LAST DRINK? : -11/08/2019 2400 WHAT DID YOU LAST DRINK? : -WATER NAME OF PERSON DRIVING YOU HOME? : -THERESA DO YOU HAVE ANY OTHER QUESTIONS OR CONCERNS? : NONE CURRENT MEDICATIONS TAKING ALLOPURINOL 300 MG TABLET 1 TABLET ORALLY ONCE DAILY, NOTES: 11/07 0800 TAKING ASPIRIN 325 MG TABLET 1 TABLET ORALLY ONCE A DAY, NOTES: 11/07 2099 TAKING CALCITRIOL 0.25 MCG CAPSULE 1 CAPSULE ORALLY ONCE A DAY, NOTES: 11/08 799 TAKING GLUCOSAMINE CHONDROITIN COMPLX 600-250 MG CAPSULE 1 TAB(S) ORALLY BID, NOTES: 11/07 1699 TAKING LEVOTHYROXINE SODIUM 50 MCG TABLET 1 TABLET ON AN EMPTY STOMACH IN THE MORNING ORALLY ONCE A DAY, NOTES: 11/07 699 TAKING MULTIVITAMINS TABLET DIRECTED ORALLY DAILY, NOTES: 11/08 799 TAKING POTASSIUM CHLORIDE 20 MEQ TABLET EXTENDED RELEASE 2 TABLETS WITH FOOD ORALLY TWICE A DAY, NOTES: 11/07 2099 TAKING ZOLPIDEM 10 MG TABLET 1 TAB(S) ORAL AT BEDTIME NEEDED, NOTES: 11/07 2099 TAKING TORSEMIDE 20 MG TABLET 1 TAB(S) ORALLY 2 IN THE MORNING/ 1 TAB IN AFTERNOON, NOTES: 11/07 1699 TAKING SERTRALINE HCL 100 MG TABLET 1 TABLET ORALLY ONCE A DAY, NOTES: 11/08 799 TAKING SPIRONOLACTONE 25 MG TABLET 1 TABLET ORALLY BID, NOTES: 11/07 1699 TAKING LABETALOL HCL 100 MG TABLET 1 TAB IN AM, HALF TAB IN AFTERNOON ORALLY BID, NOTES: 11/07 2099 TAKING CALCIUM 600+D3 600-400 MG-UNIT TABLET 1 TABLET WITH A MEAL ORALLY ONCE A DAY, NOTES: 11/07 1699 TAKING ALIGN 4 MG CAPSULE ORALLY DAILY, NOTES: 11/08 799 TAKING TYLENOL ARTHRITIS PAIN 650 MG TABLET EXTENDED RELEASE 2 TABS ORALLY EVERY 8 HRS, NOTES: 11/07 2099 TAKING FINASTERIDE 5 MG TABLET 1 TABLET ORALLY ONCE A DAY, NOTES: 11/07 2099 TAKING SULFASALAZINE 500 MG TABLET DELAYED RELEASE 1 TABLET ORALLY ONCE A DAY, NOTES: 11/07 1699 TAKING GABAPENTIN 100 MG CAPSULE 1 CAPSULE ORALLY BID, NOTES: 11/07 2099 TAKING NUCYNTA ER 150 MG TABLET EXTENDED RELEASE 12 HOUR 1 TABLET ORALLY EVERY 12 HRS BID MDD2, NOTES: 11/07 2099 TAKING FLOMAX 0.4 MG CAPSULE 2 CAPSULES ORALLY ONCE A DAY, NOTES: 11/07 1699 TAKING NUCYNTA 75 MG TABLET 1 TABLET ORALLY FOR PAIN EVERY 6 HOURS NEEDED MDD 2, NOTES: 11/07 1399 TAKING SOMA 350 MG TABLET 1 TABLET NEEDED ORALLY Q12H BID MDD2, NOTES: 11/07 2099 TAKING VITAMIN D3 ULTRA STRENGTH 4 TABS ORALLY DAILY, NOTES: 11/07 1699 NOT-TAKING OXYBUTYNIN CHLORIDE ER 10 MG TABLET EXTENDED RELEASE 24 HOUR 1 TABLET ORALLY ONCE A DAY NOT-TAKING OTEZLA 30 MG TABLET 1 TABLET ORALLY DAILY NOT-TAKING LEFLUNOMIDE 10 MG TABLET 1 TABLET ORALLY ONCE A DAY NOT-TAKING TRAMADOL HCL 50 MG TABLET 1-2 TAB ORALLY Q4-6H PRN PAIN MDD6 NOT-TAKING VOLTAREN 1 % GEL APPLY TO LEFT KNEE TRANSDERMAL BID NOT-TAKING TYLENOL EXTRA STRENGTH 500 MG TABLET 1 TABLET NEEDED ORALLY EVERY 6 HRS PRN, NOTES: NEW DOSE MEDICATION LIST REVIEWED AND RECONCILED WITH THE PATIENT PAST MEDICAL HISTORY BPH URINARY RETENTION GOUT HTN EDEMA DDD/DJD; SEVERE SPINAL STENOSIS HYPOTHYROIDISM DEPRESSION/ANXIETY HYPERCHOLESTEROLEMIA HYPOKALEMIA SLEEP APNEA VERTIGO INSOMNIA CHRONIC KIDNEY DISEASE OSTEOARTHRITIS VARICOSE VEINS OSTEOARTHRITIS BROKEN LITTLE FINGER ON LEFT HAND ARTHRITIS LEFT KNEE TOOTH ISSUES LOW BACK PAIN ALLERGIES SURGICAL TAPE: REMOVES TOP LAYER OF SKIN - SIDE EFFECTS SURGICAL HISTORY ORIF LEFT LEG/ANKLE FRACTURE; PLATES/SCREWS IN PLACE 1992 BILATERAL - 2 TRIGGER FINGER RELEASE/CARPAL CHARO RELEASE/BONE REMOVAL THUMB (LEFT) 2004 TONSILLECTOMY APPENDECTOMY L3-L5 LAMINECTOMY 11/2012 COLONSCOPY 05/2016 CYSTOSCOPY 08/02/2017 RADIO FREQUENCY FEB 2018 RIGHT COOL LUMBAR RADIOFREQENCY 10/05/2019 FAMILY HISTORY FATHER: , CHF MOTHER: , HEART ATTACK, DIABETES SIBLINGS: ALIVE DAUGHTER(S): DIAGNOSED WITH OTHER MALIGNANT NEOPLASM OF UNSPECIFIED SITE 1 SON(S) , 4 DAUGHTER(S) . 1 DAUGHTER-BREAST CA1 DAUGHTER-POLY CYSTIC BREAST. SOCIAL HISTORY GENERAL: TOBACCO USE ARE YOU A:NONSMOKER LATEX QUESTIONNAIRE LATEX ALLERGY : HAVE YOU EVER DEVELOPED ANY TYPE OF REACTION AFTER HANDLING LATEX PRODUCTS SUCH RUBBER GLOVES, CONDOMS, DIAPHRAGMS, BALLOONS, SOCKS, OR UNDERWEAR?NO PT DOES HAVE ALLERGY TO SURGICAL TAPE LATEX ALLERGY : HAVE YOU EVER DEVELOPED ANY TYPE OF REACTION DURING OR AFTER DENTAL APPOINTMENT, VAGINAL/RECTAL EXAMINATION, SURGICAL PROCEDURE, OR ANY OTHER EXPOSURE?NO LATEX RISK : HAVE YOU EVER HAD ANY DIFFICULTY BREATHING OR HIVES AFTER EATING OR HANDLING ANY FRUITS, OR VEGETABLES; SUCH KIWI, BANANAS, STONE FRUITS, OR CHESTNUTSNO LATEX RISK : DO YOU HAVE A PREVIOUS PERSONAL HISTORY OF MORE THAN NINE SURGERIES, SPINA BIFIDA, OR REPEATED CATHERIZATIONS? NO LATEX RISK : ARE YOU FREQUENTLY EXPOSED TO LATEX PRODUCTS IN YOUR OCCUPATION?NO DATE ASKED : 11/08/2019 ALCOHOL SCREENING DID YOU HAVE A DRINK CONTAINING ALCOHOL IN THE PAST YEAR?YES HOW OFTEN DID YOU HAVE SIX OR MORE DRINKS ON ONE OCCASION IN THE PAST YEAR?NEVER (0 POINTS) HOW MANY DRINKS DID YOU HAVE ON A TYPICAL DAY WHEN YOU WERE DRINKING IN THE PAST YEAR?1 OR 2 (0 POINTS) HOW OFTEN DID YOU HAVE A DRINK CONTAINING ALCOHOL IN THE PAST YEAR?MONTHLY OR LESS (1 POINT) POINTS1 INTERPRETATIONNEGATIVE RECREATIONAL DRUG USE DRUG USE?NO CAFFEINE CAFFEINE USE?YES HOW OFTEN AND HOW MUCH? 2-3 CUPS OF TEA PER DAY AND OCCASIONAL COFFEE MANDAEISM [id number] JAIN LANGUAGE LANGUAGES SPOKEN:MONEGASQUE EDUCATION LEVEL OF EDUCATION:NOT FINISHED COLLEGE LEARNING BARRIERS / SPECIAL NEEDS BARRIERS TO LEARNING?NO HEARING IMPAIRED?NO VISION IMPAIRED?YES :CORRECTIVE LENSES COGNITIVELY IMPAIRED?NO READINESS TO LEARN?YES LEARNING PREFERENCES?NO LEARNING CAPABILITIES PRESENT?YES EMOTIONAL BARRIERS?NO SPECIAL DEVICES?YES :CANE SUPERVISOR HAIRSPRING FABRICATION NEEDED?NO DOMESTIC VIOLENCE DO YOU FEEL SAFE IN YOUR ENVIRONMENT?YES OCCUPATION: RETIRED. DIET: REGULAR. EXERCISE: NONE. MARITAL STATUS: . OTHERS AT HOME: SPOUSE, CHILD, CHILDREN. PAIN CLINIC PFS, CLERGY, PUBLIC HEALTH REFERRALS PFS REFERRAL NEEDED?NO CLERGY REFERRAL NEEDED?NO PUBLIC HEALTH REFERRAL NEEDED?NO HAS THE PATIENT BEEN EDUCATED REGARDING HIS/HER PLAN OF CARE?YES HAS THE PATIENT BEEN EDUCATED REGARDING PAIN, THE RISK FOR PAIN, THE IMPORTANCE OF EFFECTIVE PAIN MANAGEMENT, AND THE PAIN ASSESSMENT PROCESS?YES ADVANCE DIRECTIVE ADVANCE DIRECTIVE DISCUSSED WITH PATIENT:YES HCP - THERESARAYMUNDO REESE () HOSPITALIZATION/MAJOR DIAGNOSTIC PROCEDURE DIVERTICULITIS X2 SURGERY RELATED DIVERTICULITIS 12/2015 VITAL SIGNS WT 310 LBS, HT 5'9", BMI 45.77 INDEX, BP 133/75 MM HG, HR 72 /MIN, RR 18 /MIN, TEMP 97.6 F, OXYGEN SAT % 95%, SAFE IN ENV? (Y/N) YES, NA INITIALS SC 08:29, REVIEWED BY: SPENCER. EXAMINATION GENERAL EXAMINATION: THE PATIENT IS ALERT, ORIENTED TIMES THREE AND COOPERATIVE. HEART SHOWS REGULAR RHYTHM, NO MURMURS AND NO GALLOPS. LUNGS ARE CLEAR TO AUSCULTATION. ASSESSMENTS SPONDYLOSIS WITHOUT MYELOPATHY OR RADICULOPATHY, LUMBAR REGION - M47.816 (PRIMARY) SPONDYLOSIS OF LUMBOSACRAL REGION WITHOUT MYELOPATHY OR RADICULOPATHY - M47.817 TREATMENT SPONDYLOSIS WITHOUT MYELOPATHY OR RADICULOPATHY, LUMBAR REGION [facility] FACET BLOCK (PAIN)[id number] MEDICATION: OXYCODONE HCL TAB 5MG ORALLY LUIS ZALDIVAR RN 11/09/2019 8:54:52 AM > VERIFIED REHAN SALVADOR 11/09/2019 8:56:16 AM > LOT # [id number] EXPIRES 06/17 REHAN SALVADOR 11/09/2019 8:56:28 AM > GIVEN @ 0856 SPONDYLOSIS OF LUMBOSACRAL REGION WITHOUT MYELOPATHY OR RADICULOPATHY [facility] FACET BLOCK (PAIN)[id number] PROCEDURES PAIN NURSING RECORD PRE-PROCEDURE IV SITE N/A, PRE-PROCEDURE ORAL MEDICATIONS OXYCODONE 5 MG PROCEDURE IN ROOM 0930, PHYSICIAN IN ROOM 0950, START 0959, FINISH 1026, PHYSICIAN OUT OF ROOM 1028, STEROID DEXAMETHASONE, O2 N/A, ECG NORMAL SINUS, PATIENT SHIELDED YES, SAFETY STRAP YES, PREP CHLOROPREP, IV INFUSED N/A, DRESSING TEGADERM LOC: 1. ALERT, ORIENTED RESP: 1. REGULAR, NO DYSPNEA COLOR: 1. PINK SKIN: 1. WARM, DRY POSITION: 1. PRONE VITALS: 0935 131/75 78-89% 0945 124/71 64-18 91% 1000 123/71 66-18 93% 1015 139/75 68-18 94% 1030 118/71 67-18 94% 1045 122/66 64-18 90% 1100 132/78 68-18 94% DISCHARGE: DRESSING SITE DRY AND INTACT, IV N/A, GAIT STEADY, TEACHING COMPLETED, PATIENT ACKNOWLEDGES UNDERSTANDING YES, PATIENT DISCHARGED AT 1103 PN RADIOFREQUENCY DATE OF PROCEDURE 11/09/2019 THERMO LESION RADIOFREQUENCY > 80 DEGREES : COOL SIDE: : LEFT LEVELS: : L4-L5, L5-S1 NEEDLE/CATHETER/GAUGE: : 17 CANULA LENGTH: : 150 MM ACTIVE TIP: : 4 MM GROUNDING PAD PLACED ON AFFECTED SIDE (MUSCULAR AREA): : LEFT THIGH, DR. VU NOTIFIED OF HARDWARE IN LEFT ANKLE 1 ST LEVEL: : L3,INITAL POSTIVE SENSORY RESPONE (50 HZ) 0.4,MOTOR RESPONSE (2 HZ-UP TO 3 VOLTS) 3.0 ,PRE-LOCAL IMPEDENCE READING OHMS 375 ,POST-LOCAL IMPEDENCE READING OHMS 200 ,DURING RF IMPEDENCE READING OHMS 172 , 2 ND LEVEL: : L4,INITIAL POSITIVE SENSORY RESPONSE (50 HZ) 0.6,MOTOR RESPONSE (2 HZ- UP TO 3 VOLTS) 3.0 ,PRE-LOCAL IMPEDENCE READING OHMS 520 ,POST-LOCAL IMEPEDENCE READING OHMS 279 ,DURING RF IMPEDENCE READING OHMS 287 , 3 RD LEVEL: : L5,INITIAL POSITIVE SENSORY RESPONSE (50 HZ) 0.6,MOTOR RESPONSE (2HZ- UP TO 3 VOLTS) 3.0 ,PRE- LOCAL IMPEDENCE READING OHMS 420 ,POST-LOCAL IMPEDENCE READING OHMS 339 ,DURING RF IMPEDENCE READING OHMS 300 , PRE PROCEDURE DIAGNOSES 1. LUMBAR SPONDYLOSIS. 2. LUMBOSACRAL SPONDYLOSIS POST PROCEDURE DIAGNOSES 1. LUMBAR SPONDYLOSIS. 2. LUMBOSACRAL SPONDYLOSIS PROCEDURE LEFT L4-L5 AND LEFT L5-S1 LUMBAR FACET RADIOFREQUENCY (COOLED RF) SURGEON DR. ELLYN VU DIE CAST SUPERVISOR NONE ANESTHESIA LOCAL PRE PROCEDURE REPORT THE PATIENT HAS HISTORY OF CHRONIC LOW BACK PAIN. I EVALUATED THE PATIENT AND REVIEWED THE CHART. I WENT OVER THE RISKS, ALTERNATIVES, AND BENEFITS ASSOCIATED WITH THIS PROCEDURE. I DISCUSSED THAT THE USE OF STEROIDS MAY CONTRIBUTE TO IMMUNOSUPPRESSION OF THE PATIENT'S BODY AGAINST INFECTIONS SUCH COVID-19. THE PATIENT IS AWARE OF THE POTENTIAL COMPLICATIONS ASSOCIATED WITH THIS VIRUS, INCLUDING, BUT NOT LIMITED TO, . THE PATIENT WOULD LIKE TO PROCEED AND GAVE CONSENT TO PERFORM THE PROCEDURE. THE PATIENT DENIES UNEXPLAINABLE WEIGHT LOSS, FEVER, CHILLS OR NEW CHANGES IN URINARY OR BOWEL CONTROL. THE PATIENT IS COVID-19 NEGATIVE DESCRIPTION OF PROCEDURE THE PATIENT WAS BROUGHT TO THE PROCEDURE ROOM AND PLACED IN THE PRONE POSITION. A TIMEOUT WAS PERFORMED WHERE LATERALITY AND THE SITE OF THE PROCEDURE WERE CHECKED AND CONFIRMED WITH EVERYONE IN THE ROOM. THE LUMBOSACRAL AREA WAS CLEANED WITH CHLORAPREP SOLUTION AND DRAPED ASEPTICALLY. THE PROCEDURE WAS DONE UNDER STERILE CONDITIONS. UNDER FLUOROSCOPIC GUIDANCE, TARGETS WERE SELECTED AT THE INTERSECTION OF THE LEFT TRANSVERSE PROCESS OF L4, L5 AND ALA OF S1 WITH ITS RESPECTIVE SUPERIOR ARTICULAR PROCESS. LIDOCAINE WAS USED TO NUMB THE SKIN AND THE SUBCUTANEOUS TISSUE BELOW IT. RADIOFREQUENCY CANNULAS, 17-GAUGE, 150 MM LONG WITH 4 MM ACTIVE TIP, WERE ADVANCED UNDER FLUOROSCOPIC GUIDANCE AND FOLLOWING PATIENT FEEDBACK UNTIL THE TARGET AREA WAS REACHED. POSITION OF THE CANNULA WAS VERIFIED WITH AP AND LATERAL VIEWS. AFTER PROPER POSITION OF THE CANNULA WAS ACHIEVED, WE WORKED WITH THE LEFT SELECTED MEDIAN BRANCHES OF L3, L4 AND THE DORSAL RAMI OF L5 WE MEASURED THE CORRESPONDING IMPEDANCES AND MOTOR RESPONSES INDICATED IN THE RADIOFREQUENCY WORK SHEET. POSITION OF THE CANNULA WAS VERIFIED AGAIN WITH AP AND LATERAL VIEWS. LIDOCAINE 1%, 2 ML, WAS INJECTED AT EACH LEVEL. RADIOFREQUENCY WAS DONE AT EACH LEVEL USING THE [employer] SYSTEM-- COOLED RF-- WITH A SETTING AT THE MACHINE OF 60 DEGREES WITH A TARGET TISSUE TEMPERATURE OF 80 TO 90 DEGREES FOR A MINIMUM OF 150 SECONDS. AFTER RADIOFREQUENCY WAS DONE, THE PATIENT RECEIVED BUPIVACAINE 0.125%,1 ML, WITH DEXAMETHASONE 3 MG AT EACH SITE. THERE WAS NO EVIDENCE OF BLOOD, PARESTHESIA OR CEREBROSPINAL FLUID DURING THE PROCEDURE. THE PATIENT WAS SENT TO THE RECOVERY ROOM. THE PATIENT WAS MOVING THE EXTREMITIES AND DOING WELL. EBL LESS THAN 5 ML. THERE WERE NO COMPLICATIONS DURING THE PROCEDURE. FLUOROSCOPY TIME WAS 52 SECONDS POST PROCEDURE NOTE THE PATIENT WILL BE SEEN IN A FOLLOW UP IN THE NEXT FEW WEEKS. INSTRUCTIONS WERE GIVEN, QUESTIONS WERE ANSWERED, AND THE PATIENT EXPRESSED UNDERSTANDING AND AGREES WITH THE PLAN. THE PATIENT IS AWARE TO STAY HOME FOR THE NEXT WEEK, IF POSSIBLE, DUE TO COVID-19. I, KASHMIR KUMAR, DOCUMENTED THE ABOVE INFORMATION ACTING A SCRIBE FOR DR. VU. I HAVE REVIEWED THE ABOVE DOCUMENT, WRITTEN BY ADRIAN KOENIG, AND I VERIFY THAT IT IS ACCURATE PROCEDURE CODES 51673 DESTROY LUMB/SAC [place], [place]: [place] [address] DESTROY L/S FACET JNT ADDL, MODIFIERS: LT DISPOSITION & COMMUNICATION FOLLOW UP F/UP WITH MARKET DIRECTOR (REASON: POST COOL RF LT L4-L5, L5-S1) ELECTRONICALLY SIGNED BY ELLYN VU MD, MD ON 11/10/2019 AT 11:04 AM EDT DISCLAIMER : THIS IS A VISIT SUMMARY EXTRACTED FROM THE [employer] CHART. IT IS NOT A COPY OF THE [employer] PROGRESS NOTE. MTDD
== END ==
LOC: M PAIN 08:00
PROVIDERS: ATTEND Anesthesiology
DX: M47.816 Spondylosis without myelopathy or radiculopathy, lumbar region (principal); M47.817 Spondylosis without myelopathy or radiculopathy, lumbosacral region
CPT/HCPCS: 64635; 64636; J1100; Q9967

== ENCOUNTER → 2019-11-23 | Outpatient (POV) | payer MEDICARE, OTHER ==
[~2019-11-23] MED LIST changes: -BUPIVACAINE HCL 0.25% 30ML VIAL As Ordered ONE; -ISOVUE-M 300 61% 15ML VIAL As Ordered ONE; -LIDOCAINE 1% SDV 30ML VIAL As Ordered ONE; -dexameTHASONE 10MG/1ML VIAL PRES.FREE (J1100 PER 1MG) As Ordered ONE; -oxyCODONE 5MG TAB As Ordered ONE
== END ==
LOC: M PAIN 08:15
PROVIDERS: ATTEND Nurse Practitioner Family
DX: M47.817 Spondylosis without myelopathy or radiculopathy, lumbosacral region (principal)

== ENCOUNTER → 2020-01-18 | Outpatient (CLI) | payer MEDICARE, OTHER | LOC: M LABSMTC 11:54 | PROVIDERS: ATTEND Anesthesiology | DX: Z01.812 Encounter for preprocedural laboratory examination (principal); Z20.828 Contact with and (suspected) exposure to other viral communicable diseases | CPT/HCPCS: C9803; U0003 ==

== ENCOUNTER 2020-01-23 11:00 | Day surgery (SDC) | payer MEDICARE, OTHER ==
[~2020-01-23] VITALS: Ht 175.3 cm; Wt 139.8 kg
[~2020-01-23 11:00] MED LIST changes: -LEVO112T2 PO; +LR 1,000 ML IV ONE
[2020-01-23] MEDS ORDERED: LEVO112T2 PO (11:46)
[2020-01-23] MEDS ORDERED: ceFAZolin SOD 2 GM in IV 1 EA IV ONE (13:15)
[2020-01-23] MEDS ORDERED: propofoL 200 MG/20 ML VIAL As Ordered ONE ×2 (13:49→15:58)
[2020-01-23] MEDS ORDERED: ONDANSETRON 4MG/2ML VIAL As Ordered ONE (13:50)
[2020-01-23] MEDS ORDERED: dexameTHASONE 4 MG/ML 1ML VIAL (J1100 PER 1MG) As Ordered ONE (13:50)
[2020-01-23] MEDS ORDERED: LIDOCAINE 2% 100MG/5ML SDV (FOR ANES.) As Ordered ONE ×2 (13:50→17:14)
[2020-01-23] MEDS ORDERED: fentaNYL 100 MCG/2 ML INJECTION (J3010) As Ordered ONE ×3 (13:50→18:01)
[2020-01-23] MEDS ORDERED: ceFAZolin 1GM VIAL (J0690 PER 500MG) As Ordered ONE (15:09)
[2020-01-23] MEDS ORDERED: BUPIVACAINE/EPIN 0.25% 30 ML VIAL As Ordered ONE (15:15)
[2020-01-23] MEDS ORDERED: ACETAMINOPHEN 1000MG 100ML IV BTL (OFIRMEV) (J0131 PER 10MG) As Ordered ONE (17:18)
[2020-01-23] MEDS ORDERED: oxyCODONE 5MG TAB As Ordered ONE ×2 (18:00→18:30)
[2020-01-23] MEDS: fentaNYL 100 MCG/2 ML INJECTION (J3010) IV PRN ×4 (18:01→18:20)
[2020-01-23] MEDS: oxyCODONE 5MG TAB PO PRN ×2 (18:01→18:31)
[2020-01-23] MEDS ORDERED: HYDROMORPHONE HCL 0.5 MG/ 0.5 ML SYRINGE (J1170 PER 1) IV PRN (19:00)
[2020-01-23] MEDS ORDERED: PERCOCET 5MG/325MG TAB PO PRN ×2 (19:00)
[2020-01-23] MEDS ORDERED: ONDANSETRON 4MG/2ML VIAL IV PRN (19:00)
[2020-01-23] MEDS ORDERED: LR 1,000 ML IV SCH ×2 (19:00)
[2020-01-23] MEDS ORDERED: MORPHINE 2 MG/ML 1ML VIAL (J2270) IV PRN (19:00)
[2020-01-23 19:30] VITALS: BP 161/80
--- NOTE | 2020-01-30 14:35 | RO ---
DATE OF OPERATION: 01/23/2020 PREOPERATIVE DIAGNOSIS: Right thumb carpometacarpal joint basal arthritis. POSTOPERATIVE DIAGNOSIS: Right thumb carpometacarpal joint basal arthritis. PROCEDURE: Right thumb CMC joint arthroplasty using anchovy technique. SURGEON: Kwadwo Gaming MD MEATMAN: Mr. Davy Nuñez ANESTHESIA: General laryngeal mask anesthetic. COMPLICATIONS: None. ESTIMATED BLOOD LOSS: 20 mL. SPECIMEN: None. PROCEDURE: Antibiotics were given intravenously preoperatively. Successful general laryngeal mask anesthetic was established. Tourniquet was placed around right upper arm. The right upper extremity was carefully prepped and draped in usual sterile fashion. After an appropriate time out the arm was elevated anterior tourniquet was inflated to 250 mmHg. A small V-shaped incision on the base of the thumb joint was made slightly volar. Very careful dissection through the superficial soft tissues was performed under loupe dissection. Bipolar cautery was used to coagulate crossing veins and radial sensory nerve branches were identified and protected. The abductor pollicis longus and extensor pollicis brevis tendon insertions were split and then the underlying capsule at the CMC joint was split. Careful subperiosteal dissection dorsally and volarly around the base of the thumb metacarpal as well the trapezium bone itself was carefully performed. We used combination of sharp 15-blade dissection and 64- blade dissection and then metatarsal head dissection to subperiosteally eventually remove the periosteal attachments at the trapezium bone. The trapezium bone did have to be split in two with small osteotome and then we did remove it piecemeal. Eventually we were able to remove the entire bone. At this point we turned our attention to harvesting the flexor carpi radialis tendon. Small longitudinal incision was made distally on the volar forearm, we identified the tendon and then more proximally on the forearm we also made a small transverse incision, identified the flexor carpi radialis tendon and then divided it proximally and then pulled into the distal wound and eventually pulled it into the wound at the base of the thumb. The muscle tissues were removed from the proximal end of the tendon that was whip-stitched with 2-0 PDS suture for passing. We then made a small 3.2 pilot control operator helper drill hole in the thumbnail surface at the base of the thumb metacarpal exiting out the proximal and ulnar side of the base of the thumb metacarpal. I then expanded with 4.5 drill and curettes. We copiously irrigated the wound as we did several times throughout the operation. We then used [employer] suture passer to pass the free ends of the sutures on the flexor carpi radialis tendon and pulled it up through the base of the thumb metacarpal out dorsally and we sewed it back down onto itself across the base of the thumb metacarpal acting as suspensory ligament. I then passed the #0 Polydek suture deep in the wound capturing some of the capsule to use to hold the thumb metacarpal anchovy. I then used two Cuate needles to anchovy the remaining flexor carpi radialis tendon and then sewed it and secured it with 3-0 PDS. The Polydek sutures were then passed through the anchovy and then dumped into the wound after irrigating again and had oversewed that to hold it securely in position. We irrigated again copiously and then closed the abductor and extensor tendons and capsule with interrupted 3-0 PDS suture over the top of the repair and deep to the dermal tissues were closed with interrupted 3-0 PDS suture and then running 5-0 nylon used on the skin. Proximally the wounds were irrigated and closed with combination of 3-0 PDS suture and 5-0 nylon sutures and covered with Adaptic. The tourniquet was released prior to closure of the capsule. Wounds were covered with Adaptic, dry sterile bulky dressing and 5 inch plaster splint applied over-wrapped with an Hunter wrap. Prior to dressing the wound I did place 0.25% Marcaine with Epinephrine in all the incisions for postop analgesia. He was awakened from general laryngeal mask anesthetic after having tolerated the procedure well, transferred to the recovery room in stable condition. There were no intraoperative complications. Mr. Davy Nuñez, my hr administrative assistant, was critical for this success, it was a very difficult surgery, by helping with appropriate soft tissue retraction, help close the wound, help to manipulate the thumb amongst many other tasks to allow me to perform this difficult surgery smoothly, efficiently and safely. HECTOR
== END 2020-01-23 19:35 | disposition home or self-care (01) ==
LOC: M SDC 11:00
PROVIDERS: ATTEND Orthopaedic Surgery
DX: M19.041 Primary osteoarthritis, right hand (principal); M25.531 Pain in right wrist; N25.81 Secondary hyperparathyroidism of renal origin; N40.0 Benign prostatic hyperplasia without lower urinary tract symptoms; I12.9 Hypertensive chronic kidney disease with stage 1 through stage 4 chronic kidney disease, or unspecified chronic kidney disease; N18.3 Chronic kidney disease, stage 3 (moderate); R60.0 Localized edema; F32.9 Major depressive disorder, single episode, unspecified; F41.9 Anxiety disorder, unspecified; E03.9 Hypothyroidism, unspecified; K57.92 Diverticulitis of intestine, part unspecified, without perforation or abscess without bleeding; E78.00 Pure hypercholesterolemia, unspecified; G47.33 Obstructive sleep apnea (adult) (pediatric); Z87.891 Personal history of nicotine dependence; Z79.899 Other long term (current) drug therapy; E87.6 Hypokalemia
CPT/HCPCS: 25447; 88300; J0131; J0690; J1100; J2405; J3010

== ENCOUNTER → 2020-02-28 | Outpatient (CLI) | payer MEDICARE, OTHER ==
[~2020-02-28] MED LIST changes: +LEVO112T2 PO; -LR 1,000 ML IV ONE
--- NOTE | 2020-03-01 02:36 | ECWPNPC ---
PATIENT NAME: ANG MCDERMOTT : 1940 GENDER: MALE VISIT DATE: 02/28/2020 DISCHARGE DATE: 02/28/20 1148 VISIT LOCKED DATE TIME: PHYSICIAN: SHARON LOWRY RESOURCE: SHARON LOWRY REASON FOR APPOINTMENT 1. 3 MOS F/U HISTORY OF PRESENT ILLNESS DEPRESSION SCREENING: PHQ-2 (2015 EDITION) LITTLE INTEREST OR PLEASURE IN DOING THINGS?NOT AT ALL FEELING DOWN, DEPRESSED, OR HOPELESS?NOT AT ALL TOTAL SCORE0 GENERAL: HERE FOR FOLLOW-UP OF CHRONIC LOW BACK PAIN. CONTINUES TO DO FAIRLY WELL AFTER RADIOFREQUENCY IN OCTOBER. PAIN IS AGGRAVATED WITH WALKING AND RELIEVED AT REST. DENIES NEUROGENIC CLAUDICATION SYMPTOMS WHEN WALKING. WILL BE TAKING A PREDNISONE TAPER FOR PSORIATIC ARTHRITIS PRESCRIBED BY RHEUMATOLOGY TODAY. RECENTLY HAD RIGHT THUMB SURGERY WITH [facility]. STATES HE'S FEELING WELL. HIS BLOOD PRESSURE IS LOW TODAY. NO NEW BLOOD PRESSURE MEDICATIONS HAVE BEEN STARTED RECENTLY. DENIES LIGHTHEADEDNESS OR FEELING FAINT. HE WILL MONITOR BLOOD PRESSURE TWICE A DAY AT HOME AND REPORT TO HIS PRIMARY CARE PROVIDER. -. FALL RISK SCREENING: SCREENING :NO FALLS REPORTED IN THE LAST YEAR NONE PAIN SCREENING: PATIENT HAS A COMPLAINT OF ACUTE OR CHRONIC PAIN :YES LOCATION OF PAIN:LOW BACK INTENSITY OF PAIN (SCALE OF 1 TO 10):4 WHAT DOES YOUR PAIN FEEL LIKE:ACHING DURATION:ONLY WITH SPECIFIC ACTIVITIES PAIN IS INCREASED BY:ACTIVITIES, PROLONGED STANDING PAIN IS DECREASED BY:USE OF PAIN MEDICATIONS, SITTING NURSING NOTE: -. PAIN CENTER INTAKE QUESTIONS: DO YOU HAVE A HISTORY OF MRSA? :NO DO YOU TAKE A BLOOD THINNERS? :NO DO YOU HAVE ANY BLEEDING DISORDERS? :NO ANY NEW NUMBNESS OR WEAKNESS IN YOUR LEGS OR ARMS? :NO ANY PACEMAKER,DEFIBRILLATOR, OR DORSAL COLUMN STIMULATOR? :NO DO YOU HAVE ANY RASHES OR OPEN SORES? :NO ARE YOU ALLERGIC TO IV DYE? :NO ARE YOU DIABETIC? :NO ANY NEW PROBLEMS WITH YOUR MEDICATIONS? :NO HAVE YOU RECEIVED A VACCINE IN THE PAST 30 DAYS? :YES FEBRUARY 14 FLU VAC SHINGLES SHOT FEBRUARY 14 DO YOU PLAN TO RECEIVE A VACCINE IN THE NEXT 21 DAYS? :NO DO YOU NEED ANY PRESCRIPTION? :NO DO YOU TAKE ANY IMMUNOSUPPRESSIVE MEDICATIONS? :NO IS THERE A CHANCE YOU COULD BE ? :NO ARE YOU BREAST FEEDING? :NO CURRENT MEDICATIONS TAKING ALLOPURINOL 300 MG TABLET 1 TABLET ORALLY ONCE DAILY, NOTES: 11/08 799 TAKING ASPIRIN 325 MG TABLET 1 TABLET ORALLY ONCE A DAY, NOTES: 11/07 2099 TAKING CALCITRIOL 0.25 MCG CAPSULE 1 CAPSULE ORALLY ONCE A DAY, NOTES: 11/08 799 TAKING GLUCOSAMINE CHONDROITIN COMPLX 600-250 MG CAPSULE 1 TAB(S) ORALLY BID, NOTES: 11/07 1699 TAKING LEVOTHYROXINE SODIUM 50 MCG TABLET 1 TABLET ON AN EMPTY STOMACH IN THE MORNING ORALLY ONCE A DAY, NOTES: 11/07 699 TAKING MULTIVITAMINS TABLET DIRECTED ORALLY DAILY, NOTES: 11/08 799 TAKING POTASSIUM CHLORIDE 20 MEQ TABLET EXTENDED RELEASE 2 TABLETS WITH FOOD ORALLY TWICE A DAY, NOTES: 11/07 2099 TAKING ZOLPIDEM 10 MG TABLET 1 TAB(S) ORAL AT BEDTIME NEEDED, NOTES: 11/07 2099 TAKING TORSEMIDE 20 MG TABLET 1 TAB(S) ORALLY 2 IN THE MORNING/ 1 TAB IN AFTERNOON, NOTES: 11/07 1699 TAKING SERTRALINE HCL 100 MG TABLET 1 TABLET ORALLY ONCE A DAY, NOTES: 11/08 799 TAKING SPIRONOLACTONE 25 MG TABLET 1 TABLET ORALLY BID, NOTES: 11/07 1699 TAKING LABETALOL HCL 100 MG TABLET 1 TAB IN AM, HALF TAB IN AFTERNOON ORALLY BID, NOTES: 11/07 2099 TAKING CALCIUM 600+D3 600-400 MG-UNIT TABLET 1 TABLET WITH A MEAL ORALLY ONCE A DAY, NOTES: 11/07 1699 TAKING ALIGN 4 MG CAPSULE ORALLY DAILY, NOTES: 11/08 799 TAKING TYLENOL ARTHRITIS PAIN 650 MG TABLET EXTENDED RELEASE 2 TABS ORALLY EVERY 8 HRS, NOTES: 11/07 2099 TAKING FINASTERIDE 5 MG TABLET 1 TABLET ORALLY ONCE A DAY, NOTES: 11/07 2099 TAKING SULFASALAZINE 500 MG TABLET DELAYED RELEASE 1 TABLET ORALLY ONCE A DAY, NOTES: 11/07 1699 TAKING NUCYNTA 75 MG TABLET 1 TABLET ORALLY FOR PAIN EVERY 6 HOURS NEEDED MDD 2, NOTES: 11/07 1399 TAKING SOMA 350 MG TABLET 1 TABLET NEEDED ORALLY Q12H BID MDD2, NOTES: 11/07 2099 TAKING VITAMIN D3 ULTRA STRENGTH 4 TABS ORALLY DAILY, NOTES: 11/07 1699 TAKING NUCYNTA ER 150 MG TABLET EXTENDED RELEASE 12 HOUR 1 TABLET ORALLY EVERY 12 HRS BID MDD2, NOTES: 11/07 2099 TAKING GABAPENTIN 100 MG CAPSULE 1 CAPSULE ORALLY BID, NOTES: 7/15 2100 TAKING FLOMAX 0.4 MG CAPSULE 2 CAPSULES ORALLY ONCE A DAY NOT-TAKING OXYBUTYNIN CHLORIDE ER 10 MG TABLET EXTENDED RELEASE 24 HOUR 1 TABLET ORALLY ONCE A DAY NOT-TAKING OTEZLA 30 MG TABLET 1 TABLET ORALLY DAILY NOT-TAKING LEFLUNOMIDE 10 MG TABLET 1 TABLET ORALLY ONCE A DAY NOT-TAKING TRAMADOL HCL 50 MG TABLET 1-2 TAB ORALLY Q4-6H PRN PAIN MDD6 NOT-TAKING VOLTAREN 1 % GEL APPLY TO LEFT KNEE TRANSDERMAL BID NOT-TAKING TYLENOL EXTRA STRENGTH 500 MG TABLET 1 TABLET NEEDED ORALLY EVERY 6 HRS PRN, NOTES: NEW DOSE MEDICATION LIST REVIEWED AND RECONCILED WITH THE PATIENT PAST MEDICAL HISTORY BPH URINARY RETENTION GOUT HTN EDEMA DDD/DJD; SEVERE SPINAL STENOSIS HYPOTHYROIDISM DEPRESSION/ANXIETY HYPERCHOLESTEROLEMIA HYPOKALEMIA SLEEP APNEA VERTIGO INSOMNIA CHRONIC KIDNEY DISEASE OSTEOARTHRITIS VARICOSE VEINS OSTEOARTHRITIS BROKEN LITTLE FINGER ON LEFT HAND ARTHRITIS LEFT KNEE TOOTH ISSUES LOW BACK PAIN ALLERGIES SURGICAL TAPE: REMOVES TOP LAYER OF SKIN - SIDE EFFECTS SURGICAL HISTORY ORIF LEFT LEG/ANKLE FRACTURE; PLATES/SCREWS IN PLACE 1992 BILATERAL - 2 TRIGGER FINGER RELEASE/CARPAL CHARO RELEASE/BONE REMOVAL THUMB (LEFT) 2004 TONSILLECTOMY APPENDECTOMY L3-L5 LAMINECTOMY 11/2012 COLONSCOPY 05/2016 CYSTOSCOPY 08/02/2017 RADIO FREQUENCY FEB 2018 RIGHT COOL LUMBAR RADIOFREQENCY 10/05/2019 FAMILY HISTORY FATHER: , CHF MOTHER: , HEART ATTACK, DIABETES SIBLINGS: ALIVE DAUGHTER(S): DIAGNOSED WITH OTHER MALIGNANT NEOPLASM OF UNSPECIFIED SITE 1 SON(S) , 4 DAUGHTER(S) . 1 DAUGHTER-BREAST CA1 DAUGHTER-POLY CYSTIC BREAST. SOCIAL HISTORY GENERAL: TOBACCO USE ARE YOU A:NONSMOKER LATEX QUESTIONNAIRE LATEX ALLERGY : HAVE YOU EVER DEVELOPED ANY TYPE OF REACTION AFTER HANDLING LATEX PRODUCTS SUCH RUBBER GLOVES, CONDOMS, DIAPHRAGMS, BALLOONS, SOCKS, OR UNDERWEAR?NO PT DOES HAVE ALLERGY TO SURGICAL TAPE LATEX ALLERGY : HAVE YOU EVER DEVELOPED ANY TYPE OF REACTION DURING OR AFTER DENTAL APPOINTMENT, VAGINAL/RECTAL EXAMINATION, SURGICAL PROCEDURE, OR ANY OTHER EXPOSURE?NO LATEX RISK : HAVE YOU EVER HAD ANY DIFFICULTY BREATHING OR HIVES AFTER EATING OR HANDLING ANY FRUITS, OR VEGETABLES; SUCH KIWI, BANANAS, STONE FRUITS, OR CHESTNUTSNO LATEX RISK : DO YOU HAVE A PREVIOUS PERSONAL HISTORY OF MORE THAN NINE SURGERIES, SPINA BIFIDA, OR REPEATED CATHERIZATIONS? NO LATEX RISK : ARE YOU FREQUENTLY EXPOSED TO LATEX PRODUCTS IN YOUR OCCUPATION?NO DATE ASKED : 02/28/2020 ALCOHOL SCREENING DID YOU HAVE A DRINK CONTAINING ALCOHOL IN THE PAST YEAR?YES HOW OFTEN DID YOU HAVE SIX OR MORE DRINKS ON ONE OCCASION IN THE PAST YEAR?NEVER (0 POINTS) HOW MANY DRINKS DID YOU HAVE ON A TYPICAL DAY WHEN YOU WERE DRINKING IN THE PAST YEAR?1 OR 2 (0 POINTS) HOW OFTEN DID YOU HAVE A DRINK CONTAINING ALCOHOL IN THE PAST YEAR?MONTHLY OR LESS (1 POINT) POINTS1 INTERPRETATIONNEGATIVE RECREATIONAL DRUG USE DRUG USE?NO CAFFEINE CAFFEINE USE?YES HOW OFTEN AND HOW MUCH? 2-3 CUPS OF TEA PER DAY AND OCCASIONAL COFFEE SABIANISM [id number] TAOIST LANGUAGE LANGUAGES SPOKEN:[place]IZ[place] OF [place] EDUCATION LEVEL OF EDUCATION:NOT FINISHED COLLEGE LEARNING BARRIERS / SPECIAL NEEDS BARRIERS TO LEARNING?NO HEARING IMPAIRED?NO VISION IMPAIRED?YES COGNITIVELY IMPAIRED?NO :CORRECTIVE LENSES READINESS TO LEARN?YES LEARNING PREFERENCES?NO LEARNING CAPABILITIES PRESENT?YES EMOTIONAL BARRIERS?NO SPECIAL DEVICES?YES :CANE DYE MIXER NEEDED?NO DOMESTIC VIOLENCE DO YOU FEEL SAFE IN YOUR ENVIRONMENT?YES OCCUPATION: RETIRED. DIET: REGULAR. EXERCISE: NONE. MARITAL STATUS: . OTHERS AT HOME: SPOUSE, CHILD, CHILDREN. PAIN CLINIC PFS, CLERGY, PUBLIC HEALTH REFERRALS PFS REFERRAL NEEDED?NO CLERGY REFERRAL NEEDED?NO PUBLIC HEALTH REFERRAL NEEDED?NO WAS THE PROVIDER NOTIFIED OF ANY PERTINENT INFO? N/A HAS THE PATIENT BEEN EDUCATED REGARDING HIS/HER PLAN OF CARE?YES HAS THE PATIENT BEEN EDUCATED REGARDING PAIN, THE RISK FOR PAIN, THE IMPORTANCE OF EFFECTIVE PAIN MANAGEMENT, AND THE PAIN ASSESSMENT PROCESS?YES ADVANCE DIRECTIVE ADVANCE DIRECTIVE DISCUSSED WITH PATIENT:YES HCP - CHARLENE REESE () HOSPITALIZATION/MAJOR DIAGNOSTIC PROCEDURE DIVERTICULITIS X2 SURGERY RELATED DIVERTICULITIS 12/2015 REVIEW OF SYSTEMS CONSTITUTIONAL: ANY RECENT FEVER NO . CHILLS NO . WEIGHT CHANGE OF UNKNOWN REASONS NO . GASTROENTEROLOGY: NEW UNEXPLAINABLE CHANGES IN BOWEL CONTROL NO . CONSTIPATION NO . GENITOURINARY: ANY NEW CHANGE IN BLADDER CONTROL? NO . NEUROLOGY: NEW ONSET DIZZINESS OR NEUROLOGICAL CHANGES NOT MENTIONED NO . NEW NUMBNESS OR PAIN PATTERNS NOT MENTIONED AND PERTINENT TO TODAY'S VISIT NO . CARDIOLOGY: NEW CHEST PRESSURE NO . NEW CHEST PAIN NO . RESPIRATORY: UNEXPLAINABLE COUGH NO . NEW SHORTNESS OF BREATH NO . VITAL SIGNS WT 311 LBS, HT 5'9", BMI 45.92 INDEX, BP 98/62 MM HG, HR 89 /MIN, RR 18 /MIN, TEMP 96.0 F, OXYGEN SAT % 95%, SAFE IN ENV? (Y/N) YES, NA INITIALS AW 1125, REVIEWED BY: JAREK. EXAMINATION GENERAL EXAMINATION: GENERALNO ACUTE DISTRESS, WELL NOURISHED AND HYDRATED. ACCOMPANIED IN EXAM ROOM WITH HIS .. PSYCHAPPROPRIATE MOOD AND AFFECT . NECK:NO LYMPHADENOPATHY, SUPPLE. LUNGS:CLEAR TO AUSCULTATION BILATERALLY, NO WHEEZES, RHONCHI, RALES. HEART:NO MURMURS, REGULAR RATE AND RHYTHM. ASSESSMENTS SPONDYLOSIS OF LUMBOSACRAL REGION WITHOUT MYELOPATHY OR RADICULOPATHY - M47.817 (PRIMARY) TREATMENT SPONDYLOSIS OF LUMBOSACRAL REGION WITHOUT MYELOPATHY OR RADICULOPATHY NOTES: HAS NOT BEEN TAKING MEDICATIONS FOR PAIN THAT WE PRESCRIBED ON A REGULAR BASIS OF RECENT EXCEPT FOR GABAPENTIN AND SOMA. TODAY I HAVE ADVISED HIM TO STOP SOMA. CONTINUE GABAPENTIN. CONTINUE HOME EXERCISE AND STRETCHING. PROCEDURE CODES [id number] ESTABILISHED PATIENT [facility] CHARGE DISPOSITION & COMMUNICATION FOLLOW UP 3 MONTHS (REASON: LOW BACK PAIN/MEDICATION MANAGEMENT) ELECTRONICALLY SIGNED BY RICK VARELA ON 02/29/2020 AT 03:19 PM EST DISCLAIMER : THIS IS A VISIT SUMMARY EXTRACTED FROM THE [employer] CHART. IT IS NOT A COPY OF THE [employer] PROGRESS NOTE. HECTOR
== END ==
LOC: M PAIN 11:30
PROVIDERS: ATTEND Nurse Practitioner Family
DX: M47.817 Spondylosis without myelopathy or radiculopathy, lumbosacral region (principal); N40.1 Benign prostatic hyperplasia with lower urinary tract symptoms; R33.9 Retention of urine, unspecified; M10.9 Gout, unspecified; I12.9 Hypertensive chronic kidney disease with stage 1 through stage 4 chronic kidney disease, or unspecified chronic kidney disease; E03.9 Hypothyroidism, unspecified; F32.9 Major depressive disorder, single episode, unspecified; F41.9 Anxiety disorder, unspecified; E87.6 Hypokalemia; G47.30 Sleep apnea, unspecified; N18.9 Chronic kidney disease, unspecified; Z79.899 Other long term (current) drug therapy; Z91.048 Other nonmedicinal substance allergy status

== ENCOUNTER → 2020-05-30 | Outpatient (CLI) | payer MEDICARE, OTHER ==
[~2020-05-30] MED LIST changes: +LABE100T4 PO; -LABE10TAB PO
--- NOTE | 2020-06-05 06:11 | ECWPNPC ---
PATIENT NAME: ANG MCDERMOTT : 1940 GENDER: MALE VISIT DATE: 05/30/2020 DISCHARGE DATE: 05/30/20 1303 VISIT LOCKED DATE TIME: PHYSICIAN: SHARON LOWRY RESOURCE: SHARON LOWRY REASON FOR APPOINTMENT 1. BACK HISTORY OF PRESENT ILLNESS GENERAL: HERE FOR FOLLOW-UP OF CHRONIC LOW BACK PAIN. PAIN HAS BEGUN TO RETURN TO BASELINE. WAS BENEFITING FROM RADIOFREQUENCY PROCEDURE FOR OVER 6 MONTHS AND THEN PAIN HAS GRADUALLY RETURNED TO BASELINE. PATIENT WOULD LIKE TO REPEAT THE PROCEDURE IF POSSIBLE. HE HAS BEGUN TO USE HIS PAIN MEDICATIONS MORE FREQUENTLY OF WHICH HE WAS ABLE TO REDUCE DRAMATICALLY AFTER RADIOFREQUENCY FOR SEVERAL MONTHS. REVIEWED MRI OF THE LS-SPINE AND DISCUSSED TREATMENT PLAN WITH BOTH HE AND HIS .-. FALL RISK SCREENING: SCREENING :NO FALLS REPORTED IN THE LAST YEAR PAIN SCREENING: PATIENT HAS A COMPLAINT OF ACUTE OR CHRONIC PAIN :YES LOCATION OF PAIN:LOW BACK INTENSITY OF PAIN (SCALE OF 1 TO 10):2 WHAT DOES YOUR PAIN FEEL LIKE:ACHING, INTERMITTENT DURATION:INTERMITTENT PAIN IS INCREASED BY:ACTIVITIES, PROLONGED STANDING PAIN IS DECREASED BY:USE OF PAIN MEDICATIONS NUCYNTA 150 HELPS THE MOST NURSING NOTE: -. PAIN CENTER INTAKE QUESTIONS: DO YOU HAVE A HISTORY OF MRSA? :NO DO YOU TAKE A BLOOD THINNERS? :NO DO YOU HAVE ANY BLEEDING DISORDERS? :NO ANY NEW NUMBNESS OR WEAKNESS IN YOUR LEGS OR ARMS? :NO ANY PACEMAKER,DEFIBRILLATOR, OR DORSAL COLUMN STIMULATOR? :NO DO YOU HAVE ANY RASHES OR OPEN SORES? :NO ARE YOU ALLERGIC TO IV DYE? :NO ARE YOU DIABETIC? :NO ANY NEW PROBLEMS WITH YOUR MEDICATIONS? :NO HAVE YOU RECEIVED A VACCINE IN THE PAST 30 DAYS? :YES IF SO WHAT VACCINE AND WHEN? COVID VACCINATION FIRST 05/10/2020. DO YOU PLAN TO RECEIVE A VACCINE IN THE NEXT 21 DAYS? :YES IF SO WHAT VACCINE AND WHEN? COVID VACCINATION SECOND VACCINATION DUE 06/07/2020 DO YOU NEED ANY PRESCRIPTION? :NO DO YOU TAKE ANY IMMUNOSUPPRESSIVE MEDICATIONS? :YES IS THERE A CHANCE YOU COULD BE ? :NO ARE YOU BREAST FEEDING? :NO CURRENT MEDICATIONS TAKING ALLOPURINOL 300 MG TABLET 1 TABLET ORALLY ONCE DAILY, NOTES: 11/07 0800 TAKING ASPIRIN 325 MG TABLET 1 TABLET ORALLY ONCE A DAY, NOTES: 7/15 2100 TAKING CALCITRIOL 0.25 MCG CAPSULE 1 CAPSULE ORALLY ONCE A DAY, NOTES: 11/08 799 TAKING GLUCOSAMINE CHONDROITIN COMPLX 600-250 MG CAPSULE 1 TAB(S) ORALLY BID, NOTES: 11/07 1699 TAKING LEVOTHYROXINE SODIUM 50 MCG TABLET 1 TABLET ON AN EMPTY STOMACH IN THE MORNING ORALLY ONCE A DAY, NOTES: 11/07 699 TAKING MULTIVITAMINS TABLET DIRECTED ORALLY DAILY, NOTES: 11/08 799 TAKING POTASSIUM CHLORIDE 20 MEQ TABLET EXTENDED RELEASE 2 TABLETS WITH FOOD ORALLY TWICE A DAY, NOTES: 11/07 2099 TAKING ZOLPIDEM 10 MG TABLET 1 TAB(S) ORAL AT BEDTIME NEEDED, NOTES: 11/07 2099 TAKING TORSEMIDE 20 MG TABLET 1 TAB(S) ORALLY 2 IN THE MORNING/ 1 TAB IN AFTERNOON, NOTES: 11/07 1699 TAKING SERTRALINE HCL 100 MG TABLET 1 TABLET ORALLY ONCE A DAY, NOTES: 11/08 799 TAKING SPIRONOLACTONE 25 MG TABLET 1 TABLET ORALLY BID, NOTES: 11/07 1699 TAKING LABETALOL HCL 100 MG TABLET 1 TAB IN AM ORALLY ONCE DAILY, NOTES: 11/07 2099 TAKING CALCIUM 600+D3 600-400 MG-UNIT TABLET 1 TABLET WITH A MEAL ORALLY ONCE A DAY, NOTES: 11/07 1699 TAKING ALIGN 4 MG CAPSULE ORALLY DAILY, NOTES: 11/08 799 TAKING TYLENOL ARTHRITIS PAIN 650 MG TABLET EXTENDED RELEASE 2 TABS ORALLY EVERY 8 HRS, NOTES: 11/07 2099 TAKING FINASTERIDE 5 MG TABLET 1 TABLET ORALLY ONCE A DAY, NOTES: 11/07 2099 TAKING SULFASALAZINE 500 MG TABLET DELAYED RELEASE 2 TABLET ORALLY ONCE A DAY, NOTES: 11/07 1699 TAKING VITAMIN D3 ULTRA STRENGTH 4 TABS ORALLY DAILY, NOTES: 11/07 1699 TAKING GABAPENTIN 100 MG CAPSULE 1 CAPSULE ORALLY BID, NOTES: 11/07 2099 TAKING FLOMAX 0.4 MG CAPSULE 2 CAPSULES ORALLY ONCE A DAY TAKING NUCYNTA 75 MG TABLET 1 TABLET ORALLY FOR PAIN EVERY 6 HOURS NEEDED MDD 2, NOTES: 11/07 1399 TAKING NUCYNTA ER 150 MG TABLET EXTENDED RELEASE 12 HOUR 1 TABLET ORALLY EVERY 12 HRS BID MDD2, NOTES: 11/07 2099 TAKING METHOTREXATE 2.5 MG TABLET 3 TABLETS ORALLY WEEKLY TAKING COLCHICINE 0.6 MG TABLET 1 CAPSULE ORALLY NEEDED TAKING MELATONIN 5 MG TABLET 1 TABLET IN THE EVENING ORALLY ONCE A DAY NOT-TAKING SOMA 350 MG TABLET 1 TABLET NEEDED ORALLY Q12H BID MDD2, NOTES: 11/07 2099 NOT-TAKING OXYBUTYNIN CHLORIDE ER 10 MG TABLET EXTENDED RELEASE 24 HOUR 1 TABLET ORALLY ONCE A DAY NOT-TAKING OTEZLA 30 MG TABLET 1 TABLET ORALLY DAILY NOT-TAKING LEFLUNOMIDE 10 MG TABLET 1 TABLET ORALLY ONCE A DAY NOT-TAKING TRAMADOL HCL 50 MG TABLET 1-2 TAB ORALLY Q4-6H PRN PAIN MDD6 NOT-TAKING VOLTAREN 1 % GEL APPLY TO LEFT KNEE TRANSDERMAL BID NOT-TAKING TYLENOL EXTRA STRENGTH 500 MG TABLET 1 TABLET NEEDED ORALLY EVERY 6 HRS PRN, NOTES: NEW DOSE MEDICATION LIST REVIEWED AND RECONCILED WITH THE PATIENT PAST MEDICAL HISTORY BPH URINARY RETENTION GOUT HTN EDEMA DDD/DJD; SEVERE SPINAL STENOSIS HYPOTHYROIDISM DEPRESSION/ANXIETY HYPERCHOLESTEROLEMIA HYPOKALEMIA SLEEP APNEA VERTIGO INSOMNIA CHRONIC KIDNEY DISEASE OSTEOARTHRITIS VARICOSE VEINS OSTEOARTHRITIS BROKEN LITTLE FINGER ON LEFT HAND ARTHRITIS LEFT KNEE TOOTH ISSUES LOW BACK PAIN ALLERGIES SURGICAL TAPE: REMOVES TOP LAYER OF SKIN - SIDE EFFECTS PRIMIDONE: CONFUSION - SIDE EFFECTS SOCIAL HISTORY GENERAL: TOBACCO USE ARE YOU A:NONSMOKER LATEX QUESTIONNAIRE LATEX ALLERGY : HAVE YOU EVER DEVELOPED ANY TYPE OF REACTION AFTER HANDLING LATEX PRODUCTS SUCH RUBBER GLOVES, CONDOMS, DIAPHRAGMS, BALLOONS, SOCKS, OR UNDERWEAR?NO PT DOES HAVE ALLERGY TO SURGICAL TAPE LATEX ALLERGY : HAVE YOU EVER DEVELOPED ANY TYPE OF REACTION DURING OR AFTER DENTAL APPOINTMENT, VAGINAL/RECTAL EXAMINATION, SURGICAL PROCEDURE, OR ANY OTHER EXPOSURE?NO DATE ASKED : 02/28/2020 LATEX RISK : HAVE YOU EVER HAD ANY DIFFICULTY BREATHING OR HIVES AFTER EATING OR HANDLING ANY FRUITS, OR VEGETABLES; SUCH KIWI, BANANAS, STONE FRUITS, OR CHESTNUTSNO LATEX RISK : DO YOU HAVE A PREVIOUS PERSONAL HISTORY OF MORE THAN NINE SURGERIES, SPINA BIFIDA, OR REPEATED CATHERIZATIONS? NO LATEX RISK : ARE YOU FREQUENTLY EXPOSED TO LATEX PRODUCTS IN YOUR OCCUPATION?NO ALCOHOL USE: NO. ALCOHOL SCREENING DID YOU HAVE A DRINK CONTAINING ALCOHOL IN THE PAST YEAR?YES HOW OFTEN DID YOU HAVE SIX OR MORE DRINKS ON ONE OCCASION IN THE PAST YEAR?NEVER (0 POINTS) HOW MANY DRINKS DID YOU HAVE ON A TYPICAL DAY WHEN YOU WERE DRINKING IN THE PAST YEAR?1 OR 2 (0 POINTS) HOW OFTEN DID YOU HAVE A DRINK CONTAINING ALCOHOL IN THE PAST YEAR?MONTHLY OR LESS (1 POINT) POINTS1 INTERPRETATIONNEGATIVE RECREATIONAL DRUG USE DRUG USE?NO CAFFEINE CAFFEINE USE?YES HOW OFTEN AND HOW MUCH? 2-3 CUPS OF TEA PER DAY AND OCCASIONAL COFFEE CONGREGATION [id number] MU-ISM LANGUAGE LANGUAGES SPOKEN:FAROESE EDUCATION LEVEL OF EDUCATION:NOT FINISHED COLLEGE LEARNING BARRIERS / SPECIAL NEEDS CHANGE FROM LAST VISIT?YES BARRIERS TO LEARNING?NO HEARING IMPAIRED?YES :HEARING AIDES VISION IMPAIRED?YES :CORRECTIVE LENSES COGNITIVELY IMPAIRED?NO READINESS TO LEARN?YES LEARNING PREFERENCES?NO LEARNING CAPABILITIES PRESENT?YES EMOTIONAL BARRIERS?NO SPECIAL DEVICES?YES :CANE CHAIN TENDER NEEDED?NO DOMESTIC VIOLENCE DO YOU FEEL SAFE IN YOUR ENVIRONMENT?YES OCCUPATION: RETIRED. DIET: REGULAR. EXERCISE: NONE. MARITAL STATUS: . OTHERS AT HOME: SPOUSE, CHILD, CHILDREN. - PFS REFERRAL NEEDED?NO CLERGY REFERRAL NEEDED?NO PUBLIC HEALTH REFERRAL NEEDED?NO WAS THE PROVIDER NOTIFIED OF ANY PERTINENT INFO? N/A HAS THE PATIENT BEEN EDUCATED REGARDING HIS/HER PLAN OF CARE?YES HAS THE PATIENT BEEN EDUCATED REGARDING PAIN, THE RISK FOR PAIN, THE IMPORTANCE OF EFFECTIVE PAIN MANAGEMENT, AND THE PAIN ASSESSMENT PROCESS?YES ADVANCE DIRECTIVE ADVANCE DIRECTIVE DISCUSSED WITH PATIENT:YES HCP - CHARLENE REESE () REVIEW OF SYSTEMS CONSTITUTIONAL: ANY RECENT FEVER NO . CHILLS NO . WEIGHT CHANGE OF UNKNOWN REASONS NO . GASTROENTEROLOGY: NEW UNEXPLAINABLE CHANGES IN BOWEL CONTROL NO . CONSTIPATION NO . GENITOURINARY: ANY NEW CHANGE IN BLADDER CONTROL? NO . NEUROLOGY: NEW ONSET DIZZINESS OR NEUROLOGICAL CHANGES NOT MENTIONED NO . NEW NUMBNESS OR PAIN PATTERNS NOT MENTIONED AND PERTINENT TO TODAY'S VISIT NO . CARDIOLOGY: NEW CHEST PRESSURE NO . NEW CHEST PAIN NO . RESPIRATORY: UNEXPLAINABLE COUGH NO . NEW SHORTNESS OF BREATH NO . VITAL SIGNS WT 312.4 LBS, HT 5'9", BMI 46.13 INDEX, BP 102/56 MM HG, HR 94 /MIN, RR 18 /MIN, TEMP 98.6 F, OXYGEN SAT % 94%, SAFE IN ENV? (Y/N) YES, NA INITIALS AW 1155, REVIEWED BY: DEVIN CUADRA MA. EXAMINATION GENERAL EXAMINATION: GENERALNO ACUTE DISTRESS, WELL NOURISHED AND HYDRATED. PSYCHAPPROPRIATE MOOD AND AFFECT . LUNGS: LUNG SOUNDS ARE CLEAR . HEART: HEART RATE REGULAR . MUSCULOSKELETAL:*, MUSCLE STRENGTH TESTING 5/5 BILATERAL LOWER EXTREMITIES., ,PALPATION: POSITIVE FOR PAIN OVER L/S SPINE. POSITIVE FOR PAIN OVER L/S PARSPINALS.SPECIFIC POINT TENDERNESS OVER BILAT. L4/5-L5/S1 LUMBR FACETS WITH FACET LOADING . DIAGNOSTIC TESTS REVIEWED 08/31/2016-MRI L/S SPINE. ASSESSMENTS SPONDYLOSIS OF LUMBOSACRAL REGION WITHOUT MYELOPATHY OR RADICULOPATHY - M47.817 (PRIMARY) TREATMENT SPONDYLOSIS OF LUMBOSACRAL REGION WITHOUT MYELOPATHY OR RADICULOPATHY NOTES: BILATERAL LUMBAR FACET BLOCK DIAGNOSTIC #2 L4-5 L5-S1. PROCEDURE CODES FA211 ESTABILISHED PATIENT [facility] CHARGE DISPOSITION & COMMUNICATION FOLLOW UP POST PROCEDURE (REASON: BILATERAL LUMBAR FACET BLOCK DIAGNOSTIC #2 L4-5 L5-S1) ELECTRONICALLY SIGNED BY RICK VARELA ON 06/04/2020 AT 10:48 AM EST DISCLAIMER : THIS IS A VISIT SUMMARY EXTRACTED FROM THE [employer] CHART. IT IS NOT A COPY OF THE [employer] PROGRESS NOTE. HECTOR
== END ==
LOC: M PAIN 11:30
PROVIDERS: ATTEND Nurse Practitioner Family
DX: M47.817 Spondylosis without myelopathy or radiculopathy, lumbosacral region (principal); N40.1 Benign prostatic hyperplasia with lower urinary tract symptoms; R33.9 Retention of urine, unspecified; M10.9 Gout, unspecified; I12.9 Hypertensive chronic kidney disease with stage 1 through stage 4 chronic kidney disease, or unspecified chronic kidney disease; E03.9 Hypothyroidism, unspecified; F32.9 Major depressive disorder, single episode, unspecified; F41.9 Anxiety disorder, unspecified; E78.00 Pure hypercholesterolemia, unspecified; E87.6 Hypokalemia; G47.30 Sleep apnea, unspecified; N18.9 Chronic kidney disease, unspecified; I83.90 Asymptomatic varicose veins of unspecified lower extremity; M17.12 Unilateral primary osteoarthritis, left knee; Z79.82 Long term (current) use of aspirin; Z79.899 Other long term (current) drug therapy; Z88.8 Allergy status to other drugs, medicaments and biological substances; Z91.048 Other nonmedicinal substance allergy status

== ENCOUNTER → 2020-06-06 | Outpatient (CLI) | payer MEDICARE, OTHER | LOC: M LABSMTC 10:53 | PROVIDERS: ATTEND Anesthesiology | DX: Z20.822 Contact with and (suspected) exposure to COVID-19 (principal) ==

== ENCOUNTER → 2020-07-18 | Outpatient (CLI) | payer MEDICARE, OTHER | LOC: M LABSMTC 12:30 | PROVIDERS: ATTEND Anesthesiology | DX: Z01.812 Encounter for preprocedural laboratory examination (principal) ==

== ENCOUNTER → 2020-07-23 | Outpatient (CLI) | payer MEDICARE, OTHER ==
[~2020-07-23] MED LIST changes: +BUPIVACAINE HCL 0.25% 30ML VIAL As Ordered ONE; +ISOVUE-M 300 61% 15ML VIAL As Ordered ONE; +LIDOCAINE 1% SDV 30ML VIAL As Ordered ONE
--- NOTE | 2020-07-23 11:28 | REP ---
INDICATION: DIAGNOSTIC LUMBAR FACET BLOCK, low back pain. COMPARISON: 11/09/2019 TECHNIQUE: Four images from C-arm fluoroscopy provided to the pain clinic for bilateral lumbar facet injections from L3-4 through L5-S1. FINDINGS: Two images for each oblique projection show needles at the L3-4 through L5-S1 level. Confirmation of needle position with contrast observed. IMPRESSION: 1. Status post bilateral lumbar facet injections at L3-4 through L5-S1. 2. Fluoroscopy time: 43 seconds. <Electronically signed by Nate Mcnair > 07/23/20 1124
--- NOTE | 2020-07-25 01:37 | ECWPNPC ---
PATIENT NAME: ANG MCDERMOTT : 1940 GENDER: MALE VISIT DATE: 07/23/2020 DISCHARGE DATE: 07/23/20 1137 VISIT LOCKED DATE TIME: PHYSICIAN: ELLYN VU MD RESOURCE: ELLYN VU MD REASON FOR APPOINTMENT 1. BILATERAL LUMBAR FACET BLOCK DIAGNOSTIC #2 L4-5 L5-S1. HISTORY OF PRESENT ILLNESS GENERAL: -. FALL RISK SCREENING: SCREENING : NO FALLS REPORTED IN THE LAST YEAR. PAIN SCREENING: PATIENT HAS A COMPLAINT OF ACUTE OR CHRONIC PAIN :YES LOCATION OF PAIN:LOW BACK, OTHER: BUTTOCKS INTENSITY OF PAIN (SCALE OF 1 TO 10):4 7-8 WHEN ACTIVE WHAT DOES YOUR PAIN FEEL LIKE:ACHING DULL DURATION:INTERMITTENT PAIN IS INCREASED BY:ACTIVITIES, PROLONGED STANDING, OTHERS WALKING PAIN IS DECREASED BY:SITTING, OTHERS REST NURSING NOTE: -. PAIN CENTER INTAKE QUESTIONS: DO YOU HAVE A HISTORY OF MRSA? :NO DO YOU TAKE A BLOOD THINNERS? :NO DO YOU HAVE ANY BLEEDING DISORDERS? :NO ANY NEW NUMBNESS OR WEAKNESS IN YOUR LEGS OR ARMS? :NO ANY PACEMAKER,DEFIBRILLATOR, OR DORSAL COLUMN STIMULATOR? :NO DO YOU HAVE ANY RASHES OR OPEN SORES? :YES LOWER RIGHT LEG SHINGLES, ABOVE THE ANKLE, NONE OPEN PER PATIENT; DR. VU NOTIFIED. HE WANTED US TO DISCUSS IT WITH PATIENT'S PCP TO ENSURE THEY WERE OK WITH HIM RECEIVING A PROCEDURE WHILE HAVING THE SHINGLES. SPOKE WITH PATIENT'S PCP AT [facility] - PROVIDER IS OK WITH PATIENT RECEIVING INJECTION LONG DR. VU IS OK WITH IT. ARE YOU ALLERGIC TO IV DYE? :NO ARE YOU DIABETIC? :NO ANY NEW PROBLEMS WITH YOUR MEDICATIONS? :NO HAVE YOU RECEIVED A VACCINE IN THE PAST 30 DAYS? :NO DO YOU PLAN TO RECEIVE A VACCINE IN THE NEXT 21 DAYS? :NO DO YOU TAKE ANY IMMUNOSUPPRESSIVE MEDICATIONS? :YES ALLOPIRINOL, METHOTREXATE ANY HISTORY OF SEIZURES? :NO ANY HISTORY OF CARDIAC ISSUES OR EVENTS? :NO DO YOU HAVE ANY KIDNEY OR LIVER DISEASE? :YES KIDNEY DISEASE, STAGE III DO YOU HAVE SLEEP APNEA? :YES DO YOU WEAR A CPAP? BIPAP ANY RECENT HEAD INJURY? :NO DO YOU HAVE ANY NEW INFECTIONS? :NO IS THERE A CHANCE YOU COULD BE ? :NO ARE YOU BREAST FEEDING? :NO WHEN DID YOU LAST EAT? : 07/22/2020 2130 WHEN DID YOU LAST DRINK? : 07/23/2020 08 WHAT DID YOU LAST DRINK? : WATER NAME OF PERSON DRIVING YOU HOME? : DO YOU HAVE ANY OTHER QUESTIONS OR CONCERNS? : - CURRENT MEDICATIONS TAKING ALLOPURINOL 300 MG TABLET 1 TABLET ORALLY ONCE DAILY, NOTES: 07/23/2020 0800 TAKING ASPIRIN 81 MG TABLET CHEWABLE 1 TABLET ORALLY ONCE A DAY, NOTES: 07/22/2020 TAKING CALCITRIOL 0.25 MCG CAPSULE 1 CAPSULE ORALLY ONCE A DAY TAKING GLUCOSAMINE CHONDROITIN COMPLX 600-250 MG CAPSULE 1 TAB(S) ORALLY BID TAKING LEVOTHYROXINE SODIUM 50 MCG TABLET 1 TABLET ON AN EMPTY STOMACH IN THE MORNING ORALLY ONCE A DAY TAKING MULTIVITAMINS TABLET DIRECTED ORALLY DAILY TAKING POTASSIUM CHLORIDE 20 MEQ TABLET EXTENDED RELEASE 2 TABLETS WITH FOOD ORALLY TWICE A DAY TAKING ZOLPIDEM 10 MG TABLET 1 TAB(S) ORAL AT BEDTIME NEEDED TAKING TORSEMIDE 20 MG TABLET 1 TAB(S) ORALLY 2 IN THE MORNING/ 1 TAB IN AFTERNOON TAKING SERTRALINE HCL 100 MG TABLET 1 TABLET ORALLY ONCE A DAY TAKING SPIRONOLACTONE 25 MG TABLET 1 TABLET ORALLY BID TAKING CALCIUM 600+D3 600-400 MG-UNIT TABLET 1 TABLET WITH A MEAL ORALLY ONCE A DAY TAKING ALIGN 4 MG CAPSULE ORALLY DAILY TAKING TYLENOL ARTHRITIS PAIN 650 MG TABLET EXTENDED RELEASE 2 TABS ORALLY EVERY 8 HRS TAKING SULFASALAZINE 500 MG TABLET DELAYED RELEASE 2 TABLET ORALLY ONCE A DAY TAKING VITAMIN D3 ULTRA STRENGTH 4 TABS ORALLY DAILY TAKING GABAPENTIN 100 MG CAPSULE 1 CAPSULE ORALLY BID TAKING FLOMAX 0.4 MG CAPSULE 2 CAPSULES ORALLY ONCE A DAY TAKING NUCYNTA 75 MG TABLET 1 TABLET ORALLY FOR PAIN EVERY 6 HOURS NEEDED MDD 2 TAKING METHOTREXATE 2.5 MG TABLET 3 TABLETS ORALLY WEEKLY, NOTES: WEDNESDAY TAKING NUCYNTA ER 150 MG TABLET EXTENDED RELEASE 12 HOUR 1 TABLET ORALLY EVERY 12 HRS BID MDD2 TAKING INDERAL LA 80 MG CAPSULE EXTENDED RELEASE 1 CAPSULE ORALLY BEFORE BEDTIME TAKING ROPINIROLE HCL 0.5 MG TABLET 1 TABLET ORALLY TID TAKING FOLIC ACID 1 MG TABLET 1 TABLET ORALLY ONCE A DAY TAKING FINASTERIDE 5 MG TABLET 1 TABLET ORALLY ONCE A DAY NOT-TAKING LABETALOL HCL 100 MG TABLET 1 TAB IN AM ORALLY ONCE DAILY NOT-TAKING COLCHICINE 0.6 MG TABLET 1 CAPSULE ORALLY NEEDED NOT-TAKING MELATONIN 5 MG TABLET 1 TABLET IN THE EVENING ORALLY ONCE A DAY NOT-TAKING AMOXICILLIN 500 MG TABLET 1 TABLET ORALLY TID NOT-TAKING SOMA 350 MG TABLET 1 TABLET NEEDED ORALLY Q12H BID MDD2, NOTES: 11/07 2099 NOT-TAKING OXYBUTYNIN CHLORIDE ER 10 MG TABLET EXTENDED RELEASE 24 HOUR 1 TABLET ORALLY ONCE A DAY NOT-TAKING OTEZLA 30 MG TABLET 1 TABLET ORALLY DAILY NOT-TAKING LEFLUNOMIDE 10 MG TABLET 1 TABLET ORALLY ONCE A DAY NOT-TAKING TRAMADOL HCL 50 MG TABLET 1-2 TAB ORALLY Q4-6H PRN PAIN MDD6 NOT-TAKING VOLTAREN 1 % GEL APPLY TO LEFT KNEE TRANSDERMAL BID NOT-TAKING TYLENOL EXTRA STRENGTH 500 MG TABLET 1 TABLET NEEDED ORALLY EVERY 6 HRS PRN, NOTES: NEW DOSE MEDICATION LIST REVIEWED AND RECONCILED WITH THE PATIENT PAST MEDICAL HISTORY BPH URINARY RETENTION GOUT HTN EDEMA DDD/DJD; SEVERE SPINAL STENOSIS HYPOTHYROIDISM DEPRESSION/ANXIETY HYPERCHOLESTEROLEMIA HYPOKALEMIA SLEEP APNEA VERTIGO INSOMNIA CHRONIC KIDNEY DISEASE OSTEOARTHRITIS VARICOSE VEINS OSTEOARTHRITIS BROKEN LITTLE FINGER ON LEFT HAND ARTHRITIS LEFT KNEE TOOTH ISSUES LOW BACK PAIN SHINGLES ALLERGIES SURGICAL TAPE: REMOVES TOP LAYER OF SKIN - SIDE EFFECTS PRIMIDONE: CONFUSION - SIDE EFFECTS SOCIAL HISTORY GENERAL: TOBACCO USE ARE YOU A:NONSMOKER LATEX QUESTIONNAIRE LATEX ALLERGY : HAVE YOU EVER DEVELOPED ANY TYPE OF REACTION AFTER HANDLING LATEX PRODUCTS SUCH RUBBER GLOVES, CONDOMS, DIAPHRAGMS, BALLOONS, SOCKS, OR UNDERWEAR?NO PT DOES HAVE ALLERGY TO SURGICAL TAPE LATEX ALLERGY : HAVE YOU EVER DEVELOPED ANY TYPE OF REACTION DURING OR AFTER DENTAL APPOINTMENT, VAGINAL/RECTAL EXAMINATION, SURGICAL PROCEDURE, OR ANY OTHER EXPOSURE?NO LATEX RISK : HAVE YOU EVER HAD ANY DIFFICULTY BREATHING OR HIVES AFTER EATING OR HANDLING ANY FRUITS, OR VEGETABLES; SUCH KIWI, BANANAS, STONE FRUITS, OR CHESTNUTSNO LATEX RISK : DO YOU HAVE A PREVIOUS PERSONAL HISTORY OF MORE THAN NINE SURGERIES, SPINA BIFIDA, OR REPEATED CATHERIZATIONS? NO LATEX RISK : ARE YOU FREQUENTLY EXPOSED TO LATEX PRODUCTS IN YOUR OCCUPATION?NO DATE ASKED : 07/22/2020 ALCOHOL USE: NO. ALCOHOL SCREENING DID YOU HAVE A DRINK CONTAINING ALCOHOL IN THE PAST YEAR?YES HOW OFTEN DID YOU HAVE SIX OR MORE DRINKS ON ONE OCCASION IN THE PAST YEAR?NEVER (0 POINTS) HOW MANY DRINKS DID YOU HAVE ON A TYPICAL DAY WHEN YOU WERE DRINKING IN THE PAST YEAR?1 OR 2 (0 POINTS) HOW OFTEN DID YOU HAVE A DRINK CONTAINING ALCOHOL IN THE PAST YEAR?MONTHLY OR LESS (1 POINT) POINTS1 INTERPRETATIONNEGATIVE RECREATIONAL DRUG USE DRUG USE?NO CAFFEINE CAFFEINE USE?YES HOW OFTEN AND HOW MUCH? 2-3 CUPS OF TEA PER DAY AND OCCASIONAL COFFEE [employer] [id number] ROMAN CATHOLIC LANGUAGE LANGUAGES SPOKEN:NIUEAN EDUCATION LEVEL OF EDUCATION:NOT FINISHED COLLEGE LEARNING BARRIERS / SPECIAL NEEDS CHANGE FROM LAST VISIT?NO BARRIERS TO LEARNING?NO HEARING IMPAIRED?NO VISION IMPAIRED?YES :CORRECTIVE LENSES COGNITIVELY IMPAIRED?NO READINESS TO LEARN?YES LEARNING PREFERENCES?NO LEARNING CAPABILITIES PRESENT?YES EMOTIONAL BARRIERS?NO SPECIAL DEVICES?YES :CANE LAWYER NEEDED?NO OCCUPATION: RETIRED. DIET: REGULAR. EXERCISE: NONE. MARITAL STATUS: . OTHERS AT HOME: SPOUSE, CHILD, CHILDREN. - PFS REFERRAL NEEDED?NO CLERGY REFERRAL NEEDED?NO PUBLIC HEALTH REFERRAL NEEDED?NO WAS THE PROVIDER NOTIFIED OF ANY PERTINENT INFO? N/A HAS THE PATIENT BEEN EDUCATED REGARDING HIS/HER PLAN OF CARE?YES HAS THE PATIENT BEEN EDUCATED REGARDING PAIN, THE RISK FOR PAIN, THE IMPORTANCE OF EFFECTIVE PAIN MANAGEMENT, AND THE PAIN ASSESSMENT PROCESS?YES ADVANCE DIRECTIVE ADVANCE DIRECTIVE DISCUSSED WITH PATIENT:YES HCP - CHARLENE REESE () VITAL SIGNS WT 312.4 LBS, HT 5'9", BMI 46.13 INDEX, BP 132/74 MM HG, HR 63 /MIN, RR 18 /MIN, TEMP 98.2 F, OXYGEN SAT % 95%, SAFE IN ENV? (Y/N) YES, NA INITIALS SC 10:04, REVIEWED BY: Babatunde ELLISON RN. EXAMINATION GENERAL EXAMINATION: THE PATIENT IS ALERT, ORIENTED TIMES THREE AND COOPERATIVE. LUNGS ARE CLEAR TO AUSCULTATION. HEART SHOWS REGULAR RHYTHM, NO MURMURS AND NO GALLOPS. ASSESSMENTS SPONDYLOSIS WITHOUT MYELOPATHY OR RADICULOPATHY, LUMBAR REGION - M47.816 (PRIMARY) SPONDYLOSIS WITHOUT MYELOPATHY OR RADICULOPATHY, LUMBOSACRAL REGION - M47.817 TREATMENT SPONDYLOSIS WITHOUT MYELOPATHY OR RADICULOPATHY, LUMBAR REGION [facility] FACET BLOCK (PAIN)[id number] COMPLETION OF PROCEDURAL VISIT WHEN MEETS CRITERIAQI DUMONT 07/23/2020 11:36:14 AM > CRITERIA MET OTHERS NOTES: 07/22/20 PAT COMPLETED. Shereen ZAYAS RN. PROCEDURES PAIN NURSING RECORD PROCEDURE IN ROOM 1058, PHYSICIAN IN ROOM 1104, START 1107, FINISH 1119, PHYSICIAN OUT OF ROOM 1122, OUT OF ROOM 1126, ECG NORMAL SINUS, PATIENT SHIELDED YES, SAFETY STRAP YES, PREP CHLOROPREP Kala MCCARTHY RN, DRESSING TEGADERM DR. VU LOC: QI DUMONT 07/23/2020 11:02:58 AM > , 1. ALERT, ORIENTED RESP: QI [facility]UM[facility] 07/23/2020 11:03:01 AM > , 1. REGULAR, NO DYSPNEA COLOR: QI [facility]UMONT 07/23/2020 11:03:05 AM > , 1. PINK SKIN: QI [facility]UMONT 07/23/2020 11:03:08 AM > , 1. WARM, DRY POSITION: QI [facility]UMONT 07/23/2020 11:03:13 AM > , 1. PRONE VITALS: QI [facility]ONT 07/23/2020 11:03:17 AM > 104/76-65-18-97% , QI [facility]UMONT 07/23/2020 11:14:20 AM > 129/70-62-18-96% 07/23/2020 1130 141/81-70-18-96% NOTES Fidelina ELLISON RN COMPLETION OF PROCEDURE APPOINTMENT: POST PAIN 4 BILATERAL LOW BACK, DRESSING SITE DRY AND INTACT BIALTERAL LOW BACK, IV N/A, GAIT STEADY, TEACHING COMPLETED, PATIENT ACKNOWLEDGES UNDERSTANDING YES PATIENT AND VERBALIZE UNDERSTANDING OF POST PROCEDURE INSTRUCTIONS REVIEWED, PROCEDURE APPOINTMENT COMPLETED AT 1136 PN LUMBAR FACET BLOCK DIAGNOSTIC PRE PROCEDURE DIAGNOSIS LUMBAR SPONDYLOSIS, LUMBOSACRAL SPONDYLOSIS POST PROCEDURE DIAGNOSIS LUMBAR SPONDYLOSIS, LUMBOSACRAL SPONDYLOSIS PROCEDURE BILATERAL L4-L5 AND BILATERAL L5-S1 FACET BLOCK DIAGNOSTIC NUMBER [address] ELLYN VU SALES PRODUCT MANAGER NONE ANESTHESIA LOCAL PRE PROCEDURE NOTE THE PATIENT WITH HISTORY OF CHRONIC LOW BACK PAIN. I EVALUATED THE PATIENT AND REVIEWED THE CHART. I WENT OVER THE RISKS, ALTERNATIVES, AND BENEFITS ASSOCIATED WITH THIS PROCEDURE. THE PATIENT WOULD LIKE TO PROCEED AND GAVE CONSENT TO PERFORM THE PROCEDURE. AGREED WITH THE PATIENT, WE ARE DOING THIS PROCEDURE TO DETERMINE IF THE PATIENT IS A CANDIDATE FOR A RADIOFREQUENCY ABLATION OF THE FACETS JOINTS. THE PATIENT DENIES UNEXPLAINABLE WEIGHT LOSS, FEVER, CHILLS, OR NEW CHANGES IN URINARY OR BOWEL CONTROL. THE PATIENT IS COVID-19 NEGATIVE DESCRIPTION OF PROCEDURE THE PATIENT WAS BROUGHT TO THE PROCEDURE ROOM AND PLACED IN THE PRONE POSITION. THE LUMBOSACRAL AREA WAS CLEANED WITH CHLORAPREP SOLUTION AND DRAPED ASEPTICALLY. THE PROCEDURE WAS DONE UNDER STERILE CONDITIONS. A TIMEOUT WAS PERFORMED WHERE THE CONSENTED SITE WAS VERIFIED WITH EVERYONE IN THE ROOM. UNDER FLUOROSCOPIC GUIDANCE, TARGETS WERE SELECTED AT THE INTERSECTION OF THE RIGHT AND LEFT TRANSVERSE PROCESS OF L4, L5 AND ALA OF S1 WITH ITS RESPECTIVE SUPERIOR ARTICULAR PROCESS WITH A TARGET OF THE MEDIAN BRANCHES OF L3, L4 AND THE DORSAL RAMI OF L5. I CONFIRMED AGAIN THE SITE OF TARGET. LIDOCAINE WAS USED TO NUMB THE SKIN AND THE SUBCUTANEOUS TISSUE BELOW IT. SPINAL NEEDLE, 22-GAUGE, WAS ADVANCED UNDER FLUOROSCOPIC GUIDANCE AND FOLLOWING PATIENT FEEDBACK UNTIL THE TARGETS WERE REACHED. POSITION OF THE NEEDLES WAS VERIFIED WITH AP AND LATERAL VIEWS. AFTER PROPER POSITION OF THE NEEDLES WAS ACHIEVED, ISOVUE-M DYE 30%, 0.1 ML, WAS INJECTED AT EACH SITE SHOWING ADEQUATE SPREAD OF THE DYE. THEN, A SOLUTION OF 0.4 ML OF BUPIVACAINE 0.25% WAS INJECTED AT EACH SITE. THE MEDICATIONS WERE VERIFIED WITH THE NURSE. THERE WAS NO EVIDENCE OF BLOOD, PARESTHESIA OR CEREBROSPINAL FLUID DURING THE PROCEDURE. THE PATIENT WAS SENT TO THE RECOVERY ROOM. THE PATIENT WAS MOVING THE EXTREMITIES AND DOING WELL. THERE WERE NO COMPLICATIONS DURING THE PROCEDURE. ESTIMATED BLOOD LOSS WAS LESS THAN 5 ML. FLUOROSCOPY TIME WAS 43 SECONDS POST PROCEDURE NOTE IF THE PATIENT GETS SIGNIFICANT PAIN RELIEF, CONSIDER RADIOFREQUENCY ON THE LEFT SIDE. THE PATIENT WILL DOCUMENT THE PAIN LEVEL AND RESPONSE TO THIS PROCEDURE PER PAIN DIARY. THE PATIENT WILL BE SEEN IN A FOLLOW UP IN THE NEXT FEW WEEKS. FURTHER DETERMINATION FOR THE PATIENT'S CASE WILL BE DONE AT THE NEXT VISIT. INSTRUCTIONS WERE GIVEN, QUESTIONS WERE ANSWERED, AND THE PATIENT EXPRESSED UNDERSTANDING AND AGREED WITH THE PLAN. I, KASHMIR KUMAR, DOCUMENTED THE ABOVE INFORMATION ACTING A SCRIBE FOR DR. VU. I HAVE REVIEWED THE ABOVE DOCUMENT, WRITTEN BY KASHMIR KUMAR, ETL SOFTWARE ENGINEER, AND I VERIFY THAT IT IS ACCURATE PROCEDURE CODES 22278 INJ PARAVERT F JNT L/S 1 LEV, MODIFIERS: 50 [id number] INJ PARAVERT F JNT L/S 2 LEV, MODIFIERS: 50 DISPOSITION & COMMUNICATION FOLLOW UP FOLLOW UP WITH [facility]OM[facility] NURSE PRACTITIONER (REASON: POST BILATERAL DIAGNOSTIC LUMBAR FACET BLOCK #2 L4-L5, L5-S1) ELECTRONICALLY SIGNED BY ELLYN VU MD, MD ON 07/24/2020 AT 03:48 PM EDT DISCLAIMER : THIS IS A VISIT SUMMARY EXTRACTED FROM THE [employer] CHART. IT IS NOT A COPY OF THE [employer] PROGRESS NOTE. LANIED
== END ==
LOC: M PAIN 10:00
PROVIDERS: ATTEND Anesthesiology
DX: M47.816 Spondylosis without myelopathy or radiculopathy, lumbar region (principal); M47.817 Spondylosis without myelopathy or radiculopathy, lumbosacral region; N40.1 Benign prostatic hyperplasia with lower urinary tract symptoms; R33.9 Retention of urine, unspecified; M10.9 Gout, unspecified; I10 Essential (primary) hypertension; E03.9 Hypothyroidism, unspecified; F32.9 Major depressive disorder, single episode, unspecified; F41.9 Anxiety disorder, unspecified; E78.00 Pure hypercholesterolemia, unspecified; E87.6 Hypokalemia; G47.30 Sleep apnea, unspecified; G47.00 Insomnia, unspecified; M17.12 Unilateral primary osteoarthritis, left knee; Z79.82 Long term (current) use of aspirin; Z79.899 Other long term (current) drug therapy; Z88.8 Allergy status to other drugs, medicaments and biological substances; Z91.048 Other nonmedicinal substance allergy status
CPT/HCPCS: 64493; 64494; Q9967

== ENCOUNTER → 2020-08-06 | Outpatient (CLI) | payer MEDICARE, OTHER ==
[~2020-08-06] MED LIST changes: -BUPIVACAINE HCL 0.25% 30ML VIAL As Ordered ONE; -ISOVUE-M 300 61% 15ML VIAL As Ordered ONE; -LIDOCAINE 1% SDV 30ML VIAL As Ordered ONE
--- NOTE | 2020-08-08 00:19 | ECWPNPC ---
PATIENT NAME: ANG MCDERMOTT : 1940 GENDER: MALE VISIT DATE: 08/06/2020 DISCHARGE DATE: 08/06/20 1238 VISIT LOCKED DATE TIME: PHYSICIAN: SHARON LOWRY RESOURCE: SHARON LOWRY REASON FOR APPOINTMENT 1. POST BILATERAL LUMBAR FACET BLOCK DIAGNOSTIC #2 L4-5 L5-S1 HISTORY OF PRESENT ILLNESS GENERAL: HERE FOR POST PROCEDURE FOLLOW-UP. HAD BILATERAL L4-5, L5-S1 LUMBAR FACET DIAGNOSTIC BLOCKS ON 07/23/2020. HOURLY PAIN DIARY IS REVIEWED. SHOWING GREATER THAN 80% REDUCTION IN PAIN FOR 24 HOURS TO 48 HOURS POSTPROCEDURE THEN PAIN RETURNED TO BASELINE. HAS PAIN ON BOTH SIDES OF HIS LOWER BACK. LEFT SIDE SEEMS TO BE WORSE WHEN IT FLARES UP. PAIN IS AGGRAVATED BY ACTIVITY. DISCUSSED RADIOFREQUENCY. ACCOMPANIED IN THE EXAM ROOM WITH HIS . -. FALL RISK SCREENING: SCREENING : NO FALLS REPORTED IN THE LAST YEAR. PAIN SCREENING: PATIENT HAS A COMPLAINT OF ACUTE OR CHRONIC PAIN :YES LOCATION OF PAIN:LOW BACK INTENSITY OF PAIN (SCALE OF 1 TO 10):4 WHAT DOES YOUR PAIN FEEL LIKE:BURNING, CONTINOUS DURATION:CONTINOUS PAIN IS INCREASED BY:ACTIVITIES, PROLONGED STANDING PAIN IS DECREASED BY:USE OF PAIN MEDICATIONS, SITTING NURSING NOTE: -. PAIN CENTER INTAKE QUESTIONS: DO YOU HAVE A HISTORY OF MRSA? :NO DO YOU TAKE A BLOOD THINNERS? :NO ASPIRIN DO YOU HAVE ANY BLEEDING DISORDERS? :NO ANY NEW NUMBNESS OR WEAKNESS IN YOUR LEGS OR ARMS? :NO ONGOING ANY PACEMAKER,DEFIBRILLATOR, OR DORSAL COLUMN STIMULATOR? :NO DO YOU HAVE ANY RASHES OR OPEN SORES? :NO ARE YOU ALLERGIC TO IV DYE? :NO ARE YOU DIABETIC? :NO ANY NEW PROBLEMS WITH YOUR MEDICATIONS? :NO HAVE YOU RECEIVED A VACCINE IN THE PAST 30 DAYS? :YES IF SO WHAT VACCINE AND WHEN? COVID VACCINATION FIRST 05/10/2020. DO YOU PLAN TO RECEIVE A VACCINE IN THE NEXT 21 DAYS? :YES IF SO WHAT VACCINE AND WHEN? COVID VACCINATION SECOND VACCINATION DUE 06/07/2020 DO YOU NEED ANY PRESCRIPTION? :NO DO YOU TAKE ANY IMMUNOSUPPRESSIVE MEDICATIONS? :YES METHOTREXATE IS THERE A CHANCE YOU COULD BE ? :NO ARE YOU BREAST FEEDING? :NO CURRENT MEDICATIONS TAKING ALLOPURINOL 300 MG TABLET 1 TABLET ORALLY ONCE DAILY TAKING ASPIRIN 81 MG TABLET CHEWABLE 1 TABLET ORALLY ONCE A DAY TAKING CALCITRIOL 0.25 MCG CAPSULE 1 CAPSULE ORALLY ONCE A DAY TAKING GLUCOSAMINE CHONDROITIN COMPLX 600-250 MG CAPSULE 1 TAB(S) ORALLY BID TAKING LEVOTHYROXINE SODIUM 50 MCG TABLET 1 TABLET ON AN EMPTY STOMACH IN THE MORNING ORALLY ONCE A DAY TAKING MULTIVITAMINS TABLET DIRECTED ORALLY DAILY TAKING POTASSIUM CHLORIDE 20 MEQ TABLET EXTENDED RELEASE 2 TABLETS WITH FOOD ORALLY TWICE A DAY TAKING ZOLPIDEM 10 MG TABLET 1 TAB(S) ORAL AT BEDTIME NEEDED TAKING TORSEMIDE 20 MG TABLET 1 TAB(S) ORALLY 2 IN THE MORNING/ 1 TAB IN AFTERNOON TAKING SERTRALINE HCL 100 MG TABLET 1 TABLET ORALLY ONCE A DAY TAKING SPIRONOLACTONE 25 MG TABLET 1 TABLET ORALLY BID TAKING CALCIUM 600+D3 600-400 MG-UNIT TABLET 1 TABLET WITH A MEAL ORALLY ONCE A DAY TAKING ALIGN 4 MG CAPSULE ORALLY DAILY TAKING TYLENOL ARTHRITIS PAIN 650 MG TABLET EXTENDED RELEASE 2 TABS ORALLY EVERY 8 HRS TAKING SULFASALAZINE 500 MG TABLET DELAYED RELEASE 2 TABLET ORALLY ONCE A DAY TAKING VITAMIN D3 ULTRA STRENGTH 4 TABS ORALLY DAILY TAKING NUCYNTA 75 MG TABLET 1 TABLET ORALLY FOR PAIN EVERY 6 HOURS NEEDED MDD 2 TAKING METHOTREXATE 2.5 MG TABLET 3 TABLETS ORALLY WEEKLY, NOTES: WEDNESDAY TAKING NUCYNTA ER 150 MG TABLET EXTENDED RELEASE 12 HOUR 1 TABLET ORALLY EVERY 12 HRS BID MDD2 TAKING INDERAL LA 80 MG CAPSULE EXTENDED RELEASE 1 CAPSULE ORALLY BEFORE BEDTIME TAKING ROPINIROLE HCL 0.5 MG TABLET 1 TABLET ORALLY TID TAKING FOLIC ACID 1 MG TABLET 1 TABLET ORALLY ONCE A DAY TAKING FINASTERIDE 5 MG TABLET 1 TABLET ORALLY ONCE A DAY TAKING GABAPENTIN 100 MG CAPSULE 1 CAPSULE ORALLY 3X DAILY TAKING FLOMAX 0.4 MG CAPSULE 2 CAPSULES ORALLY ONCE A DAY NOT-TAKING NUCYNTA _ TABLET 150 ORALLY TWICE DAILY UNKNOWN LABETALOL HCL 100 MG TABLET 1 TAB IN AM ORALLY ONCE DAILY UNKNOWN COLCHICINE 0.6 MG TABLET 1 CAPSULE ORALLY NEEDED UNKNOWN MELATONIN 5 MG TABLET 1 TABLET IN THE EVENING ORALLY ONCE A DAY UNKNOWN AMOXICILLIN 500 MG TABLET 1 TABLET ORALLY TID UNKNOWN SOMA 350 MG TABLET 1 TABLET NEEDED ORALLY Q12H BID MDD2, NOTES: 11/07 2099 UNKNOWN OXYBUTYNIN CHLORIDE ER 10 MG TABLET EXTENDED RELEASE 24 HOUR 1 TABLET ORALLY ONCE A DAY UNKNOWN OTEZLA 30 MG TABLET 1 TABLET ORALLY DAILY UNKNOWN LEFLUNOMIDE 10 MG TABLET 1 TABLET ORALLY ONCE A DAY UNKNOWN TRAMADOL HCL 50 MG TABLET 1-2 TAB ORALLY Q4-6H PRN PAIN MDD6 UNKNOWN VOLTAREN 1 % GEL APPLY TO LEFT KNEE TRANSDERMAL BID UNKNOWN TYLENOL EXTRA STRENGTH 500 MG TABLET 1 TABLET NEEDED ORALLY EVERY 6 HRS PRN, NOTES: NEW DOSE MEDICATION LIST REVIEWED AND RECONCILED WITH THE PATIENT PAST MEDICAL HISTORY BPH URINARY RETENTION GOUT HTN EDEMA DDD/DJD; SEVERE SPINAL STENOSIS HYPOTHYROIDISM DEPRESSION/ANXIETY HYPERCHOLESTEROLEMIA HYPOKALEMIA SLEEP APNEA VERTIGO INSOMNIA CHRONIC KIDNEY DISEASE OSTEOARTHRITIS VARICOSE VEINS OSTEOARTHRITIS BROKEN LITTLE FINGER ON LEFT HAND ARTHRITIS LEFT KNEE TOOTH ISSUES LOW BACK PAIN SHINGLES HERNIATED CERVICAL DISCS ALLERGIES SURGICAL TAPE: REMOVES TOP LAYER OF SKIN - SIDE EFFECTS PRIMIDONE: CONFUSION - SIDE EFFECTS SOCIAL HISTORY GENERAL: TOBACCO USE ARE YOU A:NONSMOKER LATEX QUESTIONNAIRE LATEX ALLERGY : HAVE YOU EVER DEVELOPED ANY TYPE OF REACTION AFTER HANDLING LATEX PRODUCTS SUCH RUBBER GLOVES, CONDOMS, DIAPHRAGMS, BALLOONS, SOCKS, OR UNDERWEAR?NO PT DOES HAVE ALLERGY TO SURGICAL TAPE LATEX ALLERGY : HAVE YOU EVER DEVELOPED ANY TYPE OF REACTION DURING OR AFTER DENTAL APPOINTMENT, VAGINAL/RECTAL EXAMINATION, SURGICAL PROCEDURE, OR ANY OTHER EXPOSURE?NO LATEX RISK : HAVE YOU EVER HAD ANY DIFFICULTY BREATHING OR HIVES AFTER EATING OR HANDLING ANY FRUITS, OR VEGETABLES; SUCH KIWI, BANANAS, STONE FRUITS, OR CHESTNUTSNO LATEX RISK : DO YOU HAVE A PREVIOUS PERSONAL HISTORY OF MORE THAN NINE SURGERIES, SPINA BIFIDA, OR REPEATED CATHERIZATIONS? NO LATEX RISK : ARE YOU FREQUENTLY EXPOSED TO LATEX PRODUCTS IN YOUR OCCUPATION?NO DATE ASKED : 08/06/2020 ALCOHOL USE: NO. ALCOHOL SCREENING DID YOU HAVE A DRINK CONTAINING ALCOHOL IN THE PAST YEAR?YES HOW OFTEN DID YOU HAVE SIX OR MORE DRINKS ON ONE OCCASION IN THE PAST YEAR?NEVER (0 POINTS) HOW MANY DRINKS DID YOU HAVE ON A TYPICAL DAY WHEN YOU WERE DRINKING IN THE PAST YEAR?1 OR 2 (0 POINTS) HOW OFTEN DID YOU HAVE A DRINK CONTAINING ALCOHOL IN THE PAST YEAR?MONTHLY OR LESS (1 POINT) POINTS1 INTERPRETATIONNEGATIVE RECREATIONAL DRUG USE DRUG USE?NO CAFFEINE CAFFEINE USE?YES HOW OFTEN AND HOW MUCH? 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 DIET: REGULAR. EXERCISE: NONE. MARITAL STATUS: . OTHERS AT HOME: SPOUSE, CHILD, CHILDREN. - PFS REFERRAL NEEDED?NO CLERGY REFERRAL NEEDED?NO PUBLIC HEALTH REFERRAL NEEDED?NO WAS THE PROVIDER NOTIFIED OF ANY PERTINENT INFO? N/A HAS THE PATIENT BEEN EDUCATED REGARDING HIS/HER PLAN OF CARE?YES HAS THE PATIENT BEEN EDUCATED REGARDING PAIN, THE RISK FOR PAIN, THE IMPORTANCE OF EFFECTIVE PAIN MANAGEMENT, AND THE PAIN ASSESSMENT PROCESS?YES ADVANCE DIRECTIVE ADVANCE DIRECTIVE DISCUSSED WITH PATIENT:YES HCP - CHARLENE REESE () REVIEW OF SYSTEMS CONSTITUTIONAL: ANY RECENT FEVER NO . CHILLS NO . WEIGHT CHANGE OF UNKNOWN REASONS NO . GASTROENTEROLOGY: NEW UNEXPLAINABLE CHANGES IN BOWEL CONTROL NO . CONSTIPATION NO . GENITOURINARY: ANY NEW CHANGE IN BLADDER CONTROL? NO . NEUROLOGY: NEW ONSET DIZZINESS OR NEUROLOGICAL CHANGES NOT MENTIONED NO . NEW NUMBNESS OR PAIN PATTERNS NOT MENTIONED AND PERTINENT TO TODAY'S VISIT NO . CARDIOLOGY: NEW CHEST PRESSURE NO . PATIENT DENIES NO . RESPIRATORY: UNEXPLAINABLE COUGH NO . NEW SHORTNESS OF BREATH NO . VITAL SIGNS WT 322.6 LBS, HT 5'9", BMI 47.63 INDEX, BP 108/57 MM HG, HR 63 /MIN, RR 18 /MIN, TEMP 97.8 F, OXYGEN SAT % 94%, SAFE IN ENV? (Y/N) YES, REVIEWED BY: DEVIN CUADRA MA. EXAMINATION GENERAL EXAMINATION: GENERALNO ACUTE DISTRESS, WELL NOURISHED AND HYDRATED. PSYCHAPPROPRIATE MOOD AND AFFECT . LUNGS: LUNG SOUNDS ARE CLEAR . HEART: HEART RATE REGULAR . MUSCULOSKELETAL:*, MUSCLE STRENGTH TESTING 5/5 BILATERAL LOWER EXTREMITIES., ,PALPATION: POSITIVE FOR PAIN OVER L/S SPINE. POSITIVE FOR PAIN OVER L/S PARSPINALS.SPECIFIC POINT TENDERNESS OVER BILAT. L4/5-L5/S1 LUMBR FACETS WITH FACET LOADING . DIAGNOSTIC TESTS REVIEWED 08/31/2016-MRI L/S SPINE. 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 (PRIMARY) OTHER CHRONIC PAIN - G89.29 SPONDYLOSIS OF LUMBOSACRAL REGION WITHOUT MYELOPATHY OR RADICULOPATHY - M47.817 TREATMENT CHRONIC PRESCRIPTION OPIATE USE CONTINUE NUCYNTA TABLET, 75 MG, 1 TABLET, ORALLY FOR PAIN, EVERY 6 HOURS NEEDED MDD 2 CONTINUE NUCYNTA ER TABLET EXTENDED RELEASE 12 HOUR, 150 MG, 1 TABLET, ORALLY, EVERY 12 HRS BID MDD2 LAB: URINE TEST GROUP KEISHA HYDETH 08/06/2020 12:19:59 PM > GABAPENTIN 08/06/20 @10AM, NUCYNTA 08/06/20 @10AM MEDICATION: OXYCODONE HCL TAB 5MG ORALLY (ORDERED FOR 08/13/2020) NOTES: STOP METHOTREXATE 10 DAYS PRE PROCEDURE /RESTART 3 DAYS POST PROCEDURE/MED HOLD LETTER SENT TO PROVIDER , LEFT LUMBAR COOL RADIOFREQUENCY L4-5,L5-S1 PRINTED AND REVIEWED PRE PROCEDURE TEACHING, PATIENT VERBALIZE UNDERSTANDING AMITA BANKS. OTHER CHRONIC PAIN PAIN PROCEDURE LOGDATE OF PROCEDURE07/23/2020ROCEDURE:BILATERAL LUMBAR FACET BLOCK DIAGNOSTIC #2AMOUNT OF PRE SEDATE0/0RESULT:>80 REDUCTION OF PAIN FOR 72 HRS POST PROCEDURE PROCEDURE CODES FA211 ESTABILISHED PATIENT [facility] FACILITY CHARGE DISPOSITION & COMMUNICATION FOLLOW UP POST PROCEDURE (REASON: , LEFT LUMBAR COOL RADIOFREQUENCY L4-5,L5-S1) ELECTRONICALLY SIGNED BY RICK VARELA ON 08/07/2020 AT 03:29 PM EDT DISCLAIMER : THIS IS A VISIT SUMMARY EXTRACTED FROM THE [employer] CHART. IT IS NOT A COPY OF THE [employer] PROGRESS NOTE. HECTOR
== END ==
LOC: M PAIN 11:00
PROVIDERS: ATTEND Nurse Practitioner Family
DX: G89.29 Other chronic pain (principal); Z79.891 Long term (current) use of opiate analgesic; M47.817 Spondylosis without myelopathy or radiculopathy, lumbosacral region; N40.1 Benign prostatic hyperplasia with lower urinary tract symptoms; R33.9 Retention of urine, unspecified; M10.9 Gout, unspecified; I12.9 Hypertensive chronic kidney disease with stage 1 through stage 4 chronic kidney disease, or unspecified chronic kidney disease; E03.9 Hypothyroidism, unspecified; F32.9 Major depressive disorder, single episode, unspecified; F41.9 Anxiety disorder, unspecified; E78.00 Pure hypercholesterolemia, unspecified; E87.6 Hypokalemia; G47.30 Sleep apnea, unspecified; N18.9 Chronic kidney disease, unspecified; I83.90 Asymptomatic varicose veins of unspecified lower extremity; M19.90 Unspecified osteoarthritis, unspecified site; M54.5 Low back pain; Z79.82 Long term (current) use of aspirin; Z79.899 Other long term (current) drug therapy; Z88.8 Allergy status to other drugs, medicaments and biological substances; Z91.048 Other nonmedicinal substance allergy status

== ENCOUNTER → 2020-08-15 | Outpatient (CLI) | payer MEDICARE, OTHER | LOC: M LABSMTC 10:43 | PROVIDERS: ATTEND Anesthesiology | DX: Z11.52 Encounter for screening for COVID-19 (principal) ==

== ENCOUNTER → 2020-08-20 | Outpatient (CLI) | payer MEDICARE, OTHER ==
[~2020-08-20] MED LIST changes: +BUPIVACAINE HCL 0.25% 30ML VIAL As Ordered ONE; +LIDOCAINE 1% SDV 30ML VIAL As Ordered ONE; +dexameTHASONE 10MG/1ML VIAL PRES.FREE (J1100 PER 1MG) As Ordered ONE; +oxyCODONE 5MG TAB As Ordered ONE
--- NOTE | 2020-08-20 17:37 | REP ---
INDICATION: LEFT LUMBAR RADIOFREQUENCY. COMPARISON: None. TECHNIQUE: Five views. 70.9 seconds of fluoroscopy time is reported. FINDINGS: A sequence of 5 last image hold fluoroscopically obtained spot radiograph(s) of the lumbar spine document(s) needle position(s) and contrast injection associated with injection procedure. IMPRESSION: Procedural imaging. <Electronically signed by Ed Kaplan > 08/20/20 [id number]
--- NOTE | 2020-08-30 02:51 | ECWPNPC ---
PATIENT NAME: ANG MCDERMOTT : 1940 GENDER: MALE VISIT DATE: 08/20/2020 DISCHARGE DATE: 08/20/20 1444 VISIT LOCKED DATE TIME: PHYSICIAN: ELLYN VU MD RESOURCE: ELLYN VU MD REASON FOR APPOINTMENT 1. LEFT LUMBAR COOL RADIOFREQUENCY L4-L5,L5-S1 HISTORY OF PRESENT ILLNESS GENERAL: -. FALL RISK SCREENING: SCREENING : NO FALLS REPORTED IN THE LAST YEAR. PAIN SCREENING: PATIENT HAS A COMPLAINT OF ACUTE OR CHRONIC PAIN :YES LOCATION OF PAIN:LOW BACK LEFT INTENSITY OF PAIN (SCALE OF 1 TO 10):7 WHAT DOES YOUR PAIN FEEL LIKE:SHARP, STABBING DURATION:CONTINOUS PAIN IS INCREASED BY:ACTIVITIES, PROLONGED STANDING, OTHERS WALKING PAIN IS DECREASED BY:SITTING, OTHERS REST NURSING NOTE: -. PAIN CENTER INTAKE QUESTIONS: DO YOU HAVE A HISTORY OF MRSA? :NO DO YOU TAKE A BLOOD THINNERS? :NO DO YOU HAVE ANY BLEEDING DISORDERS? :NO ANY NEW NUMBNESS OR WEAKNESS IN YOUR LEGS OR ARMS? :NO ANY PACEMAKER,DEFIBRILLATOR, OR DORSAL COLUMN STIMULATOR? :NO DO YOU HAVE ANY RASHES OR OPEN SORES? :YES RIGHT WISDOM TOOTH SURGICALLY REMOVED ON Wednesday08/16/20. ARE YOU ALLERGIC TO IV DYE? :NO ARE YOU DIABETIC? :NO ANY NEW PROBLEMS WITH YOUR MEDICATIONS? :NO HAVE YOU RECEIVED A VACCINE IN THE PAST 30 DAYS? :NO DO YOU PLAN TO RECEIVE A VACCINE IN THE NEXT 21 DAYS? :NO DO YOU TAKE ANY IMMUNOSUPPRESSIVE MEDICATIONS? :YES ALLOPURINOL - LAST DOSE 08/16/20 METHOTREXATE - LAST DOSE 08/07/20 ANY HISTORY OF SEIZURES? :NO ANY HISTORY OF CARDIAC ISSUES OR EVENTS? :NO DO YOU HAVE ANY KIDNEY OR LIVER DISEASE? :YES KIDNEY DISEASE STAGE 3, STABLE DO YOU HAVE SLEEP APNEA? :YES DO YOU WEAR A CPAP? BIPAP, SETTINGS 07/01 ANY RECENT HEAD INJURY? :NO DO YOU HAVE ANY NEW INFECTIONS? :YES RIGHT WISDOM TOOTH INFECTION - WAS SURGICALLY REMOVED Wednesday08/16/20 IS THERE A CHANCE YOU COULD BE ? :NO ARE YOU BREAST FEEDING? :NO WHEN DID YOU LAST EAT? : -2200 08/19/20 WHEN DID YOU LAST DRINK? : 08/20 1140 WHAT DID YOU LAST DRINK? : -WATER NAME OF PERSON DRIVING YOU HOME? : - CHARLENE DO YOU HAVE ANY OTHER QUESTIONS OR CONCERNS? : -NO CURRENT MEDICATIONS TAKING NUCYNTA 75 MG TABLET 1 TABLET ORALLY FOR PAIN EVERY 6 HOURS NEEDED MDD 2 TAKING NUCYNTA ER 150 MG TABLET EXTENDED RELEASE 12 HOUR 1 TABLET ORALLY EVERY 12 HRS BID MDD2 TAKING ALLOPURINOL 300 MG TABLET 1 TABLET ORALLY ONCE DAILY, NOTES: WEDNESDAY TAKING ASPIRIN 81 MG TABLET CHEWABLE 1 TABLET ORALLY ONCE A DAY TAKING CALCITRIOL 0.25 MCG CAPSULE 1 CAPSULE ORALLY ONCE A DAY TAKING GLUCOSAMINE CHONDROITIN COMPLX 600-250 MG CAPSULE 1 TAB(S) ORALLY BID TAKING LEVOTHYROXINE SODIUM 50 MCG TABLET 1 TABLET ON AN EMPTY STOMACH IN THE MORNING ORALLY ONCE A DAY TAKING MULTIVITAMINS TABLET DIRECTED ORALLY DAILY TAKING POTASSIUM CHLORIDE 20 MEQ TABLET EXTENDED RELEASE 2 TABLETS WITH FOOD ORALLY TWICE A DAY TAKING ZOLPIDEM 10 MG TABLET 1 TAB(S) ORAL AT BEDTIME NEEDED TAKING TORSEMIDE 20 MG TABLET 1 TAB(S) ORALLY 2 IN THE MORNING/ 1 TAB IN AFTERNOON TAKING SERTRALINE HCL 100 MG TABLET 1 TABLET ORALLY ONCE A DAY TAKING SPIRONOLACTONE 25 MG TABLET 1 TABLET ORALLY BID TAKING CALCIUM 600+D3 600-400 MG-UNIT TABLET 1 TABLET WITH A MEAL ORALLY ONCE A DAY TAKING ALIGN 4 MG CAPSULE ORALLY DAILY TAKING TYLENOL ARTHRITIS PAIN 650 MG TABLET EXTENDED RELEASE 2 TABS ORALLY EVERY 8 HRS NEEDED TAKING SULFASALAZINE 500 MG TABLET DELAYED RELEASE 2 TABLET ORALLY ONCE A DAY TAKING VITAMIN D3 ULTRA STRENGTH 4 TABS ORALLY DAILY TAKING METHOTREXATE 2.5 MG TABLET 3 TABLETS ORALLY WEEKLY, NOTES: 1 WEEK AGO LAST WEDNESDAY TAKING INDERAL LA 80 MG CAPSULE EXTENDED RELEASE 1 CAPSULE ORALLY BEFORE BEDTIME TAKING ROPINIROLE HCL 0.5 MG TABLET 1 TABLET ORALLY TID TAKING FOLIC ACID 1 MG TABLET 1 TABLET ORALLY ONCE A DAY TAKING FINASTERIDE 5 MG TABLET 1 TABLET ORALLY ONCE A DAY TAKING GABAPENTIN 100 MG CAPSULE 1 CAPSULE ORALLY 3X DAILY TAKING FLOMAX 0.4 MG CAPSULE 2 CAPSULES ORALLY ONCE A DAY NOT-TAKING NUCYNTA _ TABLET 150 ORALLY TWICE DAILY UNKNOWN LABETALOL HCL 100 MG TABLET 1 TAB IN AM ORALLY ONCE DAILY UNKNOWN COLCHICINE 0.6 MG TABLET 1 CAPSULE ORALLY NEEDED UNKNOWN MELATONIN 5 MG TABLET 1 TABLET IN THE EVENING ORALLY ONCE A DAY UNKNOWN AMOXICILLIN 500 MG TABLET 1 TABLET ORALLY TID UNKNOWN SOMA 350 MG TABLET 1 TABLET NEEDED ORALLY Q12H BID MDD2, NOTES: 11/07 2099 UNKNOWN OXYBUTYNIN CHLORIDE ER 10 MG TABLET EXTENDED RELEASE 24 HOUR 1 TABLET ORALLY ONCE A DAY UNKNOWN OTEZLA 30 MG TABLET 1 TABLET ORALLY DAILY UNKNOWN LEFLUNOMIDE 10 MG TABLET 1 TABLET ORALLY ONCE A DAY UNKNOWN TRAMADOL HCL 50 MG TABLET 1-2 TAB ORALLY Q4-6H PRN PAIN MDD6 UNKNOWN VOLTAREN 1 % GEL APPLY TO LEFT KNEE TRANSDERMAL BID UNKNOWN TYLENOL EXTRA STRENGTH 500 MG TABLET 1 TABLET NEEDED ORALLY EVERY 6 HRS PRN, NOTES: NEW DOSE PAST MEDICAL HISTORY BPH URINARY RETENTION GOUT HTN EDEMA DDD/DJD; SEVERE SPINAL STENOSIS HYPOTHYROIDISM DEPRESSION/ANXIETY HYPERCHOLESTEROLEMIA HYPOKALEMIA SLEEP APNEA VERTIGO INSOMNIA CHRONIC KIDNEY DISEASE OSTEOARTHRITIS VARICOSE VEINS OSTEOARTHRITIS BROKEN LITTLE FINGER ON LEFT HAND ARTHRITIS LEFT KNEE TOOTH ISSUES LOW BACK PAIN SHINGLES HERNIATED CERVICAL DISCS TREMORS ALLERGIES SURGICAL TAPE: REMOVES TOP LAYER OF SKIN - SIDE EFFECTS PRIMIDONE: CONFUSION - SIDE EFFECTS SOCIAL HISTORY GENERAL: TOBACCO USE ARE YOU A:NONSMOKER LATEX QUESTIONNAIRE LATEX ALLERGY : HAVE YOU EVER DEVELOPED ANY TYPE OF REACTION AFTER HANDLING LATEX PRODUCTS SUCH RUBBER GLOVES, CONDOMS, DIAPHRAGMS, BALLOONS, SOCKS, OR UNDERWEAR?NO PT DOES HAVE ALLERGY TO SURGICAL TAPE LATEX ALLERGY : HAVE YOU EVER DEVELOPED ANY TYPE OF REACTION DURING OR AFTER DENTAL APPOINTMENT, VAGINAL/RECTAL EXAMINATION, SURGICAL PROCEDURE, OR ANY OTHER EXPOSURE?NO LATEX RISK : HAVE YOU EVER HAD ANY DIFFICULTY BREATHING OR HIVES AFTER EATING OR HANDLING ANY FRUITS, OR VEGETABLES; SUCH KIWI, BANANAS, STONE FRUITS, OR CHESTNUTSNO LATEX RISK : DO YOU HAVE A PREVIOUS PERSONAL HISTORY OF MORE THAN NINE SURGERIES, SPINA BIFIDA, OR REPEATED CATHERIZATIONS? NO LATEX RISK : ARE YOU FREQUENTLY EXPOSED TO LATEX PRODUCTS IN YOUR OCCUPATION?NO DATE ASKED : 08/19/2020 ALCOHOL USE: NO. ALCOHOL SCREENING DID YOU HAVE A DRINK CONTAINING ALCOHOL IN THE PAST YEAR?YES HOW OFTEN DID YOU HAVE SIX OR MORE DRINKS ON ONE OCCASION IN THE PAST YEAR?NEVER (0 POINTS) HOW MANY DRINKS DID YOU HAVE ON A TYPICAL DAY WHEN YOU WERE DRINKING IN THE PAST YEAR?1 OR 2 (0 POINTS) HOW OFTEN DID YOU HAVE A DRINK CONTAINING ALCOHOL IN THE PAST YEAR?MONTHLY OR LESS (1 POINT) POINTS1 INTERPRETATIONNEGATIVE RECREATIONAL DRUG USE DRUG USE?NO CAFFEINE CAFFEINE USE?YES HOW OFTEN AND HOW MUCH? 2-3 CUPS OF TEA PER DAY AND OCCASIONAL COFFEE SCIENTOLOGY [id number] YAZDANISM LANGUAGE LANGUAGES SPOKEN:FRISIAN EDUCATION LEVEL OF EDUCATION:NOT FINISHED COLLEGE LEARNING BARRIERS / SPECIAL NEEDS CHANGE FROM LAST VISIT?NO BARRIERS TO LEARNING?NO HEARING IMPAIRED?NO VISION IMPAIRED?YES :CORRECTIVE LENSES COGNITIVELY IMPAIRED?NO READINESS TO LEARN?YES LEARNING PREFERENCES?NO LEARNING CAPABILITIES PRESENT?YES EMOTIONAL BARRIERS?NO SPECIAL DEVICES?YES :CANE MOLDER SWEEP NEEDED?NO OCCUPATION: RETIRED. DIET: REGULAR. EXERCISE: NONE. MARITAL STATUS: . OTHERS AT HOME: SPOUSE, CHILD, CHILDREN. - PFS REFERRAL NEEDED?NO CLERGY REFERRAL NEEDED?NO PUBLIC HEALTH REFERRAL NEEDED?NO WAS THE PROVIDER NOTIFIED OF ANY PERTINENT INFO? N/A HAS THE PATIENT BEEN EDUCATED REGARDING HIS/HER PLAN OF CARE?YES HAS THE PATIENT BEEN EDUCATED REGARDING PAIN, THE RISK FOR PAIN, THE IMPORTANCE OF EFFECTIVE PAIN MANAGEMENT, AND THE PAIN ASSESSMENT PROCESS?YES ADVANCE DIRECTIVE ADVANCE DIRECTIVE DISCUSSED WITH PATIENT:YES HCP - DAVIDSHELLI HUGH () VITAL SIGNS WT 316.4 LBS, HT 5'9", BMI 46.72 INDEX, BP 113/68 MM HG, HR 67 /MIN, RR 18 /MIN, TEMP 97.2 F, OXYGEN SAT % 91%, SAFE IN ENV? (Y/N) YES, NA INITIALS NM 13:504 1402 REVIEWED. Emilee AGUIRRE RN. EXAMINATION GENERAL: A HISTORY AND PHYSICAL EXAM ON THE PATIENT WAS DONE ON 08/06/2020 (DATE OF ORIGINAL ASSESSMENT) IN PREPARATION OF SURGERY/PROCEDURE. I HAVE NOW REASSESSED THIS PATIENT'S HEALTH STATUS AND PERFORMED AN UPDATED EXAM TODAY. ALL CHANGES IN THE PATIENT'S HISTORY, PHYSICAL EXAM, PRE-EXISTING CONDITONS, AND INDICATIONS/CONTRAINDICATIONS TO THE PLANNED PROCEDURE AND ANESTHESIA ARE DOCUMENTED AND EVALUATED BELOW. I ATTEST TO THE ADEQUACY AND APPROPRIATENESS OF MY ASSESSMENT, AND CONFIRM THE NECESSITY FOR THE PLANNED PROCEDURE. THE PATIENT IS ALERT, ORIENTED TIMES THREE AND COOPERATIVE. LUNGS ARE CLEAR TO AUSCULTATION. HEART SHOWS REGULAR RHYTHM, NO MURMURS AND NO GALLOPS. ASSESSMENTS SPONDYLOSIS OF LUMBAR REGION WITHOUT MYELOPATHY OR RADICULOPATHY - M47.816 (PRIMARY) SPONDYLOSIS WITHOUT MYELOPATHY OR RADICULOPATHY, LUMBOSACRAL REGION - M47.817 TREATMENT SPONDYLOSIS OF LUMBAR REGION WITHOUT MYELOPATHY OR RADICULOPATHY SMC FACET BLOCK (PAIN)[id number] COMPLETION OF PROCEDURAL VISIT WHEN MEETS CRITERIAROSALVA RED 08/20/2020 5:57:53 PM > CRITERIA MET 1746 MEDICATION: OXYCODONE HCL TAB 5MG ORALLY ISAI AGUIRRE RN 08/20/2020 2:23:37 PM > VERIFIED. TEOFILOROSALVA LOCKHART 08/20/2020 2:27:49 PM > ADMINISTERED OTHERS NOTES: 08/19/20 PAT COMPLETED. Shereen ZAYAS RN . PROCEDURES PAIN NURSING RECORD PROCEDURE IN ROOM 1537 , PHYSICIAN IN ROOM 1637 , START 1642 , FINISH 1705 , PHYSICIAN OUT OF ROOM 1707 , OUT OF ROOM 1718 , ECG NORMAL SINUS , PATIENT SHIELDED YES , SAFETY STRAP NO , PREP CHLOROPREP Patricia RED RN, DRESSING TEGADERM DR. VU LOC: ROSALVA RED 08/20/2020 2:54:09 PM > 1. ALERT, ORIENTED ROSALVA RED 08/20/2020 5:39:35 PM > 1. ALERT, ORIENTED RESP: ROSALVA RED 08/20/2020 2:54:14 PM > 1. REGULAR, NO DYSPNEA ROSALVA RED 08/20/2020 5:39:47 PM > 1. REGULAR, NO DYSPNEA COLOR: ROSALVA RED 08/20/2020 2:54:17 PM > 1. PINK ROSALVA RED 08/20/2020 5:39:52 PM > 1. PINK SKIN: ROSALVA RED 08/20/2020 2:54:21 PM > 1. WARM, DRY ROSALVA RED 08/20/2020 3:55:15 PM > A SMALL ABRASION NOTED LEFT UPPER BACK NEAR SHOULDER BLADE. PATIENT STATED HE FELL A COUPLE OF DAYS AGO AND GOT IT THEN. NO REDNESS OR SWELLING NOTED. DR. VU INTO SEE. OKAY TO PROCEED WITH PROCEDURE. ROSALVA RED 08/20/2020 5:40:39 PM > 1. WARM, DRY POSITION: ROSALVA RED 08/20/2020 2:54:26 PM > 5. SITTING ROSALVA RED 08/20/2020 3:39:17 PM > 1. PRONE ROSALVA RED 08/20/2020 5:40:55 PM > 5. SITTING VITALS: ROSALVA RED 08/20/2020 2:40:23 PM > 130/76,60,16,95% CIPULLOBENEDICTOE 08/20/2020 3:01:39 PM > BP115/63 HR 58 02 93%; 3:16:01 BP114/64 HR 62 02 94; 3:31:15 BP 108/65 HR 59 02 93% TEOFILO,ROSALVA 08/20/2020 3:40:48 PM > 119/71,61,18,93% TEOFILO,ROSALVA 08/20/2020 3:59:12 PM > 111/66,60,16,91% TEOFILO,ROSALVA 08/20/2020 4:14:15 PM > 109/69,60,16,94% TEOFILO,ROSALVA 08/20/2020 4:30:25 PM > 122/74,60,18,97% O2 ON 2L/MIN PER ORDER DUE TO SATS IN HIGH 80'S AND PT HAS HISTORY OF TALYA TEOFILO,ROSALVA 08/20/2020 4:45:04 PM > 131/76, 62,18,97% TEOFILO,ROSALVA 08/20/2020 5:00:40 PM > 123/72,60,16,96% TEOFILO,ROSALVA 08/20/2020 5:12:14 PM > 135/74,61,16,98% O2 OFF AT 5:13 PM TEOFILO,ROSALVA 08/20/2020 5:25:15 PM > 140/74,72,18,96% TEOFILO,ROSALVA 08/20/2020 5:35:11 PM > 154/87,71,18,97% COMPLETION OF PROCEDURE APPOINTMENT: POST PAIN 2, DRESSING SITE DRY AND INTACT, IV N/A, GAIT STEADY, TEACHING COMPLETED, PATIENT ACKNOWLEDGES UNDERSTANDING YES, PROCEDURE APPOINTMENT COMPLETED AT 1746 PN RADIOFREQUENCY DATE OF PROCEDURE 08/20/2020 THERMO LESION RADIOFREQUENCY > 80 DEGREES : COOL - AVANOS SYSTEM SET AT 60* WITH TISSUE TARGET TEMP > 80* OR MORE. STRAIGHT NEEDLE SIDE: : LEFT LEVELS: : L4-L5, L5-S1 NEEDLE/CATHETER/GAUGE: : 17 CANULA LENGTH: : 150 MM ACTIVE TIP: : 4 MM GROUNDING PAD PLACED ON AFFECTED SIDE (MUSCULAR AREA): : LUMBAR (POSTERIOR UPPER THIGH) 1 ST LEVEL: : L3,INITAL POSTIVE SENSORY RESPONE (50 HZ) 0.4,MOTOR RESPONSE (2 HZ-UP TO 3 VOLTS) 3.0 ,PRE-LOCAL IMPEDENCE READING OHMS 350 ,POST-LOCAL IMPEDENCE READING OHMS 293 ,DURING RF IMPEDENCE READING OHMS 271 , 2 ND LEVEL: : L4,INITIAL POSITIVE SENSORY RESPONSE (50 HZ) 0.4,MOTOR RESPONSE (2 HZ- UP TO 3 VOLTS) 3.0 ,PRE-LOCAL IMPEDENCE READING OHMS 420 ,POST-LOCAL IMEPEDENCE READING OHMS 212 ,DURING RF IMPEDENCE READING OHMS 180 , 3 RD LEVEL: : L5,INITIAL POSITIVE SENSORY RESPONSE (50 HZ) 0.5,MOTOR RESPONSE (2HZ- UP TO 3 VOLTS) 3.0 ,PRE- LOCAL IMPEDENCE READING OHMS 560 ,POST-LOCAL IMPEDENCE READING OHMS 385 ,DURING RF IMPEDENCE READING OHMS 391 , PRE PROCEDURE DIAGNOSES 1. LUMBAR SPONDYLOSIS. 2. LUMBOSACRAL SPONDYLOSIS POST PROCEDURE DIAGNOSES 1. LUMBAR SPONDYLOSIS. 2. LUMBOSACRAL SPONDYLOSIS PROCEDURE LEFT L4-L5 AND LEFT L5-S1 LUMBAR FACET RADIOFREQUENCY SURGEON DR. ELLYN VU RETURNS SUPERVISOR NONE ANESTHESIA LOCAL PRE PROCEDURE REPORT THE PATIENT HAS HISTORY OF CHRONIC LOW BACK PAIN. I EVALUATED THE PATIENT AND REVIEWED THE CHART. I WENT OVER THE RISKS, ALTERNATIVES, AND BENEFITS ASSOCIATED WITH THIS PROCEDURE. THE PATIENT WOULD LIKE TO PROCEED AND GAVE CONSENT TO PERFORM THE PROCEDURE. THE PATIENT DENIES UNEXPLAINABLE WEIGHT LOSS, FEVER, CHILLS OR NEW CHANGES IN URINARY OR BOWEL CONTROL. THE PATIENT IS COVID-19 NEGATIVE DESCRIPTION OF PROCEDURE THE PATIENT WAS BROUGHT TO THE PROCEDURE ROOM AND PLACED IN THE PRONE POSITION. A TIMEOUT WAS PERFORMED WHERE THE CONSENTED SITE WAS VERIFIED WITH EVERYONE IN THE ROOM. THE LUMBOSACRAL AREA WAS CLEANED WITH CHLORAPREP SOLUTION AND DRAPED ASEPTICALLY. THE PROCEDURE WAS DONE UNDER STERILE CONDITIONS. UNDER FLUOROSCOPIC GUIDANCE, TARGETS WERE SELECTED AT THE INTERSECTION OF THE LEFT TRANSVERSE PROCESS OF L4, L5 AND ALA OF S1 WITH ITS RESPECTIVE SUPERIOR ARTICULAR PROCESS. I CONFIRMED AGAIN THE SITE OF TARGET. LIDOCAINE WAS USED TO NUMB THE SKIN AND THE SUBCUTANEOUS TISSUE BELOW IT. RADIOFREQUENCY CANNULAS, 17-GAUGE, 150 MM LONG WITH 4 MM ACTIVE TIP, WERE ADVANCED UNDER FLUOROSCOPIC GUIDANCE AND FOLLOWING PATIENT FEEDBACK UNTIL THE TARGET AREA WAS REACHED. POSITION OF THE CANNULA WAS VERIFIED WITH AP AND LATERAL VIEWS. AFTER PROPER POSITION OF THE CANNULA WAS ACHIEVED, WE WORKED WITH THE LEFT SELECTED MEDIAN BRANCHES OF L3, L4 AND THE DORSAL RAMI OF L5. WE MEASURED THE CORRESPONDING IMPEDANCES AND MOTOR RESPONSES INDICATED IN THE RADIOFREQUENCY WORK SHEET. POSITION OF THE CANNULA WAS VERIFIED AGAIN WITH AP AND LATERAL VIEWS. LIDOCAINE 1%, 2 ML, WAS INJECTED AT EACH LEVEL. RADIOFREQUENCY WAS DONE AT EACH LEVEL USING THE Favoe SYSTEM-- COOLED RF-- WITH A SETTING AT THE MACHINE OF 60 DEGREES WITH A TARGET TISSUE TEMPERATURE OF 80 TO 90 DEGREES FOR A MINIMUM OF 150 SECONDS. AFTER RADIOFREQUENCY WAS DONE, THE PATIENT RECEIVED BUPIVACAINE 0.125%,1 ML, WITH DEXAMETHASONE 3 MG AT EACH SITE. THERE WAS NO EVIDENCE OF BLOOD, PARESTHESIA OR CEREBROSPINAL FLUID DURING THE PROCEDURE. THE PATIENT WAS SENT TO THE RECOVERY ROOMS. THE PATIENT WAS MOVING THE EXTREMITIES AND DOING WELL. EBL LESS THAN 5 ML. THERE WERE NO COMPLICATIONS DURING THE PROCEDURE. FLUOROSCOPY TIME WAS 1 MINUTE 10 SECONDS POST PROCEDURE NOTE THE PATIENT WILL BE SEEN IN A FOLLOW UP IN THE NEXT FEW WEEKS. INSTRUCTIONS WERE GIVEN, QUESTIONS WERE ANSWERED, AND THE PATIENT EXPRESSED UNDERSTANDING AND AGREES WITH THE PLAN. . I, KASHMIR KUMAR, DOCUMENTED THE ABOVE INFORMATION ACTING A SCRIBE FOR DR. VU. I HAVE REVIEWED THE ABOVE DOCUMENT, WRITTEN BY ADRIAN KOENIG, AND I VERIFY THAT IT IS ACCURATE PROCEDURE CODES 61019 DESTROY LUMB/SAC FACET JNT, [place]: [place] [address] DESTROY L/S FACET JNT ADDL, MODIFIERS: LT DISPOSITION & COMMUNICATION FOLLOW UP FOLLOW UP WITH KAIAKO KURA TUARUA (REASON: POST LEFT LUMBAR COOL RADIOFREQUENCY) ELECTRONICALLY SIGNED BY ELLYN VU MD, MD ON 08/29/2020 AT 12:54 PM EDT DISCLAIMER : THIS IS A VISIT SUMMARY EXTRACTED FROM THE [employer] CHART. IT IS NOT A COPY OF THE [employer] PROGRESS NOTE. HECTOR
== END ==
LOC: M PAIN 14:00
PROVIDERS: ATTEND Anesthesiology
DX: M47.816 Spondylosis without myelopathy or radiculopathy, lumbar region (principal); M47.817 Spondylosis without myelopathy or radiculopathy, lumbosacral region; G47.30 Sleep apnea, unspecified; E03.9 Hypothyroidism, unspecified; G47.00 Insomnia, unspecified; R25.1 Tremor, unspecified; Z86.59 Personal history of other mental and behavioral disorders; Z88.8 Allergy status to other drugs, medicaments and biological substances; Z91.09 Other allergy status, other than to drugs and biological substances; E66.01 Morbid (severe) obesity due to excess calories; Z68.42 Body mass index [BMI] 45.0-49.9, adult; Z79.82 Long term (current) use of aspirin; Z79.891 Long term (current) use of opiate analgesic; Z79.899 Other long term (current) drug therapy
CPT/HCPCS: 64635; 64636; J1100

== ENCOUNTER → 2020-09-05 | Outpatient (CLI) | payer MEDICARE, OTHER ==
[~2020-09-05] MED LIST changes: -BUPIVACAINE HCL 0.25% 30ML VIAL As Ordered ONE; -LIDOCAINE 1% SDV 30ML VIAL As Ordered ONE; -dexameTHASONE 10MG/1ML VIAL PRES.FREE (J1100 PER 1MG) As Ordered ONE; -oxyCODONE 5MG TAB As Ordered ONE
--- NOTE | 2020-09-10 01:40 | ECWPNPC ---
PATIENT NAME: ANG MCDERMOTT : 1940 GENDER: MALE VISIT DATE: 09/05/2020 DISCHARGE DATE: 09/05/20 1144 VISIT LOCKED DATE TIME: PHYSICIAN: SHARON LOWRY RESOURCE: SHARON LOWRY REASON FOR APPOINTMENT 1. POST LEFT LUMBAR COOL RADIOFREQUENCY HISTORY OF PRESENT ILLNESS DEPRESSION SCREENING: PHQ-2 (2015 EDITION) LITTLE INTEREST OR PLEASURE IN DOING THINGS?NOT AT ALL FEELING DOWN, DEPRESSED, OR HOPELESS?NOT AT ALL TOTAL SCORE0 GENERAL: HERE FOR POST PROCEDURE FOLLOW-UP. HAD LEFT L4-5, L5-S1 COOL RADIOFREQUENCY ON 08/20/2020. REPORTING MARKED REDUCTION IN LEFT-SIDED LOW BACK PAIN THAT CONTINUES TODAY. CHIEF AREA OF PAIN IS RIGHT LOW BACK. PAIN IS AGGRAVATED WITH EXTENSION OF THE SPINE. HAS HAD TWO DIAGNOSTIC LUMBAR FACET BLOCKS. TODAY WE DISCUSSED MOVING FORWARD WITH RIGHT LUMBAR COOL RADIOFREQUENCY. -. FALL RISK SCREENING: SCREENING ONE FALLS REPORTED IN THE LAST YEAR, NO INJURIES. PAIN SCREENING: PATIENT HAS A COMPLAINT OF ACUTE OR CHRONIC PAIN :YES LOCATION OF PAIN:LOW BACK INTENSITY OF PAIN (SCALE OF 1 TO 10):1 WHAT DOES YOUR PAIN FEEL LIKE:THROBBING DURATION:CONTINOUS, CONSTANT, ALL DAY PAIN IS INCREASED BY:ACTIVITIES, PROLONGED STANDING PAIN IS DECREASED BY:USE OF PAIN MEDICATIONS NURSING NOTE: -. PAIN CENTER INTAKE QUESTIONS: DO YOU HAVE A HISTORY OF MRSA? :NO DO YOU TAKE A BLOOD THINNERS? :NO ASPIRIN DO YOU HAVE ANY BLEEDING DISORDERS? :NO ANY NEW NUMBNESS OR WEAKNESS IN YOUR LEGS OR ARMS? :NO ONGOING ANY PACEMAKER,DEFIBRILLATOR, OR DORSAL COLUMN STIMULATOR? :NO DO YOU HAVE ANY RASHES OR OPEN SORES? :NO ARE YOU ALLERGIC TO IV DYE? :NO ARE YOU DIABETIC? :NO ANY NEW PROBLEMS WITH YOUR MEDICATIONS? :NO HAVE YOU RECEIVED A VACCINE IN THE PAST 30 DAYS? :YES IF SO WHAT VACCINE AND WHEN? COVID VACCINATION 2ND 06/07/2020 DO YOU PLAN TO RECEIVE A VACCINE IN THE NEXT 21 DAYS? :NO DO YOU NEED ANY PRESCRIPTION? :NO DO YOU TAKE ANY IMMUNOSUPPRESSIVE MEDICATIONS? :YES METHOTREXATE IS THERE A CHANCE YOU COULD BE ? :NO ARE YOU BREAST FEEDING? :NO CURRENT MEDICATIONS TAKING NUCYNTA 75 MG TABLET 1 TABLET ORALLY FOR PAIN EVERY 6 HOURS NEEDED MDD 2 TAKING NUCYNTA ER 150 MG TABLET EXTENDED RELEASE 12 HOUR 1 TABLET ORALLY EVERY 12 HRS BID MDD2 TAKING ALLOPURINOL 300 MG TABLET 1 TABLET ORALLY ONCE DAILY, NOTES: WEDNESDAY TAKING ASPIRIN 81 MG TABLET CHEWABLE 1 TABLET ORALLY ONCE A DAY TAKING CALCITRIOL 0.25 MCG CAPSULE 1 CAPSULE ORALLY ONCE A DAY TAKING GLUCOSAMINE CHONDROITIN COMPLX 600-250 MG CAPSULE 1 TAB(S) ORALLY BID TAKING LEVOTHYROXINE SODIUM 50 MCG TABLET 1 TABLET ON AN EMPTY STOMACH IN THE MORNING ORALLY ONCE A DAY TAKING MULTIVITAMINS TABLET DIRECTED ORALLY DAILY TAKING POTASSIUM CHLORIDE 20 MEQ TABLET EXTENDED RELEASE 2 TABLETS WITH FOOD ORALLY TWICE A DAY TAKING ZOLPIDEM 10 MG TABLET 1 TAB(S) ORAL AT BEDTIME NEEDED TAKING TORSEMIDE 20 MG TABLET 1 TAB(S) ORALLY 2 IN THE MORNING/ 1 TAB IN AFTERNOON TAKING SERTRALINE HCL 100 MG TABLET 1 TABLET ORALLY ONCE A DAY TAKING SPIRONOLACTONE 25 MG TABLET 1 TABLET ORALLY BID TAKING CALCIUM 600+D3 600-400 MG-UNIT TABLET 1 TABLET WITH A MEAL ORALLY ONCE A DAY TAKING ALIGN 4 MG CAPSULE ORALLY DAILY TAKING TYLENOL ARTHRITIS PAIN 650 MG TABLET EXTENDED RELEASE 2 TABS ORALLY EVERY 8 HRS NEEDED TAKING SULFASALAZINE 500 MG TABLET DELAYED RELEASE 2 TABLET ORALLY ONCE A DAY TAKING VITAMIN D3 ULTRA STRENGTH 4 TABS ORALLY DAILY TAKING METHOTREXATE 2.5 MG TABLET 3 TABLETS ORALLY WEEKLY, NOTES: 1 WEEK AGO LAST WEDNESDAY TAKING INDERAL LA 80 MG CAPSULE EXTENDED RELEASE 1 CAPSULE ORALLY BEFORE BEDTIME TAKING ROPINIROLE HCL 0.5 MG TABLET 1 TABLET ORALLY TID TAKING FOLIC ACID 1 MG TABLET 1 TABLET ORALLY ONCE A DAY TAKING FINASTERIDE 5 MG TABLET 1 TABLET ORALLY ONCE A DAY TAKING GABAPENTIN 100 MG CAPSULE 1 CAPSULE ORALLY 3X DAILY TAKING FLOMAX 0.4 MG CAPSULE 2 CAPSULES ORALLY ONCE A DAY TAKING MELATONIN 10 MG TABLET DIRECTED ORALLY AT BEDTIME ONCE A DAY NOT-TAKING NUCYNTA _ TABLET 150 ORALLY TWICE DAILY UNKNOWN LABETALOL HCL 100 MG TABLET 1 TAB IN AM ORALLY ONCE DAILY UNKNOWN COLCHICINE 0.6 MG TABLET 1 CAPSULE ORALLY NEEDED UNKNOWN MELATONIN 5 MG TABLET 1 TABLET IN THE EVENING ORALLY ONCE A DAY UNKNOWN AMOXICILLIN 500 MG TABLET 1 TABLET ORALLY TID UNKNOWN SOMA 350 MG TABLET 1 TABLET NEEDED ORALLY Q12H BID MDD2, NOTES: 11/07 2099 UNKNOWN OXYBUTYNIN CHLORIDE ER 10 MG TABLET EXTENDED RELEASE 24 HOUR 1 TABLET ORALLY ONCE A DAY UNKNOWN OTEZLA 30 MG TABLET 1 TABLET ORALLY DAILY UNKNOWN LEFLUNOMIDE 10 MG TABLET 1 TABLET ORALLY ONCE A DAY UNKNOWN TRAMADOL HCL 50 MG TABLET 1-2 TAB ORALLY Q4-6H PRN PAIN MDD6 UNKNOWN VOLTAREN 1 % GEL APPLY TO LEFT KNEE TRANSDERMAL BID UNKNOWN TYLENOL EXTRA STRENGTH 500 MG TABLET 1 TABLET NEEDED ORALLY EVERY 6 HRS PRN, NOTES: NEW DOSE MEDICATION LIST REVIEWED AND RECONCILED WITH THE PATIENT PAST MEDICAL HISTORY BPH URINARY RETENTION GOUT HTN EDEMA DDD/DJD; SEVERE SPINAL STENOSIS HYPOTHYROIDISM DEPRESSION/ANXIETY HYPERCHOLESTEROLEMIA HYPOKALEMIA SLEEP APNEA VERTIGO INSOMNIA CHRONIC KIDNEY DISEASE OSTEOARTHRITIS VARICOSE VEINS OSTEOARTHRITIS BROKEN LITTLE FINGER ON LEFT HAND ARTHRITIS LEFT KNEE TOOTH ISSUES LOW BACK PAIN SHINGLES HERNIATED CERVICAL DISCS TREMORS ALLERGIES SURGICAL TAPE: REMOVES TOP LAYER OF SKIN - SIDE EFFECTS PRIMIDONE: CONFUSION - SIDE EFFECTS SURGICAL HISTORY ORIF LEFT LEG/ANKLE FRACTURE; PLATES/SCREWS IN PLACE 1992 BILATERAL - 2 TRIGGER FINGER RELEASE/CARPAL CHARO RELEASE/BONE REMOVAL THUMB (LEFT) 2004 TONSILLECTOMY APPENDECTOMY L3-L5 LAMINECTOMY 11/2012 COLONSCOPY 05/2016 CYSTOSCOPY 08/02/2017 RADIO FREQUENCY FEB 2018 RIGHT COOL LUMBAR RADIOFREQENCY 10/05/2019 TRAPEZOIDECTOMY 12/2019 WISDOM TEETH PULLED 08/16/2020 SOCIAL HISTORY GENERAL: TOBACCO USE ARE YOU A:NONSMOKER LATEX QUESTIONNAIRE LATEX ALLERGY : HAVE YOU EVER DEVELOPED ANY TYPE OF REACTION AFTER HANDLING LATEX PRODUCTS SUCH RUBBER GLOVES, CONDOMS, DIAPHRAGMS, BALLOONS, SOCKS, OR UNDERWEAR?NO PT DOES HAVE ALLERGY TO SURGICAL TAPE LATEX ALLERGY : HAVE YOU EVER DEVELOPED ANY TYPE OF REACTION DURING OR AFTER DENTAL APPOINTMENT, VAGINAL/RECTAL EXAMINATION, SURGICAL PROCEDURE, OR ANY OTHER EXPOSURE?NO LATEX RISK : HAVE YOU EVER HAD ANY DIFFICULTY BREATHING OR HIVES AFTER EATING OR HANDLING ANY FRUITS, OR VEGETABLES; SUCH KIWI, BANANAS, STONE FRUITS, OR CHESTNUTSNO LATEX RISK : DO YOU HAVE A PREVIOUS PERSONAL HISTORY OF MORE THAN NINE SURGERIES, SPINA BIFIDA, OR REPEATED CATHERIZATIONS? NO LATEX RISK : ARE YOU FREQUENTLY EXPOSED TO LATEX PRODUCTS IN YOUR OCCUPATION?NO DATE ASKED : 09/05/2020 ALCOHOL USE: NO. ALCOHOL SCREENING DID YOU HAVE A DRINK CONTAINING ALCOHOL IN THE PAST YEAR?YES HOW OFTEN DID YOU HAVE SIX OR MORE DRINKS ON ONE OCCASION IN THE PAST YEAR?NEVER (0 POINTS) HOW MANY DRINKS DID YOU HAVE ON A TYPICAL DAY WHEN YOU WERE DRINKING IN THE PAST YEAR?1 OR 2 (0 POINTS) HOW OFTEN DID YOU HAVE A DRINK CONTAINING ALCOHOL IN THE PAST YEAR?MONTHLY OR LESS (1 POINT) POINTS1 INTERPRETATIONNEGATIVE RECREATIONAL DRUG USE DRUG USE?NO CAFFEINE CAFFEINE USE?YES HOW OFTEN AND HOW MUCH? 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 DIET: REGULAR. EXERCISE: NONE. MARITAL STATUS: . OTHERS AT HOME: SPOUSE, CHILD, CHILDREN. - PFS REFERRAL NEEDED?NO CLERGY REFERRAL NEEDED?NO PUBLIC HEALTH REFERRAL NEEDED?NO WAS THE PROVIDER NOTIFIED OF ANY PERTINENT INFO? N/A HAS THE PATIENT BEEN EDUCATED REGARDING HIS/HER PLAN OF CARE?YES HAS THE PATIENT BEEN EDUCATED REGARDING PAIN, THE RISK FOR PAIN, THE IMPORTANCE OF EFFECTIVE PAIN MANAGEMENT, AND THE PAIN ASSESSMENT PROCESS?YES ADVANCE DIRECTIVE ADVANCE DIRECTIVE DISCUSSED WITH PATIENT:YES HCP - CHARLENE REESE () HOSPITALIZATION/MAJOR DIAGNOSTIC PROCEDURE DIVERTICULITIS X2 SURGERY RELATED DIVERTICULITIS 12/2015 REVIEW OF SYSTEMS CONSTITUTIONAL: ANY RECENT FEVER NO . CHILLS NO . WEIGHT CHANGE OF UNKNOWN REASONS NO . GASTROENTEROLOGY: NEW UNEXPLAINABLE CHANGES IN BOWEL CONTROL NO . CONSTIPATION NO . GENITOURINARY: ANY NEW CHANGE IN BLADDER CONTROL? NO . NEUROLOGY: NEW ONSET DIZZINESS OR NEUROLOGICAL CHANGES NOT MENTIONED NO . NEW NUMBNESS OR PAIN PATTERNS NOT MENTIONED AND PERTINENT TO TODAY'S VISIT NO . CARDIOLOGY: NEW CHEST PRESSURE NO . PATIENT DENIES NO . RESPIRATORY: UNEXPLAINABLE COUGH NO . NEW SHORTNESS OF BREATH NO . VITAL SIGNS WT 314.2 LBS, HT 5'9", BMI 46.39 INDEX, BP 104/63 MM HG, HR 72 /MIN, RR 18 /MIN, TEMP 98.2 F, OXYGEN SAT % 90%, SAFE IN ENV? (Y/N) YES, NA INITIALS AW 1104T.DIEGO BANKS. EXAMINATION GENERAL EXAMINATION: GENERALNO ACUTE DISTRESS, WELL NOURISHED AND HYDRATED. PSYCHAPPROPRIATE MOOD AND AFFECT . LUNGS: LUNG SOUNDS ARE CLEAR . HEART: HEART RATE REGULAR . MUSCULOSKELETAL:*, MUSCLE STRENGTH TESTING 5/5 BILATERAL LOWER EXTREMITIES., ,PALPATION: POSITIVE FOR PAIN OVER L/S SPINE. POSITIVE FOR PAIN OVER L/S PARSPINALS.SPECIFIC POINT TENDERNESS OVER RIGHT L4/5-L5/S1 LUMBR FACETS WITH FACET LOADING . DIAGNOSTIC TESTS REVIEWED 08/31/2016-MRI L/S SPINE. ASSESSMENTS OTHER CHRONIC PAIN - G89.29 (PRIMARY) SPONDYLOSIS OF LUMBAR REGION WITHOUT MYELOPATHY OR RADICULOPATHY - M47.816 TREATMENT OTHER CHRONIC PAIN PAIN PROCEDURE LOGDATE OF PROCEDURE08/20/2020ROCEDURE:LEFT LUMBAR COOL RADIOFREQUENCY L4-L5,L5-[id number] OF PRE SEDATEOXYCODONE 5MGRESULT:MARKED REDUCTION IN PAIN CONTINUES TODAY MEDICATION: VALIUM TAB 10MG ORALLY (DIAZEPAM) (ORDERED FOR 09/12/2020) MEDICATION: OXYCODONE HCL TAB 10MG ORALLY (ORDERED FOR 09/12/2020) NOTES: RIGHT LUMBAR COOL RADIOFREQUENCY L4-5,L5-S1/MED HOLD STOP METHOTREXATE-[facility] STOP ALLOPURINOL-DR. CARRANZA REVIEWED PRE PROCEDURE INFORMATION, PATIENT VERABLIZED UNDERSTANDING AMITA BANKS. PROCEDURE CODES [id number] ESTABILISHED PATIENT [facility] F[facility] CHARGE DISPOSITION & COMMUNICATION FOLLOW UP POST (REASON: RIGHT LUMBAR COOL RADIOFREQUENCY L4-5,L5-S1/MED HOLD) ELECTRONICALLY SIGNED BY RICK VARELA ON 09/09/2020 AT 03:50 PM EDT DISCLAIMER : THIS IS A VISIT SUMMARY EXTRACTED FROM THE [employer] CHART. IT IS NOT A COPY OF THE [employer] PROGRESS NOTE. HECTOR
== END ==
LOC: M PAIN 10:30
PROVIDERS: ATTEND Nurse Practitioner Family
DX: M47.816 Spondylosis without myelopathy or radiculopathy, lumbar region (principal); G89.29 Other chronic pain; E03.9 Hypothyroidism, unspecified; G47.30 Sleep apnea, unspecified; G47.00 Insomnia, unspecified; R25.1 Tremor, unspecified; Z86.59 Personal history of other mental and behavioral disorders; Z88.8 Allergy status to other drugs, medicaments and biological substances; Z91.09 Other allergy status, other than to drugs and biological substances; E66.01 Morbid (severe) obesity due to excess calories; Z68.42 Body mass index [BMI] 45.0-49.9, adult; Z79.82 Long term (current) use of aspirin; Z79.891 Long term (current) use of opiate analgesic; Z79.899 Other long term (current) drug therapy

== ENCOUNTER → 2020-09-14 | Outpatient (CLI) | payer MEDICARE, OTHER | LOC: M LABSMTC 11:26 | PROVIDERS: ATTEND Anesthesiology | DX: Z11.52 Encounter for screening for COVID-19 (principal) ==

== ENCOUNTER → 2020-09-19 | Outpatient (CLI) | payer MEDICARE, OTHER ==
[~2020-09-19] MED LIST changes: +BUPIVACAINE HCL 0.25% 30ML VIAL As Ordered ONE; +LIDOCAINE 1% SDV 30ML VIAL As Ordered ONE; +dexameTHASONE 10MG/1ML VIAL PRES.FREE (J1100 PER 1MG) As Ordered ONE; +diazePAM 5MG TABLET As Ordered ONE; +oxyCODONE 5MG TAB As Ordered ONE
--- NOTE | 2020-09-19 16:02 | REP ---
INDICATION: RIGHT LUMBAR RADIOFREQUENCY L-4 L5, L5-S1. COMPARISON: None. TECHNIQUE: Five views. 82.3 seconds of fluoroscopy time is reported. FINDINGS: A sequence of 5 last image hold fluoroscopically obtained spot radiograph(s) of the lumbar spine document(s) needle position(s) and contrast injection associated with injection procedure. IMPRESSION: Procedural imaging. <Electronically signed by Ed Kaplan > 09/19/20 [id number]
--- NOTE | 2020-09-20 00:55 | ECWPNPC ---
PATIENT NAME: ANG MCDERMOTT : 1940 GENDER: MALE VISIT DATE: 09/19/2020 DISCHARGE DATE: 09/19/20 0000 VISIT LOCKED DATE TIME: PHYSICIAN: ELLYN VU MD RESOURCE: ELLYN VU MD REASON FOR APPOINTMENT 1. RIGHT LUMBAR COOL RADIOFREQUENCY L4-5,L5-S1 HISTORY OF PRESENT ILLNESS GENERAL: -. FALL RISK SCREENING: SCREENING : NO FALLS REPORTED IN THE LAST YEAR. PAIN SCREENING: PATIENT HAS A COMPLAINT OF ACUTE OR CHRONIC PAIN :YES LOCATION OF PAIN:LOW BACK INTENSITY OF PAIN (SCALE OF 1 TO 10):5 WHAT DOES YOUR PAIN FEEL LIKE:ACHING DURATION:INTERMITTENT PAIN IS INCREASED BY:ACTIVITIES PAIN IS DECREASED BY:USE OF PAIN MEDICATIONS NURSING NOTE: -. PAIN CENTER INTAKE QUESTIONS: DO YOU HAVE A HISTORY OF MRSA? :NO DO YOU TAKE A BLOOD THINNERS? :NO DO YOU HAVE ANY BLEEDING DISORDERS? :NO ANY NEW NUMBNESS OR WEAKNESS IN YOUR LEGS OR ARMS? :NO ANY PACEMAKER,DEFIBRILLATOR, OR DORSAL COLUMN STIMULATOR? :NO DO YOU HAVE ANY RASHES OR OPEN SORES? :NO ARE YOU ALLERGIC TO IV DYE? :NO ARE YOU DIABETIC? :NO ANY NEW PROBLEMS WITH YOUR MEDICATIONS? :NO HAVE YOU RECEIVED A VACCINE IN THE PAST 30 DAYS? :NO DO YOU PLAN TO RECEIVE A VACCINE IN THE NEXT 21 DAYS? :NO DO YOU TAKE ANY IMMUNOSUPPRESSIVE MEDICATIONS? :NO ANY HISTORY OF SEIZURES? :NO ANY HISTORY OF CARDIAC ISSUES OR EVENTS? :NO DO YOU HAVE ANY KIDNEY OR LIVER DISEASE? :YES STAGE III KIDNEY DISEASE DO YOU HAVE SLEEP APNEA? :YES DO YOU WEAR A CPAP?YES ANY RECENT HEAD INJURY? :NO DO YOU HAVE ANY NEW INFECTIONS? :NO IS THERE A CHANCE YOU COULD BE ? :NO ARE YOU BREAST FEEDING? :NO WHEN DID YOU LAST EAT? : -09/18/20 WHEN DID YOU LAST DRINK? : -09/19/20 WHAT DID YOU LAST DRINK? : -WATER NAME OF PERSON DRIVING YOU HOME? : THERESA DO YOU HAVE ANY OTHER QUESTIONS OR CONCERNS? : -DENIES CURRENT MEDICATIONS TAKING NUCYNTA 75 MG TABLET 1 TABLET ORALLY FOR PAIN EVERY 6 HOURS NEEDED MDD 2 TAKING NUCYNTA ER 150 MG TABLET EXTENDED RELEASE 12 HOUR 1 TABLET ORALLY EVERY 12 HRS BID MDD2 TAKING ASPIRIN 81 MG TABLET CHEWABLE 1 TABLET ORALLY ONCE A DAY TAKING CALCITRIOL 0.25 MCG CAPSULE 1 CAPSULE ORALLY ONCE A DAY TAKING GLUCOSAMINE CHONDROITIN COMPLX 600-250 MG CAPSULE 1 TAB(S) ORALLY BID TAKING LEVOTHYROXINE SODIUM 50 MCG TABLET 1 TABLET ON AN EMPTY STOMACH IN THE MORNING ORALLY ONCE A DAY TAKING MULTIVITAMINS TABLET DIRECTED ORALLY DAILY TAKING POTASSIUM CHLORIDE 20 MEQ TABLET EXTENDED RELEASE 2 TABLETS WITH FOOD ORALLY TWICE A DAY TAKING ZOLPIDEM 10 MG TABLET 1 TAB(S) ORAL AT BEDTIME NEEDED TAKING TORSEMIDE 20 MG TABLET 1 TAB(S) ORALLY 2 IN THE MORNING/ 1 TAB IN AFTERNOON TAKING SERTRALINE HCL 100 MG TABLET 1 TABLET ORALLY ONCE A DAY TAKING SPIRONOLACTONE 25 MG TABLET 1 TABLET ORALLY BID TAKING CALCIUM 600+D3 600-400 MG-UNIT TABLET 1 TABLET WITH A MEAL ORALLY ONCE A DAY TAKING ALIGN 4 MG CAPSULE ORALLY DAILY TAKING TYLENOL ARTHRITIS PAIN 650 MG TABLET EXTENDED RELEASE 2 TABS ORALLY EVERY 8 HRS NEEDED TAKING SULFASALAZINE 500 MG TABLET DELAYED RELEASE 2 TABLET ORALLY ONCE A DAY TAKING VITAMIN D3 ULTRA STRENGTH 4 TABS ORALLY DAILY TAKING METHOTREXATE 2.5 MG TABLET 3 TABLETS ORALLY WEEKLY, NOTES: 2 WEEKS AGO TAKING INDERAL LA 80 MG CAPSULE EXTENDED RELEASE 1 CAPSULE ORALLY BEFORE BEDTIME TAKING ROPINIROLE HCL 0.5 MG TABLET 1 TABLET ORALLY TID TAKING FOLIC ACID 1 MG TABLET 1 TABLET ORALLY ONCE A DAY TAKING FINASTERIDE 5 MG TABLET 1 TABLET ORALLY ONCE A DAY TAKING GABAPENTIN 100 MG CAPSULE 1 CAPSULE ORALLY 3X DAILY TAKING FLOMAX 0.4 MG CAPSULE 2 CAPSULES ORALLY ONCE A DAY TAKING MELATONIN 10 MG TABLET DIRECTED ORALLY AT BEDTIME ONCE A DAY NOT-TAKING ALLOPURINOL 300 MG TABLET 1 TABLET ORALLY ONCE DAILY, NOTES: 09/12/20 NOT-TAKING NUCYNTA _ TABLET 150 ORALLY TWICE DAILY NOT-TAKING LABETALOL HCL 100 MG TABLET 1 TAB IN AM ORALLY ONCE DAILY NOT-TAKING COLCHICINE 0.6 MG TABLET 1 CAPSULE ORALLY NEEDED NOT-TAKING MELATONIN 5 MG TABLET 1 TABLET IN THE EVENING ORALLY ONCE A DAY NOT-TAKING AMOXICILLIN 500 MG TABLET 1 TABLET ORALLY TID NOT-TAKING SOMA 350 MG TABLET 1 TABLET NEEDED ORALLY Q12H BID MDD2, NOTES: 11/07 2099 NOT-TAKING OXYBUTYNIN CHLORIDE ER 10 MG TABLET EXTENDED RELEASE 24 HOUR 1 TABLET ORALLY ONCE A DAY NOT-TAKING OTEZLA 30 MG TABLET 1 TABLET ORALLY DAILY NOT-TAKING LEFLUNOMIDE 10 MG TABLET 1 TABLET ORALLY ONCE A DAY NOT-TAKING TRAMADOL HCL 50 MG TABLET 1-2 TAB ORALLY Q4-6H PRN PAIN MDD6 NOT-TAKING VOLTAREN 1 % GEL APPLY TO LEFT KNEE TRANSDERMAL BID NOT-TAKING TYLENOL EXTRA STRENGTH 500 MG TABLET 1 TABLET NEEDED ORALLY EVERY 6 HRS PRN, NOTES: NEW DOSE PAST MEDICAL HISTORY BPH URINARY RETENTION GOUT HTN EDEMA DDD/DJD; SEVERE SPINAL STENOSIS HYPOTHYROIDISM DEPRESSION/ANXIETY HYPERCHOLESTEROLEMIA HYPOKALEMIA SLEEP APNEA VERTIGO INSOMNIA CHRONIC KIDNEY DISEASE OSTEOARTHRITIS VARICOSE VEINS OSTEOARTHRITIS BROKEN LITTLE FINGER ON LEFT HAND ARTHRITIS LEFT KNEE TOOTH ISSUES LOW BACK PAIN SHINGLES HERNIATED CERVICAL DISCS TREMORS ALLERGIES SURGICAL TAPE: REMOVES TOP LAYER OF SKIN - SIDE EFFECTS PRIMIDONE: CONFUSION - SIDE EFFECTS SOCIAL HISTORY GENERAL: TOBACCO USE ARE YOU A:NONSMOKER LATEX QUESTIONNAIRE LATEX ALLERGY : HAVE YOU EVER DEVELOPED ANY TYPE OF REACTION AFTER HANDLING LATEX PRODUCTS SUCH RUBBER GLOVES, CONDOMS, DIAPHRAGMS, BALLOONS, SOCKS, OR UNDERWEAR?NO PT DOES HAVE ALLERGY TO SURGICAL TAPE LATEX ALLERGY : HAVE YOU EVER DEVELOPED ANY TYPE OF REACTION DURING OR AFTER DENTAL APPOINTMENT, VAGINAL/RECTAL EXAMINATION, SURGICAL PROCEDURE, OR ANY OTHER EXPOSURE?NO DATE ASKED : 09/20/2018 LATEX RISK : HAVE YOU EVER HAD ANY DIFFICULTY BREATHING OR HIVES AFTER EATING OR HANDLING ANY FRUITS, OR VEGETABLES; SUCH KIWI, BANANAS, STONE FRUITS, OR CHESTNUTSNO LATEX RISK : DO YOU HAVE A PREVIOUS PERSONAL HISTORY OF MORE THAN NINE SURGERIES, SPINA BIFIDA, OR REPEATED CATHERIZATIONS? NO LATEX RISK : ARE YOU FREQUENTLY EXPOSED TO LATEX PRODUCTS IN YOUR OCCUPATION?NO ALCOHOL USE: NO. ALCOHOL SCREENING DID YOU HAVE A DRINK CONTAINING ALCOHOL IN THE PAST YEAR?YES HOW OFTEN DID YOU HAVE SIX OR MORE DRINKS ON ONE OCCASION IN THE PAST YEAR?NEVER (0 POINTS) HOW MANY DRINKS DID YOU HAVE ON A TYPICAL DAY WHEN YOU WERE DRINKING IN THE PAST YEAR?1 OR 2 (0 POINTS) HOW OFTEN DID YOU HAVE A DRINK CONTAINING ALCOHOL IN THE PAST YEAR?MONTHLY OR LESS (1 POINT) POINTS1 INTERPRETATIONNEGATIVE RECREATIONAL DRUG USE DRUG USE?NO CAFFEINE CAFFEINE USE?YES HOW OFTEN AND HOW MUCH? 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 DIET: REGULAR. EXERCISE: NONE. MARITAL STATUS: . OTHERS AT HOME: SPOUSE, CHILD, CHILDREN. - PFS REFERRAL NEEDED?NO CLERGY REFERRAL NEEDED?NO PUBLIC HEALTH REFERRAL NEEDED?NO WAS THE PROVIDER NOTIFIED OF ANY PERTINENT INFO? N/A HAS THE PATIENT BEEN EDUCATED REGARDING HIS/HER PLAN OF CARE?YES HAS THE PATIENT BEEN EDUCATED REGARDING PAIN, THE RISK FOR PAIN, THE IMPORTANCE OF EFFECTIVE PAIN MANAGEMENT, AND THE PAIN ASSESSMENT PROCESS?YES ADVANCE DIRECTIVE ADVANCE DIRECTIVE DISCUSSED WITH PATIENT:YES HCP - CHARLENE REESE () VITAL SIGNS WT 316.4 LBS, HT 5'9", BMI 46.72 INDEX, BP 111/70 MM HG, HR 77 /MIN, RR 18 /MIN, TEMP 98.3 F, OXYGEN SAT % 97%, SAFE IN ENV? (Y/N) Y, NA INITIALS AW 1256, REVIEWED BY: LUCERO. EXAMINATION GENERAL: A HISTORY AND PHYSICAL EXAM ON THE PATIENT WAS DONE ON 09/05/2020 (DATE OF ORIGINAL ASSESSMENT) IN PREPARATION OF SURGERY/PROCEDURE. I HAVE NOW REASSESSED THIS PATIENT'S HEALTH STATUS AND PERFORMED AN UPDATED EXAM TODAY. ALL CHANGES IN THE PATIENT'S HISTORY, PHYSICAL EXAM, PRE-EXISTING CONDITONS, AND INDICATIONS/CONTRAINDICATIONS TO THE PLANNED PROCEDURE AND ANESTHESIA ARE DOCUMENTED AND EVALUATED BELOW. I ATTEST TO THE ADEQUACY AND APPROPRIATENESS OF MY ASSESSMENT, AND CONFIRM THE NECESSITY FOR THE PLANNED PROCEDURE. THE PATIENT IS ALERT, ORIENTED TIMES THREE AND COOPERATIVE. LUNGS ARE CLEAR TO AUSCULTATION. HEART SHOWS REGULAR RHYTHM, NO MURMURS AND NO GALLOPS. ASSESSMENTS SPONDYLOSIS WITHOUT MYELOPATHY OR RADICULOPATHY, LUMBAR REGION - M47.816 SPONDYLOSIS WITHOUT MYELOPATHY OR RADICULOPATHY, LUMBOSACRAL REGION - M47.817 TREATMENT SPONDYLOSIS WITHOUT MYELOPATHY OR RADICULOPATHY, LUMBAR REGION [facility] FACET BLOCK (PAIN)[id number] COMPLETION OF PROCEDURAL VISIT WHEN MEETS CRITERIADOM KEMP 09/19/2020 3:49:30 PM > CRITERIA MET AT 1547 MEDICATION: VALIUM TAB 10MG ORALLY (DIAZEPAM)YUE HYDE 09/19/2020 1:17:50 PM > VERIFIED DOM KEMP 09/19/2020 1:23:08 PM > ADMINISTERED MEDICATION: OXYCODONE HCL TAB 10MG ORALLYYUE HYDE 09/19/2020 1:18:07 PM > VERIFIED DOM KEMP 09/19/2020 1:23:37 PM > ADMINISTERED OTHERS NOTES: PAT DONE 09/18/20 EM. PROCEDURES PAIN NURSING RECORD PROCEDURE IN ROOM 1425, PHYSICIAN IN ROOM 1440, START 1443, FINISH 1518, PHYSICIAN OUT OF ROOM 1518, OUT OF ROOM 1530, ECG NORMAL SINUS, PATIENT SHIELDED YES, SAFETY STRAP NO, PREP BETADINE Nba SABILLON RN, DRESSING TEGADERM DR. VU LOC: 1. ALERT, ORIENTED RESP: 1. REGULAR, NO DYSPNEA COLOR: 1. PINK SKIN: 1. WARM, DRY POSITION: 1. PRONE VITALS: HR 60, 98% 2L, 120/80, R14 @ 1500 TBRADLEYRN HR60, 98% 2L, 113/74, R14 @1515 TBRADLEYRN HR 60, 99% 2L, 120/79, R14 @ 1530 TBRADLEYRN EXIT VITALS HR 61, 99%, 122/75, R14 , PAIN 2/10@ 1547 TBRADLEYRN NOTES Nicole KEMP RN COMPLETION OF PROCEDURE APPOINTMENT: POST PAIN 0, DRESSING SITE DRY AND INTACT, IV N/A, GAIT STEADY, TEACHING COMPLETED, PATIENT ACKNOWLEDGES UNDERSTANDING YES, PROCEDURE APPOINTMENT COMPLETED AT 1547 PN RADIOFREQUENCY DATE OF PROCEDURE 09/19/2020 THERMO LESION RADIOFREQUENCY > 80 DEGREES : COOL - AVANOS SYSTEM SET AT 60* WITH TISSUE TARGET TEMP > 80* OR MORE. STRAIGHT NEEDLE SIDE: : RIGHT LEVELS: : L4-L5, L5-S1 NEEDLE/CATHETER/GAUGE: : 17 CANULA LENGTH: : 150 MM ACTIVE TIP: : 4 MM GROUNDING PAD PLACED ON AFFECTED SIDE (MUSCULAR AREA): : LUMBAR (POSTERIOR UPPER THIGH) 1 ST LEVEL: : L3, INITAL POSTIVE SENSORY RESPONE (50 HZ) 0.4, MOTOR RESPONSE (2 HZ-UP TO 3 VOLTS) 3.0 , PRE-LOCAL IMPEDENCE READING OHMS 300 , POST-LOCAL IMPEDENCE READING OHMS 260 , DURING RF IMPEDENCE READING OHMS 245 2 ND LEVEL: : L4, INITIAL POSITIVE SENSORY RESPONSE (50 HZ) 0.2, MOTOR RESPONSE (2 HZ- UP TO 3 VOLTS) 3.0 , PRE-LOCAL IMPEDENCE READING OHMS 360 , POST-LOCAL IMEPEDENCE READING OHMS 299 , DURING RF IMPEDENCE READING OHMS [address] LEVEL: : L5, INITIAL POSITIVE SENSORY RESPONSE (50 HZ) 0.3, MOTOR RESPONSE (2HZ- UP TO 3 VOLTS) 3.0 , PRE- LOCAL IMPEDENCE READING OHMS 500 , POST-LOCAL IMPEDENCE READING OHMS 464 , DURING RF IMPEDENCE READING OHMS 381 PRE PROCEDURE DIAGNOSES 1. LUMBAR SPONDYLOSIS. 2. LUMBOSACRAL SPONDYLOSIS POST PROCEDURE DIAGNOSES 1. LUMBAR SPONDYLOSIS. 2. LUMBOSACRAL SPONDYLOSIS PROCEDURE RIGHT L4-L5 AND RIGHT L5-S1 LUMBAR FACET RADIOFREQUENCY--AVANOS COOLED RF SURGEON DR. ELLYN VU RAILCAR CARPENTER NONE ANESTHESIA LOCAL PRE PROCEDURE REPORT THE PATIENT HAS HISTORY OF CHRONIC LOW BACK PAIN. I EVALUATED THE PATIENT AND REVIEWED THE CHART. I WENT OVER THE RISKS, ALTERNATIVES, AND BENEFITS ASSOCIATED WITH THIS PROCEDURE. THE PATIENT WOULD LIKE TO PROCEED AND GAVE CONSENT TO PERFORM THE PROCEDURE. THE PATIENT DENIES UNEXPLAINABLE WEIGHT LOSS, FEVER, CHILLS OR NEW CHANGES IN URINARY OR BOWEL CONTROL. THE PATIENT IS COVID-19 NEGATIVE. THE PATIENT'S SECOND DIAGNOSTIC TEST WAS DONE 07/23/2020. DESCRIPTION OF PROCEDURE THE PATIENT WAS BROUGHT TO THE PROCEDURE ROOM AND PLACED IN THE PRONE POSITION. A TIMEOUT WAS PERFORMED WHERE THE CONSENTED SITE WAS VERIFIED WITH EVERYONE IN THE ROOM. THE LUMBOSACRAL AREA WAS CLEANED WITH CHLORAPREP SOLUTION AND DRAPED ASEPTICALLY. THE PROCEDURE WAS DONE UNDER STERILE CONDITIONS. UNDER FLUOROSCOPIC GUIDANCE, TARGETS WERE SELECTED AT THE INTERSECTION OF THE RIGHT TRANSVERSE PROCESS OF L4, L5 AND ALA OF S1 WITH ITS RESPECTIVE SUPERIOR ARTICULAR PROCESS. I CONFIRMED AGAIN THE SITE OF TARGET. LIDOCAINE WAS USED TO NUMB THE SKIN AND THE SUBCUTANEOUS TISSUE BELOW IT. RADIOFREQUENCY CANNULAS, 17-GAUGE, 150 MM LONG WITH 4 MM ACTIVE TIP, WERE ADVANCED UNDER FLUOROSCOPIC GUIDANCE AND FOLLOWING PATIENT FEEDBACK UNTIL THE TARGET AREA WAS REACHED. POSITION OF THE CANNULA WAS VERIFIED WITH AP AND LATERAL VIEWS. AFTER PROPER POSITION OF THE CANNULA WAS ACHIEVED, WE WORKED WITH THE RIGHT SELECTED MEDIAN BRANCHES OF L3, L4 AND THE DORSAL RAMI OF L5. WE MEASURED THE CORRESPONDING IMPEDANCES AND MOTOR RESPONSES INDICATED IN THE RADIOFREQUENCY WORK SHEET. POSITION OF THE CANNULA WAS VERIFIED AGAIN WITH AP AND LATERAL VIEWS. LIDOCAINE 1%, 2 ML, WAS INJECTED AT EACH LEVEL. RADIOFREQUENCY WAS DONE AT EACH LEVEL USING THE [employer] SYSTEM-- COOLED RF-- WITH A SETTING AT THE MACHINE OF 60 DEGREES WITH A TARGET TISSUE TEMPERATURE OF 80 TO 90 DEGREES FOR A MINIMUM OF 150 SECONDS. AFTER RADIOFREQUENCY WAS DONE, THE PATIENT RECEIVED BUPIVACAINE 0.125%,1 ML, WITH DEXAMETHASONE 3 MG AT EACH SITE. THERE WAS NO EVIDENCE OF BLOOD, PARESTHESIA OR CEREBROSPINAL FLUID DURING THE PROCEDURE. THE PATIENT WAS SENT TO THE RECOVERY ROOMS. THE PATIENT WAS MOVING THE EXTREMITIES AND DOING WELL. EBL LESS THAN 5 ML. THERE WERE NO COMPLICATIONS DURING THE PROCEDURE. FLUOROSCOPY TIME WAS 1 MINUTE 22 SECONDS POST PROCEDURE NOTE THE PATIENT WILL BE SEEN IN A FOLLOW UP IN THE NEXT FEW WEEKS. INSTRUCTIONS WERE GIVEN, QUESTIONS WERE ANSWERED, AND THE PATIENT EXPRESSED UNDERSTANDING AND AGREES WITH THE PLAN. . I, KASHMIR KUMAR, DOCUMENTED THE ABOVE INFORMATION ACTING A SCRIBE FOR DR. VU. I HAVE REVIEWED THE ABOVE DOCUMENT, WRITTEN BY ADRIAN KOENIG, AND I VERIFY THAT IT IS ACCURATE PROCEDURE CODES 47698 DESTROY LUMB/SAC FACET JNT, MODIFIERS: [place] [address] DESTROY L/S FACET JNT ADDL, MODIFIERS: RT DISPOSITION & COMMUNICATION FOLLOW UP FOLLOW UP WITH PRINTED CIRCUIT BOARDS INSPECTOR (REASON: POST RIGHT LUMBAR COOL RADIOFREQUENCY L4-L5, L5-S1) ELECTRONICALLY SIGNED BY ELYLN VU MD, MD ON 09/19/2020 AT 05:39 PM EDT DISCLAIMER : THIS IS A VISIT SUMMARY EXTRACTED FROM THE [employer] CHART. IT IS NOT A COPY OF THE [employer] PROGRESS NOTE. HECTOR
== END ==
LOC: M PAIN 13:00
PROVIDERS: ATTEND Anesthesiology
DX: M47.816 Spondylosis without myelopathy or radiculopathy, lumbar region (principal); M47.817 Spondylosis without myelopathy or radiculopathy, lumbosacral region; N40.1 Benign prostatic hyperplasia with lower urinary tract symptoms; R33.9 Retention of urine, unspecified; M10.9 Gout, unspecified; I12.9 Hypertensive chronic kidney disease with stage 1 through stage 4 chronic kidney disease, or unspecified chronic kidney disease; E03.9 Hypothyroidism, unspecified; F32.9 Major depressive disorder, single episode, unspecified; F41.9 Anxiety disorder, unspecified; E78.00 Pure hypercholesterolemia, unspecified; E87.6 Hypokalemia; G47.30 Sleep apnea, unspecified; N18.9 Chronic kidney disease, unspecified; I83.90 Asymptomatic varicose veins of unspecified lower extremity; M17.11 Unilateral primary osteoarthritis, right knee; M54.5 Low back pain; G25.0 Essential tremor; Z79.82 Long term (current) use of aspirin; Z79.899 Other long term (current) drug therapy; Z88.8 Allergy status to other drugs, medicaments and biological substances; Z91.048 Other nonmedicinal substance allergy status
CPT/HCPCS: 64635; 64636; J1100

== ENCOUNTER → 2020-10-03 | Outpatient (CLI) | payer MEDICARE, OTHER ==
[~2020-10-03] MED LIST changes: -BUPIVACAINE HCL 0.25% 30ML VIAL As Ordered ONE; -LIDOCAINE 1% SDV 30ML VIAL As Ordered ONE; -dexameTHASONE 10MG/1ML VIAL PRES.FREE (J1100 PER 1MG) As Ordered ONE; -diazePAM 5MG TABLET As Ordered ONE; -oxyCODONE 5MG TAB As Ordered ONE
--- NOTE | 2020-10-09 02:39 | ECWPNPC ---
PATIENT NAME: ANG MCDERMOTT : 1940 GENDER: MALE VISIT DATE: 10/03/2020 DISCHARGE DATE: 10/03/20 1155 VISIT LOCKED DATE TIME: PHYSICIAN: SHARON LOWRY RESOURCE: SHARON LOWRY REASON FOR APPOINTMENT 1. POST RIGHT LUMBAR COOL RADIOFREQUENCY L4-5,L5-S1 HISTORY OF PRESENT ILLNESS GENERAL: HERE FOR POST PROCEDURE FOLLOW-UP. HAD RIGHT LUMBAR COOL RADIOFREQUENCY L4-5, L5-S1 ON 09/19/2020. REPORTING MARKED REDUCTION IN PAIN SINCE PROCEDURE. HAS NOT NEEDED TO TAKE NUCYNTA SINCE PROCEDURE. HAS HAD TO TAKE TYLENOL ONCE OR TWICE. OVERALL DOING VERY WELL. REPORTING IMPROVED ACTIVITY TOLERANCE SINCE PROCEDURE. -. FALL RISK SCREENING: SCREENING : NO FALLS REPORTED IN THE LAST YEAR. PAIN SCREENING: PATIENT HAS A COMPLAINT OF ACUTE OR CHRONIC PAIN :YES LOCATION OF PAIN:LOW BACK INTENSITY OF PAIN (SCALE OF 1 TO 10):2 WHAT DOES YOUR PAIN FEEL LIKE:ACHING DURATION:CONTINOUS, CONSTANT, ALL DAY PAIN IS INCREASED BY:ACTIVITIES, PROLONGED STANDING PAIN IS DECREASED BY:USE OF PAIN MEDICATIONS NURSING NOTE: -. PAIN CENTER INTAKE QUESTIONS: DO YOU HAVE A HISTORY OF MRSA? :NO DO YOU TAKE A BLOOD THINNERS? :NO ASPIRIN DO YOU HAVE ANY BLEEDING DISORDERS? :NO ANY NEW NUMBNESS OR WEAKNESS IN YOUR LEGS OR ARMS? :NO ONGOING ANY PACEMAKER,DEFIBRILLATOR, OR DORSAL COLUMN STIMULATOR? :NO DO YOU HAVE ANY RASHES OR OPEN SORES? :NO ARE YOU ALLERGIC TO IV DYE? :NO ARE YOU DIABETIC? :NO ANY NEW PROBLEMS WITH YOUR MEDICATIONS? :NO HAVE YOU RECEIVED A VACCINE IN THE PAST 30 DAYS? :YES IF SO WHAT VACCINE AND WHEN? COVID VACCINATION 2ND 06/07/2020 DO YOU PLAN TO RECEIVE A VACCINE IN THE NEXT 21 DAYS? :NO DO YOU NEED ANY PRESCRIPTION? :NO DO YOU TAKE ANY IMMUNOSUPPRESSIVE MEDICATIONS? :YES METHOTREXATE IS THERE A CHANCE YOU COULD BE ? :NO ARE YOU BREAST FEEDING? :NO CURRENT MEDICATIONS TAKING ASPIRIN 81 MG TABLET CHEWABLE 1 TABLET ORALLY ONCE A DAY TAKING CALCITRIOL 0.25 MCG CAPSULE 1 CAPSULE ORALLY ONCE A DAY TAKING GLUCOSAMINE CHONDROITIN COMPLX 600-250 MG CAPSULE 1 TAB(S) ORALLY BID TAKING LEVOTHYROXINE SODIUM 50 MCG TABLET 1 TABLET ON AN EMPTY STOMACH IN THE MORNING ORALLY ONCE A DAY TAKING MULTIVITAMINS TABLET DIRECTED ORALLY DAILY TAKING POTASSIUM CHLORIDE 20 MEQ TABLET EXTENDED RELEASE 2 TABLETS WITH FOOD ORALLY TWICE A DAY TAKING ZOLPIDEM 10 MG TABLET 1 TAB(S) ORAL AT BEDTIME NEEDED TAKING TORSEMIDE 20 MG TABLET 1 TAB(S) ORALLY 2 IN THE MORNING/ 1 TAB IN AFTERNOON TAKING SERTRALINE HCL 100 MG TABLET 1 TABLET ORALLY ONCE A DAY TAKING SPIRONOLACTONE 25 MG TABLET 1 TABLET ORALLY BID TAKING CALCIUM 600+D3 600-400 MG-UNIT TABLET 1 TABLET WITH A MEAL ORALLY ONCE A DAY TAKING ALIGN 4 MG CAPSULE ORALLY DAILY TAKING TYLENOL ARTHRITIS PAIN 650 MG TABLET EXTENDED RELEASE 2 TABS ORALLY EVERY 8 HRS NEEDED TAKING SULFASALAZINE 500 MG TABLET DELAYED RELEASE 2 TABLET ORALLY ONCE A DAY TAKING VITAMIN D3 ULTRA STRENGTH 4 TABS ORALLY DAILY TAKING METHOTREXATE 2.5 MG TABLET 3 TABLETS ORALLY WEEKLY, NOTES: 2 WEEKS AGO TAKING INDERAL LA 80 MG CAPSULE EXTENDED RELEASE 1 CAPSULE ORALLY BEFORE BEDTIME TAKING ROPINIROLE HCL 0.5 MG TABLET 1 TABLET ORALLY TID TAKING FOLIC ACID 1 MG TABLET 1 TABLET ORALLY ONCE A DAY TAKING FINASTERIDE 5 MG TABLET 1 TABLET ORALLY ONCE A DAY TAKING GABAPENTIN 100 MG CAPSULE 1 CAPSULE ORALLY 3X DAILY TAKING FLOMAX 0.4 MG CAPSULE 2 CAPSULES ORALLY ONCE A DAY TAKING MELATONIN 10 MG TABLET DIRECTED ORALLY AT BEDTIME ONCE A DAY TAKING NUCYNTA 75 MG TABLET 1 TABLET ORALLY FOR PAIN EVERY 6 HOURS NEEDED MDD 2 TAKING NUCYNTA ER 150 MG TABLET EXTENDED RELEASE 12 HOUR 1 TABLET ORALLY EVERY 12 HRS BID MDD2 NOT-TAKING ALLOPURINOL 300 MG TABLET 1 TABLET ORALLY ONCE DAILY NOT-TAKING NUCYNTA _ TABLET 150 ORALLY TWICE DAILY NOT-TAKING LABETALOL HCL 100 MG TABLET 1 TAB IN AM ORALLY ONCE DAILY NOT-TAKING COLCHICINE 0.6 MG TABLET 1 CAPSULE ORALLY NEEDED NOT-TAKING MELATONIN 5 MG TABLET 1 TABLET IN THE EVENING ORALLY ONCE A DAY NOT-TAKING AMOXICILLIN 500 MG TABLET 1 TABLET ORALLY TID NOT-TAKING SOMA 350 MG TABLET 1 TABLET NEEDED ORALLY Q12H BID MDD2, NOTES: 11/07 2099 NOT-TAKING OXYBUTYNIN CHLORIDE ER 10 MG TABLET EXTENDED RELEASE 24 HOUR 1 TABLET ORALLY ONCE A DAY NOT-TAKING OTEZLA 30 MG TABLET 1 TABLET ORALLY DAILY NOT-TAKING LEFLUNOMIDE 10 MG TABLET 1 TABLET ORALLY ONCE A DAY NOT-TAKING TRAMADOL HCL 50 MG TABLET 1-2 TAB ORALLY Q4-6H PRN PAIN MDD6 NOT-TAKING VOLTAREN 1 % GEL APPLY TO LEFT KNEE TRANSDERMAL BID NOT-TAKING TYLENOL EXTRA STRENGTH 500 MG TABLET 1 TABLET NEEDED ORALLY EVERY 6 HRS PRN, NOTES: NEW DOSE MEDICATION LIST REVIEWED AND RECONCILED WITH THE PATIENT PAST MEDICAL HISTORY BPH URINARY RETENTION GOUT HTN EDEMA DDD/DJD; SEVERE SPINAL STENOSIS HYPOTHYROIDISM DEPRESSION/ANXIETY HYPERCHOLESTEROLEMIA HYPOKALEMIA SLEEP APNEA VERTIGO INSOMNIA CHRONIC KIDNEY DISEASE OSTEOARTHRITIS VARICOSE VEINS OSTEOARTHRITIS BROKEN LITTLE FINGER ON LEFT HAND ARTHRITIS LEFT KNEE TOOTH ISSUES LOW BACK PAIN SHINGLES HERNIATED CERVICAL DISCS TREMORS ALLERGIES SURGICAL TAPE: REMOVES TOP LAYER OF SKIN - SIDE EFFECTS PRIMIDONE: CONFUSION - SIDE EFFECTS SOCIAL HISTORY GENERAL: TOBACCO USE ARE YOU A:NONSMOKER LATEX QUESTIONNAIRE LATEX ALLERGY : HAVE YOU EVER DEVELOPED ANY TYPE OF REACTION AFTER HANDLING LATEX PRODUCTS SUCH RUBBER GLOVES, CONDOMS, DIAPHRAGMS, BALLOONS, SOCKS, OR UNDERWEAR?NO PT DOES HAVE ALLERGY TO SURGICAL TAPE LATEX ALLERGY : HAVE YOU EVER DEVELOPED ANY TYPE OF REACTION DURING OR AFTER DENTAL APPOINTMENT, VAGINAL/RECTAL EXAMINATION, SURGICAL PROCEDURE, OR ANY OTHER EXPOSURE?NO LATEX RISK : HAVE YOU EVER HAD ANY DIFFICULTY BREATHING OR HIVES AFTER EATING OR HANDLING ANY FRUITS, OR VEGETABLES; SUCH KIWI, BANANAS, STONE FRUITS, OR CHESTNUTSNO LATEX RISK : DO YOU HAVE A PREVIOUS PERSONAL HISTORY OF MORE THAN NINE SURGERIES, SPINA BIFIDA, OR REPEATED CATHERIZATIONS? NO LATEX RISK : ARE YOU FREQUENTLY EXPOSED TO LATEX PRODUCTS IN YOUR OCCUPATION?NO DATE ASKED : 10/03/2020 ALCOHOL USE: NO. ALCOHOL SCREENING DID YOU HAVE A DRINK CONTAINING ALCOHOL IN THE PAST YEAR?YES HOW OFTEN DID YOU HAVE SIX OR MORE DRINKS ON ONE OCCASION IN THE PAST YEAR?NEVER (0 POINTS) HOW MANY DRINKS DID YOU HAVE ON A TYPICAL DAY WHEN YOU WERE DRINKING IN THE PAST YEAR?1 OR 2 (0 POINTS) HOW OFTEN DID YOU HAVE A DRINK CONTAINING ALCOHOL IN THE PAST YEAR?MONTHLY OR LESS (1 POINT) POINTS1 INTERPRETATIONNEGATIVE RECREATIONAL DRUG USE DRUG USE?NO CAFFEINE CAFFEINE USE?YES HOW OFTEN AND HOW MUCH? 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 DIET: REGULAR. EXERCISE: NONE. MARITAL STATUS: . OTHERS AT HOME: SPOUSE, CHILD, CHILDREN. - PFS REFERRAL NEEDED?NO CLERGY REFERRAL NEEDED?NO PUBLIC HEALTH REFERRAL NEEDED?NO WAS THE PROVIDER NOTIFIED OF ANY PERTINENT INFO? N/A HAS THE PATIENT BEEN EDUCATED REGARDING HIS/HER PLAN OF CARE?YES HAS THE PATIENT BEEN EDUCATED REGARDING PAIN, THE RISK FOR PAIN, THE IMPORTANCE OF EFFECTIVE PAIN MANAGEMENT, AND THE PAIN ASSESSMENT PROCESS?YES ADVANCE DIRECTIVE ADVANCE DIRECTIVE DISCUSSED WITH PATIENT:YES HCP - CHARLENE REESE () REVIEW OF SYSTEMS CONSTITUTIONAL: ANY RECENT FEVER NO . CHILLS NO . WEIGHT CHANGE OF UNKNOWN REASONS NO . GASTROENTEROLOGY: NEW UNEXPLAINABLE CHANGES IN BOWEL CONTROL NO . CONSTIPATION NO . GENITOURINARY: ANY NEW CHANGE IN BLADDER CONTROL? NO . NEUROLOGY: NEW ONSET DIZZINESS OR NEUROLOGICAL CHANGES NOT MENTIONED NO . NEW NUMBNESS OR PAIN PATTERNS NOT MENTIONED AND PERTINENT TO TODAY'S VISIT NO . CARDIOLOGY: NEW CHEST PRESSURE NO . PATIENT DENIES NO . RESPIRATORY: UNEXPLAINABLE COUGH NO . NEW SHORTNESS OF BREATH NO . VITAL SIGNS WT 312.6 LBS, HT 5'9", BMI 46.16 INDEX, BP 115/66 MM HG, HR 82 /MIN, RR 18 /MIN, TEMP 98.1 F, OXYGEN SAT % 94%, SAFE IN ENV? (Y/N) YES, NA INITIALS AW [id number].DIEGO BANKS. EXAMINATION GENERAL EXAMINATION: GENERALAWAKE,ALERT ,PLEASANT . PSYCHAFFECT NORMAL . LUNGS:LUNG CARLSON ARE CLEAR TO AUSCULTATION BILATERALLY. GOOD MOVEMENT OF AIR . HEART:S1, S2 IN A REGULAR RATE AND RHYTHM. NO SIGNIFICANT MURMURS, RUBS OR GALLOPS NOTED . ASSESSMENTS OTHER CHRONIC PAIN - G89.29 (PRIMARY) SPONDYLOSIS WITHOUT MYELOPATHY OR RADICULOPATHY, LUMBAR REGION - M47.816 TREATMENT OTHER CHRONIC PAIN PAIN PROCEDURE LOGDATE OF PROCEDURE1PROCEDURE:RIGHT LUMBAR COOL RADIOFREQUENCY L4-L5,L5-Z6NWUVKV OF PRE SEDATEVALIUM 10MG, OXYCODONE 10MGRESULT:MARKED REDUCTION IN PAIN CONTINUES TODAY PROCEDURE CODES FA211 ESTABILISHED PATIENT [facility] FACILITY CHARGE DISPOSITION & COMMUNICATION FOLLOW UP 3 MONTHS (REASON: LOW BACK PAIN/MED MGMNT) ELECTRONICALLY SIGNED BY RICK VARELA ON 10/08/2020 AT 08:28 AM EDT DISCLAIMER : THIS IS A VISIT SUMMARY EXTRACTED FROM THE [employer] CHART. IT IS NOT A COPY OF THE [employer] PROGRESS NOTE. HECTOR
== END ==
LOC: M PAIN 11:15
PROVIDERS: ATTEND Nurse Practitioner Family
DX: G89.29 Other chronic pain (principal); M47.816 Spondylosis without myelopathy or radiculopathy, lumbar region; N40.1 Benign prostatic hyperplasia with lower urinary tract symptoms; R33.9 Retention of urine, unspecified; M10.9 Gout, unspecified; I12.9 Hypertensive chronic kidney disease with stage 1 through stage 4 chronic kidney disease, or unspecified chronic kidney disease; E03.9 Hypothyroidism, unspecified; F32.9 Major depressive disorder, single episode, unspecified; F41.9 Anxiety disorder, unspecified; E78.00 Pure hypercholesterolemia, unspecified; E87.6 Hypokalemia; G47.30 Sleep apnea, unspecified; R42 Dizziness and giddiness; G47.00 Insomnia, unspecified; Z79.82 Long term (current) use of aspirin; Z79.899 Other long term (current) drug therapy; Z88.8 Allergy status to other drugs, medicaments and biological substances; Z91.048 Other nonmedicinal substance allergy status

== ENCOUNTER → 2021-02-10 | Outpatient (CLI) | payer MEDICARE, OTHER ==
[~2021-02-10] MED LIST changes: -KLOR20TA42 PO; +POTA-141 PO
== END ==
LOC: M PAIN 09:30
PROVIDERS: ATTEND Anesthesiology
DX: M47.816 Spondylosis without myelopathy or radiculopathy, lumbar region (principal); M48.062 Spinal stenosis, lumbar region with neurogenic claudication; G89.29 Other chronic pain; E03.9 Hypothyroidism, unspecified; G47.30 Sleep apnea, unspecified; Z86.59 Personal history of other mental and behavioral disorders; Z88.8 Allergy status to other drugs, medicaments and biological substances; Z91.09 Other allergy status, other than to drugs and biological substances; E66.01 Morbid (severe) obesity due to excess calories; Z68.43 Body mass index [BMI] 50.0-59.9, adult; Z79.82 Long term (current) use of aspirin; Z79.891 Long term (current) use of opiate analgesic; Z79.899 Other long term (current) drug therapy

== ENCOUNTER → 2021-03-06 | Outpatient (CLI) | payer MEDICARE, OTHER | LOC: M LABSMTC 11:07 | PROVIDERS: ATTEND Anesthesiology | DX: Z11.52 Encounter for screening for COVID-19 (principal) ==

== ENCOUNTER → 2021-03-11 | Outpatient (CLI) | payer MEDICARE, OTHER ==
[~2021-03-11] MED LIST changes: +BUPIVACAINE HCL 0.25% 30ML VIAL As Ordered ONE; +ISOVUE-M 300 61% 15ML VIAL As Ordered ONE; +LIDOCAINE 1% SDV 30ML VIAL As Ordered ONE
--- NOTE | 2021-03-11 12:34 | REP ---
INDICATION: LEFT DIAGNOSTIC LUMBAR FACET BLOCK L4-L5, L5-S1 #2. COMPARISON: None. TECHNIQUE: Intraoperative fluoroscopic imaging using portable C-arm technique. FINDINGS: Images demonstrate catheter and contrast overlying lumbar facet joints. Total fluoroscopic time 16.4 seconds. IMPRESSION: Findings consistent with lumbar facet block. <Electronically signed by Cristhian Pardo > 03/11/21 [id number]
== END ==
LOC: M PAIN 11:00
PROVIDERS: ATTEND Anesthesiology
DX: M47.816 Spondylosis without myelopathy or radiculopathy, lumbar region (principal); M47.817 Spondylosis without myelopathy or radiculopathy, lumbosacral region; G47.30 Sleep apnea, unspecified; E03.9 Hypothyroidism, unspecified; Z86.59 Personal history of other mental and behavioral disorders; Z88.8 Allergy status to other drugs, medicaments and biological substances; Z91.09 Other allergy status, other than to drugs and biological substances; E66.01 Morbid (severe) obesity due to excess calories; Z68.42 Body mass index [BMI] 45.0-49.9, adult; Z79.82 Long term (current) use of aspirin; Z79.899 Other long term (current) drug therapy
CPT/HCPCS: 64493; 64494; Q9967

== ENCOUNTER → 2021-03-24 | Outpatient (CLI) | payer MEDICARE, OTHER ==
[~2021-03-24] MED LIST changes: -BUPIVACAINE HCL 0.25% 30ML VIAL As Ordered ONE; -ISOVUE-M 300 61% 15ML VIAL As Ordered ONE; -LIDOCAINE 1% SDV 30ML VIAL As Ordered ONE
== END ==
LOC: M PAIN 09:30
PROVIDERS: ATTEND Nurse Practitioner Family
DX: G89.29 Other chronic pain (principal); M47.817 Spondylosis without myelopathy or radiculopathy, lumbosacral region; M47.816 Spondylosis without myelopathy or radiculopathy, lumbar region; N40.1 Benign prostatic hyperplasia with lower urinary tract symptoms; R33.9 Retention of urine, unspecified; M10.9 Gout, unspecified; I12.9 Hypertensive chronic kidney disease with stage 1 through stage 4 chronic kidney disease, or unspecified chronic kidney disease; N18.30 Chronic kidney disease, stage 3 unspecified; E03.9 Hypothyroidism, unspecified; F32.A Depression, unspecified; F41.9 Anxiety disorder, unspecified; E78.00 Pure hypercholesterolemia, unspecified; E87.6 Hypokalemia; G47.30 Sleep apnea, unspecified; G47.00 Insomnia, unspecified; R42 Dizziness and giddiness; Z79.82 Long term (current) use of aspirin; Z79.891 Long term (current) use of opiate analgesic; Z79.899 Other long term (current) drug therapy; Z88.8 Allergy status to other drugs, medicaments and biological substances; Z91.048 Other nonmedicinal substance allergy status

== ENCOUNTER → 2021-05-07 | Outpatient (CLI) | payer MEDICARE, OTHER | LOC: M LABSMTC 10:47 | PROVIDERS: ATTEND Anesthesiology | DX: Z11.52 Encounter for screening for COVID-19 (principal) ==

== ENCOUNTER → 2021-07-02 | Outpatient (CLI) | payer MEDICARE, OTHER | LOC: M LABSMTC 11:23 | PROVIDERS: ATTEND Anesthesiology | DX: Z11.52 Encounter for screening for COVID-19 (principal) ==

== ENCOUNTER → 2021-07-07 | Outpatient (CLI) | payer MEDICARE, OTHER ==
[~2021-07-07] MED LIST changes: +BUPIVACAINE HCL 0.25% 30ML VIAL As Ordered ONE; +LIDOCAINE 1% SDV 30ML VIAL As Ordered ONE; +dexameTHASONE 10MG/1ML VIAL PRES.FREE (J1100 PER 1MG) As Ordered ONE
== END ==
LOC: M PAIN 13:00
PROVIDERS: ATTEND Anesthesiology
DX: M47.816 Spondylosis without myelopathy or radiculopathy, lumbar region (principal); M47.817 Spondylosis without myelopathy or radiculopathy, lumbosacral region; N40.1 Benign prostatic hyperplasia with lower urinary tract symptoms; R33.9 Retention of urine, unspecified; M10.9 Gout, unspecified; I12.9 Hypertensive chronic kidney disease with stage 1 through stage 4 chronic kidney disease, or unspecified chronic kidney disease; E03.9 Hypothyroidism, unspecified; F32.A Depression, unspecified; F41.9 Anxiety disorder, unspecified; E78.00 Pure hypercholesterolemia, unspecified; E87.6 Hypokalemia; G47.30 Sleep apnea, unspecified; R42 Dizziness and giddiness; G47.00 Insomnia, unspecified; N18.9 Chronic kidney disease, unspecified; M19.90 Unspecified osteoarthritis, unspecified site; I83.90 Asymptomatic varicose veins of unspecified lower extremity; Z79.82 Long term (current) use of aspirin; Z79.899 Other long term (current) drug therapy; Z88.8 Allergy status to other drugs, medicaments and biological substances; Z91.048 Other nonmedicinal substance allergy status
CPT/HCPCS: 64635; 64636; J1100

== ENCOUNTER → 2021-08-05 | Outpatient (CLI) | payer MEDICARE, OTHER ==
[~2021-08-05] MED LIST changes: -BUPIVACAINE HCL 0.25% 30ML VIAL As Ordered ONE; -LIDOCAINE 1% SDV 30ML VIAL As Ordered ONE; -dexameTHASONE 10MG/1ML VIAL PRES.FREE (J1100 PER 1MG) As Ordered ONE
== END ==
LOC: M PAIN 14:00
PROVIDERS: ATTEND Nurse Practitioner Family
DX: G89.29 Other chronic pain (principal); M47.816 Spondylosis without myelopathy or radiculopathy, lumbar region; M96.1 Postlaminectomy syndrome, not elsewhere classified; N40.1 Benign prostatic hyperplasia with lower urinary tract symptoms; R33.9 Retention of urine, unspecified; M10.9 Gout, unspecified; I12.9 Hypertensive chronic kidney disease with stage 1 through stage 4 chronic kidney disease, or unspecified chronic kidney disease; E03.9 Hypothyroidism, unspecified; F32.A Depression, unspecified; F41.9 Anxiety disorder, unspecified; E87.5 Hyperkalemia; G47.30 Sleep apnea, unspecified; G47.00 Insomnia, unspecified; N18.9 Chronic kidney disease, unspecified; I83.90 Asymptomatic varicose veins of unspecified lower extremity; M17.12 Unilateral primary osteoarthritis, left knee; Z79.82 Long term (current) use of aspirin; Z79.899 Other long term (current) drug therapy; Z88.8 Allergy status to other drugs, medicaments and biological substances; Z91.048 Other nonmedicinal substance allergy status

== ENCOUNTER → 2021-08-12 | Outpatient (CLI) | payer MEDICARE, OTHER | LOC: M PAIN 11:15 | PROVIDERS: ATTEND Nurse Practitioner Family | DX: M47.816 Spondylosis without myelopathy or radiculopathy, lumbar region (principal); M47.817 Spondylosis without myelopathy or radiculopathy, lumbosacral region; N40.1 Benign prostatic hyperplasia with lower urinary tract symptoms; R33.9 Retention of urine, unspecified; M10.9 Gout, unspecified; I12.9 Hypertensive chronic kidney disease with stage 1 through stage 4 chronic kidney disease, or unspecified chronic kidney disease; R60.0 Localized edema; E03.9 Hypothyroidism, unspecified; F32.A Depression, unspecified; F41.9 Anxiety disorder, unspecified; E78.00 Pure hypercholesterolemia, unspecified; E87.6 Hypokalemia; G47.30 Sleep apnea, unspecified; R42 Dizziness and giddiness; G47.00 Insomnia, unspecified; N18.9 Chronic kidney disease, unspecified; I83.90 Asymptomatic varicose veins of unspecified lower extremity; M19.90 Unspecified osteoarthritis, unspecified site; M54.50 Low back pain, unspecified; R25.1 Tremor, unspecified; Z79.891 Long term (current) use of opiate analgesic; Z79.82 Long term (current) use of aspirin; Z79.899 Other long term (current) drug therapy; Z88.8 Allergy status to other drugs, medicaments and biological substances; Z91.048 Other nonmedicinal substance allergy status ==

== ENCOUNTER → 2021-09-25 | Outpatient (CLI) | payer MEDICARE, OTHER | LOC: M PAIN 10:45 | PROVIDERS: ATTEND Anesthesiology | DX: M47.816 Spondylosis without myelopathy or radiculopathy, lumbar region (principal); M79.10 Myalgia, unspecified site; M96.1 Postlaminectomy syndrome, not elsewhere classified; N40.1 Benign prostatic hyperplasia with lower urinary tract symptoms; R32 Unspecified urinary incontinence; M10.9 Gout, unspecified; I12.9 Hypertensive chronic kidney disease with stage 1 through stage 4 chronic kidney disease, or unspecified chronic kidney disease; E03.9 Hypothyroidism, unspecified; F32.A Depression, unspecified; F41.9 Anxiety disorder, unspecified; E78.00 Pure hypercholesterolemia, unspecified; E87.6 Hypokalemia; G47.30 Sleep apnea, unspecified; R42 Dizziness and giddiness; G47.00 Insomnia, unspecified; N18.9 Chronic kidney disease, unspecified; I83.90 Asymptomatic varicose veins of unspecified lower extremity; Z79.891 Long term (current) use of opiate analgesic; Z79.82 Long term (current) use of aspirin; Z79.899 Other long term (current) drug therapy; Z88.8 Allergy status to other drugs, medicaments and biological substances; Z91.048 Other nonmedicinal substance allergy status ==

== ENCOUNTER → 2021-11-19 | Outpatient (CLI) | payer MEDICARE, OTHER | LOC: M LABSMTC 09:05 | PROVIDERS: ATTEND Anesthesiology | DX: Z20.822 Contact with and (suspected) exposure to COVID-19 (principal) ==

== ENCOUNTER → 2021-11-24 | Outpatient (CLI) | payer MEDICARE, OTHER ==
[~2021-11-24] MED LIST changes: +BUPIVACAINE HCL 0.25% 10ML VIAL As Ordered ONE; +BUPIVACAINE HCL 0.25% 30ML VIAL As Ordered ONE; -LABE100T4 PO; +LABE100T6 PO; +TRIAMCINOLONE ACETONIDE SUSP 40 MG/ML VIAL (J3301) As Ordered ONE; +oxyCODONE 5MG TAB As Ordered ONE
== END ==
LOC: M PAIN 10:00
PROVIDERS: ATTEND Anesthesiology
DX: M79.18 Myalgia, other site (principal); N40.1 Benign prostatic hyperplasia with lower urinary tract symptoms; R33.9 Retention of urine, unspecified; M10.9 Gout, unspecified; I12.9 Hypertensive chronic kidney disease with stage 1 through stage 4 chronic kidney disease, or unspecified chronic kidney disease; R60.9 Edema, unspecified; M48.00 Spinal stenosis, site unspecified; M19.90 Unspecified osteoarthritis, unspecified site; E03.9 Hypothyroidism, unspecified; F32.A Depression, unspecified; F41.9 Anxiety disorder, unspecified; E78.00 Pure hypercholesterolemia, unspecified; E87.5 Hyperkalemia; G47.30 Sleep apnea, unspecified; R42 Dizziness and giddiness; G47.00 Insomnia, unspecified; N18.9 Chronic kidney disease, unspecified; I83.90 Asymptomatic varicose veins of unspecified lower extremity; M54.50 Low back pain, unspecified; M50.10 Cervical disc disorder with radiculopathy, unspecified cervical region; R25.1 Tremor, unspecified; Z79.82 Long term (current) use of aspirin; Z79.890 Hormone replacement therapy; Z79.891 Long term (current) use of opiate analgesic; Z79.899 Other long term (current) drug therapy; Z88.8 Allergy status to other drugs, medicaments and biological substances; Z91.048 Other nonmedicinal substance allergy status
CPT/HCPCS: 20552; J3301

== ENCOUNTER → 2022-01-01 | Outpatient (CLI) | payer MEDICARE, OTHER ==
[~2022-01-01] MED LIST changes: -BUPIVACAINE HCL 0.25% 10ML VIAL As Ordered ONE; -BUPIVACAINE HCL 0.25% 30ML VIAL As Ordered ONE; -TRIAMCINOLONE ACETONIDE SUSP 40 MG/ML VIAL (J3301) As Ordered ONE; -oxyCODONE 5MG TAB As Ordered ONE
== END ==
LOC: M PAIN 11:15
PROVIDERS: ATTEND Nurse Practitioner Family
DX: G89.29 Other chronic pain (principal); M46.1 Sacroiliitis, not elsewhere classified; M79.18 Myalgia, other site; N40.1 Benign prostatic hyperplasia with lower urinary tract symptoms; R33.9 Retention of urine, unspecified; M10.9 Gout, unspecified; I12.9 Hypertensive chronic kidney disease with stage 1 through stage 4 chronic kidney disease, or unspecified chronic kidney disease; R60.9 Edema, unspecified; M48.00 Spinal stenosis, site unspecified; M19.90 Unspecified osteoarthritis, unspecified site; E03.9 Hypothyroidism, unspecified; F32.A Depression, unspecified; F41.9 Anxiety disorder, unspecified; E78.00 Pure hypercholesterolemia, unspecified; E87.5 Hyperkalemia; G47.30 Sleep apnea, unspecified; R42 Dizziness and giddiness; G47.00 Insomnia, unspecified; N18.9 Chronic kidney disease, unspecified; I83.90 Asymptomatic varicose veins of unspecified lower extremity; M54.50 Low back pain, unspecified; M50.10 Cervical disc disorder with radiculopathy, unspecified cervical region; R25.1 Tremor, unspecified; Z79.82 Long term (current) use of aspirin; Z79.890 Hormone replacement therapy; Z79.891 Long term (current) use of opiate analgesic; Z79.899 Other long term (current) drug therapy; Z88.8 Allergy status to other drugs, medicaments and biological substances; Z91.048 Other nonmedicinal substance allergy status

== ENCOUNTER → 2022-02-03 | Outpatient (CLI) | payer MEDICARE, OTHER | LOC: M PLAIMG 10:28 | PROVIDERS: ATTEND Nurse Practitioner Family | DX: M46.1 Sacroiliitis, not elsewhere classified (principal) ==

== ENCOUNTER → 2022-04-03 | Outpatient (CLI) | payer MEDICARE, OTHER ==
[~2022-04-03] MED LIST changes: +RA A650T5 PO; -[UNRECOGNIZED DRUG - CODE] PO
== END ==
LOC: M PAIN 09:30
PROVIDERS: ATTEND Nurse Practitioner Family
DX: M46.1 Sacroiliitis, not elsewhere classified (principal); N40.1 Benign prostatic hyperplasia with lower urinary tract symptoms; R33.9 Retention of urine, unspecified; M10.9 Gout, unspecified; I12.9 Hypertensive chronic kidney disease with stage 1 through stage 4 chronic kidney disease, or unspecified chronic kidney disease; E03.9 Hypothyroidism, unspecified; F32.A Depression, unspecified; F41.9 Anxiety disorder, unspecified; E78.00 Pure hypercholesterolemia, unspecified; E87.6 Hypokalemia; G47.30 Sleep apnea, unspecified; R42 Dizziness and giddiness; G47.00 Insomnia, unspecified; N18.9 Chronic kidney disease, unspecified; M19.90 Unspecified osteoarthritis, unspecified site; I83.90 Asymptomatic varicose veins of unspecified lower extremity; M54.50 Low back pain, unspecified; M50.30 Other cervical disc degeneration, unspecified cervical region; Z85.828 Personal history of other malignant neoplasm of skin; Z79.891 Long term (current) use of opiate analgesic; Z79.82 Long term (current) use of aspirin; Z79.890 Hormone replacement therapy; Z79.899 Other long term (current) drug therapy; Z88.8 Allergy status to other drugs, medicaments and biological substances; Z91.048 Other nonmedicinal substance allergy status

== ENCOUNTER → 2022-07-02 | Outpatient (CLI) | payer MEDICARE, OTHER | LOC: M PAIN 11:00 | PROVIDERS: ATTEND Nurse Practitioner Family | DX: M47.816 Spondylosis without myelopathy or radiculopathy, lumbar region (principal); M46.1 Sacroiliitis, not elsewhere classified; N40.1 Benign prostatic hyperplasia with lower urinary tract symptoms; R33.9 Retention of urine, unspecified; M10.9 Gout, unspecified; I12.9 Hypertensive chronic kidney disease with stage 1 through stage 4 chronic kidney disease, or unspecified chronic kidney disease; E03.9 Hypothyroidism, unspecified; F32.A Depression, unspecified; F41.9 Anxiety disorder, unspecified; E78.00 Pure hypercholesterolemia, unspecified; E87.6 Hypokalemia; G47.30 Sleep apnea, unspecified; R42 Dizziness and giddiness; G47.00 Insomnia, unspecified; N18.9 Chronic kidney disease, unspecified; M19.90 Unspecified osteoarthritis, unspecified site; I83.90 Asymptomatic varicose veins of unspecified lower extremity; M54.50 Low back pain, unspecified; M50.30 Other cervical disc degeneration, unspecified cervical region; Z85.828 Personal history of other malignant neoplasm of skin; Z79.891 Long term (current) use of opiate analgesic; Z79.82 Long term (current) use of aspirin; Z79.890 Hormone replacement therapy; Z79.899 Other long term (current) drug therapy; Z88.8 Allergy status to other drugs, medicaments and biological substances; Z91.048 Other nonmedicinal substance allergy status ==

== ENCOUNTER → 2022-08-11 | Outpatient (CLI) | payer MEDICARE, OTHER | LOC: M PAIN 10:00 | PROVIDERS: ATTEND Nurse Practitioner Family | DX: M25.561 Pain in right knee (principal); G89.29 Other chronic pain; M25.562 Pain in left knee; M47.816 Spondylosis without myelopathy or radiculopathy, lumbar region; M46.1 Sacroiliitis, not elsewhere classified; N40.1 Benign prostatic hyperplasia with lower urinary tract symptoms; R33.9 Retention of urine, unspecified; M10.9 Gout, unspecified; I12.9 Hypertensive chronic kidney disease with stage 1 through stage 4 chronic kidney disease, or unspecified chronic kidney disease; E03.9 Hypothyroidism, unspecified; F32.A Depression, unspecified; F41.9 Anxiety disorder, unspecified; E78.00 Pure hypercholesterolemia, unspecified; E87.6 Hypokalemia; G47.30 Sleep apnea, unspecified; R42 Dizziness and giddiness; G47.00 Insomnia, unspecified; N18.9 Chronic kidney disease, unspecified; M19.90 Unspecified osteoarthritis, unspecified site; I83.90 Asymptomatic varicose veins of unspecified lower extremity; M54.50 Low back pain, unspecified; M50.30 Other cervical disc degeneration, unspecified cervical region; Z85.828 Personal history of other malignant neoplasm of skin; Z79.891 Long term (current) use of opiate analgesic; Z79.82 Long term (current) use of aspirin; Z79.890 Hormone replacement therapy; Z79.899 Other long term (current) drug therapy; Z88.8 Allergy status to other drugs, medicaments and biological substances; Z91.048 Other nonmedicinal substance allergy status ==

== ENCOUNTER → 2022-08-27 | Outpatient (CLI) | payer MEDICARE, OTHER | LOC: M PAIN 14:15 | PROVIDERS: ATTEND Nurse Practitioner Family | DX: M25.551 Pain in right hip (principal); N40.1 Benign prostatic hyperplasia with lower urinary tract symptoms; R33.9 Retention of urine, unspecified; M10.9 Gout, unspecified; I12.9 Hypertensive chronic kidney disease with stage 1 through stage 4 chronic kidney disease, or unspecified chronic kidney disease; E03.9 Hypothyroidism, unspecified; F32.A Depression, unspecified; F41.9 Anxiety disorder, unspecified; E78.00 Pure hypercholesterolemia, unspecified; E87.6 Hypokalemia; G47.30 Sleep apnea, unspecified; R42 Dizziness and giddiness; N18.9 Chronic kidney disease, unspecified; Z79.890 Hormone replacement therapy; Z79.82 Long term (current) use of aspirin; Z79.891 Long term (current) use of opiate analgesic; Z79.899 Other long term (current) drug therapy; Z88.8 Allergy status to other drugs, medicaments and biological substances; Z91.048 Other nonmedicinal substance allergy status ==

== ENCOUNTER → 2022-09-22 | Outpatient (CLI) | payer MEDICARE, OTHER | LOC: M PAIN 10:30 | PROVIDERS: ATTEND Nurse Practitioner Family | DX: M25.561 Pain in right knee (principal); G89.29 Other chronic pain; N40.1 Benign prostatic hyperplasia with lower urinary tract symptoms; R33.9 Retention of urine, unspecified; M10.9 Gout, unspecified; I12.9 Hypertensive chronic kidney disease with stage 1 through stage 4 chronic kidney disease, or unspecified chronic kidney disease; E03.9 Hypothyroidism, unspecified; F32.A Depression, unspecified; F41.9 Anxiety disorder, unspecified; E78.00 Pure hypercholesterolemia, unspecified; E87.5 Hyperkalemia; G47.00 Insomnia, unspecified; N18.9 Chronic kidney disease, unspecified; I83.90 Asymptomatic varicose veins of unspecified lower extremity; M17.12 Unilateral primary osteoarthritis, left knee; M54.50 Low back pain, unspecified; Z79.891 Long term (current) use of opiate analgesic; Z79.82 Long term (current) use of aspirin; Z79.899 Other long term (current) drug therapy; Z88.8 Allergy status to other drugs, medicaments and biological substances; Z91.048 Other nonmedicinal substance allergy status ==

== ENCOUNTER → 2022-11-23 | Outpatient (CLI) | payer MEDICARE, OTHER | LOC: M PAIN 10:00 | PROVIDERS: ATTEND Anesthesiology | DX: M25.551 Pain in right hip (principal); M47.817 Spondylosis without myelopathy or radiculopathy, lumbosacral region; G89.29 Other chronic pain; N18.30 Chronic kidney disease, stage 3 unspecified; I12.9 Hypertensive chronic kidney disease with stage 1 through stage 4 chronic kidney disease, or unspecified chronic kidney disease; N40.1 Benign prostatic hyperplasia with lower urinary tract symptoms; R33.9 Retention of urine, unspecified; M10.9 Gout, unspecified; E03.9 Hypothyroidism, unspecified; F32.A Depression, unspecified; F41.9 Anxiety disorder, unspecified; E78.00 Pure hypercholesterolemia, unspecified; E87.6 Hypokalemia; G47.30 Sleep apnea, unspecified; R42 Dizziness and giddiness; G47.00 Insomnia, unspecified; M17.12 Unilateral primary osteoarthritis, left knee; M50.20 Other cervical disc displacement, unspecified cervical region; M54.50 Low back pain, unspecified; Z79.82 Long term (current) use of aspirin; Z79.891 Long term (current) use of opiate analgesic; Z79.899 Other long term (current) drug therapy; Z88.8 Allergy status to other drugs, medicaments and biological substances; Z91.048 Other nonmedicinal substance allergy status ==

== ENCOUNTER → 2022-11-26 | Outpatient (CLI) | payer MEDICARE, OTHER | LOC: M SLEEP 19:53 | PROVIDERS: ATTEND Nurse Practitioner Adult Health | DX: G47.33 Obstructive sleep apnea (adult) (pediatric) (principal); R09.02 Hypoxemia; I50.30 Unspecified diastolic (congestive) heart failure ==

== ENCOUNTER → 2022-11-30 | Outpatient (CLI) | payer MEDICARE, OTHER | LOC: M PAIN 11:30 | PROVIDERS: ATTEND Nurse Practitioner Family | DX: Z79.891 Long term (current) use of opiate analgesic (principal) ==

== ENCOUNTER → 2023-01-14 | Outpatient (CLI) | payer MEDICARE, OTHER | LOC: M PAIN 11:30 | PROVIDERS: ATTEND Nurse Practitioner Family | DX: M25.551 Pain in right hip (principal); G89.29 Other chronic pain; M25.561 Pain in right knee; M25.562 Pain in left knee; M46.1 Sacroiliitis, not elsewhere classified; N40.1 Benign prostatic hyperplasia with lower urinary tract symptoms; R33.9 Retention of urine, unspecified; M10.9 Gout, unspecified; I10 Essential (primary) hypertension; E03.9 Hypothyroidism, unspecified; F32.A Depression, unspecified; F41.9 Anxiety disorder, unspecified; E78.00 Pure hypercholesterolemia, unspecified; E87.6 Hypokalemia; G47.30 Sleep apnea, unspecified; M17.12 Unilateral primary osteoarthritis, left knee; Z79.82 Long term (current) use of aspirin; Z79.891 Long term (current) use of opiate analgesic; Z79.899 Other long term (current) drug therapy; Z88.8 Allergy status to other drugs, medicaments and biological substances; Z91.048 Other nonmedicinal substance allergy status ==

== ENCOUNTER → 2023-03-30 | Outpatient (CLI) | payer OTHER ==
[~2023-03-30] MED LIST changes: +ISOVUE-300 61% 100ML VIAL As Ordered ONE; +LIDOCAINE 1% MDV 20ML VIAL As Ordered ONE; +TRIAMCINOLONE ACETONIDE SUSP 40MG/ML 1ML VIAL As Ordered ONE
== END ==
LOC: M RAD 12:51
PROVIDERS: ATTEND Physician Assistant
DX: M25.551 Pain in right hip (principal)
CPT/HCPCS: 20610; 77002; J3301; Q9967

== ENCOUNTER → 2023-04-13 | Outpatient (CLI) | payer OTHER ==
[~2023-04-13] MED LIST changes: -ISOVUE-300 61% 100ML VIAL As Ordered ONE; -LIDOCAINE 1% MDV 20ML VIAL As Ordered ONE; -TRIAMCINOLONE ACETONIDE SUSP 40MG/ML 1ML VIAL As Ordered ONE
== END ==
LOC: M PAIN 14:45
PROVIDERS: ATTEND Nurse Practitioner Family
DX: M25.551 Pain in right hip (principal); G89.29 Other chronic pain; M54.50 Low back pain, unspecified; Z79.82 Long term (current) use of aspirin; Z79.891 Long term (current) use of opiate analgesic; Z79.899 Other long term (current) drug therapy; Z88.8 Allergy status to other drugs, medicaments and biological substances; Z91.048 Other nonmedicinal substance allergy status

== ENCOUNTER → 2023-06-21 | Outpatient (CLI) | payer MEDICARE, OTHER ==
[~2023-06-21] MED LIST changes: +ISOVUE-300 61% 100ML VIAL As Ordered ONE; -LEFL1TAB4 PO; +LEFL20TA15 PO; +LIDOCAINE 1% MDV 20ML VIAL As Ordered ONE; +TRIAMCINOLONE ACETONIDE SUSP 40MG/ML 1ML VIAL As Ordered ONE
== END ==
LOC: M RAD 13:53
PROVIDERS: ATTEND Physician Assistant
DX: M16.0 Bilateral primary osteoarthritis of hip (principal)
CPT/HCPCS: 20610; 77002; J3301; Q9967

== ENCOUNTER → 2023-07-13 | Outpatient (CLI) | payer OTHER ==
[~2023-07-13] MED LIST changes: -ISOVUE-300 61% 100ML VIAL As Ordered ONE; -LIDOCAINE 1% MDV 20ML VIAL As Ordered ONE; -TRIAMCINOLONE ACETONIDE SUSP 40MG/ML 1ML VIAL As Ordered ONE
== END ==
LOC: M PAIN 17:00
PROVIDERS: ATTEND Nurse Practitioner Family
DX: M25.551 Pain in right hip (principal); Z79.891 Long term (current) use of opiate analgesic; G89.29 Other chronic pain; I10 Essential (primary) hypertension; Z79.02 Long term (current) use of antithrombotics/antiplatelets; Z79.82 Long term (current) use of aspirin; Z79.890 Hormone replacement therapy; Z79.899 Other long term (current) drug therapy

== ENCOUNTER → 2023-08-24 | Outpatient (CLI) | payer MEDICARE, OTHER ==
[~2023-08-24] MED LIST changes: +ISOVUE-300 61% 100ML VIAL As Ordered ONE; +LIDOCAINE 1% MDV 20ML VIAL As Ordered ONE; +TRIAMCINOLONE ACETONIDE SUSP 40MG/ML 1ML VIAL As Ordered ONE
== END ==
LOC: M RAD 14:16
PROVIDERS: ATTEND Physician Assistant
DX: M16.11 Unilateral primary osteoarthritis, right hip (principal)
CPT/HCPCS: 20610; 77002; J3301; Q9967

== ENCOUNTER → 2023-10-12 | Outpatient (CLI) | payer OTHER ==
[~2023-10-12] MED LIST changes: -ISOVUE-300 61% 100ML VIAL As Ordered ONE; -LIDOCAINE 1% MDV 20ML VIAL As Ordered ONE; -TRIAMCINOLONE ACETONIDE SUSP 40MG/ML 1ML VIAL As Ordered ONE
== END ==
LOC: M PAIN 09:45
PROVIDERS: ATTEND Nurse Practitioner Family
DX: M51.16 Intervertebral disc disorders with radiculopathy, lumbar region (principal); M46.1 Sacroiliitis, not elsewhere classified; M47.816 Spondylosis without myelopathy or radiculopathy, lumbar region; I10 Essential (primary) hypertension; E03.9 Hypothyroidism, unspecified; G47.30 Sleep apnea, unspecified; Z79.02 Long term (current) use of antithrombotics/antiplatelets; Z79.1 Long term (current) use of non-steroidal anti-inflammatories (NSAID); Z79.890 Hormone replacement therapy; Z79.891 Long term (current) use of opiate analgesic; Z79.899 Other long term (current) drug therapy; Z88.8 Allergy status to other drugs, medicaments and biological substances; Z91.048 Other nonmedicinal substance allergy status

== ENCOUNTER 2023-12-13 09:40 | Day surgery (SDC) | payer MEDICARE, OTHER ==
[~2023-12-13] VITALS: Ht 175.3 cm; Wt 154.3 kg
[~2023-12-13 09:40] MED LIST changes: +ATOR40TA75 PO; +CEFUROXIME 1MG/0.1ML INTRACAMERAL INJ As Ordered ONE; +CETI-24 PO; +DULO1CAP5 PO; +ECOT81TA5 PO; +FOLI1TAB11 PO; +HYDR-3716 PO; +LEVO2TA PO; +LIDOCAINE 1% SDV 5ML VIAL As Ordered ONE; +LR 1,000 ML IV SCH; +MIDAZOLAM INJ 2MG/2ML VIAL As Ordered ONE; +PRES1CHW PO; +ROPI1TAB73 PO; +STEL90IN SC; +SULF500T41 PO; +TRAZ-257 PO; +VIBE75TA PO; +VITA100093 PO; +fentaNYL 100 MCG/2 ML INJECTION As Ordered ONE
[2023-12-13] MEDS: FLURBIPROFEN 0.03% OPHTH SOLN 2.5 ML OS SCH (10:05)
[2023-12-13] MEDS: PHENYLEPHRINE 2.5% OPHTH SOL 2ML OS SCH (10:05)
[2023-12-13] MEDS: ATROPINE SULFATE 1% OPHTH SOLN 2ML BTL OS SCH (10:05)
[2023-12-13] MEDS: TETRACAINE 0.5% OPHTH SOLN 4ML OS SCH (10:06)
[2023-12-13 11:36] VITALS: BP 121/67; TEMP 97.9; O2SAT 93
== END 2023-12-13 12:02 | disposition home or self-care (01) ==
LOC: M SDC 09:40
PROVIDERS: ATTEND Ophthalmology
DX: H25.89 Other age-related cataract (principal); H21.81 Floppy iris syndrome; G47.30 Sleep apnea, unspecified; I12.9 Hypertensive chronic kidney disease with stage 1 through stage 4 chronic kidney disease, or unspecified chronic kidney disease; E78.00 Pure hypercholesterolemia, unspecified; M10.9 Gout, unspecified; E03.9 Hypothyroidism, unspecified; R60.0 Localized edema; M19.90 Unspecified osteoarthritis, unspecified site; M54.9 Dorsalgia, unspecified; F41.9 Anxiety disorder, unspecified; F32.A Depression, unspecified; N18.30 Chronic kidney disease, stage 3 unspecified; N40.0 Benign prostatic hyperplasia without lower urinary tract symptoms; Z87.891 Personal history of nicotine dependence; Z91.048 Other nonmedicinal substance allergy status; Z88.8 Allergy status to other drugs, medicaments and biological substances; Z79.899 Other long term (current) drug therapy; Z79.82 Long term (current) use of aspirin; Z79.891 Long term (current) use of opiate analgesic; Z79.890 Hormone replacement therapy
CPT/HCPCS: 66982; J0697; J2250; J3010; V2632

== ENCOUNTER 2023-12-20 09:44 | Day surgery (SDC) | payer MEDICARE, OTHER ==
[~2023-12-20] VITALS: Ht 175.3 cm; Wt 153.1 kg
[~2023-12-20 09:44] MED LIST changes: -CEFUROXIME 1MG/0.1ML INTRACAMERAL INJ As Ordered ONE; -LIDOCAINE 1% SDV 5ML VIAL As Ordered ONE; -fentaNYL 100 MCG/2 ML INJECTION As Ordered ONE
[2023-12-20] MEDS: PHENYLEPHRINE 2.5% OPHTH SOL 2ML OD SCH (10:24)
[2023-12-20] MEDS: FLURBIPROFEN 0.03% OPHTH SOLN 2.5 ML OD SCH (10:24)
[2023-12-20] MEDS: TETRACAINE 0.5% OPHTH SOLN 4ML OD SCH (10:24)
[2023-12-20] MEDS: ATROPINE SULFATE 1% OPHTH SOLN 2ML BTL OD SCH (10:24)
[2023-12-20] MEDS: LIDOCAINE 1% SDV 5ML VIAL As Ordered ONE (12:04)
[2023-12-20] MEDS: CEFUROXIME 1MG/0.1ML INTRACAMERAL INJ As Ordered ONE (12:11)
[2023-12-20 12:20] VITALS: BP 117/64; TEMP 96.9; O2SAT 93
== END 2023-12-20 12:55 | disposition home or self-care (01) ==
LOC: M SDC 09:44
PROVIDERS: ATTEND Ophthalmology
DX: H25.11 Age-related nuclear cataract, right eye (principal); I12.9 Hypertensive chronic kidney disease with stage 1 through stage 4 chronic kidney disease, or unspecified chronic kidney disease; N18.30 Chronic kidney disease, stage 3 unspecified; E03.9 Hypothyroidism, unspecified; E78.00 Pure hypercholesterolemia, unspecified; N40.0 Benign prostatic hyperplasia without lower urinary tract symptoms; M10.9 Gout, unspecified; G47.30 Sleep apnea, unspecified; Z79.899 Other long term (current) drug therapy; Z79.82 Long term (current) use of aspirin; Z79.890 Hormone replacement therapy; Z90.49 Acquired absence of other specified parts of digestive tract; Z90.89 Acquired absence of other organs; Z87.891 Personal history of nicotine dependence; Z88.8 Allergy status to other drugs, medicaments and biological substances
CPT/HCPCS: 66984; J0697; J2250; V2632

== ENCOUNTER → 2023-12-22 | Outpatient (CLI) | payer MEDICARE, OTHER ==
[~2023-12-22] MED LIST changes: +ISOVUE-300 61% 100ML VIAL As Ordered ONE; +LIDOCAINE 1% MDV 20ML VIAL As Ordered ONE; -LR 1,000 ML IV SCH; -MIDAZOLAM INJ 2MG/2ML VIAL As Ordered ONE; +TRIAMCINOLONE ACETONIDE SUSP 40MG/ML 1ML VIAL As Ordered ONE
== END ==
LOC: M RAD 14:26
PROVIDERS: ATTEND Physician Assistant
DX: M16.0 Bilateral primary osteoarthritis of hip (principal)
CPT/HCPCS: 20610; 77002; J3301; Q9967

== ENCOUNTER → 2024-01-31 | Outpatient (CLI) | payer OTHER ==
[~2024-01-31] MED LIST changes: -ISOVUE-300 61% 100ML VIAL As Ordered ONE; -LIDOCAINE 1% MDV 20ML VIAL As Ordered ONE; -TRIAMCINOLONE ACETONIDE SUSP 40MG/ML 1ML VIAL As Ordered ONE
== END ==
LOC: M PAIN 14:45
PROVIDERS: ATTEND Nurse Practitioner Family
DX: M51.16 Intervertebral disc disorders with radiculopathy, lumbar region (principal); Z79.891 Long term (current) use of opiate analgesic; M46.1 Sacroiliitis, not elsewhere classified; M47.816 Spondylosis without myelopathy or radiculopathy, lumbar region; G89.29 Other chronic pain; N40.1 Benign prostatic hyperplasia with lower urinary tract symptoms; R33.9 Retention of urine, unspecified; M10.9 Gout, unspecified; I12.9 Hypertensive chronic kidney disease with stage 1 through stage 4 chronic kidney disease, or unspecified chronic kidney disease; E03.9 Hypothyroidism, unspecified; F32.A Depression, unspecified; F41.9 Anxiety disorder, unspecified; E87.6 Hypokalemia; E78.00 Pure hypercholesterolemia, unspecified; G47.30 Sleep apnea, unspecified; N18.9 Chronic kidney disease, unspecified; M17.12 Unilateral primary osteoarthritis, left knee; Z79.82 Long term (current) use of aspirin; Z79.890 Hormone replacement therapy; Z79.899 Other long term (current) drug therapy; Z88.8 Allergy status to other drugs, medicaments and biological substances; Z91.048 Other nonmedicinal substance allergy status

== ENCOUNTER → 2024-05-02 | Outpatient (CLI) | payer MEDICARE, OTHER ==
[~2024-05-02] MED LIST changes: -ALIG4CAP PO; +ALIG4CAP3 PO
== END ==
LOC: M PAIN 11:30
PROVIDERS: ATTEND Nurse Practitioner Family
DX: M51.16 Intervertebral disc disorders with radiculopathy, lumbar region (principal); Z79.891 Long term (current) use of opiate analgesic; M46.1 Sacroiliitis, not elsewhere classified; M47.816 Spondylosis without myelopathy or radiculopathy, lumbar region; G89.29 Other chronic pain; N40.1 Benign prostatic hyperplasia with lower urinary tract symptoms; R33.9 Retention of urine, unspecified; M10.9 Gout, unspecified; I12.9 Hypertensive chronic kidney disease with stage 1 through stage 4 chronic kidney disease, or unspecified chronic kidney disease; E03.9 Hypothyroidism, unspecified; F32.A Depression, unspecified; F41.9 Anxiety disorder, unspecified; E78.00 Pure hypercholesterolemia, unspecified; E87.6 Hypokalemia; N18.9 Chronic kidney disease, unspecified; Z79.890 Hormone replacement therapy; Z79.899 Other long term (current) drug therapy; Z79.82 Long term (current) use of aspirin; Z88.8 Allergy status to other drugs, medicaments and biological substances; Z91.048 Other nonmedicinal substance allergy status

== ENCOUNTER → 2024-05-05 | Outpatient (CLI) | payer MEDICARE, OTHER ==
[~2024-05-05] MED LIST changes: +ISOVUE-300 61% 100ML VIAL As Ordered ONE; +LIDOCAINE 1% MDV 20ML VIAL As Ordered ONE; +TRIAMCINOLONE ACETONIDE SUSP 40MG/ML 1ML VIAL As Ordered ONE
== END ==
LOC: M RAD 12:36
PROVIDERS: ATTEND Physician Assistant
DX: M16.11 Unilateral primary osteoarthritis, right hip (principal)
CPT/HCPCS: 20610; 77002; J3301; Q9967

== ENCOUNTER → 2024-07-17 | Outpatient (REF) | payer MEDICARE, OTHER ==
[~2024-07-17] MED LIST changes: -ISOVUE-300 61% 100ML VIAL As Ordered ONE; -LIDOCAINE 1% MDV 20ML VIAL As Ordered ONE; -TRIAMCINOLONE ACETONIDE SUSP 40MG/ML 1ML VIAL As Ordered ONE
[2024-07-17 17:05] LABS: APPEARANCE, URINE CLEAR (CLEAR); BACTERIA, URINE AUTO NEGATIVE (NEGATIVE); BILIRUBIN, URINE AUTO NEGATIVE (NEGATIVE); BLOOD, URINE BLOOD NEGATIVE (NEGATIVE); COLOR, URINE STRAW (YELLOW); GLUCOSE, URINE (UA) AUTO NEGATIVE (NEGATIVE); KETONE, URINE AUTO NEGATIVE (NEGATIVE); LEUKOCYTE ESTERASE, URINE AUTO NEGATIVE (NEGATIVE); MUCUS, URINE SMALL (NEGATIVE); NITRITE, URINE AUTO NEGATIVE (NEGATIVE); PROTEIN, URINE AUTO NEGATIVE (NEGATIVE); RBC, URINE AUTO 0 /HPF (0-3); SPECIFIC GRAVITY URINE AUTO 1.006 (1.002-1.035); SQUAMOUS EPITHELIAL CELL UR AU 0 /HPF (0-6); UROBILINOGEN, URINE AUTO 0.2 mg/dL (0.0-2.0); WBC, URINE AUTO 0 /HPF (0-3)
== END ==
LOC: M SMT 16:50
PROVIDERS: ATTEND Physician Assistant
DX: Z87.898 Personal history of other specified conditions (principal)

== ENCOUNTER → 2024-08-30 | Outpatient (CLI) | payer MEDICARE, OTHER ==
[~2024-08-30] MED LIST changes: -AMBI5TAB PO; -FLOM0.4C39 PO; +ISOVUE-300 61% 100ML VIAL As Ordered ONE; +LIDOCAINE 1% MDV 20ML VIAL As Ordered ONE; +TAMS-18 PO; +TRIAMCINOLONE ACETONIDE SUSP 40MG/ML 1ML VIAL As Ordered ONE; +ZOLP-532 PO
== END ==
LOC: M RAD 15:03
PROVIDERS: ATTEND Physician Assistant
DX: M16.11 Unilateral primary osteoarthritis, right hip (principal)
CPT/HCPCS: 20610; 77002; J3301; Q9967

== ENCOUNTER → 2024-11-30 | Outpatient (CLI) | payer MEDICARE, OTHER ==
[~2024-11-30] MED LIST changes: +ISOVUE-300 61% 100 ML VIAL As Ordered ONE; -ISOVUE-300 61% 100ML VIAL As Ordered ONE; +LIDOCAINE 1% MDV 20 ML VIAL As Ordered ONE; -LIDOCAINE 1% MDV 20ML VIAL As Ordered ONE
== END ==
LOC: M RAD 13:28
PROVIDERS: ATTEND Physician Assistant
DX: M16.11 Unilateral primary osteoarthritis, right hip (principal)
CPT/HCPCS: 20610; 77002; J3301; Q9967

== ENCOUNTER → 2025-02-19 | Outpatient (CLI) | payer MEDICARE, OTHER ==
[~2025-02-19] MED LIST changes: -ISOVUE-300 61% 100 ML VIAL As Ordered ONE; -LIDOCAINE 1% MDV 20 ML VIAL As Ordered ONE; -TRIAMCINOLONE ACETONIDE SUSP 40MG/ML 1ML VIAL As Ordered ONE
== END ==
LOC: M PLALAB 11:33
PROVIDERS: ATTEND Nurse Practitioner Family
DX: Z51.81 Encounter for therapeutic drug level monitoring (principal); Z79.891 Long term (current) use of opiate analgesic
CPT/HCPCS: 36415; 80307; G0480

== ENCOUNTER → 2025-03-06 | Outpatient (CLI) | payer MEDICARE, OTHER ==
[~2025-03-06] MED LIST changes: +ISOVUE-300 61% 100 ML VIAL As Ordered ONE; +LIDOCAINE 1% MDV 20 ML VIAL As Ordered ONE; +TRIAMCINOLONE ACETONIDE SUSP 40MG/ML 1ML VIAL As Ordered ONE
== END ==
LOC: M RAD 15:01
PROVIDERS: ATTEND Physician Assistant
DX: M16.11 Unilateral primary osteoarthritis, right hip (principal)
CPT/HCPCS: 20610; 77002; J3301; Q9967